=== PATIENT | female | born 1940 | race Caucasian/White ===

== ENCOUNTER 2020-03-19 08:26 | Emergency (ER) | payer MEDICARE, SELFPAY ==
[2020-03-19 08:31] VITALS: BP 127/49; PULSE 62; RESP 22; TEMP 36.6; O2SAT 99
--- NOTE | 2020-03-19 08:59 | ED.GENADULT ---
HPI - General Adult General Chief complaint: Skin/Abscess/Foreign Body Stated complaint: wasp sting on left arm and right hand Time Seen by Provider: 03/19/20 09:00 Source: patient Mode of arrival: ambulatory Limitations: no limitations History of Present Illness HPI narrative: 79-year-old female patient presents to the [facility] with complaints of wound was seen to the left arm as well as the right wrist area. Patient states that she was stung 3 times by a wasp on Saturday this week. Patient states she is tried Tylenol, hydrocortisone cream and washing it states that she noticed that the swelling and redness is getting worse on the left arm. Denies any fevers, body aches or chills. Related Data Home Medications Medication Instructions Recorded Confirmed atorvastatin 10 mg tablet 10 mg PO DAILY 08/26/19 03/19/20 benralizumab 30 mg/mL subcutaneous 30 mg SUB-Q ONCE 08/26/19 03/19/20 syringe calcium carbonate 500 mg calcium 500 mg PO DAILY 08/26/19 03/19/20 (1,250 mg) chewable tablet esomeprazole magnesium 40 mg 40 mg PO DAILY 08/26/19 03/19/20 capsule,delayed release fluticasone furoate 100 1 inhalation INHALATION DAILY 08/26/19 03/19/20 mcg-vilanterol 25 mcg/dose inhalation powder ipratropium bromide 0.03 % nasal 2 spray NASAL BID 08/26/19 03/19/20 spray lactobacillus combination no.4 3 3,000 mmu cells PO DAILY 08/26/19 03/19/20 billion cell capsule loratadine 10 mg tablet 10 mg PO DAILY 08/26/19 03/19/20 mecobalamin (vitamin B12) 5,000 5,000 mcg PO DAILY 08/26/19 03/19/20 mcg disintegrating tablet multivitamin 1 tablet PO DAILY 08/26/19 03/19/20 prednisone 1.5 mg PO DAILY 03/19/20 03/19/20 prednisone 5 mg PO DAILY 03/19/20 03/19/20 Allergies Allergy/AdvReac Type Severity Reaction Status Date / Time No Known Allergies Allergy Verified 08/26/19 09:37 Review of Systems Review of Systems: Narrative: CONSTITUTIONAL: Denies fever, chills, or sweats. EYES: Denies visual changes, redness, or discharge. ENT: Denies rhinorrhea, congestion, sore throat, or otalgia. CARDIOVASCULAR: Denies chest pain, palpitations, or edema. RESPIRATORY: Denies cough or dyspnea. GASTROINTESTINAL: Denies abdominal pain, nausea, vomiting, or diarrhea. GENITOURINARY: Denies dysuria or hematuria. SKIN: Denies rash or itching. Positive redness and swelling to the left arm x3 days MUSCULOSKELETAL: Denies back pain, joint pain, or myalgia. NEUROLOGIC: Denies headache, numbness, or weakness. PSYCHIATRIC: Denies anxiety or depression. [facility] Past Medical History Medical History (Updated 03/19/20 @ 09:12 by CARLOS Cancino) Acid reflux Asthma COPD (chronic obstructive pulmonary disease) Heart attack High cholesterol Surgical History Surgical History (Updated 03/19/20 @ 09:06 by CARLOS Cancino) H/O cardiac catheterization History of tonsillectomy Family History Family History Father Cerebrovascular accident Social History Social History Smoking status: Never smoker Alcohol intake: current Substance use: never Comments At the time of my signature I agree with nursing past medical history, surgical, social, and family history. There is no relevant family history pertinent to the presenting complaint. Exam Narrative: Exam Narrative: GENERAL: Well-appearing, well-nourished, and in no acute distress. HEAD: Normocephalic, atraumatic. EYES: PERRLA and EOMI. ENT: Nares clear, no rhinorrhea or epistaxis. Mucous membranes moist. NECK: Supple. No lymphadenopathy CHEST: Clear to auscultation. No respiratory distress. HEART: Regular rate and rhythm. No murmur heard. Normal peripheral pulses. ABDOMEN: Soft, nontender, nondistended, normal active bowel sounds. EXTREMITIES: Normal range of motion. No edema. SKIN: Warm, dry, no rash. Patient has redness to the left proximal forearm. It is slightly
== END 2020-03-19 09:18 | disposition home or self-care (01) ==
PROVIDERS: Emergency Provider Nurse Practitioner Family; PCP Internal Medicine Geriatric Medicine
DX: L03.114 Cellulitis of left upper limb (principal); K21.9 Gastro-esophageal reflux disease without esophagitis; J44.9 Chronic obstructive pulmonary disease, unspecified; I25.2 Old myocardial infarction; E78.00 Pure hypercholesterolemia, unspecified
CPT/HCPCS: 99213; G0463

== ENCOUNTER 2021-05-04 08:09 | Emergency (ER) | payer MEDICARE, SELFPAY ==
--- NOTE | 2021-05-04 08:12 | ED.UPPEXIN ---
HPI - Extremity Injury (Upper) General Chief Complaint: Skin/Abscess/Foreign Body Stated Complaint: Red and swollen left Hand Time Seen by Provider: 05/04/21 08:13 Source: patient and RN notes reviewed History of Present Illness HPI narrative: Patient is a 80-year-old female who presents the urgent care with complaints of left hand redness and swelling. Patient states that she woke up Saturday morning with increased redness and swelling after attempting to pop a pimple on Saturday evening. Patient denies of any fever, nausea, vomiting. Denies of any use of [id number] medication for her pain or to clean the area. States it is more red and swollen this morning than it was last night. No other acute complaints. No acute distress noted. Patient aware of the plan of care. Some parts of this dictation were generated by voice recognition software and may contain typographical and/or grammatical inaccuracies. Related Data Home Medications Medication Instructions Recorded Confirmed atorvastatin 10 mg tablet 10 mg PO DAILY 08/26/19 03/19/20 benralizumab 30 mg/mL subcutaneous 30 mg SUB-Q ONCE 08/26/19 03/19/20 syringe calcium carbonate 500 mg calcium 500 mg PO DAILY 08/26/19 03/19/20 (1,250 mg) chewable tablet esomeprazole magnesium 40 mg 40 mg PO DAILY 08/26/19 03/19/20 capsule,delayed release fluticasone furoate 100 1 inhalation INHALATION DAILY 08/26/19 03/19/20 mcg-vilanterol 25 mcg/dose inhalation powder ipratropium bromide 21 mcg (0.03 2 spray NASAL BID 08/26/19 03/19/20 %) nasal spray lactobacillus combination no.4 3 3,000 mmu cells PO DAILY 08/26/19 03/19/20 billion cell capsule loratadine 10 mg tablet 10 mg PO DAILY 08/26/19 03/19/20 mecobalamin (vitamin B12) 5,000 5,000 mcg PO DAILY 08/26/19 03/19/20 mcg disintegrating tablet multivitamin 1 tablet PO DAILY 08/26/19 03/19/20 prednisone 1.5 mg PO DAILY 03/19/20 03/19/20 prednisone 5 mg PO DAILY 03/19/20 03/19/20 Allergies Allergy/AdvReac Type Severity Reaction Status Date / Time No Known Allergies Allergy Verified 05/04/21 08:22 Review of Systems Review of Systems: CONSTITUTIONAL: Denies fever, chills, or sweats. EYES: Denies visual changes, redness, or discharge. ENT: Denies rhinorrhea, congestion, sore throat, or otalgia. CARDIOVASCULAR: Denies chest pain, palpitations, or edema. RESPIRATORY: Denies cough or dyspnea. GASTROINTESTINAL: Denies abdominal pain, nausea, vomiting, or diarrhea. GENITOURINARY: Denies dysuria or hematuria. SKIN: Reports of redness and swelling to the wound of the left hand MUSCULOSKELETAL: Denies back pain, joint pain, or myalgia. NEUROLOGIC: Denies headache, numbness, or weakness. All other systems reviewed are negative, except as documented in HPI. [facility] Past Medical History Medical History (Updated 05/04/21 @ 08:25 by CARLOS Ngo) Acid reflux Asthma COPD (chronic obstructive pulmonary disease) Heart attack High cholesterol Surgical History Surgical History (Updated 03/19/20 @ 09:06 by CARLOS Cancino) H/O cardiac catheterization History of tonsillectomy Family History Family History Father Cerebrovascular accident Social History Social History Smoking status: Never smoker Alcohol intake: current Substance use: never Comments At the time of my signature, I reviewed and agree with the nursing past medical, surgical, social, and family history. There is no relevant family history pertinent to the patient complaint. Exam Narrative: GENERAL: This is a well-nourished, well-developed patient, in no apparent distress. HEAD: normocephalic, atraumatic. EYES: PERRL. Sclera clear/white. Vision is grossly intact. EARS: External ears normal NOSE: External nose normal with no obvious nasal discharge, nares without redness, no rhinorrhea. THROAT: Mucous membranes moist
[2021-05-04 08:16] VITALS: BP 122/43; PULSE 60; RESP 20; TEMP 36.4; O2SAT 99
== END 2021-05-04 08:30 | disposition home or self-care (01) ==
PROVIDERS: Emergency Provider Nurse Practitioner Family; PCP Internal Medicine Geriatric Medicine
DX: L03.114 Cellulitis of left upper limb (principal); K21.9 Gastro-esophageal reflux disease without esophagitis; J44.9 Chronic obstructive pulmonary disease, unspecified; E78.00 Pure hypercholesterolemia, unspecified; I25.2 Old myocardial infarction
CPT/HCPCS: 99213; G0463

== ENCOUNTER 2021-06-23 10:38 | Emergency (ER) | payer MEDICARE, SELFPAY ==
[2021-06-23 10:45] VITALS: BP 129/55; PULSE 64; RESP 14; TEMP 36.6; O2SAT 99
--- NOTE | 2021-06-23 11:15 | ED.URI ---
HPI - URI/Sore Throat General Chief Complaint: Upper Respiratory Infection Stated Complaint: Sore Throat/Congestion Time Seen by Provider: 06/23/21 11:02 Source: patient and RN notes reviewed Mode of arrival: ambulatory Limitations: no limitations History of Present Illness HPI Narrative: Patient presents today complaining of a 2-week history of sore throat, postnasal drip, right-sided nasal congestion and pressure, rhinorrhea. She has been taking Tylenol without relief. Denies any additional symptoms. MD elicited complaint: sore throat, rhinorrhea, nasal congestion and sinus pain Related Data Home Medications Medication Instructions Recorded Confirmed atorvastatin 10 mg tablet 10 mg PO DAILY 08/26/19 06/23/21 esomeprazole magnesium 40 mg 40 mg PO DAILY 08/26/19 06/23/21 capsule,delayed release ipratropium bromide 21 mcg (0.03 2 spray NASAL BID 08/26/19 06/23/21 %) nasal spray mecobalamin (vitamin B12) 5,000 5,000 mcg PO DAILY 08/26/19 06/23/21 mcg disintegrating tablet multivitamin 1 tablet PO DAILY 08/26/19 06/23/21 prednisone 6 mg PO DAILY 03/19/20 06/23/21 aspirin [Adult Aspirin EC Low 81 mg PO DAILY 05/04/21 06/23/21 Strength] azelastine 2 spray INTRANASAL Q12H 05/04/21 06/23/21 benralizumab [Fasenra] 30 mg SUBCUT ONCE 05/04/21 06/23/21 budesonide-formoterol 2 puff INHALATION Q12H 05/04/21 06/23/21 calcium citrate-vitamin D3 1 tablet PO DAILY 05/04/21 06/23/21 [Citracal + D Maximum] desloratadine 5 mg PO DAILY 05/04/21 06/23/21 montelukast 10 mg PO DAILY 05/04/21 06/23/21 Allergies Allergy/AdvReac Type Severity Reaction Status Date / Time No Known Allergies Allergy Verified 06/23/21 10:55 Review of Systems Review of Systems: CONSTITUTIONAL: Denies body aches, fever, chills, or sweats. EYES: Denies visual changes, redness, or discharge. ENT: Denies otalgia.+ Sore throat, postnasal drip, congestion, sinus pressure, rhinorrhea CARDIOVASCULAR: Denies chest pain, palpitations, or edema. RESPIRATORY: Denies cough or dyspnea. GASTROINTESTINAL: Denies abdominal pain, nausea, vomiting, or diarrhea. GENITOURINARY: Denies dysuria or hematuria. SKIN: Denies rash, itching, or wounds. MUSCULOSKELETAL: Denies back pain, joint pain, or myalgia. NEUROLOGIC: Denies headache, numbness, tingling, or weakness. PSYCH: Denies depression or anxiety. [facility] Past Medical History Medical History Acid reflux Asthma COPD (chronic obstructive pulmonary disease) Heart attack High cholesterol Surgical History Surgical History H/O cardiac catheterization History of tonsillectomy Family History Family History Father Cerebrovascular accident Social History Social History Smoking status: Never smoker Alcohol intake: current Substance use: never Comments At time of signature, I have reviewed and agree with nursing past medical, surgical, social and family history unless otherwise noted. Please see nursing chart for further information. There is no relevant family history pertinent to the presenting complaint Exam Narrative: GENERAL: Well-appearing, well-nourished, and in no acute distress. HEAD: Normocephalic, atraumatic. EYES: EOMI. No redness or drainage. Conjunctivae normal. ENT: Mucous membranes pink and moist. Nares congested. No rhinorrhea. TMs normal bilaterally. Throat mildly erythematous without edema or exudate. Small amount of postnasal drainage. Uvula midline. NECK: Normal AROM. Supple. No lymphadenopathy. CHEST: No respiratory distress. Clear to auscultation. HEART: Regular rate and rhythm. No murmur appreciated. Normal peripheral pulses. EXTREMITIES: Normal range of motion. No edema. SKIN: Warm, dry, no rash. Capillary refill normal. Normal skin tur
== END 2021-06-23 11:23 | disposition home or self-care (01) ==
PROVIDERS: Emergency Provider Nurse Practitioner; PCP Internal Medicine Geriatric Medicine
DX: J01.90 Acute sinusitis, unspecified (principal); K21.9 Gastro-esophageal reflux disease without esophagitis; J44.9 Chronic obstructive pulmonary disease, unspecified; I25.2 Old myocardial infarction; E78.00 Pure hypercholesterolemia, unspecified
CPT/HCPCS: 87081; 87880; 99213; G0463

== ENCOUNTER 2021-12-15 09:13 | Emergency (ER) | payer MEDICARE, SELFPAY ==
--- NOTE | ~2021-12-15 | XR_ITS ---
EXAMINATION: XR chest 2V DATE: 12/15/2021 09:38 INDICATION: Cough. Crackles at the lung bases. TECHNIQUE: Frontal and lateral views of the chest were obtained. COMPARISON: Chest 2 views 03/11/2014 FINDINGS: The chest demonstrates clear lungs without pneumonia, pleural effusion, or pneumothorax. Th e heart size is normal. There is mild chronic anterior wedging of 2 midthoracic vertebral bodies. IMPRESSION: 1. No acute cardiopulmonary disease. Reviewed, dictated and finalized at location A.
[2021-12-15 09:17] VITALS: BP 142/86; PULSE 75; RESP 16; TEMP 37; O2SAT 99
--- NOTE | 2021-12-15 09:18 | ED.URI ---
HPI - URI/Sore Throat General Chief Complaint: Upper Respiratory Infection Stated Complaint: cough Time Seen by Provider: 12/15/21 09:20 Source: patient Mode of arrival: ambulatory Limitations: no limitations History of Present Illness HPI Narrative: Ms. Day is a 81-year-old female patient presenting to the clinic today with complaints of cough since September. She reports she has been living in [place] and had seen in urgent care provider there who gave her a prescription for a Z-Leonid. She reports that this did not help her symptoms. Cough is nonproductive. She is unsure of what kind of lung disease she has whether it is AFB or asthma. She denies any fever, night sweats, or chills. Reports that she has an nagging cough with some discomfort in the center of her chest due to cough. Also reports mild shortness of breath associated with this. Is currently on a regimen of prednisone daily that her provider has placed her on due to her lung condition. MD elicited complaint: cough Related Data Home Medications Medication Instructions Recorded Confirmed atorvastatin 10 mg tablet 10 mg PO DAILY 08/26/19 12/15/21 esomeprazole magnesium 40 mg 40 mg PO DAILY 08/26/19 12/15/21 capsule,delayed release ipratropium bromide 21 mcg (0.03 2 spray NASAL BID 08/26/19 12/15/21 %) nasal spray mecobalamin (vitamin B12) 5,000 5,000 mcg PO DAILY 08/26/19 12/15/21 mcg disintegrating tablet multivitamin 1 tablet PO DAILY 08/26/19 12/15/21 prednisone 6 mg PO DAILY 03/19/20 12/15/21 aspirin [Adult Aspirin EC Low 81 mg PO DAILY 05/04/21 12/15/21 Strength] azelastine 2 spray INTRANASAL Q12H 05/04/21 12/15/21 benralizumab [Fasenra] 30 mg SUBCUT ONCE 05/04/21 12/15/21 budesonide-formoterol 2 puff INHALATION Q12H 05/04/21 12/15/21 calcium citrate-vitamin D3 1 tablet PO DAILY 05/04/21 12/15/21 [Citracal + D Maximum] desloratadine 5 mg PO DAILY 05/04/21 12/15/21 montelukast 10 mg PO DAILY 05/04/21 12/15/21 Allergies Allergy/AdvReac Type Severity Reaction Status Date / Time No Known Allergies Allergy Verified 12/15/21 09:29 Review of Systems Review of Systems: Pertinent positives per HPI. Patient denies any fever, chills, rash, headache, visual changes, dizziness, cough, shortness of breath, chest pain, palpitations, nausea, vomiting, diarrhea, constipation, abdominal pain, or any urinary issues. PMF Past Medical History Medical History Acid reflux Asthma COPD (chronic obstructive pulmonary disease) Heart attack High cholesterol Surgical History Surgical History H/O cardiac catheterization History of tonsillectomy Family History Family History Father Cerebrovascular accident Social History Social History Smoking status: Never smoker Alcohol intake: current Substance use: never Comments At the time of my signature, I reviewed and agree with the nursing past medical, surgical, social, and family history. There is no relevant family history pertinent to the patient complaint. Exam Narrative: General: Well-developed, well nourished, in no apparent distress Head: Normocephalic, atraumatic Eyes: Pupils equally round and reactive to light bilaterally, EOM intact, sclera and conjunctive clear, no discharge, lids normal Ears: TMs intact and clear, ear canals clear, no drainage, grossly hearing normal. Nose: Nares patent, clear discharge, no inflammation, no sinus tenderness. Mouth: Oral pharynx without lesions or masses, good dentition, MMM. Postnasal drip Neck: Supple, trachea midline, no enlargement of anterior or posterior cervical nodes, no thyroid masses or goiter palpable. Cardio:Regular rate and rhythm, s1 and s2 normal, no murmur appreciated. Resp: Lung sounds d
== END 2021-12-15 09:55 | disposition home or self-care (01) ==
PROVIDERS: Emergency Provider Nurse Practitioner Family; PCP Internal Medicine Geriatric Medicine
DX: R09.82 Postnasal drip (principal); J45.901 Unspecified asthma with (acute) exacerbation; K21.9 Gastro-esophageal reflux disease without esophagitis; J44.9 Chronic obstructive pulmonary disease, unspecified; E78.00 Pure hypercholesterolemia, unspecified; I25.2 Old myocardial infarction
CPT/HCPCS: 71046; 99213; G0463

== ENCOUNTER 2022-05-23 08:16 | Emergency (ER) | payer MEDICARE, SELFPAY ==
--- NOTE | ~2022-05-23 | XR_ITS ---
EXAMINATION: XR hip LT min 2V DATE: 05/23/2022 08:52 INDICATION: Anterior left hip pain TECHNIQUE: Anteroposterior, frog leg and cross-table lateral views of the left hip were obtained. COMPARISON: None. FINDINGS: Alignment is normal. No fracture or suspected avascular necrosis. Left hip and sacroiliac joint space s are normal. Atherosclerotic calcifications along the left femoral artery as well as arteries in the pelvis. IMPRESSION: 1. Normal left hip. No acute osseous abnormality. Reviewed, dictated and finalized at location A.
[2022-05-23 08:26] VITALS: BP 136/52; PULSE 66; RESP 16; TEMP 37; O2SAT 100
--- NOTE | 2022-05-23 08:27 | ED.BACK ---
HPI - Back Pain/Injury General Stated Complaint: Left Hip Pain Source: patient and RN notes reviewed Mode of arrival: ambulatory Limitations: no limitations History of Present Illness MD elicited complaint: back pain Related Data Home Medications Medication Instructions Recorded Confirmed atorvastatin 10 mg tablet 10 mg PO DAILY 08/26/19 12/15/21 esomeprazole magnesium 40 mg 40 mg PO DAILY 08/26/19 12/15/21 capsule,delayed release ipratropium bromide 21 mcg (0.03 2 spray intranasal BID 08/26/19 12/15/21 %) nasal spray mecobalamin (vitamin B12) 5,000 5,000 mcg PO DAILY 08/26/19 12/15/21 mcg disintegrating tablet multivitamin 1 tablet PO DAILY 08/26/19 12/15/21 prednisone 5 mg tablet 6 mg PO DAILY 03/19/20 12/15/21 aspirin 81 mg tablet,delayed 81 mg PO DAILY 05/04/21 12/15/21 release azelastine 137 mcg (0.1 %) nasal 2 spray intranasal Q12H 05/04/21 12/15/21 spray aerosol benralizumab 30 mg/mL subcutaneous 30 mg subcut ONCE 05/04/21 12/15/21 syringe (Fasenra) budesonide-formoterol HFA 160 2 puff inhalation Q12H 05/04/21 12/15/21 mcg-4.5 mcg/actuation aerosol inhaler calcium citrate 315 mg 1 tablet PO DAILY 05/04/21 12/15/21 calcium-vitamin D3 6.25 mcg (250 unit) tablet (Citracal + Vitamin D Maximum) desloratadine 5 mg tablet 5 mg PO DAILY 05/04/21 12/15/21 montelukast 10 mg tablet 10 mg PO DAILY 05/04/21 12/15/21 Allergies Allergy/AdvReac Type Severity Reaction Status Date / Time No Known Allergies Allergy Verified 12/15/21 09:29 Review of Systems Review of Systems: CONSTITUTIONAL: Denies malaise, chills, sweats, or fever. CARDIOVASCULAR: Denies chest pain, palpitations, or edema. RESPIRATORY: Denies cough or dyspnea. GASTROINTESTINAL: Denies abdominal pain, nausea, vomiting, diarrhea, loss of bowel function GENITOURINARY: Denies dysuria, hematuria, frequency, loss of bladder function. SKIN: Denies rash or itching. MUSCULOSKELETAL: Reports low back pain NEUROLOGIC: Denies numbness, weakness, or headache. All systems reviewed & are unremarkable except as noted in HPI and below PMFSH Past Medical History Medical History Acid reflux Asthma COPD (chronic obstructive pulmonary disease) Heart attack High cholesterol Surgical History Surgical History H/O cardiac catheterization History of tonsillectomy Family History Family History Father Cerebrovascular accident Social History Social History Smoking status: Never smoker Alcohol intake: current Substance use: never Comments At time of signature, agree with nursing past medical, surgical, social and family history. There is no relevant family history pertinent to the presenting complaint Exam Narrative: GENERAL: Well-appearing, well-nourished, and in no acute distress. HEAD: Normocephalic, atraumatic. EYES: PERRLA and EOMI. NECK: Supple. No lymphadenopathy. CHEST: Clear to auscultation. No respiratory distress. HEART: Regular rate and rhythm. Distal pulses palpable and equal, cap refill <3 seconds ABDOMEN: Soft, nontender, nondistended, normal active bowel sounds, no palpable or pulsatile masses. No CVA tenderness MUSCULOSKELETAL: Normal range of motion and strength in all extremities; 5/5 strength with hip flexion and extension, dorsiflexion and extension, knee flexion and extension, plantar flexion and extension. Normal sensation in dermatomal distributions with sensitivity to light touch and pain. No midline back tenderness to palpation. No paraspinal tenderness. Transfers from lying to sitting to standing. SKIN: Warm, dry, no rash. No ecchymosis, erythema, open wounds to back. NEURO: No focal deficits. Alert and oriented x3. Reflexes intact. Normal gait. PSYCH: Normal mood a
--- NOTE | 2022-05-23 08:42 | ED.LOWEXIN ---
HPI - Extremity Injury (Lower) General Stated Complaint: Left Hip Pain Time Seen by Provider: 05/23/22 08:30 Source: patient and RN notes reviewed Mode of arrival: ambulatory Limitations: no limitations History of Present Illness HPI Narrative: 82-year-old female presents with concern for left hip pain. She reports on Saturday she was playing golf, when she swung the club she felt a pain in her left hip. She reports since then she has had left hip pain that goes down the front of the leg. Reports the pain is exacerbated when she lifts her left leg, she feels the weakness when she tries to lift her leg at the hip joint. She reports pain is not exacerbated with weightbearing. She reports pain is relieved by resting. She reports she has tried Aleve and a pain patch which helped the pain well enough to let her play golf yesterday again however she has not had complete relief of pain. She denies any open skin, bruising, swelling, redness, rash. She denies back pain. She denies loss of bowel or bladder function. She denies groin pain. She denies any direct trauma to the hip. She denies any fall MD complaint: hip injury Related Data Home Medications Medication Instructions Recorded Confirmed atorvastatin 10 mg tablet 10 mg PO DAILY 08/26/19 12/15/21 esomeprazole magnesium 40 mg 40 mg PO DAILY 08/26/19 12/15/21 capsule,delayed release ipratropium bromide 21 mcg (0.03 2 spray intranasal BID 08/26/19 12/15/21 %) nasal spray mecobalamin (vitamin B12) 5,000 5,000 mcg PO DAILY 08/26/19 12/15/21 mcg disintegrating tablet multivitamin 1 tablet PO DAILY 08/26/19 12/15/21 prednisone 5 mg tablet 7 mg PO DAILY 03/19/20 05/23/22 aspirin 81 mg tablet,delayed 81 mg PO DAILY 05/04/21 12/15/21 release azelastine 137 mcg (0.1 %) nasal 2 spray intranasal Q12H 05/04/21 12/15/21 spray aerosol benralizumab 30 mg/mL subcutaneous 30 mg subcut ONCE 05/04/21 12/15/21 syringe (Fasenra) budesonide-formoterol HFA 160 2 puff inhalation Q12H 05/04/21 12/15/21 mcg-4.5 mcg/actuation aerosol inhaler desloratadine 5 mg tablet 5 mg PO DAILY 05/04/21 12/15/21 montelukast 10 mg tablet 10 mg PO DAILY 05/04/21 12/15/21 Allergies Allergy/AdvReac Type Severity Reaction Status Date / Time No Known Allergies Allergy Verified 12/15/21 09:29 Review of Systems Review of Systems: CONSTITUTIONAL: Denies malaise, chills, sweats, or fever. CARDIOVASCULAR: Denies chest pain, palpitations, or edema. RESPIRATORY: Denies cough or dyspnea. SKIN: Denies rash or itching, bruising, redness, swelling. MUSCULOSKELETAL: Reports left hip pain that radiates down the left leg NEUROLOGIC: Denies numbness, weakness All systems reviewed & are unremarkable except as noted in HPI and below PMFSH Past Medical History Medical History Acid reflux Asthma COPD (chronic obstructive pulmonary disease) Heart attack High cholesterol Surgical History Surgical History H/O cardiac catheterization History of tonsillectomy Family History Family History Father Cerebrovascular accident Social History Social History Smoking status: Never smoker Alcohol intake: current Substance use: never Comments At time of signature, agree with nursing past medical, surgical, social and family history. There is no relevant family history pertinent to the presenting complaint Exam Narrative: GENERAL: Well-appearing, well-nourished, and in no acute distress. HEAD: Normocephalic, atraumatic. EYES: PERRLA and EOMI. NECK: Supple. No lymphadenopathy. CHEST: Speaks in full sentences, no respiratory distress. HEART: Regular rate and rhythm. Distal pulses palpable and equal, cap refill <3 seconds MUSCULOSKELETAL: 2/5 strength with left hip
--- NOTE | 2022-05-23 08:54 | PC.NURSE ---
PT DECLINED ICE FOR COMFORT
== END 2022-05-23 09:14 | disposition home or self-care (01) ==
PROVIDERS: Emergency Provider Nurse Practitioner; PCP Internal Medicine Geriatric Medicine
DX: S76.012A Strain of muscle, fascia and tendon of left hip, initial encounter (principal); X50.9XXA Other and unspecified overexertion or strenuous movements or postures, initial encounter; Y93.53 Activity, golf; K21.9 Gastro-esophageal reflux disease without esophagitis; J44.9 Chronic obstructive pulmonary disease, unspecified; E78.00 Pure hypercholesterolemia, unspecified; I25.2 Old myocardial infarction
CPT/HCPCS: 73502; 99213; G0463

== ENCOUNTER 2022-05-25 14:30 | Emergency (ER) | payer MEDICARE, SELFPAY ==
--- NOTE | 2022-05-25 14:30 | ED.URI ---
HPI - URI/Sore Throat General Chief Complaint: Unspecified Stated Complaint: Exposed to Covid/no symptoms Time Seen by Provider: 05/25/22 14:30 Source: patient Mode of arrival: ambulatory Limitations: no limitations History of Present Illness HPI Narrative: Ms. Day is a an 82-year-old female patient presenting to the clinic today with complaints of exposure to COVID but she denies any symptoms. She reports she is having some fatigue over the last few days but she started a new pain medication. States that she was exposed over the weekend to a lady that tested positive for COVID on Saturday. Related Data Home Medications Medication Instructions Recorded Confirmed atorvastatin 10 mg tablet 10 mg PO DAILY 08/26/19 05/23/22 esomeprazole magnesium 40 mg 40 mg PO DAILY 08/26/19 05/23/22 capsule,delayed release ipratropium bromide 21 mcg (0.03 2 spray intranasal BID 08/26/19 05/23/22 %) nasal spray mecobalamin (vitamin B12) 5,000 5,000 mcg PO DAILY 08/26/19 05/23/22 mcg disintegrating tablet multivitamin 1 tablet PO DAILY 08/26/19 05/23/22 prednisone 5 mg tablet 7 mg PO DAILY 03/19/20 05/23/22 aspirin 81 mg tablet,delayed 81 mg PO DAILY 05/04/21 05/23/22 release azelastine 137 mcg (0.1 %) nasal 2 spray intranasal Q12H 05/04/21 05/23/22 spray aerosol benralizumab 30 mg/mL subcutaneous 30 mg subcut ONCE 05/04/21 05/23/22 syringe (Fasenra) budesonide-formoterol HFA 160 2 puff inhalation Q12H 05/04/21 05/23/22 mcg-4.5 mcg/actuation aerosol inhaler desloratadine 5 mg tablet 5 mg PO DAILY 05/04/21 05/23/22 montelukast 10 mg tablet 10 mg PO DAILY 05/04/21 05/23/22 Allergies Allergy/AdvReac Type Severity Reaction Status Date / Time No Known Allergies Allergy Verified 05/25/22 14:41 Review of Systems Review of Systems: Pertinent positives per HPI. Patient denies any fever, chills, rash, headache, visual changes, dizziness, cough, runny nose, sore throat, shortness of breath, chest pain, palpitations, nausea, vomiting, diarrhea, constipation, abdominal pain, or any urinary issues. [facility] Past Medical History Medical History Acid reflux Asthma COPD (chronic obstructive pulmonary disease) Heart attack High cholesterol Surgical History Surgical History H/O cardiac catheterization History of tonsillectomy Family History Family History Father Cerebrovascular accident Social History Social History Smoking status: Never smoker Alcohol intake: current Substance use: never Comments At the time of my signature, I reviewed and agree with the nursing past medical, surgical, social, and family history. There is no relevant family history pertinent to the patient complaint. Exam Narrative: General: Well-developed, well nourished, in no apparent distress Head: Normocephalic, atraumatic Eyes: Pupils equally round and reactive to light bilaterally, EOM intact, sclera and conjunctive clear, no discharge, lids normal Ears: TMs intact and clear, ear canals clear, no drainage, grossly hearing normal. Nose: Nares patent, no discharge, no inflammation, no sinus tenderness. Mouth: Oropharynx without lesions or masses, good dentition, MMM. Neck: Supple, trachea midline, no enlargement of anterior or posterior cervical nodes, no thyroid masses or goiter palpable. Cardio: Regular rate and rhythm, s1 and s2 normal, no murmur appreciated. Resp: Clear to auscultation bilaterally anteriorly and posteriorly, no rhonchi, rales, wheezing or rubs Course Course Emergency Course: Portions of this record may have been created with voice recognition software. Level of Care: Express Care Visit Vital Signs Vital signs: Vital signs reviewed MDM - URI/Sore Throat
[2022-05-25 14:33] VITALS: BP 144/50; PULSE 65; RESP 16; TEMP 36.6; O2SAT 100
[2022-05-25 14:41] VITALS: BP 144/50; PULSE 65; RESP 16; TEMP 36.6; O2SAT 100
[2022-05-25 19:02] LABS: SARS-CoV-2 RNA PCR Negative
== END 2022-05-25 14:48 | disposition home or self-care (01) ==
PROVIDERS: Emergency Provider Nurse Practitioner Family; PCP Internal Medicine Geriatric Medicine
DX: Z20.822 Contact with and (suspected) exposure to COVID-19 (principal); K21.9 Gastro-esophageal reflux disease without esophagitis; J44.9 Chronic obstructive pulmonary disease, unspecified; E78.00 Pure hypercholesterolemia, unspecified; I25.2 Old myocardial infarction
CPT/HCPCS: 99213; C9803; G0463; U0003; U0005

== ENCOUNTER 2022-08-25 08:01 | Emergency (ER) | payer MEDICARE, SELFPAY ==
[2022-08-25 08:04] VITALS: BP 144/53; PULSE 69; RESP 20; TEMP 36.5; O2SAT 100
--- NOTE | 2022-08-25 08:15 | ED.GENADULT ---
HPI - General Adult General Chief complaint: Upper Respiratory Infection Stated complaint: cold Source: patient Limitations: no limitations History of Present Illness HPI narrative: Patient presents for evaluation of postnasal drainage and nonproductive cough for the last 10 days. No fever, chills, nausea, vomiting, sore throat, or diarrhea. She has some chronic shortness of breath, not worse as of late. She indicates she has underlying asthma. She had similar symptoms last year and had her daily 7 mg dosing of prednisone increased to 20 mg for 5 days. She indicates the medication helped resolve her symptoms pretty quickly. No recent sick contacts. No additional complaints or concerns. Related Data Home Medications Medication Instructions Recorded Confirmed atorvastatin 10 mg tablet 10 mg PO DAILY 08/26/19 05/29/22 esomeprazole magnesium 40 mg 40 mg PO DAILY 08/26/19 05/29/22 capsule,delayed release ipratropium bromide 21 mcg (0.03 2 spray intranasal BID 08/26/19 05/29/22 %) nasal spray mecobalamin (vitamin B12) 5,000 5,000 mcg PO DAILY 08/26/19 05/29/22 mcg disintegrating tablet multivitamin 1 tablet PO DAILY 08/26/19 05/29/22 prednisone 5 mg tablet 7 mg PO DAILY 03/19/20 05/29/22 aspirin 81 mg tablet,delayed 81 mg PO DAILY 05/04/21 05/29/22 release azelastine 137 mcg (0.1 %) nasal 2 spray intranasal Q12H 05/04/21 05/29/22 spray aerosol benralizumab 30 mg/mL subcutaneous 30 mg subcut ONCE 05/04/21 05/29/22 syringe (Fasenra) budesonide-formoterol HFA 160 2 puff inhalation Q12H 05/04/21 05/29/22 mcg-4.5 mcg/actuation aerosol inhaler desloratadine 5 mg tablet 5 mg PO DAILY 05/04/21 05/29/22 montelukast 10 mg tablet 10 mg PO DAILY 05/04/21 05/29/22 Allergies Allergy/AdvReac Type Severity Reaction Status Date / Time No Known Allergies Allergy Verified 08/25/22 08:11 Review of Systems Review of Systems: CONSTITUTIONAL: Denies fever, chills, or sweats. EYES: Denies visual changes, redness, or discharge. ENT: Reports postnasal drainage. Deniescongestion, sore throat, or otalgia. CARDIOVASCULAR: Denies chest pain, palpitations, or edema. RESPIRATORY: Reports nonproductive cough. GASTROINTESTINAL: Denies abdominal pain, nausea, vomiting, or diarrhea. GENITOURINARY: Denies dysuria or hematuria. SKIN: Denies rash or itching. MUSCULOSKELETAL: Denies back pain, joint pain, or myalgia. NEUROLOGIC: Denies headache, numbness, dizziness, or weakness. PSYCHIATRIC: Denies anxiety or depression. [facility] Past Medical History Medical History Acid reflux Asthma COPD (chronic obstructive pulmonary disease) Heart attack High cholesterol Squamous cell carcinoma of left upper extremity Strain of left hip Surgical History Surgical History H/O cardiac catheterization H/O shoulder surgery History of tonsillectomy Family History Family History Father Cerebrovascular accident Other Heart disease Hypertension Pancreatic cancer Social History Social History Smoking status: Never smoker Alcohol intake: current Substance use: never Gender identity (if verbalized by the patient): Female Exam Narrative: GENERAL: Well-appearing, well-nourished, and in no acute distress. HEAD: Normocephalic, atraumatic. EYES: PERRLA and EOMI. ENT: Nares clear, no rhinorrhea or epistaxis. Mucous membranes moist. Oropharynx without tonsillar hypertrophy exudate or other lesions. Bilateral TMs pearly allan nonbulging NECK: Supple. No adenopathy or masses. No carotid bruits or JVD CHEST: Clear to auscultation. No respiratory distress. No wheezes rales or rhonchi HEART: Regular rate and rhythm. No murmur heard. Normal peripheral pulses. ABDOMEN: Soft, nontender, nondisten
== END 2022-08-25 08:20 | disposition home or self-care (01) ==
PROVIDERS: Emergency Provider Nurse Practitioner; PCP Internal Medicine Geriatric Medicine
DX: J06.9 Acute upper respiratory infection, unspecified (principal); K21.9 Gastro-esophageal reflux disease without esophagitis; J44.9 Chronic obstructive pulmonary disease, unspecified; E78.00 Pure hypercholesterolemia, unspecified; I25.2 Old myocardial infarction; Z85.828 Personal history of other malignant neoplasm of skin; Z79.82 Long term (current) use of aspirin
CPT/HCPCS: 99213; G0463

== ENCOUNTER 2023-02-07 08:21 | Emergency (ER) | payer MEDICARE, SELFPAY ==
[2023-02-07 08:30] VITALS: BP 143/56; PULSE 53; RESP 18; TEMP 36.4; O2SAT 100
--- NOTE | 2023-02-07 08:38 | ED.SKABFB ---
HPI - Skin/Abscess/Foreign Bdy General Chief complaint: Skin/Abscess/Foreign Body Stated complaint: Skin Problem Source: patient and RN notes reviewed History of Present Illness HPI narrative: 82 yo F Presents to urgent care with complaints of a bump noted to her right side of neck. Pt states she first noticed this yesterday. Pt denies any neck pain, sore throat, ear pain, congestion, runny nose, fevers, chills, chest pain, SOB, or recent illness. Pt denies any trouble swallowing or breathing. Related Data Home Medications Medication Instructions Recorded Confirmed atorvastatin 10 mg tablet 10 mg PO DAILY 08/26/19 05/29/22 esomeprazole magnesium 40 mg 40 mg PO DAILY 08/26/19 05/29/22 capsule,delayed release ipratropium bromide 21 mcg (0.03 2 spray intranasal BID 08/26/19 05/29/22 %) nasal spray mecobalamin (vitamin B12) 5,000 5,000 mcg PO DAILY 08/26/19 05/29/22 mcg disintegrating tablet multivitamin 1 tablet PO DAILY 08/26/19 05/29/22 prednisone 5 mg tablet 7 mg PO DAILY 03/19/20 05/29/22 aspirin 81 mg tablet,delayed 81 mg PO DAILY 05/04/21 05/29/22 release azelastine 137 mcg (0.1 %) nasal 2 spray intranasal Q12H 05/04/21 05/29/22 spray aerosol benralizumab 30 mg/mL subcutaneous 30 mg subcut ONCE 05/04/21 05/29/22 syringe (Fasenra) budesonide-formoterol HFA 160 2 puff inhalation Q12H 05/04/21 05/29/22 mcg-4.5 mcg/actuation aerosol inhaler desloratadine 5 mg tablet 5 mg PO DAILY 05/04/21 05/29/22 montelukast 10 mg tablet 10 mg PO DAILY 05/04/21 05/29/22 Allergies Allergy/AdvReac Type Severity Reaction Status Date / Time No Known Allergies Allergy Verified 08/25/22 08:11 Review of Systems Review of Systems: CONSTITUTIONAL: Denies fever, chills, or sweats. EYES: Denies visual changes, redness, or discharge. ENT: Denies otalgia and sore throat. Small bump felt on right side of neck. CARDIOVASCULAR: Denies chest pain, palpitations, or edema. RESPIRATORY: Denies cough or dyspnea. GASTROINTESTINAL: Denies abdominal pain, nausea, vomiting, or diarrhea. GENITOURINARY: Denies dysuria or hematuria. SKIN: Denies rash or itching. MUSCULOSKELETAL: Denies back pain, joint pain, or myalgia. NEUROLOGIC: Denies headache, numbness, or weakness. Pertinent positives per HPI. [facility] Past Medical History Medical History Acid reflux Asthma COPD (chronic obstructive pulmonary disease) Heart attack High cholesterol Squamous cell carcinoma of left upper extremity Strain of left hip Surgical History Surgical History H/O cardiac catheterization H/O shoulder surgery History of tonsillectomy Family History Family History Father Cerebrovascular accident Other Heart disease Hypertension Pancreatic cancer Social History Social History Smoking status: Never smoker Alcohol intake: current Substance use: never Gender identity (if verbalized by the patient): Female Comments At the time of my signature, I reviewed and agree with the nursing past medical, surgical, social, and family history. There is no relevant family history pertinent to the patient complaint. Exam Narrative: GENERAL: This is a well-nourished, well-developed patient, in no apparent distress. HEAD: normocephalic, atraumatic. EYES: Sclera clear/white. Vision is grossly intact. EARS: External ears normal, auditory canals clear and without drainage, TMs normal without perforation. Hearing grossly intact. NOSE: External nose normal with no obvious nasal discharge, nares without redness, no rhinorrhea. THROAT: Mucous membranes moist, posterior pharynx clear. NECK: Neck supple, non-tender with right cervical lymphadenopathy. CARDIOVASCULAR: Regular rate and rhythm without murmurs, g
== END 2023-02-07 09:05 | disposition home or self-care (01) ==
PROVIDERS: Emergency Provider Nurse Practitioner Family; PCP Internal Medicine Geriatric Medicine
DX: R59.1 Generalized enlarged lymph nodes (principal); K21.9 Gastro-esophageal reflux disease without esophagitis; J44.9 Chronic obstructive pulmonary disease, unspecified; I25.2 Old myocardial infarction; E78.00 Pure hypercholesterolemia, unspecified; Z85.828 Personal history of other malignant neoplasm of skin; Z79.82 Long term (current) use of aspirin
CPT/HCPCS: 87081; 87880; 99213; G0463

== ENCOUNTER 2023-03-17 17:18 | Emergency (ER) | payer MEDICARE, SELFPAY ==
[2023-03-17 17:24] VITALS: BP 149/56; PULSE 61; RESP 16; TEMP 36.4; O2SAT 100
[2023-03-17 17:25] VITALS: BP 149/56; PULSE 61; RESP 16; TEMP 36.4; O2SAT 100
--- NOTE | 2023-03-17 17:55 | ED.GENADULT ---
HPI - General Adult General Chief complaint: Skin/Abscess/Foreign Body Stated complaint: Skin Problem Source: patient Mode of arrival: ambulatory Limitations: no limitations History of Present Illness HPI narrative: Patient presents for evaluation of pruritic rash to the left forearm. Symptom onset yesterday after mowing the lawn. She does not believe she was exposed to poison [place]/oak/[place]ac. She is prescribed 5mg prednisone daily on an ongoing basis for underlying respiratory symptoms. She denies any difficulty breathing or swallowing. No new lotions, soaps, detergents, or topical products. Related Data Home Medications Medication Instructions Recorded Confirmed ipratropium bromide 21 mcg (0.03 2 spray intranasal BID 08/26/19 03/17/23 %) nasal spray mecobalamin (vitamin B12) 5,000 5,000 mcg PO DAILY 08/26/19 03/17/23 mcg disintegrating tablet multivitamin 1 tablet PO DAILY 08/26/19 03/17/23 prednisone 5 mg tablet 5 mg PO DAILY 03/19/20 03/17/23 aspirin 81 mg tablet,delayed 81 mg PO DAILY 05/04/21 03/17/23 release benralizumab 30 mg/mL subcutaneous 30 mg subcut ONCE 05/04/21 03/17/23 syringe (Fasenra) montelukast 10 mg tablet 10 mg PO DAILY 05/04/21 03/17/23 atorvastatin 80 mg tablet 80 mg PO DAILY 03/17/23 03/17/23 fluticasone propionate 50 2 spray intranasal DAILY 03/17/23 03/17/23 mcg/actuation nasal spray,suspension metoprolol succinate 50 mg 50 mg PO DAILY 03/17/23 03/17/23 tablet,extended release 24 hr Allergies Allergy/AdvReac Type Severity Reaction Status Date / Time No Known Allergies Allergy Verified 03/17/23 17:19 Review of Systems Review of Systems: CONSTITUTIONAL: Denies fever, chills, or sweats. EYES: Denies visual changes, redness, or discharge. ENT: Denies rhinorrhea, congestion, sore throat, or otalgia. CARDIOVASCULAR: Denies chest pain, palpitations, or edema. RESPIRATORY: Denies cough or dyspnea. GASTROINTESTINAL: Denies abdominal pain, nausea, vomiting, or diarrhea. GENITOURINARY: Denies dysuria or hematuria. SKIN: Reports pruritic rash to left forearm MUSCULOSKELETAL: Denies back pain, joint pain, or myalgia. NEUROLOGIC: Denies headache, numbness, dizziness, or weakness. PSYCHIATRIC: Denies anxiety or depression. [facility] Past Medical History Medical History Acid reflux Asthma COPD (chronic obstructive pulmonary disease) Heart attack High cholesterol Squamous cell carcinoma of left upper extremity Strain of left hip Surgical History Surgical History H/O cardiac catheterization H/O shoulder surgery History of tonsillectomy Family History Family History Father Cerebrovascular accident Other Heart disease Hypertension Pancreatic cancer Social History Social History Smoking status: Never smoker Alcohol intake: current Substance use: never Gender identity (if verbalized by the patient): Female Exam Narrative: GENERAL: Well-appearing, well-nourished, and in no acute distress. HEAD: Normocephalic, atraumatic. EYES: PERRLA and EOMI. ENT: Nares clear, no rhinorrhea or epistaxis. Mucous membranes moist. Oropharynx without tonsillar hypertrophy exudate or other lesions. Bilateral TMs pearly allan nonbulging NECK: Supple. No adenopathy or masses. No carotid bruits or JVD CHEST: Clear to auscultation. No respiratory distress. No wheezes rales or rhonchi HEART: Regular rate and rhythm. No murmur heard. Normal peripheral pulses. ABDOMEN: Soft, nontender, nondistended, normal active bowel sounds. EXTREMITIES: Normal range of motion. No edema. SKIN: There are several slightly raised, erythematous macules with a few scattered vesicles to the left forearm NEURO: No focal deficits. Alert and oriented x3. PSYCH
== END 2023-03-17 17:40 | disposition home or self-care (01) ==
PROVIDERS: Emergency Provider Nurse Practitioner; PCP Internal Medicine Geriatric Medicine
DX: L23.9 Allergic contact dermatitis, unspecified cause (principal); K21.9 Gastro-esophageal reflux disease without esophagitis; J44.9 Chronic obstructive pulmonary disease, unspecified; I25.2 Old myocardial infarction; E78.00 Pure hypercholesterolemia, unspecified; Z85.828 Personal history of other malignant neoplasm of skin; Z79.82 Long term (current) use of aspirin
CPT/HCPCS: 99213; G0463

== ENCOUNTER 2023-03-21 18:45 | Emergency (ER) | payer MEDICARE, SELFPAY ==
--- NOTE | 2023-03-21 18:48 | ED.WOUNDLAC ---
HPI - Wound/Laceration General Chief Complaint: Skin/Abscess/Foreign Body Stated Complaint: Laceration to Leg Time Seen by Provider: 03/21/23 18:47 Source: patient Mode of arrival: ambulatory Limitations: no limitations History of Present Illness HPI narrative: Ms. Day is an 82-year-old female patient presenting to the clinic today with complaints of a laceration to her right ankle. She reports that she was moving some paint cans and a piece of glass fell and hit her leg. Has a 1.5 cm laceration to the medial right ankle. Related Data Home Medications Medication Instructions Recorded Confirmed ipratropium bromide 21 mcg (0.03 2 spray intranasal BID 08/26/19 03/21/23 %) nasal spray mecobalamin (vitamin B12) 5,000 5,000 mcg PO DAILY 08/26/19 03/21/23 mcg disintegrating tablet multivitamin 1 tablet PO DAILY 08/26/19 03/21/23 prednisone 5 mg tablet 5 mg PO DAILY 03/19/20 03/21/23 aspirin 81 mg tablet,delayed 81 mg PO DAILY 05/04/21 03/21/23 release benralizumab 30 mg/mL subcutaneous 30 mg subcut ONCE 05/04/21 03/21/23 syringe (Fasenra) montelukast 10 mg tablet 10 mg PO DAILY 05/04/21 03/17/23 atorvastatin 80 mg tablet 80 mg PO DAILY 03/17/23 03/21/23 fluticasone propionate 50 2 spray intranasal DAILY 03/17/23 03/17/23 mcg/actuation nasal spray,suspension metoprolol succinate 50 mg 50 mg PO DAILY 03/17/23 03/21/23 tablet,extended release 24 hr desloratadine 5 mg tablet 5 mg PO DAILY 03/21/23 03/21/23 Allergies Allergy/AdvReac Type Severity Reaction Status Date / Time No Known Allergies Allergy Verified 03/17/23 17:19 Review of Systems Review of Systems: Pertinent positives per HPI. Patient denies any fever, chills, rash, headache, visual changes, dizziness, cough, runny nose, sore throat, shortness of breath, chest pain, palpitations, nausea, vomiting, diarrhea, constipation, abdominal pain, or any urinary issues. PMF Past Medical History Medical History Acid reflux Asthma COPD (chronic obstructive pulmonary disease) Heart attack High cholesterol Squamous cell carcinoma of left upper extremity Strain of left hip Surgical History Surgical History H/O cardiac catheterization H/O shoulder surgery History of tonsillectomy Family History Family History Father Cerebrovascular accident Other Heart disease Hypertension Pancreatic cancer Social History Social History Smoking status: Never smoker Alcohol intake: current Substance use: never Gender identity (if verbalized by the patient): Female Comments At the time of my signature, I reviewed and agree with the nursing past medical, surgical, social, and family history. There is no relevant family history pertinent to the patient complaint. Exam Narrative: General: Well-developed, well nourished, in no apparent distress Head: Normocephalic, atraumatic. Cardio: Regular rate and rhythm, s1 and s2 normal, no murmur appreciated. Resp: Clear to auscultation bilaterally, no rhonchi, rales, wheezing or rubs. Integumentary: [place], warm, and dry, 1.5 cm vertical laceration proximal to the right medial ankle. No obvious FB seen or palpable. Course Course Emergency Course: Portions of this record may have been created with voice recognition software. Level of Care: Express Care Visit Vital Signs Vital signs: Vital signs reviewed Procedures Laceration Laceration 1: Date: 03/21/23 Site: lower extremity Size (cm): 1.5 Description: linear Depth: simple, single layer Local Anesthetic: lidocaine 1% and with epi Amount of anesthesia used (mL): 2 Pre-repair: wound explored, irrigated and irrigated extensively ====
[2023-03-21 18:54] VITALS: BP 136/102; PULSE 65; RESP 16; TEMP 36.3; O2SAT 96
[2023-03-21] MEDS: TETANUS,DIPHTHERIA,AC PERTUSSIS ADULT (0.5 ML) BOOSTRIX IM (18:58)
== END 2023-03-21 19:25 | disposition home or self-care (01) ==
PROVIDERS: Emergency Provider Nurse Practitioner Family
DX: S91.012A Laceration without foreign body, left ankle, initial encounter (principal); W25.XXXA Contact with sharp glass, initial encounter; Z23 Encounter for immunization; K21.9 Gastro-esophageal reflux disease without esophagitis; J44.9 Chronic obstructive pulmonary disease, unspecified; E78.00 Pure hypercholesterolemia, unspecified; I25.2 Old myocardial infarction; Z85.828 Personal history of other malignant neoplasm of skin; Z79.82 Long term (current) use of aspirin
CPT/HCPCS: 12001; 90471; 90715; 99212; G0463

== ENCOUNTER 2023-05-04 08:02 | Emergency (ER) | payer MEDICARE, SELFPAY ==
[2023-05-04 08:10] VITALS: BP 139/54; PULSE 63; RESP 18; TEMP 36.4; O2SAT 98
[2023-05-04 08:20] VITALS: BP 139/54; PULSE 63; RESP 18; TEMP 36.4; O2SAT 98
--- NOTE | 2023-05-04 08:21 | ED.LOWEXIN ---
HPI - Extremity Injury (Lower) General Chief Complaint: Extremity Injury, Lower Stated Complaint: Left Ankle Swelling History of Present Illness HPI Narrative: With left lower leg edema patient denies any injury no pain to calf no pain with movement no pain with ambulation. Patient denies any salt increase states she does elevate extremities at home. Patient had a skin cancer removed 3 weeks ago to upper leg but denies any problems with the incision area no drainage no warmth no signs or symptoms of affection. Related Data Home Medications Medication Instructions Recorded Confirmed Adult One Daily Multivitamin 05/04/23 B Complex-Vitamin B12 05/04/23 Calcium + Vitamin D 05/04/23 Iron (ferrous sulfate) 05/04/23 Sinus Rinse 05/04/23 albuterol 05/04/23 aspirin 81 mg chewable tablet 05/04/23 05/04/23 atorvastatin 10 mg tablet mg 05/04/23 benralizumab 30 mg/mL subcutaneous mg subcut 05/04/23 auto-injector (Fasenra Pen) budesonide-formoterol HFA 160 inhalation 05/04/23 mcg-4.5 mcg/actuation aerosol inhaler esomeprazole magnesium 40 mg mg 05/04/23 capsule,delayed release fluticasone propionate 50 intranasal 05/04/23 mcg/actuation nasal spray,suspension metoprolol succinate 50 mg mg PO 05/04/23 tablet,extended release 24 hr prednisone 1 mg tablet mg 05/04/23 prednisone 5 mg tablet mg 05/04/23 Allergies Allergy/AdvReac Type Severity Reaction Status Date / Time No Known Allergies Allergy Verified 05/04/23 08:14 Review of Systems Review of Systems: CONSTITUTIONAL: Denies fever, chills, or sweats. EYES: Denies visual changes, redness, or discharge. ENT: Denies rhinorrhea, congestion, sore throat, or otalgia. CARDIOVASCULAR: Denies chest pain, palpitations, or edema. RESPIRATORY: Denies cough or dyspnea. GASTROINTESTINAL: Denies abdominal pain, nausea, vomiting, or diarrhea. GENITOURINARY: Denies dysuria or hematuria. SKIN: Denies rash or itching. MUSCULOSKELETAL: Denies back pain, joint pain, or myalgia. NEUROLOGIC: Denies headache, numbness, or weakness. PSYCHIATRIC: Denies anxiety or depression. [facility] Past Medical History Medical History Acid reflux Asthma COPD (chronic obstructive pulmonary disease) Heart attack High cholesterol Squamous cell carcinoma of left upper extremity Strain of left hip Surgical History Surgical History H/O cardiac catheterization H/O shoulder surgery History of tonsillectomy Family History Family History Father Cerebrovascular accident Other Heart disease Hypertension Pancreatic cancer Social History Social History Smoking status: Never smoker Alcohol intake: current Substance use: never Gender identity (if verbalized by the patient): Female Comments At time of signature, agree with nursing past medical, surgical, social and family history. There is no relevant family history pertinent to the presenting complaint Exam Narrative: GENERAL: Well-appearing, well-nourished, and in no acute distress. HEAD: Normocephalic, atraumatic. EYES: PERRLA and EOMI. ENT: Nares clear, no rhinorrhea or epistaxis. Mucous membranes moist. NECK: Supple. CHEST: Clear to auscultation. No respiratory distress. HEART: Regular rate and rhythm. No murmur heard. Normal peripheral pulses. ABDOMEN: Soft, nontender, nondistended, normal active bowel sounds. EXTREMITIES: Normal range of motion. Trace edema to left lower extremity no bruising no open areas noted no calf pain normal pedal pulse. SKIN: Warm, dry, no rash. NEURO: No focal deficits. Alert and oriented x3. [place] Coma Scale Eye Opening: Spontaneous 4 [place] Coma Scale Motor: Obeys Commands 6 [place] Coma Scale Verbal: Oriented 5 [place]
== END 2023-05-04 08:38 | disposition home or self-care (01) ==
PROVIDERS: Emergency Provider Nurse Practitioner Family; PCP Internal Medicine Geriatric Medicine
DX: R60.0 Localized edema (principal); K21.9 Gastro-esophageal reflux disease without esophagitis; J44.9 Chronic obstructive pulmonary disease, unspecified; E78.00 Pure hypercholesterolemia, unspecified; I25.2 Old myocardial infarction; Z85.828 Personal history of other malignant neoplasm of skin; Z79.82 Long term (current) use of aspirin
CPT/HCPCS: 99212; G0463

== ENCOUNTER 2023-05-25 08:10 | Emergency (ER) | payer MEDICARE, SELFPAY ==
[2023-05-25 08:20] VITALS: BP 140/68; PULSE 60; RESP 20; TEMP 36.3
--- NOTE | 2023-05-25 08:44 | ED.GENADULT ---
HPI - General Adult General Chief complaint: Nausea/Vomiting/Diarrhea Stated complaint: Nausea/Diarrhea/Cough Source: patient Mode of arrival: ambulatory Limitations: no limitations History of Present Illness HPI narrative: Patient presents for evaluation of nausea for the last week. No new medications. No sick contacts to her knowledge. No new foods. She consumes one ETOH containing beverage about three times per week. She reports a soreness in epigastric region but denies abdominal pain per se. Denies fever, chills, blood/mucous in the stool, urinary symptoms. Normal bowel pattern is once daily. She has had three bowel movements today, all of which were diarrhea. She reports a cough for same duration of time that she has experienced her GI symptoms. Related Data Home Medications Medication Instructions Recorded Confirmed Adult One Daily Multivitamin 05/04/23 B Complex-Vitamin B12 05/04/23 Calcium + Vitamin D 05/04/23 Iron (ferrous sulfate) 05/04/23 Sinus Rinse 05/04/23 albuterol 05/04/23 aspirin 81 mg chewable tablet 05/04/23 05/04/23 atorvastatin 10 mg tablet mg 05/04/23 benralizumab 30 mg/mL subcutaneous mg subcut 05/04/23 auto-injector (Fasenra Pen) budesonide-formoterol HFA 160 inhalation 05/04/23 mcg-4.5 mcg/actuation aerosol inhaler esomeprazole magnesium 40 mg mg 05/04/23 capsule,delayed release fluticasone propionate 50 intranasal 05/04/23 mcg/actuation nasal spray,suspension metoprolol succinate 50 mg mg PO 05/04/23 tablet,extended release 24 hr prednisone 1 mg tablet mg 05/04/23 prednisone 5 mg tablet mg 05/04/23 Allergies Allergy/AdvReac Type Severity Reaction Status Date / Time No Known Allergies Allergy Verified 05/04/23 08:14 Review of Systems Review of Systems: CONSTITUTIONAL: Denies fever, chills, or sweats. EYES: Denies visual changes, redness, or discharge. ENT: Denies rhinorrhea, congestion, sore throat, or otalgia. CARDIOVASCULAR: Denies chest pain, palpitations, or edema. RESPIRATORY: Reports cough. Denies SOB GASTROINTESTINAL:Reports nausea for the past week. Reports three episodes of diarrhea today. Denies abdominal pain, blood or mucus in the stool. GENITOURINARY: Denies dysuria or hematuria. SKIN: Denies rash or itching. MUSCULOSKELETAL: Denies back pain, joint pain, or myalgia. NEUROLOGIC: Denies headache, numbness, dizziness, or weakness. PSYCHIATRIC: Denies anxiety or depression. [facility] Past Medical History Medical History Acid reflux Asthma COPD (chronic obstructive pulmonary disease) Heart attack High cholesterol Squamous cell carcinoma of left upper extremity Strain of left hip Surgical History Surgical History H/O cardiac catheterization H/O shoulder surgery History of tonsillectomy Family History Family History Father Cerebrovascular accident Other Heart disease Hypertension Pancreatic cancer Social History Social History Smoking status: Never smoker Alcohol intake: current Alcohol use details: 3 drinks per week Substance use: never Living arrangements: with family Gender identity (if verbalized by the patient): Female Sexual Orientation (if Verbalized by the Patient): Straight or Heterosexual Spiritual care concerns: No Exam Narrative: GENERAL: Well-appearing, well-nourished, and in no acute distress. HEAD: Normocephalic, atraumatic. EYES: PERRLA and EOMI. ENT: Nares clear, no rhinorrhea or epistaxis. Mucous membranes moist. Oropharynx without tonsillar hypertrophy exudate or other lesions. Bilateral TMs pearly allan nonbulging NECK: Supple. No adenopathy or masses. No carotid bruits or JVD CHEST: Clear to auscultation. No respiratory d
[2023-05-25] MEDS: FAMOTIDINE 20 MG TABLET PO (08:50)
[2023-05-25] MEDS: ONDANSETRON HCL ODT 4 MG TABLET PO (08:50)
== END 2023-05-25 09:30 | disposition home or self-care (01) ==
PROVIDERS: Emergency Provider Nurse Practitioner; PCP Internal Medicine Geriatric Medicine
DX: K29.70 Gastritis, unspecified, without bleeding (principal); R19.7 Diarrhea, unspecified; Z20.822 Contact with and (suspected) exposure to COVID-19; K21.9 Gastro-esophageal reflux disease without esophagitis; J44.9 Chronic obstructive pulmonary disease, unspecified; E78.00 Pure hypercholesterolemia, unspecified; I25.2 Old myocardial infarction; Z85.828 Personal history of other malignant neoplasm of skin
CPT/HCPCS: 87426; 87804; 99213; A9270; C9803; G0463

== ENCOUNTER 2023-11-15 08:08 | Emergency (ER) | payer MEDICARE, SELFPAY ==
[2023-11-15 08:16] VITALS: BP 131/60; PULSE 77; RESP 16; TEMP 36.6; O2SAT 99
[2023-11-15 08:17] VITALS: BP 131/60; PULSE 77; RESP 16; TEMP 36.6; O2SAT 99
--- NOTE | 2023-11-15 08:25 | ED.SKABFB ---
HPI - Skin/Abscess/Foreign Bdy General Chief complaint: Skin/Abscess/Foreign Body Stated complaint: Left Leg Pain Time Seen by Provider: 11/15/23 08:26 Source: patient Mode of arrival: ambulatory Limitations: no limitations History of Present Illness HPI narrative: 83 yo F presents with c/o warm and burning pain to L thigh. Pt had skin graft to left thigh over a month ago after an injury. States she called [facility] at wound clinic twice regarding her symptoms and never called her back. Pt denies color change to skin graft. Concerned for infection. Denies fever chills. All systems reviewed and negative except as noted above. Related Data Home Medications Medication Instructions Recorded Confirmed albuterol sulfate 90 mcg/actuation 2 puff inhalation QID PRN 09/06/23 09/06/23 aerosol inhaler Shortness Of Breath Or Wheezing ascorbic acid (vitamin C) 500 mg 1,000 mg PO BID 09/06/23 09/06/23 tablet atorvastatin 80 mg tablet 80 mg PO DAILY 09/06/23 09/06/23 calcium carbonate 1,000 mg-vitamin 1 tablet PO DAILY 09/06/23 09/06/23 D3 20 mcg (800 unit) tablet cyanocobalamin (vitamin B-12) 1 tablet PO DAILY 09/06/23 09/06/23 esomeprazole magnesium 40 mg 40 mg PO BIDWM 09/06/23 09/06/23 capsule,delayed release fluticasone fur. 200 mcg-umeclid 1 inh inhalation DAILY 09/06/23 09/06/23 62.5 mcg-vilant 25 mcg inhalat.powder (Trelegy Ellipta) fluticasone propionate 50 2 spray intranasal DAILY 09/06/23 09/06/23 mcg/actuation nasal spray,suspension multivitamin,tx-minerals 1 tablet PO DAILY 09/06/23 09/06/23 nitroglycerin 0.4 mg sublingual 0.4 mg sublingual Q5M PRN Chest 09/06/23 09/06/23 tablet Pain polyethylene glycol 3350 17 gram 17 g PO DAILY 09/06/23 09/06/23 oral powder packet prednisone 1 mg tablet 7 mg PO DAILY 09/06/23 09/06/23 ramelteon 8 mg tablet 8 mg PO HS 09/06/23 09/06/23 sennosides 8.6 mg-docusate sodium 2 tab-cap PO BID 09/06/23 09/06/23 50 mg tablet (Senna with Docusate Sodium) thiamine HCl (vitamin B1) 100 mg 100 mg PO DAILY 09/06/23 09/06/23 tablet tiotropium bromide 1.25 2 puff inhalation DAILY 09/06/23 09/06/23 mcg/actuation mist for inhalation (Spiriva Respimat) zinc sulfate 50 mg zinc (220 mg) 220 mg PO DAILY 09/06/23 09/06/23 capsule Allergies Allergy/AdvReac Type Severity Reaction Status Date / Time No Known Allergies Allergy Verified 09/06/23 17:07 Review of Systems Review of Systems: CONSTITUTIONAL: Denies fever, chills, or sweats. EYES: Denies visual changes, redness, or discharge. ENT: Denies rhinorrhea, congestion, sore throat, or otalgia. CARDIOVASCULAR: Denies chest pain, palpitations, or edema. RESPIRATORY: Denies cough or dyspnea. GASTROINTESTINAL: Denies abdominal pain, nausea, vomiting, or diarrhea. GENITOURINARY: Denies dysuria or hematuria. SKIN: Denies rash or itching. Reports warmth and burning pain to skin graft area left thigh. MUSCULOSKELETAL: Denies back pain, joint pain, or myalgia. NEUROLOGIC: Denies headache, numbness, or weakness. PSYCHIATRIC: Denies anxiety or depression. All other systems reviewed are negative, except as documented in HPI. [facility] Past Medical History Medical History (Updated 11/16/23 @ 00:01 by Roberto Carlos Elise) Acid reflux Asthma COPD (chronic obstructive pulmonary disease) Heart attack High cholesterol Squamous cell carcinoma of left upper extremity Strain of left hip Surgical History Surgical History H/O cardiac catheterization H/O shoulder surgery History of tonsillectomy Family History Family History Father Cerebrovascular accident Other Heart disease Hypertension Pancreatic cancer Social History Social History Smoking status: Never smoker Alcohol intake: current Drinks per week: 2 Alcohol use details: 3 drinks per week
== END 2023-11-15 08:41 | disposition home or self-care (01) ==
PROVIDERS: Emergency Provider Nurse Practitioner Family; PCP Internal Medicine Geriatric Medicine
DX: G89.18 Other acute postprocedural pain (principal); K21.9 Gastro-esophageal reflux disease without esophagitis; J44.9 Chronic obstructive pulmonary disease, unspecified; E78.00 Pure hypercholesterolemia, unspecified; I25.2 Old myocardial infarction; Z85.828 Personal history of other malignant neoplasm of skin
CPT/HCPCS: 99213; G0463

== ENCOUNTER 2023-12-27 13:51 | Emergency (ER) | payer MEDICARE, SELFPAY ==
[2023-12-27 13:56] VITALS: BP 153/63; PULSE 63; RESP 20; TEMP 36.5; O2SAT 100
--- NOTE | 2023-12-27 14:02 | ED.SKABFB ---
HPI - Skin/Abscess/Foreign Bdy General Chief complaint: Skin/Abscess/Foreign Body Stated complaint: Skin Problem Time Seen by Provider: 12/27/23 14:00 Source: patient, RN notes reviewed and old records reviewed Mode of arrival: ambulatory Limitations: no limitations History of Present Illness HPI narrative: 83-year-old female to [facility] for complaint recent easy bruising to bilateral dorsal forearms. Patient denies injury. Patient denies use blood thinners. Patient states that she has not called her primary care provider. patient denies numbness, tingling to upper extremities , recent illness, weakness. No acute distress. Related Data Home Medications Medication Instructions Recorded Confirmed atorvastatin 80 mg tablet 80 mg PO DAILY 09/06/23 12/27/23 esomeprazole magnesium 40 mg 40 mg PO BIDWM 09/06/23 12/27/23 capsule,delayed release fluticasone fur. 200 mcg-umeclid 1 inh inhalation DAILY 09/06/23 12/27/23 62.5 mcg-vilant 25 mcg inhalat.powder (Trelegy Ellipta) fluticasone propionate 50 2 spray intranasal DAILY 09/06/23 12/27/23 mcg/actuation nasal spray,suspension nitroglycerin 0.4 mg sublingual 0.4 mg sublingual Q5M PRN Chest 09/06/23 12/27/23 tablet Pain benralizumab 30 mg/mL subcutaneous 30 mg subcut [id number] 12/27/23 12/27/23 auto-injector (Fasenra Pen) prednisone 1 mg tablet 2 mg PO DAILY 12/27/23 12/27/23 prednisone 5 mg tablet 5 mg PO DAILY 12/27/23 12/27/23 sennosides 8.6 mg-docusate sodium 50 tab-cap PO DAILY 12/27/23 12/27/23 50 mg tablet (Stimulant Laxative Plus) Allergies Allergy/AdvReac Type Severity Reaction Status Date / Time No Known Allergies Allergy Verified 09/06/23 17:07 Review of Systems Review of Systems: All systems reviewed & are unremarkable except as noted in HPI and below Constitutional: Constitutional: Reports no additional constitutional complaints Eyes: Eyes: Reports no additional eye complaints ENT: Reports system reviewed and no additional complaints, except as documented Cardiovascular: Cardiovascular: Reports no additional cardiovascular complaints, Denies chest pain and Denies dyspnea Respiratory: Respiratory: Reports no additional respiratory complaints, Denies cough and Denies dyspnea Musculoskeletal: Musculoskeletal: Reports no additional musculoskeletal complaints Integumentary/Breasts: Skin/Breast: Reports unusual bruising ( bilateral dorsal forearms) Neurologic: Reports system reviewed and no additional complaints, except as documented Psychiatric: Psychiatric: Reports no additional psychiatric complaints [facility] Past Medical History Medical History Acid reflux Asthma COPD (chronic obstructive pulmonary disease) Heart attack High cholesterol Squamous cell carcinoma of left upper extremity Strain of left hip Surgical History Surgical History H/O cardiac catheterization H/O shoulder surgery History of tonsillectomy Family History Family History Father Cerebrovascular accident Other Heart disease Hypertension Pancreatic cancer Social History Social History Smoking status: Never smoker Alcohol intake: current Drinks per week: 2 Alcohol use details: 3 drinks per week Substance use: never Substance use type: does not use Living arrangements: with family Gender identity (if verbalized by the patient): Female Sexual Orientation (if Verbalized by the Patient): Straight or Heterosexual Spiritual care concerns: No Comments At the time of my signature, I reviewed and agree with the nursing past medical, surgical, social, and family history. There is no relevant family history pertinent to the patient complaint. Exam Const: General: cooperative, healthy a
== END 2023-12-27 14:09 | disposition home or self-care (01) ==
PROVIDERS: Emergency Provider Nurse Practitioner Family; PCP Internal Medicine Geriatric Medicine
DX: R23.3 Spontaneous ecchymoses (principal); K21.9 Gastro-esophageal reflux disease without esophagitis; J44.9 Chronic obstructive pulmonary disease, unspecified; E78.00 Pure hypercholesterolemia, unspecified; I25.2 Old myocardial infarction; Z85.828 Personal history of other malignant neoplasm of skin
CPT/HCPCS: 99212; G0463

== ENCOUNTER 2024-06-22 09:09 | Emergency (ER) | payer MEDICARE, SELFPAY ==
[2024-06-22 09:14] VITALS: BP 139/54; PULSE 73; RESP 20; TEMP 36.2; O2SAT 100
[2024-06-22 09:39] VITALS: BP 139/54; PULSE 73; RESP 20; TEMP 36.2; O2SAT 100
--- NOTE | 2024-06-22 09:51 | ED.GENADULT ---
HPI - General Adult General Chief complaint: Extremity Injury, Lower Stated complaint: right thigh pain Time Seen by Provider: 06/22/24 09:40 Source: patient, RN notes reviewed and old records reviewed Mode of arrival: ambulatory (using cane ) Limitations: no limitations History of Present Illness HPI narrative: 84 year old female who presents to [facility] care with complaints of pain to right lateral hip down right thigh since Saturday last week after riding her recumbent bike for longer interval than usual.Patient denies increased pain at hip area with no radiation of pain to groin area. She states pain mainly in thigh area and increased with ambulation. Patient denies any tingling or numbness to right leg no visible bruising or swelling. Patient has been taking Ibuprofen for her discomfort. MD complaint: pain down right lateral hip down into right thigh Onset (ago): day(s) (6) Location: right and lower extremity Severity scale (1-10): 3 Exacerbating factors: other (ambulation) Treatments prior to arrival: NSAID Related Data Home Medications Medication Instructions Recorded Confirmed atorvastatin 80 mg tablet 80 mg PO DAILY 09/06/23 06/22/24 esomeprazole magnesium 40 mg 40 mg PO BIDWM 09/06/23 06/22/24 capsule,delayed release fluticasone fur. 200 mcg-umeclid 1 inh inhalation DAILY 09/06/23 06/22/24 62.5 mcg-vilant 25 mcg inhalat.powder (Trelegy Ellipta) fluticasone propionate 50 2 spray intranasal DAILY 09/06/23 06/22/24 mcg/actuation nasal spray,suspension nitroglycerin 0.4 mg sublingual 0.4 mg sublingual Q5M PRN Chest 09/06/23 06/22/24 tablet Pain benralizumab 30 mg/mL subcutaneous 30 mg subcut [id number] 12/27/23 06/22/24 auto-injector (Fasenra Pen) prednisone 1 mg tablet 2 mg PO DAILY 12/27/23 06/22/24 sennosides 8.6 mg-docusate sodium 50 tab-cap PO DAILY 12/27/23 06/22/24 50 mg tablet (Stimulant Laxative Plus) cetirizine 10 mg tablet 10 mg PO DAILY 06/22/24 06/22/24 Allergies Allergy/AdvReac Type Severity Reaction Status Date / Time No Known Allergies Allergy Verified 06/22/24 09:34 Review of Systems Review of Systems: CONSTITUTIONAL: Denies fever, chills, or sweats. EYES: Denies visual changes, redness, or discharge. ENT: Denies rhinorrhea, congestion, sore throat, or otalgia. CARDIOVASCULAR: Denies chest pain, palpitations, or edema. RESPIRATORY: Denies cough or dyspnea. GASTROINTESTINAL: Denies abdominal pain, nausea, vomiting, or diarrhea. GENITOURINARY: Denies dysuria or hematuria. SKIN: Denies rash or itching. MUSCULOSKELETAL: Denies back pain, Positive for pain to right lateral hip down into right thigh, or myalgia. NEUROLOGIC: Denies headache, numbness, or weakness. PSYCHIATRIC: Denies anxiety or depression. All systems reviewed & are unremarkable except as noted in HPI and below PMFSH Past Medical History Medical History Acid reflux Asthma COPD (chronic obstructive pulmonary disease) Heart attack High cholesterol Squamous cell carcinoma of left upper extremity Strain of left hip Surgical History Surgical History H/O cardiac catheterization H/O heart artery stent x1 H/O shoulder surgery History of left hip replacement History of tonsillectomy Family History Family History Father Cerebrovascular accident Other Heart disease Hypertension Pancreatic cancer Social History Social History Smoking status: Never smoker Alcohol intake: current Drinks per week: 2 Alcohol use details: 3 drinks per week Substance use: never Substance use type: does not use Living arrangements: with family Gender identity (if verbalized by the patient): Female Sexual Orientation (if Verbalized by the Patient): Straight or Heterosexual Spiritual car
== END 2024-06-22 10:05 | disposition home or self-care (01) ==
PROVIDERS: Emergency Provider Registered Nurse; PCP Internal Medicine Geriatric Medicine
DX: M79.651 Pain in right thigh (principal); K21.9 Gastro-esophageal reflux disease without esophagitis; J44.9 Chronic obstructive pulmonary disease, unspecified; E78.00 Pure hypercholesterolemia, unspecified; I25.2 Old myocardial infarction; Z95.5 Presence of coronary angioplasty implant and graft; Z96.642 Presence of left artificial hip joint
CPT/HCPCS: 99213; G0463

== ENCOUNTER 2025-03-25 08:08 | Emergency (ER) | payer MEDICARE, SELFPAY ==
--- OUTSIDE RECORDS SUMMARY | 2025-03-25 08:11 | XMS_ITS | Encounter Summary ---
Author Organization [facility] Address [address] [place] [address] Phone Care Team Providers Care Health And Nutrition Specialist Name Role Phone Tiarra Martinez MD Primary Care Provider Preston Hidalgo MD Unavailable [phone] Hank Beth MD Unavailable [phone] MD Unavailable Colt Brink MD Unavailable [phone] Eladio Antoine MD Unavailable Joaquin Ramirez MD Unavailable [phone] Adam Zambrano MD Unavailable + Winsome Ruiz MD Unavailable [phone] Ba Amato Unavailable Unavail able Pineda Dukes MD Unavailable [phone] Kristofer Carmona OD Unavailable [phone] Kristofer Martinez DO Unavailable [phone] Tosin Ramos MD Unavailable [phone] Allan Allen MD Unavailable Unavailable Morteza Suarez MD Unavailable [phone] Primitivo Hull MD Unavailable Tosin Singh MD Unavailable [phone] Encounter Details Date Type Department Care Team (Late st Contact Info) Description 08/26/2020 Orders Only [facility] [address] [place] [id number] Scanning, Provider Social History Tobacco Use Types Packs/Day Years Used Date Smoking Tobacco: Former Cigarettes Q uit: 09/09/1969 Smokeless Tobacco: Never Alcohol Use Standard Drinks/Week Comments Yes 0 (1 standard drink = 0.6 oz pur e alcohol) ocaasionally PHQ-2 Answer Date Recorded PHQ-2 Total Score (If total score is 3 or more points, staff should administer the PHQ-9) 0 08/22/2020 Comments No Sex and Gender Information Value Date Recorded Sex Assigned at Not on file Legal 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 Gender Identity Not on file Sexual Orientation Not on file Occupation Industry Job Start Date Job End Date retired Not on file Not on file Not on file documented as of this encounter Plan of Treatment Not on file documented as of this encounter Procedures Procedure Name Priority Date/Time Associated Diagnosis Comments SCAN - LABS 08/26/2020 documented in this encounter Results * SCAN - LABS (08/26/2020) us Provider Scanning Final Result documented in this encounter Visit Diagnoses Not on filedocumented in this encounter Additional Health Concerns Infection Onset Date Last Indicated Resolved Time COVID: Suspected 12/26/2022 12/26/2022 12/26/2022 8:34 AM CDT COVID: Suspected 09/24/2023 09/24/2023 09/24/2023 8:32 AM CONTROL ELECTRICIAN documented as of this encounter Care Teams Health And Nutrition Specialist Relationship Specialty Start Date End Date Tiarra Martinez MD PCP - General 12/07/16 [place] [id number] [address] Pulmonary Disease 02/24/17 Hank Beth MD [address] [facility] [address] [address] Dermatology 02/24/17 03/16/24 Ray Esposito MD [address] [facility] [address] [address] 02/24/17 03/16/24 Colt Brink MD [address] [place] [address] [address] [place] [address] Anesthesiology 02/24/17 01/25/22 Eladio Antoine MD [address] [place] [address] [address] [place] [address] Otolaryngology 02/24/17 01/25/22 Joaquin Ramirez MD [address] [facility] [address] [place] [address] Pulmonary Disease 03/15/17 03/16/24 Adam Zambrano MD [address] [facility] [address] [place] [address] Internal Medicine 03/15/17 01/25/22 Winsome Ruiz MD [address] [place] [address] [address] [place] [address] Internal Medicine 03/15/17 Ba Amato [address] [place] [address] [address] [place] [address] Gastroenterology 08/11/17 01/25/22 Pineda Dukes MD [address] [place] [address] Consulting Physician Gastroenterology 08/16/17 03/16/24 Kristofer Carmona OD [address] [place] [address] Optometry 08/16/17 Kristofer Martinez DO [address] [place] [address] Cardiovascular Disease 08/18/18 2 Tosin Ramos MD [address] [place] [address] Referring Physician Dermatology 08/18/18 03/16/24 Allan Allen MD [address] [place] [address] Consulting Physician Otolaryngology 01/26/22 03/16/24 Morteza Suarez MD [address] [place] [address] Consulting Physician Cardiology 12/12/22 Primitivo Hull MD [phone] [place] [address] Consulting Physician General Surgery 09/17/23 03/16/24 Tosin Singh MD [address] [place] [address] Referring Physician Dermatology 03/17/24 documented as of this encounter
--- OUTSIDE RECORDS SUMMARY | 2025-03-25 08:11 | XMS_ITS | Referral Summary ---
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 spine, 0.020 g/cm2 at the total proximal femur, and 0.014g/cm2 at the forearm. HISTORY: This is a 83 y.o. postmenopausal female with a history of asthma and osteoporosis. She reports that she has quit smoking. Her smoking use included cigarettes. She has never used smokeless tobacco. Currently on treatment with calcium, vitamin D, and glucocorticoids and previously treated with zoledronic acid (Reclast). INDICATIONS: Menopause status, treatment monitoring, currently on 6 mg of glucocorticoids for the past 19 years, and history of osteoporosis. FINDINGS: BONE MINERAL DENSITY OF THE LUMBAR SPINE Bone Mineral Density (BMD) of the lumbar spine was measured from L1-L4 and the average density was calculated to be 0.939 gm/cm2. This corresponds to a T-score (standard deviations from the mean of young adults) of -1.0. When compared to the previous study of 02/22/2023 there has been a -0.053 gm/cm (-5.3%) decrease in bone density that is considered significant. BONE MINERAL DENSITY OF THE PROXIMAL FEMUR Bone Mineral Density (BMD) of the left hip total was found to be 0.882 gm/cm2. This corresponds to a T-score standard deviations from the mean of young adults of -0.5. Femoral neck is 0.784 gm/cm2 with a T-score (standard deviations from the mean of young adults) of -0.6. When compared to the previous study of 02/22/2023 there has been no significant changes in bone density. SUMMARY: Bone mineral density is near the young adult normal mean with no increased risk for fracture. There has been a significant decrease in bone density since previous measurement. ADDITIONAL COMMENTS: Postmenopausal Women and Men Over 50: Diagnostic criteria: Osteoporosis: BMD at or below -2.5 T-score; Osteopenia (low bone mass): BMD between -1.0 and -2.5 T-score. If the patient has a history of a fragility fracture, a fracture that occurred with trauma equivalent to a fall from a standing position or less, then the diagnosis is osteoporosis regardless of bone density. The history and data sections of the bone mineral density scan were prepared by Manju Garcia) KIKO who is accredited by the International Society of Clinical Densitometry. The overall patient assessment and scan interpretation were performed by Winsome Ruiz MD who is certified by the International Society of Clinical Densitometry. [id number] Winsome Ruiz MD IMG DXA PROCEDURES Final Re sult from Last 3 Months or Most Recently Relevant to Health Maintenance Insurance UHC MEDICARE ADVANTAGE [facility] MEDICARE T MEDICARE [facility] MEDICARE Advance Directives For more information, please contact: [phone] Documents on File Type Date Recorded Patient Field Appraiser Expl anation ADVANCE DIRECTIVE 08/21/2019 DNR ADVANCE DIRECTIVE 08/13/2011 POWER OF A [employer] * Full Code (Latest Code Status on File) Date Activated Date Inactivated Comments 08/27/2024 12:12 AM 08/28/2024 2:21 PM * Full Code Date Activated Date Inactivated Comments 09/24/2023 3:39 PM 09/26/2023 5:40 PM * Full Code Date Activated Date Inactivated Comments 08/16/2023 11:48 PM 09/06/2023 8:45 PM * Full Code Date Activated Date Inactivated Comments 01/17/2023 1:32 PM 01/17/2023 9:33 PM * Full Code Date Activated Date Inactivated Comments 01/18/2022 7:35 AM 01/18/2022 12:43 PM Care Teams Manager Investment Banking Relationship Specialty Start Date End Date Tiarra Mensah MD PCP - General 12/07/16 [place] [address] [facility] [address] [place] [address] Pulmonary Disease 02/24/17 Winsome Ruiz MD [address] [facility] [address] [place] [address] Internal Medicine 03/15/17 Kristofer Carmona OD [address] [place] [address] Optometry 08/16/17 Morteza Suarez MD [address] [place] [address] Consulting Physician Cardiology 12/12/22 Tosin Singh MD [address] [place] [address] Referring Physician Dermatology 03/17/24
--- OUTSIDE RECORDS SUMMARY | 2025-03-25 08:11 | XMS_ITS | Encounter Summary ---
Author Organization [facility] Address [address] [place] [address] Phone Care Team Providers Care Bottle Line Worker Name Role Phone Tiarra Martinez MD Primary Care Provider + [phone] Preston Hidalgo MD Unavailable [phone] Hank Beth MD Unavailable [phone] [facility] Unavailable [phone] Joaquin Ramirez MD Unavailable [phone] Winsome Ruiz MD Unavailable [phone] Pineda Dukes MD Unavailable [phone] Kristofer Carmona OD Unavailable [phone] Tosin Ramos MD Unavailable [phone] Allan Allen MD Unavailable Unavailable Morteza Suarez MD Unavailable [phone] Primitivo Hull MD Unavailable Tosin Singh MD Unavailable [phone] Encounter Details Date Type Department Care Team (Late st Contact Info) Description 05/23/2022 Orders Only [facility] [address] [place] [address] Tiarra Martinez MD [address] [place] [address] Social History Tobacco Use Types Packs/Day Years Used Date Smoking Tobacco: Former Cigarettes Q uit: 09/09/1969 Smokeless Tobacco: Never Alcohol Use Standard Drinks/Week Comments Yes 0 (1 standard drink = 0.6 oz pur e alcohol) ocaasionally PHQ-2 Answer Date Recorded PHQ-2 Total Score (If total score is 3 or more points, staff should administer the PHQ-9) 0 08/30/2021 Comments No Sex and Gender Information Value Date Recorded Sex Assigned at Not on file Legal Sex Female 1:20 AM DIRECTOR PAID MEDIA Gender Identity Not on file Sexual Orientation Not on file Occupation Industry Job Start Date Job End Date retired Not on file Not on file Not on file documented as of this encounter Plan of Treatment Not on file documented as of this encounter Procedures Procedure Name Priority Date/Time Associated Diagnosis Comments SCAN - RADIOLOGY/IMAGING 05/23/2022 documented in this encounter Results * SCAN - RADIOLOGY/IMAGING (05/23/2022) Anatomical Region Laterality Modality Other Tiarra Martinez MD Final Resu lt documented in this encounter Visit Diagnoses Not on filedocumented in this encounter Additional Health Concerns Infection Onset Date Last Indicated Resolved Time COVID: Suspected 12/26/2022 12/26/2022 12/26/2022 8:34 AM CDT COVID: Suspected 09/24/2023 09/24/2023 09/24/2023 8:32 AM DIRECTOR PAID MEDIA documented as of this encounter Care Teams Bottle Line Worker Relationship Specialty Start Date End Date Tiarra Martinez MD PCP - General 12/07/16 [place] [address] [address] Pulmonary Disease 02/24/17 Hank Beth MD [address] [place] [address] Dermatology 02/24/17 03/16/24 Ray Esposito MD [address] [place] [address] 02/24/17 03/16/24 Joaquin Ramirez MD [address] [place] [address] Pulmonary Disease 03/15/17 03/16/24 Winsome Ruiz MD [address] [place] [address] [address] [place] [address] Internal Medicine 03/15/17 Pineda Dukes MD [address] [facility] [address] [place] [address] Consulting Physician Gastroenterology 08/16/17 03/16/24 Kristofer Carmona OD [address] [place] [address] Optometry 08/16/17 Tosin Ramos MD [address] [place] [address] Referring Physician Dermatology 08/18/18 03/16/24 Allan Allen MD [address] [place] [address] Consulting Physician Otolaryngology 01/26/22 Morteza Suarez MD [address] [place] [address] Consulting Physician Cardiology 12/12/22 Primitivo Hull MD [address] [facility] [phone] [place] [address] Consulting Physician General Surgery 09/17/23 03/16/24 Tosin Singh MD [address] [place] [address] Referring Physician Dermatology 03/17/24 documented as of this encounter
--- OUTSIDE RECORDS SUMMARY | 2025-03-25 08:11 | XMS_ITS | Encounter Summary ---
Author Organization [facility] Address [address] [place] [address] Phone Care Team Providers Care Institutional Asset Manager Name Role Phone Tiarra Martinez MD Primary Care Provider + [phone] Preston Hidalgo MD Unavailable [phone] Hank Beth MD Unavailable [phone] [facility] Center[facility] banks MD Unavailable [phone] Colt Brink MD Unavailable [phone] Eladio Antoine MD Unavailable [phone] Morteza Suarez MD Unavailable [phone] Joaquin Ramirez MD Unavailable [phone] Adam Zambrano MD Unavailable + Mike Crabtree Unavailable Unavailable Winsome Ruiz MD Unavailable Ba Amato Unavailable Unavail able Pineda Dukes MD Unavailable [phone] Vincenzo Sim MD Unavailable [phone] Kristofer Carmona OD Unavailable [phone] Kristofer Martinez DO Unavailable Tosin Ramos MD Unavailable [phone] Allan Allen MD Unavailable Unavailable Morteza Suarez MD Unavailable [phone] Primitivo Hull MD Unavailable Tosin Singh MD Unavailable Encounter Details Date Type Department Care Team (Latest Contact Info) Description 03/07/2017 Orders Only [facility] CONVERSION Scanning, Provider Social History Tobacco Use Types Packs/Day Years Used Date Smoking Tobacco: Never Alcohol Use Standard Drinks/Week Comments Yes 0 (1 standard drink = 0.6 oz pur e alcohol) Comments Unknown Sex and Gender Information Value Date Recorded Sex Assigned at Not on file Legal Sex Female 1:20 AM RESEARCH AND DEVELOPMENT SCIENTIST Gender Identity Not on file Sexual Orientation Not on file documented as of this encounter Plan of Treatment Not on file documented as of this encounter Procedures Procedure Name Priority Date/Time Associated Diagnosis Comments PULMONARY FUNCTION TEST (PFT) 03/07/2017 7:47 AM CDT documented in this encounter Results * PULMONARY FUNCTION TEST (PFT) (03/07/2017 7:47 AM CDT) Anatomical Region Laterality Modality PFT Provider Scanning PFT ORDERABLES Final Result documented in this encounter Visit Diagnoses Not on filedocumented in this encounter Additional Health Concerns Infection Onset Date Last Indicated Resolved Time COVID: Suspected 12/26/2022 12/26/2022 12/26/2022 8:34 AM CDT COVID: Suspected 09/24/2023 09/24/2023 09/24/2023 8:32 AM RESEARCH AND DEVELOPMENT SCIENTIST documented as of this encounter Care Teams Institutional Asset Manager Relationship Specialty Start Date End Date Tiarra Martinez MD PCP - General 12/07/16 [place] [address] [address] Pulmonary Disease 02/24/17 Hank Beth MD [address] [address] Dermatology 02/24/17 03/16/24 Ray Esposito MD [address] [facility] [address] [address] 02/24/17 03/16/24 Colt Brink MD [address] [place] [address] [address] [place] [address] Anesthesiology 02/24/17 01/25/22 Eladio Antoine MD [address] [place] [address] [address] [place] [address] Otolaryngology 02/24/17 01/25/22 Morteza Suarez MD [address] [place] [address] [address] [place] [address] Cardiovascular Disease 02/24/17 8 Joaquin Ramirez MD 4523 [facility] [address] [place] [address] Pulmonary Disease 03/15/17 03/16/24 Adam Zambrano MD [address] [place] [address] Internal Medicine 03/15/17 01/25/22 Mike Crabtree [address] [place] [address] Gastroenterology 03/15/17 08/17/18 Winsome Ruiz MD [address] [facility] [address] [place] [address] Internal Medicine 03/15/17 Ba Amato [address] [facility] [address] [place] [address] Gastroenterology 08/11/17 01/25/22 Pineda Dukes MD [address] [facility] [address] [place] [address] Consulting Physician Gastroenterology 08/16/17 03/16/24 Vincenzo Sim MD [address] [place] [address] [address] [place] [address] Dermatology 08/16/17 08/17/18 Kristofer Carmona OD [address] [place] [address] Optometry 08/16/17 Kristofer Martinez DO [address] [place] [address] Cardiovascular Disease 08/18/18 2 Tosin Ramos MD [address] [place] [address] Referring Physician Dermatology 08/18/18 03/16/24 Allan Allen MD [address] [place] [address] Consulting Physician Otolaryngology 01/26/22 03/16/24 Morteza Suarez MD [address] [place] [address] Consulting Physician Cardiology 12/12/22 Primitivo Hull MD [address] [facility] [phone] [place] [address] Consulting Physician General Surgery 09/17/23 03/16/24 Tosin Singh MD [address] [place] [address] Referring Physician Dermatology 03/17/24 documented as of this encounter
--- OUTSIDE RECORDS SUMMARY | 2025-03-25 08:12 | XMS_ITS | Encounter Summary ---
Author Organization [facility] Address [address] [place] [address] Care Team Providers Care Curer Foam Rubber Name Role Phone Tiarra Martinez MD Primary Care Provider [phone] Encounter Details Date Type Department Care Team (Latest Contact Info) Description 08/29/2007 Outpatient Historical [facility] Endy Temple, [address] [facility] [address] [place] [address] Unspecified Sinusitis (Chronic) Social History Tobacco Use Types Packs/Day Years Used Date Smoking Tobacco: Never Assessed Comments Unknown Sex and Gender Information Value Date Recorded Sex Assigned at Not on file Legal Sex Female 4:11 AM COREMAKING MACHINE SETTER Gender Identity Not on file Sexual Orientation Not on file documented as of this encounter Plan of Treatment Not on file documented as of this encounter Procedures Procedure Name Priority Date/Time Associated Diagnosis Comments CBC WITH DIFFERENTIAL Routine 08/29/2007 10:30 AM COREMAKING MACHINE SETTER CBC WITH DIFFERENTIAL Routine 08/29/2007 10:30 AM COREMAKING MACHINE SETTER C-REACTIVE PROTEIN Routine 08/29/2007 10 :30 AM COREMAKING MACHINE SETTER COMPREHENSIVE METABOLIC PANEL Routine 08/29/2007 10:30 AM COREMAKING MACHINE SETTER documented in this encounter Results * (ABNORMAL) CBC WITH DIFFERENTIAL (08/29/2007 10:30 AM COREMAKING MACHINE SETTER) NEUTROPHILS 87(H) 45 - 70 % INTERFAC E SYSTEM LYMPHOCYTES 8(L) 16 - 45 % INTERFAC E SYSTEM MONOCYTES 4 3 - 13 % INTERFACE SYSTEM EOSINOPHILS 0 0 - 7 % INTERFAC E SYSTEM BASOPHILS 0 0 - 2 % INTERFACE SYSTEM NEUTROPHIL ABSOLUTE 8.18(H) 1.90 - 7.00 K/uL INTERFACE SYSTEM LYMPHOCYTE ABSOLUTE 0.78 0.70 - 4.50 K/uL INTERFACE SYSTEM MONOCYTE ABSOLUTE 0.40 0.10 - 1.30 K/uL INTERFACE SYSTEM EOSINOPHIL ABSOLUTE 0.02 0.00 - 0.70 K/uL INTERFACE SYSTEM BASOPHILS ABSOLUTE 0.01 0.00 - 0.20 K/uL INTERFACE SYSTEM 08/29/2007 10:3 0 AM COREMAKING MACHINE SETTER Endy Brothers MD HEMATOLOGY ORDERABLES Edited Performing Organization Address City/[facility] de Phone Number INTERFACE SYSTEM Refer to clinic/hospital department * CBC WITH DIFFERENTIAL (08/29/2007 10:30 AM COREMAKING MACHINE SETTER) WBC 9.4 4.0 - 9.8 K/uL INTERFACE SYSTEM RBC 3.98 3.90 - 4.90 M/uL INTERFACE SYSTEM HEMOGLOBIN 12.6 11.8 - 14.8 g/dL INTERFACE SYSTEM HEMATOCRIT 38.5 35.5 - 44.0 % INTERFACE SYSTEM MCV 96.7 82.0 - 99.0 fL INTERFACE SYSTEM MCH 31.7 27.2 - 32.6 pg INTERFACE SYSTEM MCHC 32.7 31.5 - 35.5 % INTERFACE SYSTEM RDW 13.2 11.5 - 14.5 % INTERFACE SYSTEM RDW-STDEV 45.9 37.1 - 48.7 fL INTERFACE SYSTEM PLATELETS 300 140 - 350 K/uL INTERFACE SYSTEM MPV 11.3 9.3 - 12.4 fL INTERFACE SYSTEM 08/29/2007 10:3 0 AM COREMAKING MACHINE SETTER Endy Brothers MD HEMATOLOGY ORDERABLES Edited Performing Organization Address City/[facility] Co de Phone Number INTERFACE SYSTEM Refer to clinic/hospital department * C-REACTIVE PROTEIN (08/29/2007 10:30 AM COREMAKING MACHINE SETTER) CRP 0.6 0.0 - 0.8 mg/dL INTERFACE SYSTEM 08/29/2007 10:3 0 AM COREMAKING MACHINE SETTER Endy Brothers MD CHEMISTRY ORDERABLES Edited INTERFACE SYSTEM Refer to clinic/hospital department * COMPREHENSIVE METABOLIC PANEL (08/29/2007 10:30 AM COREMAKING MACHINE SETTER) GLUCOSE 99 65 - 99 mg/dL INTERFACE SYSTEM CREATININE 0.59 0.51 - 0.95 mg/dL INTERFACE SYSTEM CALCIUM 9.0 8.4 - 10.2 mg/dL INTERFACE SYSTEM ALKALINE PHOSPHATASE 64 35 - 104 U/L INTERFACE SYSTEM AST 32 12 - 32 U/L INTERFACE SYSTEM ALT 31 0 - 31 U/L INTERFACE SYSTEM TOTAL PROTEIN 7.2 6.3 - 8.6 g/dL INTERFACE SYSTEM ALBUMIN 4.1 3.4 - 4.8 g/dL INTERFACE SYSTEM BILIRUBIN TOTAL 0.3 0.2 - 1.0 mg/dL INTERFACE SYSTEM BUN 12 6 - 20 mg/dL INTERFACE SYSTEM SODIUM 140 135 - 145 mmol/L INTERFACE SYSTEM POTASSIUM 4.2 3.5 - 4.9 mmol/L INTERFACE SYSTEM CHLORIDE 105 96 - 108 mmol/L INTERFACE SYSTEM CO2 27 22 - 30 mmol/L INTERFACE SYSTEM GFR, >60 >=60 mL/min/1.7 sq meter INTERFACE SYSTEM GFR >60 >=60 mL/min/1.7 sq meter INTERFACE SYSTEM Comment: Estimated GFR rate interpretative information for both Americans and non- Americans is available on the [facility] Intranet at: [email or web address] Select: Lab Policies and Procedures Select: Reference Ranges - GFR 08/29/2007 10:3 0 AM COREMAKING MACHINE SETTER Endy Brothers MD CHEMISTRY ORDERABLES Edited INTERFACE SYSTEM Refer to clinic/hospital department documented in this encounter Visit Diagnoses Diagnosis Unspecified sinusitis (chronic) documented in this encounter Care Teams Curer Foam Rubber Relationship Specialty Start Date End Date Tiarra Martinez MD [address] [place] [phone] PCP - General 06/11/07 documented as of this encounter
--- OUTSIDE RECORDS SUMMARY | 2025-03-25 08:12 | XMS_ITS | Encounter Summary ---
Author Organization [facility] Address [address] [place] [address] Care Team Providers Care Hat And Cap Opener Name Role Phone Kassidy Martinez MD Primary Care Provider [phone] Encounter Details Date Type Department Care Team (Late st Contact Info) Description 01/09/2023 Lab Requisition [facility] Care DermPath Lab [address] [place] [address] Alex Mckeon MD [address] [place] [address] Social History Tobacco Use Types Packs/Day Years Used Date Smoking Tobacco: Former Cigarettes Q uit: 09/09/1971 Alcohol Use Standard Drinks/Week Comments Yes 0 (1 standard drink = 0.6 oz pur e alcohol) Comments Unknown Sex and Gender Information Value Date Recorded Sex Assigned at Not on file Legal Sex Female 6:57 PM BOTTLE AND GLASS INSPECTOR Gender Identity Not on file Sexual Orientation Not on file documented as of this encounter Plan of Treatment Not on file documented as of this encounter Procedures Procedure Name Priority Date/Time Associated Diagnosis Comments DERMATOPATHOLOGY Routine 01/08/2023 12:0 0 AM CDT documented in this encounter Results * DERMATOPATHOLOGY (01/08/2023 12:00 AM CDT) Case Report Dermatopathology Report Case: [id number] Authorizing Provider: Alex Mckeon MD Collected: 01/08/2023 12:00 AM Ordering Location: [facility] DermPath Lab Received: 01/09/2023 04:04 PM Pathologist: Kassidy Mark MD Specimen: Skin, left ala groove 12:49 PM CDT DERMATOPATHOLOGY LABORATORY Final Diagnosis Specimen A. SKIN, left ala groove: BASAL CELL CARCINOMA, NODULAR TYPE (C44.311) 12:49 PM CDT DERMATOPATHOLOGY LABORATORY at 1249 CDT Clinical History R/O BCC 12:49 PM CDT DERMATOPATHOLOGY LABORATORY Gross Description Specimen A: Received is one formalin filled container labeled with the patient's name and designated left ala groove. The specimen consists of a shave biopsy measuring 5x5x1 mm. Jar 0. 12:49 PM CDT DERMATOPATHOLOGY LABORATORY Microscopic Description Specimen A. SKIN, left ala groove: Within the dermis there are aggregates of basaloid cells with a high nuclear to cytoplasmic ratio and peripheral palisading. 12:49 PM CDT DERMATOPATHOLOGY LABORATORY Disclaimer An external and internal positive and negative controls are appropriate for the histochemical, immunohistochemical and immunofluorescence stain(s) in this case (if any), except where stated explicitly. The performance characteristics of the stain(s) cited in this report were developed and its performance characteristic determined by the Dermatopathology Laboratory at [facility], directed by Dr. Aisha Can. These tests need not be, and therefore are not, approved by the [place] Food and Drug Administration. The tests are used for clinical purposes. Billing Codes Specimen Charges Stain Charges 08059 1 12:49 PM CDT DERMATOPATHOLOGY LABORATORY Embedded Images 12:49 PM CDT DERMATOPATHOLOGY LABORATORY Pathology/Cytolog y TISSUE SPECIMEN FROM SKIN / Unknown 01/08/2023 01/09/2023 4:04 PM CDT Alex Mckeon MD LAB - PATHOLOGY/CYTOLOGY ORD ERABLES Final Result DERMATOPATHOLOGY LABORATORY [facility] - Department of Dermatology [address], [address] [phone] documented in this encounter Visit Diagnoses Not on filedocumented in this encounter Care Teams Hat And Cap Opener Relationship Specialty Start Date End Date Kassidy Martinez MD [address] [place] [address] PCP - General 07/13/08 documented as of this encounter
--- OUTSIDE RECORDS SUMMARY | 2025-03-25 08:12 | XMS_ITS | Patient Health Record ---
Author Organization [facility] Billing Info Address [address] [place], [place] [id number] Care Team Providers Care Melt House Supervisor Name Role Phone RYANNE EMORY Primary Care Provider THOM Silverman Unavailable [phone] Reason For Referral No Information Medications Medication SIG (Take, Route, Frequency, Duration) Notes Start Date End Date Status Loratadine 10 MG 1 tablet Orally Once a day for 30 day(s) Active Probiotic - as directed Orally Active Vitamin D Active Vitamin B 12 Active Atorvastatin Calcium 10 MG 1 tablet Oral ly Once a day Active PredniSONE (Leonid) 10 MG 1 tablet Orally daily Active Ipratropium [place] 0.03 % 2 sprays in e ach nostril Nasally Twice a day for 30 day(s) Active Fasenra 30 MG/ML 1 null Subcutaneous for 30 day(s) Active Multivitamins Orally Active Aspirin 81 MG 1 tablet Orally Once a day Active Fluticasone Propionate 50 MCG/ACT 1 spray in each nostril Nasally Once a day Active Nexium 40 MG 1 capsule Orally Onc e a day Active Aspir-Low 81 MG 1 tablet Orally Once a day for 30 day(s) Active Social History Tobacco Use: Social History Observation Description Date Details (start date - stop date) Former Smoker NA - NA Tobacco Status: Question Answer Notes Patient is a former smoker Problems Problem Type SNOMED Code ICD Code Onset Dates Problem Status W/U Status Risk Notes Problem Contusion of lower leg (924.10) Active confirmed left hip hematoma, s/p evacuation. wound healing well. some irregularities of the contour. Follow up as needed. Problem [id number] Hematoma of left thigh, subsequent encounter (S70.12XD) Active confirmed left hip hematoma, s/p evacuation. wound healing well. some irregularities of the contour. Follow up as needed. Plan Of Treatment No Information Insurance Providers Payer Name Payer Address Payer Phone Subscriber Number Group Number Insured Name Patient Relationship to Insured Coverage Start Date Coverage End Date [facility] AD[employer] [address] [address] [place], [place] [id number] Ariana Day Self - patient is the insured 5 6 Medical (General) History Medical History History ICD Code Esophageal reflux COPD MA SOB Skin cancers Measles Mumps Surgical History Surgery Date(Month/Year) BILATERAL shoulder surgery 1989, 1994 sinus surgery 2005 skin cancer excision 2010 colonoscopy 2013 cardiac stent 2013 Evacuation of left hip hematoma 10/09/19 20 Hospitalization History Reason Date(Month/Year) See Surgical Hx
--- OUTSIDE RECORDS SUMMARY | 2025-03-25 08:12 | XMS_ITS | Encounter Summary ---
Author Organization [facility] Address [address] [place] [address] Care Team Providers Care Planning And Analysis Manager Name Role Phone Tiarra Martinez MD Primary Care Provider [phone] Encounter Details Date Type Department Care Team (Late st Contact Info) Description 10/14/2007 Outpatient Historical [facility] Mike Crabtree MD [address] [facility] [address] [place] [id number] Dysphagia, Unspecified Social History Tobacco Use Types Packs/Day Years Used Date Smoking Tobacco: Never Assessed Comments Unknown Sex and Gender Information Value Date Recorded Sex Assigned at Not on file Legal Sex Female 4:11 AM STUDENT RECORDS SPECIALIST Gender Identity Not on file Sexual Orientation Not on file documented as of this encounter Plan of Treatment Not on file documented as of this encounter Visit Diagnoses Diagnosis Dysphagia, unspecified(787.20) Dysphagia, unspecified documented in this encounter Care Teams Planning And Analysis Manager Relationship Specialty Start Date End Date Tiarra Martinez MD [address] [place] [address] [place] [phone] PCP - General 06/11/07 documented as of this encounter
--- OUTSIDE RECORDS SUMMARY | 2025-03-25 08:12 | XMS_ITS | Encounter Summary ---
Author Organization [employer] [facility] Address [address] [place] [address] Care Team Providers Care Poultry Service Technician Name Role Phone Tiarra Martinez MD Primary Care Provider [phone] Encounter Details Date Type Department Care Team (Latest Contact Info) Description 05/10/2006 Inpatient Historical [facility] PATIENT IN A BED Patricia Perrin Bronchiectasis with Acute Exacerbation ([facility]) (Primary Dx) Social History Tobacco Use Types Packs/Day Years Used Date Smoking Tobacco: Never Assessed Comments Unknown Sex and Gender Information Value Date Recorded Sex Assigned at Not on file 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 Gender Identity Not on file Sexual Orientation Not on file documented as of this encounter Plan of Treatment Not on file documented as of this encounter Procedures Procedure Name Priority Date/Time Associated Diagnosis Comments SOURCE, FLUID Routine 05/14/2006 9:55 AM CDT CELL COUNT WITH DIFFERENTIAL, BODY FLUID Routine 05/14/2006 9:55 AM CDT IMMUNOGLOBULINS IGG IGA IGM Routine 05/11/2006 6:30 AM CDT IGE Routine 05/11/2006 6:30 AM CDT PT AND APTT Routine 05/11/2006 6:00 AM CDT TROPONIN (W/REFLEX CKMB/CK) Routine 05/10/2006 10:40 AM CDT CBC WITH DIFFERENTIAL Routine 05/10/2006 10:40 AM CDT CBC WITH DIFFERENTIAL Routine 05/10/2006 10:40 AM CDT C-REACTIVE PROTEIN Routine 05/10/2006 10 :40 AM CDT documented in this encounter Results * SOURCE, FLUID (05/14/2006 9:55 AM CDT) SOURCE FLUID Bronch Lavage fluid INTERFACE SYSTEM 05/14/2006 9:55 AM CDT us Vijayalakesha Perrin HEMATOLOGY ORDERABLES Final R esult Performing Organization Address [facility] Phone Number INTERFACE SYSTEM Refer to clinic/hospital department * CELL COUNT WITH DIFFERENTIAL, BODY FLUID (05/14/2006 9:55 AM CDT) WBC, FLD 238 /uL INTERFACE SYSTEM RBC, FLD 373 /uL INTERFACE SYSTEM LYMPHOCYTE, FLD 1 % INTE RFACE SYSTEM MACROPHAGE, FLD 96 % INTE RFACE SYSTEM Comment:includes hemosiderin -laden macrophages EOSINOPHIL, FLD 3 % INTE RFACE SYSTEM CELLS COUNTED, FLD 100 WBC Counted INTERFACE SYSTEM COMMENT, FLD Ciliated epi's noted INTERFACE SYSTEM 05/14/2006 9:55 AM CDT us Patricia Perrin BODY FLUIDS AND STOOLS Final Result Performing Organization Address [facility] Phone Number INTERFACE SYSTEM Refer to clinic/hospital department * IMMUNOGLOBULINS IGG IGA IGM (05/11/2006 6:30 AM CDT) IGA 124.2 86.0 - 517.0 mg/dL INTERFACE SYSTEM IGG 969 621 - 1631 mg/dL INTERFACE SYSTEM IGM 91.0 37.0 - 286.0 mg/dL INTERFACE SYSTEM 05/11/2006 6:30 AM CDT us Vijayalakesha Perrin CHEMISTRY ORDERABLES Final Re sult Performing Organization Address [facility]/ZIP Co de Phone Number INTERFACE SYSTEM Refer to clinic/hospital department * (ABNORMAL) IGE (05/11/2006 6:30 AM CDT) IGE 130(H) <MK=814 kU/L INTERFACE SYSTEM Comment: [facility]: [facility] [id number] [place] [address] JOSE R DAVIDSON MD 05/11/2006 6:30 AM CDT SpaceFacelakesha Perrin CHEMISTRY ORDERABLES Final Re sult Performing Organization Address [facility] Phone Number INTERFACE SYSTEM Refer to clinic/hospital department * (ABNORMAL) PT AND APTT (05/11/2006 6:00 AM CDT) PROTIME 14.7 12.7 - 15.1 Seconds INTERFACE SYSTEM INR 1.1 0.9 - 1.1 INTERFACE SYSTEM Comment: INR Therapeutic Range: Adult: 2.0 - 3.0 for pulmonary embolism or prophylaxis against venous thrombosis or systemic embolization. 2.0 - 3.0 for patients with tissue heart valves. 2.5 - 3.5 for patients with mechanical heart valves or post HI. Pediatric (12 years and under): 1.5 - 3.0 Although the target range in children is not well established , INR values of 1.5 - 3.0 are recommended for most patients. Higher values have been used in children with prosthetic cardiac valves and hereditary clotting disorders. (<3 days) therapeutic ranges have not been established. PTT 23.5(L) 24.4 - 36.4 Seconds INTERFACE SYSTEM Comment: PTT Therapeutic Range: Heparin Level PTT (seconds) <0.10 units/mL <53 0.10 - 0.30 units/mL 53 - 67 0.30 - 0.70 units/mL* 67 - 95* 0.70 - 1.00 units/mL 95 - 116 *corresponds to therapeutic range for unfractionated heparin 05/11/2006 6:00 AM CDT Supersonicdaniel Perrin HEMATOLOGY ORDERABLES Final R esult Performing Organization Address [facility] de Phone Number INTERFACE SYSTEM Refer to clinic/hospital department * TROPONIN (W/REFLEX CKMB/CK) (05/10/2006 10:40 AM CDT) TROPONIN T <0.01 <=0.03 ng/mL INTERFACE SYSTEM TROPONIN T INTERP Negative INTERFACE SYSTEM 05/10/2006 10:4 0 AM CDT Kristofer Johnson MD CHEMISTRY ORDERABLES Final Res ult Performing Organization Address [facility] de Phone Number INTERFACE SYSTEM Refer to clinic/hospital department * (ABNORMAL) CBC WITH DIFFERENTIAL (05/10/2006 10:40 AM CDT) NEUTROPHILS 48 45 - 70 % INTERFAC E SYSTEM LYMPHOCYTES 30 16 - 45 % INTERFAC E SYSTEM MONOCYTES 15(H) 3 - 13 % INTERFACE SYSTEM EOSINOPHILS 6 0 - 7 % INTERFAC E SYSTEM BASOPHILS 1 0 - 2 % INTERFACE SYSTEM NEUTROPHIL ABSOLUTE 2.22 1.90 - 7.00 K/uL INTERFACE SYSTEM LYMPHOCYTE ABSOLUTE 1.40 0.70 - 4.50 K/uL INTERFACE SYSTEM MONOCYTE ABSOLUTE 0.67 0.10 - 1.30 K/uL INTERFACE SYSTEM EOSINOPHIL ABSOLUTE 0.28 0.00 - 0.70 K/uL INTERFACE SYSTEM BASOPHILS ABSOLUTE 0.03 0.00 - 0.20 K/uL INTERFACE SYSTEM 05/10/2006 10:4 0 AM CDT Kristofer Johnson MD HEMATOLOGY ORDERABLES Final Re sult Performing Organization Address [facility] de Phone Number INTERFACE SYSTEM Refer to clinic/hospital department * CBC WITH DIFFERENTIAL (05/10/2006 10:40 AM CDT) WBC 4.6 4.0 - 9.8 K/uL INTERFACE SYSTEM RBC 4.26 3.90 - 4.90 M/uL INTERFACE SYSTEM HEMOGLOBIN 13.7 11.8 - 14.8 g/dL INTERFACE SYSTEM HEMATOCRIT 40.5 35.5 - 44.0 % INTERFACE SYSTEM MCV 95.1 82.0 - 99.0 fL INTERFACE SYSTEM MCH 32.2 27.2 - 32.6 pg INTERFACE SYSTEM MCHC 33.8 31.5 - 35.5 % INTERFACE SYSTEM RDW 13.2 11.5 - 14.5 % INTERFACE SYSTEM RDW-STDEV 45.8 37.1 - 48.7 fL INTERFACE SYSTEM PLATELETS 236 140 - 350 K/uL INTERFACE SYSTEM MPV 11.1 9.3 - 12.4 fL INTERFACE SYSTEM 05/10/2006 10:4 0 AM CDT us Kristofer Johnson MD HEMATOLOGY ORDERABLES Final Re sult Performing Organization Address [facility] Co de Phone Number INTERFACE SYSTEM Refer to clinic/hospital department * C-REACTIVE PROTEIN (05/10/2006 10:40 AM CDT) CRP 0.3 0.0 - 0.8 mg/dL INTERFACE SYSTEM 05/10/2006 10:4 0 AM CDT Kristofer Johnson MD CHEMISTRY ORDERABLES Final Res ult Performing Organization Address [facility] Co de Phone Number INTERFACE SYSTEM Refer to clinic/hospital department documented in this encounter Visit Diagnoses Diagnosis Bronchiectasis with acute exacerbation (CMS/HCC)- Primary Bronchiectasis with acute exacerbation documented in this encounter Care Teams Poultry Service Technician Relationship Specialty Start Date End Date Tiarra Martinez MD [address] [place] [address] PCP - General 06/11/07 documented as of this encounter
--- OUTSIDE RECORDS SUMMARY | 2025-03-25 08:12 | XMS_ITS | Encounter Summary ---
Author Organization [facility] Address 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
--- OUTSIDE RECORDS SUMMARY | 2025-03-25 08:12 | XMS_ITS | Encounter Summary ---
Author Organization [facility] Address [address] [facility] [place] [address] Care Team Providers Care Side Sawyer Name Role Phone Kassidy Martinez MD Primary Care Provider [phone] Encounter Details Date Type Department Care Team (Late st Contact Info) Description 02/07/2024 Lab Requisition [facility] [address] [facility] [facility] [place] [phone] Tosin Singh MD [address] [facility] [address] [place] [address] Social History Tobacco Use Types Packs/Day Years Used Date Smoking Tobacco: Former Cigarettes Q uit: 09/09/1971 Alcohol Use Standard Drinks/Week Comments Yes 0 (1 standard drink = 0.6 oz pur e alcohol) Comments Unknown Sex and Gender Information Value Date Recorded Sex Assigned at Not on file 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
--- OUTSIDE RECORDS SUMMARY | 2025-03-25 08:12 | XMS_ITS ---
Author Organization [facility] [place] ([address]) Address [address] [place] [address] Care Team Providers Care Dobie Man Name Role Phone Marco Martinez Primary Care Provider Arabella Sandoval Unavailable [phone] [facility], Provider Unavailable Unavailab le REAS[facility] FOR [facility]ISIT [facility] Encounter Medications Medication SIG (Take, Route, [...] review and pick correct strength-formulati on from [facility] options. If intended option is not shown, [...] Encounters Encounter Location Date Provider Diagnosis [facility] [address] [place] [address] 02/22/2024 Provider [facility] Plan Of Treatment No Information Progress Notes * Ariana DAY LDOB:1939 (84 yo F)Acc No.[id number]:02/22/2024 Patient: Ariana MIJARES Provider: Zulma Arizmendi :1940 A ge:83 Y S ex:Female Date:02/22/2024 Address:[address] [place], [place] [id number] Pcp:Marco Martinez Subjective: * Chief Complaints: * 1 . [facility] Encounter. * Medical History: * Medications: [...] Electronic signature of Prov ider [facility] on 03/25/2025 at 08:11 AM CDT Sign off status: Pending * Provider: Zulma Arizmendi Date: 02/22/2024 Generated for Ernie espinoza/Lissa/Marojrieitting on: 03/25/2025 08:11 AM CDT
--- OUTSIDE RECORDS SUMMARY | 2025-03-25 08:12 | XMS_ITS | Encounter Summary ---
Author Organization [facility] Address [address] [place] [address] Care Team Providers Care Treatment Supervisor Name Role Phone Tiarra Martinez MD Primary Care Provider [phone] Encounter Details Date Type Department Care Team (Late st Contact Info) Description 02/24/2008 Outpatient Historical [facility], [address] Ba Nolan MD NO ADDRESS ON FILE Social History Tobacco Use Types Packs/Day Years Used Date Smoking Tobacco: Never Assessed Comments Unknown Sex and Gender Information Value Date Recorded Sex Assigned at Not on file Legal Sex Female 4:11 AM VP PATIENT Gender Identity Not on file Sexual Orientation Not on file documented as of this encounter Plan of Treatment Not on file documented as of this encounter Visit Diagnoses Not on filedocumented in this encounter Care Teams Treatment Supervisor Relationship Specialty Start Date End Date Tiarra Martinez MD [address] [place] [address] PCP - General 06/11/07 documented as of this encounter
--- OUTSIDE RECORDS SUMMARY | 2025-03-25 08:12 | XMS_ITS | Clinical Summary ---
Author Organization [facility] Address [address], [facility] [address] [place] [address] Phone Care Team Providers Care Wood Machine Carver Name Role Phone Tiarra Martinez MD Primary Care Provider Allergies Active Allergy Reactions Criticality Noted Date Comments Amitriptyline Unknown Low Ketorolac Unknown Low Nsaids Nausea Low History of gi bleed Medications predniSONE (DELTASONE) 10 MG Tablet Take by mouth. Presently taking 20 but t go back to 10 daily Active montelukast (SINGULAIR) 10 MG Tablet Take 10 mg by mouth daily. Active atorvastatin (LIPITOR) 10 MG Tablet Take by mouth. Activ e Calcium-Vitami n D 500-125 MG-UNIT Tablet Take by mouth. Active esomeprazole (NEXIUM) 40 MG CAPSULE DELAYED RELEASEIndicat ions:Laryngoph aryngeal reflux,Pachyde rma of larynx,PNAR (perennial non-allergic rhinitis) 1 cap PO BID (30-60' AC breakfast & dinner) 180 Cap 3 08/29/20 17 Active albuterol (PROVENTIL HFA, VENTOLIN HFA) 108 (90 Base) MCG/ACT Aerosol Solution take by inhalation. 08/16/20 17 Active fluticasone-vi lanterol (BREO ELLIPTA) 200-25 MCG/INH AEROSOL POWDER, BREATH ACTIVATED 08/22/20 17 Active EPINEPHrine (EPIPEN) 0.3 MG/0.3ML Solution Auto-injector INJECT INTRAMUSCULARLY DIRECTED 3 05/02/20 17 Active ipratropium-al buterol (DUO-NEB) 0.5-2.5 (3) MG/3ML Solution Inhale 3 millimeter by nebulizer route qid 08/16/20 17 Active NUCALA 100 MG Recon Soln 08/26/20 17 Active fluticasone-vi lanterol (BREO ELLIPTA) 100-25 MCG/INH AEROSOL POWDER, BREATH ACTIVATED take by inhalation. Active aspirin EC (ECOTRIN LOW STRENGTH) 81 MG Tablet Delayed Response Take 81 mg by mouth daily. Active Active Problems Problem Noted Date Diagnosed Date Dysfunction of eustachian tube Overview (06/01/2015): Which is well controlled Chronic airway obstruction Hyperlipidemia COPD (chronic obstructive pulmonary disease) Hyperlipidemia Chronic sphenoidal sinusitis Chronic rhinitis Overview (06/01/2015): PNAR Chronic laryngitis Overview (06/01/2015): Which is improving Laryngopharyngeal reflux Overview (06/01/2015): Which is improving still somewhat symptomatic Social History Tobacco Use Types Packs/Day Years Used Date Smoking Tobacco: Former Cigarettes 1 10 Smokeless Tobacco: Never Comments No Sex and Gender Information Value Date Recorded Sex Assigned at Not on file Legal Sex Female 10:33 PM CDT Gender Identity Not on file Sexual Orientation Not on file Last Filed Vital Signs Vital Sign Reading Time Taken Comments Blood Pressure 124/70 08/29/2017 1:21 PM HAND LENS 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 Pulse 66 08/29/2017 1:21 PM HAND LENS POLISHER Temperature - - Respiratory Rate - - Oxygen Saturation 97% 08/29/2017 1:21 PM HAND LENS POLISHER Inhaled Oxygen Concentration - - Weight 62.1 kg (137 lb) 08/29/2017 1:21 PM HAND LENS POLISHER Height 160 cm (5' 3) 08/29/2017 1:21 PM HAND LENS POLISHER Body Mass Index 24.27 08/29/2017 1:21 PM HAND LENS POLISHER Plan of Treatment Health Maintenance Due Date Last Done Comments Hepatitis C Virus (HCV) Screening 1940 TdaP Immunization 1940 Pneumococcal Immunization (5 0+ years) (1 of 2 - PCV) 1961 Zoster Immunization (1 of 2) 1992 Respiratory Syncytial Virus (RSV) Immunization (Adult) (1 - 1-dose 75+ series) 2017 SARS-COV-2 Immunization (1 - season) 2024 Influenza Immunization (#1) 2025 Hepatitis B Immunization Aged Out No longer eligible based on patient's age to complete this topic Human Papillomavirus (HPV) Immunization Aged Out No longer eligible b ased on patient's age to complete this topic Meningococcal Immunization (ACWY) Aged Out No longer eligible based on patient's age to complete this topic Rotavirus Immunization Aged Out No lo nger eligible based on patient's age to complete this topic Care Teams Wood Machine Carver Relationship Specialty Start Date End Date Tiarra Martinez MD [address] [place] [address] PCP - General Internal Medicine 08/29/17
--- OUTSIDE RECORDS SUMMARY | 2025-03-25 08:12 | XMS_ITS | Encounter Summary ---
Author Organization [facility] Address [address] [place] [address] Care Team Providers Care Manager Local Name Role Phone Kassidy Martinez MD Primary Care Provider [phone] Encounter Details Date Type Department Care Team (Late st Contact Info) Description 10/10/2023 Lab Requisition [facility] - DermPath Lab [address] [place] [id number] Alex Mckeon MD [address] [place] [address] Social History Tobacco Use Types Packs/Day Years Used Date Smoking Tobacco: Former Cigarettes Q uit: 09/09/1971 Alcohol Use Standard Drinks/Week Comments Yes 0 (1 standard drink = 0.6 oz pur e alcohol) Comments Unknown Sex and Gender Information Value Date Recorded Sex Assigned at Not on file 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 Gender Identity Not on file Sexual Orientation Not on file documented as of this encounter Plan of Treatment Not on file documented as of this encounter Procedures Procedure Name Priority Date/Time Associated Diagnosis Comments DERMATOPATHOLOGY Routine 10/08/2023 3:33 AM GUITAR INSTRUCTOR documented in this encounter Results * DERMATOPATHOLOGY (10/08/2023 3:33 AM GUITAR INSTRUCTOR) Case Report Dermatopathology Report Case: [id number] Authorizing Provider: Alex Mckeon MD Collected: 10/08/2023 03:33 AM Ordering Location: [facility] DermPath Lab Received: 10/10/2023 09:10 AM Pathologist: Skylar Mark MD Specimens: A) - Skin, left anterior frontal scalp medially B) - Skin, Left anterior frontal scalp laterally C) - Skin, left cheek anterior to ear D) - Skin, right lateral forehead hairline 6:03 PM [facility] Final Diagnosis Specimen A. SKIN, left anterior frontal scalp medially: BASAL CELL CARCINOMA, NODULAR TYPE (C44.41) Specimen B. SKIN, Left anterior frontal scalp laterally: BASAL CELL CARCINOMA, SUPERFICIAL MULTIFOCAL (C44.41) Specimen C. SKIN, left cheek anterior to ear: BASAL CELL CARCINOMA, NODULAR TYPE (C44.319) Specimen D. SKIN, right lateral forehead hairline: BASAL CELL CARCINOMA, INFILTRATIVE PATTERN (C44.319) 6:03 PM [facility] at [address] [facility] Clinical History A-D: r/o SCC 6:03 PM [facility] Gross Description Specimen A: Received is one formalin filled container labeled with the patient's name and designated left anterior frontal scalp medially. The specimen consists of 2 (two) pieces of a shave biopsy measuring 7x3x2, 7x6x1 mm. Jar 0. Specimen B: Received is one formalin filled container labeled with the patient's name and designated Left anterior frontal scalp laterally. The specimen consists of a shave biopsy measuring 8x7x2 mm. Jar 0. Specimen C: Received is one formalin filled container labeled with the patient's name and designated left cheek anterior to ear. The specimen consists of a shave biopsy measuring 5x5x1 mm. Jar 0. Specimen D: Received is one formalin filled container labeled with the patient's name and designated right lateral forehead hairline. The specimen consists of a shave biopsy measuring 8x6x1 mm. Jar 0. 6:03 PM [facility] Microscopic Description Specimen A. SKIN, left anterior frontal scalp medially: Within the dermis there are aggregates of basaloid cells with a high nuclear to cytoplasmic ratio and peripheral palisading. Specimen B. SKIN, Left anterior frontal scalp laterally: Attached to the undersurface of the epidermis, there are small aggregates of basaloid cells with a high nuclear to cytoplasmic ratio and peripheral palisading. Specimen C. SKIN, left cheek anterior to ear: Within the dermis there are aggregates of basaloid cells with a high nuclear to cytoplasmic ratio and peripheral palisading. Specimen D. SKIN, right lateral forehead hairline: Within the dermis there are nodular aggregates of basaloid cells associated with fibromyxoid stroma and epithelial-stromal clefts. At the advancing margin of the neoplasm, there are smaller angulated nests that infiltrate the dermis. 4 6:03 PM [facility] Disclaimer An external and internal positive and negative controls are appropriate for the histochemical, immunohistochemical and immunofluorescence stain(s) in this case (if any), except where stated explicitly. The performance characteristics of the stain(s) cited in this report were developed and its performance characteristic determined by the Dermatopathology Laboratory at [facility], directed by Dr. Aisha Can. These tests need not be, and therefore are not, approved by the [place] Food and Drug Administration. The tests are used for clinical purposes. Billing Codes Specimen Charges Stain Charges 34973 [id number] 1 1 1 1 4 6:03 PM GUITAR INSTRUCTOR DERMATOPATHOLOGY LABORATORY Embedded Images 4 6:03 PM GUITAR INSTRUCTOR DERMATOPATHOLOGY LABORATORY Pathology/Cytology TISSUE SPECIMEN FROM SKIN / Unknown 10/08/2023 3:33 AM GUITAR INSTRUCTOR 10/10/2023 9:10 AM GUITAR INSTRUCTOR Miscellaneous samples (specimen) TISSUE SPECIMEN FROM SKIN / Unknown 10/08/2023 3:33 AM GUITAR INSTRUCTOR 10/10/2023 9:10 AM GUITAR INSTRUCTOR Miscellaneous samples (specimen) TISSUE SPECIMEN FROM SKIN / Unknown 10/08/2023 3:33 AM GUITAR INSTRUCTOR 10/10/2023 9:10 AM GUITAR INSTRUCTOR Miscellaneous samples (specimen) TISSUE SPECIMEN FROM SKIN / Unknown 10/08/2023 3:33 AM GUITAR INSTRUCTOR 10/10/2023 9:10 AM GUITAR INSTRUCTOR Alex Mckeon MD LAB - PATHOLOGY/CYTOLOGY ORD ERABLES Final Result DERMATOPATHOLOGY LABORATORY [facility] - Department of Dermatology [address], [address] [phone] documented in this encounter Visit Diagnoses Not on filedocumented in this encounter Care Teams Manager Local Relationship Specialty Start Date End Date Kassidy Martinez MD [address] [place] [phone] PCP - General 07/13/08 documented as of this encounter
--- OUTSIDE RECORDS SUMMARY | 2025-03-25 08:12 | XMS_ITS | Encounter Summary ---
Author Organization [facility] Address [address] [place] [address] Care Team Providers Care Credit Card Analyst Name Role Phone Tiarra Martinez MD Primary Care Provider [phone] Encounter Details Date Type Department Care Team (Latest Contact Info) Description 11/05/2007 Outpatient Historical [facility] Endy Temple, [address] [place] [address] Unspecified Sinusitis (Chronic) Social History Tobacco Use Types Packs/Day Years Used Date Smoking Tobacco: Never Assessed Comments Unknown Sex and Gender Information Value Date Recorded Sex Assigned at Not on file Legal Sex Female 4:11 AM DERRICK HELPER Gender Identity Not on file Sexual Orientation Not on file documented as of this encounter Plan of Treatment Not on file documented as of this encounter Procedures Procedure Name Priority Date/Time Associated Diagnosis Comments CBC WITH DIFFERENTIAL Routine 11/05/2007 10:05 AM DERRICK HELPER C-REACTIVE PROTEIN Routine 11/05/2007 10 :05 AM DERRICK HELPER COMPREHENSIVE METABOLIC PANEL Routine 11/05/2007 10:05 AM DERRICK HELPER documented in this encounter Results * COMPREHENSIVE METABOLIC PANEL (11/05/2007 10:05 AM DERRICK HELPER) CO2 26 22 - 30 mmol/L [facility] TOTAL PROTEIN 7.0 6.3 - 8.6 g/dL [facility] POTASSIUM 3.7 3.5 - 4.9 mmol/L [facility] GLUCOSE 88 65 - 99 mg/dL [facility] AST 21 12 - 32 U/L [facility] BUN 9 6 - 20 mg/dL [facility] CALCIUM 8.9 8.4 - 10.2 mg/dL [facility] CHLORIDE 101 96 - 108 mmol/L [facility] ALBUMIN 4.4 3.4 - 4.8 g/dL [facility] CREATININE 0.65 0.51 - 0.95 mg/dL [facility] SODIUM 139 135 - 145 mmol/L [facility] ALT 14 0 - 31 U/L [facility] ALKALINE PHOSPHATASE 38 35 - 104 U/L [facility] BILIRUBIN TOTAL 0.4 0.2 - 1.0 mg/dL [facility] GFR, >60 >=60 mL/min/1.7 sq meter [facility] GFR >60 >=60 mL/min/1.7 sq meter [facility] Comment: Estimated GFR rate interpretative information for both Americans and non- Americans is available on the [facility] Intranet at: [email or web address] Select: Lab Policies and Procedures Select: Reference Ranges - GFR Blood specimen (specimen) 11/05/2007 10:05 AM DERRICK HELPER 11/05/2007 10:19 AM DERRICK HELPER us Endy Brothers MD CHEMISTRY ORDERABLES Edited [facility] [address] [place] [address] * C-REACTIVE PROTEIN (11/05/2007 10:05 AM DERRICK HELPER) CRP 0.3 0.0 - 0.8 mg/dL [facility] Blood specimen (specimen) 11/05/2007 10:05 AM DERRICK HELPER 11/05/2007 10:19 AM DERRICK HELPER us Endy Brothers MD CHEMISTRY ORDERABLES Final Resul t [facility] [address] [place] [address] * (ABNORMAL) CBC WITH DIFFERENTIAL (11/05/2007 10:05 AM DERRICK HELPER) MPV 10.9 9.3 - 12.4 fL [facility] MCV 96.9 82.0 - 99.0 fL [facility] PLATELETS 261 140 - 350 K/uL [facility] HEMOGLOBIN 13.5 11.8 - 14.8 g/dL [facility] RDW 13.2 11.5 - 14.5 % [facility] WBC 10.8(H) 4.0 - 9.8 K/uL [facility] MCH 31.7 27.2 - 32.6 pg [facility] HEMATOCRIT 41.3 35.5 - 44.0 % [facility] RDW-STDEV 46.6 37.1 - 48.7 fL [facility] RBC 4.26 3.90 - 4.90 M/uL [facility] MCHC 32.7 31.5 - 35.5 % [facility] BASOPHILS 0 0 - 2 % [facility] BASOPHILS ABSOLUTE 0.02 0.00 - 0.20 K/uL [facility] MONOCYTES 7 3 - 13 % [facility] MONOCYTE ABSOLUTE 0.78 0.10 - 1.30 K/uL [facility] NEUTROPHILS 83(H) 45 - 70 % [facility] NEUTROPHIL ABSOLUTE 8.92(H) 1.90 - 7.00 K/uL [facility] EOSINOPHILS 1 0 - 7 % [facility] EOSINOPHIL ABSOLUTE 0.07 0.00 - 0.70 K/uL [facility] LYMPHOCYTES 9(L) 16 - 45 % [facility] LYMPHOCYTE ABSOLUTE 1.02 0.70 - 4.50 K/uL [facility] Blood specimen (specimen) 11/05/2007 10:05 AM DERRICK HELPER 11/05/2007 10:23 AM DERRICK HELPER us Endy Brothers MD HEMATOLOGY ORDERABLES Edited INTERFACE SYSTEM Refer to clinic/hospital department [facility] [address] [facility] [place] [address] documented in this encounter Visit Diagnoses Diagnosis Unspecified sinusitis (chronic) documented in this encounter Care Teams Credit Card Analyst Relationship Specialty Start Date End Date Tiarra Martinez MD [address] [place] [address] PCP - General 06/11/07 documented as of this encounter
--- OUTSIDE RECORDS SUMMARY | 2025-03-25 08:12 | XMS_ITS | Encounter Summary ---
Author Organization [facility] Address [address] [place] [address] Care Team Providers Care Diagnostic Assistant Name Role Phone Kassidy Martinez MD Primary Care Provider [phone] Encounter Details Date Type Department Care Team (Late st Contact Info) Description 03/23/2025 Lab Requisition [facility] - DermPath Lab [address] [place] [phone] Tosin Singh MD [address] [facility] [place] [address] Social History Tobacco Use Types Packs/Day Years Used Date Smoking Tobacco: Former Cigarettes Q uit: 09/09/1971 Alcohol Use Standard Drinks/Week Comments Yes 0 (1 standard drink = 0.6 oz pur e alcohol) Comments Unknown Sex and Gender Information Value Date Recorded Sex Assigned at Not on file Legal Sex Female 6:57 PM PORTFOLIO SPECIALIST Gender Identity Not on file Sexual Orientation Not on file documented as of this encounter Plan of Treatment Scheduled Orders Name Type Priority Associated Diagnoses Orde r Schedule DERMATOPATHOLOGY Pathology Cytology Routine Ordered: 03/23/2025 documented as of this encounter Visit Diagnoses Not on filedocumented in this encounter Care Teams Diagnostic Assistant Relationship Specialty Start Date End Date Kassidy Martinez MD [address] [place] [address] PCP - General 07/13/08 documented as of this encounter
--- OUTSIDE RECORDS SUMMARY | 2025-03-25 08:12 | XMS_ITS | Encounter Summary ---
Author Organization [facility] Address 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
--- OUTSIDE RECORDS SUMMARY | 2025-03-25 08:12 | XMS_ITS | Encounter Summary ---
Author Organization [facility] Address [address] [place] [address] Care Team Providers Care Epic Radiant Analyst Name Role Phone Tiarra Martinez MD Primary Care Provider [phone] Encounter Details Date Type Department Care Team (Latest Contact Info) Description 04/08/2008 Outpatient Historical [facility] Quinton Barrera MD [address] [facility] [address] [place] [address] Shortness of Breath Social History Tobacco Use Types Packs/Day Years Used Date Smoking Tobacco: Never Assessed Comments Unknown Sex and Gender Information Value Date Recorded Sex Assigned at Not on file Legal Sex Female 4:11 AM BUNCH BREAKER Gender Identity Not on file Sexual Orientation Not on file documented as of this encounter Plan of Treatment Not on file documented as of this encounter Procedures Procedure Name Priority Date/Time Associated Diagnosis Comments PATHOLOGY Routine 04/09/2008 1:49 PM CDT PATHOLOGY Routine 04/09/2008 1:43 PM CDT VIRUS DETECTION, NON-RESPIRATORY Routine 04/09/2008 10:00 AM CDT SOURCE, FLUID Routine 04/09/2008 9:45 AM CDT BRONCHIAL BRUSH CULTURE Routine 04/09/2008 9:45 AM CDT CELL COUNT WITH DIFFERENTIAL, BODY FLUID Routine 04/09/2008 9:45 AM CDT AFB CULTURE WITH STAIN Routine 04/09/2008 9:40 AM CDT RESPIRATORY CULTURE WITH GRAM STAIN Routine 04/09/2008 9:40 AM CDT FUNGUS CULTURE, OTHER Routine 04/09/2008 9:40 AM CDT RESPIRATORY CULTURE WITH GRAM STAIN Routine 04/09/2008 9:37 AM CDT AFB CULTURE WITH STAIN Routine 04/09/2008 9:35 AM CDT FUNGUS CULTURE, OTHER Routine 04/09/2008 9:35 AM CDT VIRUS DETECTION, NON-RESPIRATORY Routine 04/09/2008 9:35 AM CDT documented in this encounter Results * PATHOLOGY (04/09/2008 1:49 PM CDT) FINAL REPORT [id number] [place], [place] [address] Patient: RADHA DAY : 1940 Procedure Date: 04/09/2008 Accession Date: 04/09/2008 Case No: [id number] Ordering Dr: QUINTON BARRERA Case types AW, BW, FW, NW and SH are performed by [facility] [place], [place], [place] SURGICAL PATHOLOGY & NON-GYNECOLOGIC CYTOPATHOLOGY REPORT DIAGNOSIS RIGHT MIDDLE LOBE, BRONCHOALVEOLAR LAVAGE, THINPREP CYTOLOGY AND CELL BLOCK EXAMINATION: - REACTIVE CHANGES (SEE DESCRIPTION). Specimen Description: Bronchoalveolar lavage right middle lobe. Operative Procedure: Bronchoalveolar lavage. Patient Information/History/Di agnosis: Rule out malignancy, rule out PCP. The patient has history of bronchiectasis and multiple small nodules, rule out infection. Gross: 18 cc slight blood-tinged fluid, slightly cloudy fluid. BBK/PHC 04.12.2008 11:10 am Microscopic: The ThinPrep cytology preparation and cell block both display reactive changes. Numerous macrophages are seen. A GMS stain is performed on the cell block and appears negative. A Pneumocystis immunostain is also performed and appears negative. Note on use of immunocytochemistry reagents: This test was developed and its performance characteristic determined by [facility], Department of Laboratory Medicine. It has not been cleared or approved by the U.S. Food and Drug Administration. The FDA has determined that such clearance or approval is not necessary. The test is used for clinical purpose. It should not be regarded as investigational or for research. This laboratory is certified to perform high complexity clinical testing. [facility] 04.12.2008 11:10 am Staging Form: No. ELECTRONIC SIGNATURE FOR ALIS CLAYTON M.D.- 04/13/08 12:27 pm INTERFACE SYSTEM 04/09/2008 1:49 PM CDT Quinton Barrera MD PATHOLOGY/CYTOLOGY ORD ERABLES Final Result INTERFACE SYSTEM Refer to clinic/hospital department * PATHOLOGY (04/09/2008 1:43 PM CDT) FINAL REPORT [address] [address] Patient: RADHA DAY : 1940 Procedure Date: 04/09/2008 Accession Date: 04/09/2008 Case No: [id number] Ordering Dr: QUINTON BARRERA Case types AW, BW, FW, NW and SH are performed by [facility] [place], [place], [place] SURGICAL PATHOLOGY & NON-GYNECOLOGIC CYTOPATHOLOGY REPORT DIAGNOSIS LUNG, BRONCHIAL BRUSHING, THINPREP CYTOLOGY EXAMINATION: - REACTIVE CHANGES. Specimen Description: Bronchial brushing, right middle lobe. Operative Procedure: Bronchial brushing, no endobronchial lesion seen. Patient Information/Histor y/Diagnosis: Rule out malignancy. Chest CT shows bronchiectasis and small lung nodules, rule out MANGO, rule out fungus. Gross: Received is a brush in 30 cc of CytoLyt. NEGAR/[facility] 04.12.2008 11:12 am Microscopic: The ThinPrep cytology preparation displays a cellular sample, consisting of numerous reactive bronchial epithelial cells. No atypical cells are seen. No infectious agents are identified. No cell block is available. Further evaluation as clinically indicated is recommended. BBK/GDH 04.12.2008 11:12 am Staging Form: No. ELECTRONIC SIGNATURE FOR ALIS CLAYTON M.D.- 04/12/08 02:37 pm INTERFACE SYSTEM 04/09/2008 1:43 PM CDT Quinton Barrera MD PATHOLOGY/CYTOLOGY ORD ERABLES Final Result Performing Organization Address City/[facility] de Phone Number INTERFACE SYSTEM Refer to clinic/hospital department * VIRUS CULTURE (04/09/2008 10:00 AM CDT) Pathologist [facility] PRELIMINARY REPORT No CMV detected on shell vial immunofluorescent assay. No virus detected in 48 hours [facility] FINAL REPORT No CMV detected on shell vial immunofluorescent assay. No virus isolated. [facility] Bronchoalveolar lavage fluid specimen (specimen) 04/09/2008 10:00 AM CDT 04/09/2008 10:14 AM CDT Quinton Barrera MD MICRO - GEN ORDERABLES COM Final Result Performing Organization Address [facility] Phone Number INTERFACE SYSTEM Refer to clinic/hospital department [facility] CLIA# [id number] [address] [place] [address] * SOURCE, FLUID (04/09/2008 9:45 AM CDT) SOURCE FLUID Bronch Lavage fluid [facility] Bronchoalveolar lavage fluid specimen (specimen) 04/09/2008 9:45 AM CDT 04/09/2008 10:13 AM CDT Quinton Barrera MD HEMATOLOGY ORDERABLES Final Result Performing Organization Address City/[facility] de Phone Number [facility] CLIA# [id number] [address] [place] [address] * CELL COUNT WITH DIFFERENTIAL, BODY FLUID (04/09/2008 9:45 AM CDT) COMMENT, FLD Ciliated epi's noted [facility] WBC, FLD 255 /uL [facility] RBC, FLD 995 /uL [facility] MACROPHAGE, FLD 60 % [facility] Comment: Hemosiderin macrophagys present. NEUTROPHILS, FLD 18 % [facility] EOSINOPHIL, FLD 18 % [facility] LYMPHOCYTE, FLD 4 % [facility] CELLS COUNTED, FLD 100 WBC Counted [facility] Bronchoalveolar lavage fluid specimen (specimen) 04/09/2008 9:45 AM CDT 04/09/2008 10:13 AM CDT Quinton Barrera MD BODY FLUIDS AND STOOLS Edited Performing Organization Address City/[facility]/ZIP Co de Phone Number [facility] CLIA# [id number] [address] [place] [address] * BRONCHIAL BRUSH CULTURE (04/09/2008 9:45 AM CDT) [facility] PRELIMINARY REPORT No growth 48 hours [facility] FINAL REPORT No growth 5 days [facility] Bronchial brushings specimen (specimen) 04/09/2008 9:45 AM CDT 04/09/2008 10:11 AM CDT Quinton Barrera MD MICROBIOLOGY - GENERAL ORDERABLES Final Result [facility] CLIA# [id number] [address] [address] * FUNGUS CULTURE, OTHER (04/09/2008 9:40 AM CDT) PRELIMINARY REPORT No fungus isolated after 3 days. Culture will be held for 4 weeks. [facility] FINAL REPORT No fungus isolated after 4 weeks. [facility] Bronchoalveolar lavage fluid specimen (specimen) 04/09/2008 9:40 AM CDT 04/09/2008 10:13 AM CDT Quinton Barrera MD MICROBIOLOGY - GENERAL ORDERABLES Final Result Performing Organization Address [facility] de Phone Number INTERFACE SYSTEM Refer to clinic/hospital department [facility] CLIA# [id number] [address] [place] [address] * AFB CULTURE WITH STAIN (04/09/2008 9:40 AM CDT) AFB STAIN No acid fast bacilli seen [facility] FINAL REPORT No acid fast bacilli isolated after 6 weeks. [facility] Bronchoalveolar lavage fluid specimen (specimen) 04/09/2008 9:40 AM CDT 04/09/2008 10:13 AM CDT Narrative INTERFACE SYSTEM - 05/24/2008 7:15 AM CDT none none Quinton Barrera MD MICROBIOLOGY - GENERAL ORDERABLES Final Result Performing Organization Address [facility] de Phone Number INTERFACE SYSTEM Refer to clinic/hospital department [facility] CLIA# [id number] [address] [place] [address] * RESPIRATORY CULTURE WITH GRAM STAIN (04/09/2008 9:40 AM CDT) GRAM STAIN No organisms seen Many WBC's seen Intracellular organisms absent (< 2%) [facility] FINAL REPORT No growth 48 hours [facility] Bronchoalveolar lavage fluid specimen (specimen) 04/09/2008 9:40 AM CDT 04/09/2008 10:13 AM CDT Quinton Barrera MD MICROBIOLOGY - GENERAL ORDERABLES Final Result Performing Organization Address City/[facility] Co de Phone Number [facility] CLIA# [id number] [address] [place] [address] * RESPIRATORY CULTURE WITH GRAM STAIN (04/09/2008 9:37 AM CDT) GRAM STAIN Non diagnostic pattern Few WBC's seen [facility] PRELIMINARY REPORT Light growth Gram Negative Rods [facility] SUSCEPTIBILITY PERFORMED ON ESCHERICHIA COLI [facility] FINAL REPORT Light growth Escherichia coli Light growth normal upper respiratory benny [facility] SPECIMEN FROM LUNG / Unknown 04/09/2008 9:37 AM CDT 04/09/2008 9:57 AM CDT Narrative Organism Antibiotic Method Susceptibility Escherichia coli AMPICILLIN FRANSISCO MCG/ML >=32: Resistant Escherichia coli AMPICILLIN/ SULBACTAM FRANSISCO MCG/ML 16: Intermediate Escherichia coli PIPERACILLIN/ TAZOBACTAM FRANSISCO MCG/ML <=8: Susceptible Escherichia coli CEFAZOLIN FRANSISCO MCG/ML <=8: Susceptible Escherichia coli AZTREONAM FRANSISCO MCG/ML <=8: Susceptible Escherichia coli LEVOFLOXACIN FRANSISCO MCG/ML >=8: Resistant Escherichia coli GENTAMICIN FRANSISCO MCG/ML >=16: Resistant Escherichia coli TOBRAMYCIN FRANSISCO MCG/ML 8: Intermediate Escherichia coli TRIMETHOPRIM/ SULFAMETHOXAZOLE FRANSISCO MC G/ML 160: Resistant Quinton Barrera MD MICROBIOLOGY - GENERAL ORDERABLES Final Result Performing Organization Address City/[facility]/ZIP Co de Phone Number [facility] CLIA# [id number] [address] [place] [address] * VIRUS CULTURE (04/09/2008 9:35 AM CDT) PRELIMINARY REPORT No CMV detected on shell vial immunofluorescent assay. No virus detected in 48 hours [facility] FINAL REPORT No CMV detected on shell vial immunofluorescent assay. No virus isolated. [facility] SPECIMEN FROM LUNG / Unknown 04/09/2008 9:35 AM CDT 04/09/2008 9:59 AM CDT Quinton Barrera MD MICRO - GEN ORDERABLES COM Final Result Performing Organization Address [facility] Co de Phone Number INTERFACE SYSTEM Refer to clinic/hospital department [facility] CLIA# [id number] [address] [place] [address] * FUNGUS CULTURE, OTHER (04/09/2008 9:35 AM CDT) PRELIMINARY REPORT Peggy albicans isolated [facility] FINAL REPORT Peggy albicans isolated [facility] SPECIMEN FROM LUNG / Unknown 04/09/2008 9:35 AM CDT 04/09/2008 9:58 AM CDT Quinton Barrera MD MICROBIOLOGY - GENERAL ORDERABLES Final Result Performing Organization Address [facility] de Phone Number INTERFACE SYSTEM Refer to clinic/hospital department [facility] CLIA# [id number] [address] [place] [address] * AFB CULTURE WITH STAIN (04/09/2008 9:35 AM CDT) AFB STAIN No acid fast bacilli seen [facility] FINAL REPORT No acid fast bacilli isolated after 6 weeks. [facility] SPECIMEN FROM LUNG / Unknown 04/09/2008 9:35 AM CDT 04/09/2008 9:58 AM CDT Narrative INTERFACE SYSTEM - 05/24/2008 7:15 AM CDT none none Quinton Barrera MD MICROBIOLOGY - GENERAL ORDERABLES Final Result Performing Organization Address City/[facility] de Phone Number INTERFACE SYSTEM Refer to clinic/hospital department [facility] CLIA# [id number] [address] [place] [address] documented in this encounter Visit Diagnoses Diagnosis Shortness of breath documented in this encounter Care Teams Epic Radiant Analyst Relationship Specialty Start Date End Date Tiarra Martinez MD [address] [address] PCP - General 06/11/07 documented as of this encounter
--- OUTSIDE RECORDS SUMMARY | 2025-03-25 08:12 | XMS_ITS | Clinical Summary ---
Author Organization [facility] Address [address] [facility] [place] [address] Phone Care Team Providers Care Junior Systems Analyst Name Role Phone Tiarra Mratinez MD Primary Care Provider [phone] Allergies No known active allergies Medications predniSONE (DELTASONE) 10 mg Oral tablet Take 11 mg by mouth daily with breakfast. Active fluticasone-sonia meterol (ADVAIR DISKUS) 500-50 mcg/dose Inhalation DsDv Take 1 Puff by inhalation 2 times daily. Active mometasone (NASONEX) 50 mcg/actuation Both Nostril Crawford Administer 2 Sprays in each nostril daily. Active dexlansoprazole delayed release (DEXILANT) 60 mg Oral capsule Take 1 Cap by mouth daily. 30 Cap 6 2 Active esomeprazole (NEXIUM) 40 mg Oral CpDR Take 1 Cap by mouth daily before breakfast. 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 Gender Identity Not on file Sexual Orientation Not on file Occupation Industry Job Start Date Job End Date Not on file Not on file Not on file Not on file Last Filed Vital Signs Vital Sign Reading Time Taken Comments Blood Pressure 107/55 05/16/2012 9:22 AM CDT Pulse 75 05/16/2012 9:22 AM CDT Temperature 36.8 C (98.2 F) 05/16/2012 9:07 AM CDT Respiratory Rate 20 05/16/2012 9:22 AM CDT Oxygen Saturation 99% 05/16/2012 9:22 AM CDT Inhaled Oxygen Concentration - - Weight 61.9 kg (136 lb 6.4 oz) 05/16/2012 7:48 A M CDT Height 161.3 cm (5' 3.5) 05/16/2012 7:48 AM CDT Body Mass Index 23.78 05/16/2012 7:48 AM CDT Plan of Treatment Health Maintenance Due Date Last Done Comments ZOSTER VACCINE (1 of 2) 1992 OSTEOPOROSIS SCREENING 2007 RSV VACCINE (60+ or ) (1 - 1-dose 75+ series) 2017 DTAP/TDAP/TD VACCINES (3 - T d or Tdap) 08/05/2023 08/05/2013, 12/31/2006 INFLUENZA VACCINE (#1) 2025 9, 06/08/2018, 06/08/2016, Additional history exists PNEUMOCOCCAL VACCINE 50+ YEARS Completed 1 10/25/2014, 08/26/2014, 07/03/2006 Insurance MEDICARE PART A AND B [employer] OPEN ACCESS Advance Directives For more information, please contact: [phone] * Full Code (Latest Code Status on File) Date Activated Date Inactivated Comments 05/16/2012 7:59 AM 05/16/2012 11:36 AM * Full Code Date Activated Date Inactivated Comments 03/04/2012 10:02 AM 03/04/2012 1:30 PM Care Teams Junior Systems Analyst Relationship Specialty Start Date End Date Tiarra Martinez MD [address] [place] [address] [place] [id number] PCP - General 06/11/07
--- OUTSIDE RECORDS SUMMARY | 2025-03-25 08:12 | XMS_ITS | Encounter Summary ---
Author Organization [facility] Address [address] [place] [address] Care Team Providers Care Soda Fountain Manager Name Role Phone Tiarra Martinez MD Primary Care Provider [phone] Encounter Details Date Type Department Care Team (Late st Contact Info) Description 05/10/2006 Outpatient Historical [facility] Support Serv. ([facility] Card[facility]) [address] [place] [address] Hank Tejeda MD NO ADDRESS ON FILE Social History Tobacco Use Types Packs/Day Years Used Date Smoking Tobacco: Never Assessed Comments Unknown Sex and Gender Information Value Date Recorded Sex Assigned at Not on file Legal Sex Female 4:11 AM CONSOLE ATTENDANT Gender Identity Not on file Sexual Orientation Not on file documented as of this encounter Plan of Treatment Not on file documented as of this encounter Visit Diagnoses Not on filedocumented in this encounter Care Teams Soda Fountain Manager Relationship Specialty Start Date End Date Tiarra Martinez MD [address] [place] [phone] PCP - General 06/11/07 documented as of this encounter
--- OUTSIDE RECORDS SUMMARY | 2025-03-25 08:12 | XMS_ITS | Encounter Summary ---
Author Organization [facility] Address 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
--- OUTSIDE RECORDS SUMMARY | 2025-03-25 08:12 | XMS_ITS | Clinical Summary ---
Author Organization [facility] Address [address] [place] [address] Care Team Providers Care Parakeet Raiser Name Role Phone Kassidy Martinez MD Primary Care Provider [phone] Source Comments [facility],non-owned Affiliates and Associated Physician Practices is amultiple site organization consisting of ambulatory clinics and hospital [place]in [place] and [place]. This disclosure is being madepursuant to the Care Everywhere program and may not contain all information available regarding this patient. Last updated 18.[facility] Active Problems Problem Noted Date Diagnosed Date Allergic rhinitis 06/23/2015 Gastro-esophageal reflux disease without esophag itis 06/06/2011 Postnasal drip 06/06/2011 Encounters Date Type Department Care Team Description 03/23/2025 Lab Requisition [facility] [address] [place] [address] Tosin Singh MD 02/10/2025 Lab Requisition [facility] [address] [place] [address] Tosin Singh MD from Last 3 Months Family History Medical History Relation Name Comments CVA Father Heart Disease Father Eye Problems Mother Hypertension Mother Relation Name Status Comments Father Mother Social History Tobacco Use Types Packs/Day Years Used Date Smoking Tobacco: Former Cigarettes Q uit: 09/09/1971 Alcohol Use Standard Drinks/Week Comments Yes 0 (1 standard drink = 0.6 oz pur e alcohol) Comments Unknown Sex and Gender Information Value Date Recorded Sex Assigned at Not on file 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 Gender Identity Not on file Sexual Orientation Not on file Plan of Treatment Health Maintenance Due Date Last Done Comments BONE DENSITY TESTING 1942 DTAP/TDAP/TD VACCINES (1 - Tdap) 1961 PNEUMOCOCCAL VACCINE 50+ (1 of 1 - PCV) 1992 ZOSTER VACCINE (1 of 2) 1992 Respiratory Syncytial Virus (RSV) Vaccine Pt: or over 60 yrs (1 - 1-dose 75+ series) 2017 COVID-19 VACCINE ( - 2023-2 5 season) 2024 DEPRESSION SCREENING 09/09/2024 MEDICARE AWV CALENDAR YEAR 2024 INFLUENZA VACCINE (#1) 2025 HEPATITIS B VACCINE Aged Out No longe r eligible based on patient's age to complete this topic HIB VACCINE Aged Out No longer eligi ble based on patient's age to complete this topic HPV VACCINE Aged Out No longer eligi ble based on patient's age to complete this topic MENINGOCOCCAL (Group B) VACC INE SHARED DECISION-MAKING Aged Out No longer eligibl e based on patient's age to complete this topic MENINGOCOCCAL GROUPS A/C/Y/W VACCINE Aged Out No longer eligible b ased on patient's age to complete this topic Procedures Procedure Name Priority Date/Time Associated Diagnosis Comments DERMATOPATHOLOGY Routine 02/10/2025 1:05 PM CDT from Last 3 Months Results * DERMATOPATHOLOGY (02/10/2025 1:05 PM CDT) Case Report Dermatopathology Report Case: [id number] Authorizing Provider: Tosin Singh MD Collected: 02/10/2025 01:05 PM Ordering Location: [facility] - Received: 02/11/2025 07:41 AM DermPath Lab Pathologist: Kassidy Mark MD Specimens: A) - Skin, right forearm B) - Skin, right 2nd digit MCP C) - Skin, left hand 2:59 PM CDT DERMATOPATHOLOGY LABORATORY Final Diagnosis Specimen A. 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 SKIN, left hand: SQUAMOUS CELL CARCINOMA, WELL DIFFERENTIATED (C44.629) 2:59 PM CDT DERMATOPATHOLOGY LABORATORY at 1459 CDT Clinical History A. R/O BCC, Growing, Non-Healing B-C. R/O SCC, Growing, Non-Healing 2:59 PM CDT DERMATOPATHOLOGY LABORATORY Gross Description Specimen A: Received is one formalin filled container labeled with the patient's name and designated right forearm. The specimen consists of a shave biopsy measuring 9x8x3 mm. Jar 0. Specimen B: Received is one formalin filled container labeled with the patient's name and designated right 2nd digit MCP. The specimen consists of a shave biopsy measuring 8x7x2 mm. Jar 0. Specimen C: Received is one formalin filled container labeled with the patient's name and designated left hand. The specimen consists of a shave biopsy measuring 7x5x3 mm. Jar 0. 2:59 PM CDT DERMATOPATHOLOGY LABORATORY Microscopic Description Specimen A. SKIN, right forearm: Sections show an endo exophytic crateriform lesion with a keratotic plug, formed by confluent follicle-like structures with relatively large keratinocytes. Specimen B. SKIN, right 2nd digit MCP: The epidermis shows parakeratosis, full thickness disorderly maturation of keratinocytes, mitoses at different levels, and dyskeratotic cells. Specimen C. SKIN, left hand: Arising in the epidermis and extending into the dermis there are irregularly shaped aggregates of keratinocytes showing evidence of premature cornification. 2:59 PM CDT DERMATOPATHOLOGY LABORATORY Disclaimer An external and internal positive and negative controls are appropriate for the histochemical, immunohistochemical and immunofluorescence stain(s) in this case (if any), except where stated explicitly. The performance characteristics of the stain(s) cited in this report were developed and its performance characteristic determined by the Dermatopathology Laboratory at [facility], directed by Dr. Aisha Can. These tests need not be, and therefore are not, approved by the [place] Food and Drug Administration. The tests are used for clinical purposes. Billing Codes Specimen Charges Stain Charges 11625 26377 21162 1 1 1 5 2:59 PM CDT DERMATOPATHOLOGY LABORATORY Embedded Images 5 2:59 PM CDT DERMATOPATHOLOGY LABORATORY Pathology/Cytology TISSUE SPECIMEN FROM SKIN / Unknown 02/10/2025 1:05 PM CDT 02/11/2025 7:41 AM CDT Miscellaneous samples (specimen) TISSUE SPECIMEN FROM SKIN / Unknown 02/10/2025 1:05 PM CDT 02/11/2025 7:41 AM CDT Miscellaneous samples (specimen) TISSUE SPECIMEN FROM SKIN / Unknown 02/10/2025 1:05 PM CDT 02/11/2025 7:41 AM CDT Tosin Singh MD LAB - PATHOLOGY/CYTOLOGY OR DERABLES Final Result DERMATOPATHOLOGY LABORATORY [facility] - Department of Dermatology [facility] Medicine [address] [place] [address], [address] [phone] from Last 3 Months Insurance [facility] [employer] MEDICARE ADV Care Teams Parakeet Raiser Relationship Specialty Start Date End Date Kassidy Martinez MD [address] [place] [address] PCP - General 07/13/08
--- OUTSIDE RECORDS SUMMARY | 2025-03-25 08:12 | XMS_ITS | Encounter Summary ---
Author Organization [facility] Address [address] [place] [address] Care Team Providers Care Senior Java Architect Name Role Phone Tiarra Martinez MD Primary Care Provider [phone] Encounter Details Date Type Department Care Team (Latest Contact Info) Description 04/15/2008 Outpatient Historical [facility] Dflt Department Elia Barrera MD 

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
--- OUTSIDE RECORDS SUMMARY | 2025-03-25 08:12 | XMS_ITS | Encounter Summary ---
Author Organization [facility] Address 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
--- OUTSIDE RECORDS SUMMARY | 2025-03-25 08:12 | XMS_ITS | Encounter Summary ---
Author Organization [facility] Address [address] [place] [address] Care Team Providers Care Regional Account Manager Name Role Phone Kassidy Martinez MD Primary Care Provider [phone] Encounter Details Date Type Department Care Team (Late st Contact Info) Description 02/10/2025 Lab Requisition [facility] - DermPath Lab [address] [facility], [place] [address] Tosin Singh MD [address] [facility] 3 [place] [address] Social History Tobacco Use Types Packs/Day Years Used Date Smoking Tobacco: Former Cigarettes Q uit: 09/09/1971 Alcohol Use Standard Drinks/Week Comments Yes 0 (1 standard drink = 0.6 oz pur e alcohol) Comments Unknown Sex and Gender Information Value Date Recorded Sex Assigned at Not on file 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 Gender Identity Not on file Sexual Orientation Not on file documented as of this encounter Plan of Treatment Not on file documented as of this encounter Procedures Procedure Name Priority Date/Time Associated Diagnosis Comments DERMATOPATHOLOGY Routine 02/10/2025 1:05 PM CDT documented in this encounter Results * DERMATOPATHOLOGY (02/10/2025 1:05 PM CDT) Case Report Dermatopathology Report Case: [id number] Authorizing Provider: Tosin Singh MD Collected: 02/10/2025 01:05 PM Ordering Location: [facility] - Received: 02/11/2025 07:41 AM DermPath Lab Pathologist: Kassidy Mark MD Specimens: A) - Skin, right forearm B) - Skin, right 2nd digit MCP C) - Skin, left hand 2:59 PM T DERMATOPATHOLOGY LABORATORY Final Diagnosis Specimen A. SKIN, [...] characteristic determined by the Dermatopathology Laboratory at [facility], directed by Dr. Aisha Can. These tests need not be, and therefore are not, approved by the [place] Food and Drug Administration. The tests are used for clinical purposes. Billing Codes Specimen Charges Stain Charges 65766 58474 50421 1 1 1 5 2:59 PM CDT DERMATOPATHOLOGY LABORATORY Embedded Images 2:59 PM CDT DERMATOPATHOLOGY LABORATORY Pathology/Cytology TISSUE [...] PATHOLOGY/CYTOLOGY OR DERABLES Final Result DERMATOPATHOLOGY LABORATORY [facility] Department of Dermatology [facility] Medicine [address] [place] [address], [address]rd Floor [address] [phone] documented in this encounter Visit Diagnoses Not on filedocumented in this encounter Care Teams Regional Account Manager Relationship Specialty Start Date End Date Kassidy Martinez MD [address] [place] [address] PCP - General 07/13/08 documented as of this encounter
--- OUTSIDE RECORDS SUMMARY | 2025-03-25 08:12 | XMS_ITS | Encounter Summary ---
Author Organization [facility] Address 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 [place], [place] [address] Admit Date: 01/16/2008 RADHA DAY Sex: F Admit Prov: JOANN BROTHERS Date: 1940 Primary Care Prov: CHARLEE MARTINEZ CMRN: [id number] [id number] IM[facility]ING [facility] Ordering Prov: N/A Accession Number: [id number] Interpretation Examination: CT of the paranasal sinuses. 01/16/2008 Clinical History: Possible inflammation. Procedure: Coronal 2.5 mm images of the paranasal sinuses were obtained without IV contrast. 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 There is approximately 50% opacification of the remaining right maxillary sinus. The enlarged maxillary sinus ostia are widely patent bilaterally. Ethmoid air cells, and frontal sinuses are normally developed and well-aerated. There is minimal mucosal thickening within the posterior right ethmoid air cells. Nasal passages are patent and the turbinates are unremarkable. Impression: Mucosal thickening within the right maxillary sinus. Postsurgical changes. . Dictated by: Ko HADLEY 01/16/2008 09:56 Electronically signed by: Ko HADLEY 01/16/2008 10:14 Transcribed: 01/16/2008 10:02 AMK Procedure Note Provider, Historical - 01/16/2008 [facility] [address] [place], [place] [address] Admit Date: 01/16/2008 KEMARRADHA Sex: F Admit Prov: JOANN BROTHERS Date: 1940 Primary Care Prov: CHARLEE MARTINEZ CMRN: [id number] [id number] [facility] Ordering Prov: N/A Interpretation Examination: CT of the paranasal sinuses. 01/16/2008 Clinical History: Possible inflammation. Procedure: Coronal 2.5 mm images of the paranasal sinuses wereobtained without IV contrast. Findings: Previous medial antrectomies have been performed, withabsence of the medial madden of the maxillary sinuses. There is osxjyaqfzkoyg86% opacification of the remaining right maxillary sinus. The enlarged maxillary sinus ostia are widely patent bilaterally. Ethmoid aircells, and frontal sinuses are normally developed and well-aerated. There isminimal mucosal thickening within the posterior right ethmoid air cells. Nasal passages are patent and the turbinates are unremarkable. Impression: Mucosal thickening within the right maxillary sinus. Postsurgical changes. . Dictated by: Ko HADLEY 01/16/2008 09:56 Electronically signed by: Ko HADLEY 01/16/2008 10:14 Transcribed: 01/16/2008 10:02 AMK Joann Brothers MD CT ORDERABLES Final Result documented in this encounter Visit Diagnoses Diagnosis Unspecified sinusitis (chronic) documented in this encounter Care Teams Parimutuel Ticket Checker Relationship Specialty Start Date End Date Charlee Martinez MD [address] [place] [address] PCP - General 06/11/07 documented as of this encounter
--- OUTSIDE RECORDS SUMMARY | 2025-03-25 08:12 | XMS_ITS | Encounter Summary ---
Author Organization [facility] Address 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 Gender Identity Not on file Sexual Orientation Not on file documented as of this encounter Plan of Treatment Not on file documented as of this encounter Procedures Procedure Name Priority Date/Time Associated Diagnosis Comments WOUND CULTURE WITH GRAM STAIN Routine 02/24/2008 10:10 AM CDT WOUND CULTURE WITH GRAM STAIN Routine 02/24/2008 10:05 AM CDT WOUND CULTURE WITH GRAM STAIN Routine 02/24/2008 10:00 AM CDT documented in this encounter Results * WOUND CULTURE WITH GRAM STAIN (02/24/2008 10:10 AM CDT) GRAM STAIN No organisms seen Rare WBC's seen [facility] PRELIMINARY REPORT Heavy growth Staphylococcus aureus Moderate growth oxidase positive Gram negative rods [facility] FINAL REPORT Heavy growth Staphylococcus aureus Susceptibility on previous culture. Moderate growth Pseudomonas aeruginosa Susceptibility on previous culture. Heavy growth Diphtheroids [facility] Specimen from nasal sinus (specimen) (Maxillary) 02/24/2008 10:10 AM CDT 02/25/2008 10:50 AM CDT us Ba Nolan MD MICROBIOLOGY - GENERAL ORDERAB LES Final Result Performing Organization Address [facility] Co de Phone Number [facility] CLIA# [id number] [address] [place] [address] * WOUND CULTURE WITH GRAM STAIN (02/24/2008 10:05 AM CDT) GRAM STAIN No organisms seen Rare WBC's seen [facility] PRELIMINARY REPORT Heavy growth Staphylococcus aureus Moderate growth oxidase positive Gram negative rods [facility] FINAL REPORT Heavy growth Staphylococcus aureus Susceptibility on previous culture. Moderate growth Pseudomonas aeruginosa Susceptibility on previous culture. Heavy growth Diphtheroids [facility] Specimen from nasal sinus (specimen) (Maxillary) 02/24/2008 10:05 AM CDT 02/25/2008 10:45 AM CDT Ba Nolan MD MICROBIOLOGY - GENERAL ORDERAB LES Final Result Performing Organization Address City/[facility] Co de Phone Number [facility] CLIA# [id number] [address] [place] [address] * WOUND CULTURE WITH GRAM STAIN (02/24/2008 10:00 AM CDT) GRAM STAIN No organisms seen No WBC's seen. [facility] PRELIMINARY REPORT Heavy growth Staphylococcus aureus Moderate growth oxidase positive Gram negative rods [facility] SUSCEPTIBILITY PERFORMED ON STAPHYLOCOCCUS AUREUS [facility] SUSCEPTIBILITY PERFORMED ON PSEUDOMONAS AERUGINOSA [facility] FINAL REPORT Heavy growth Staphylococcus aureus Moderate growth Pseudomonas aeruginosa Heavy growth Diphtheroids [facility] Specimen from nasal sinus (specimen) (Maxillary) 02/24/2008 10:00 AM CDT 02/25/2008 10:45 AM CDT Narrative Organism Antibiotic Method Susceptibility Staphylococcus aureus BETA LACTAMASE FRANSISCO MCG/ML POSITIVE Staphylococcus aureus OXACILLIN (Nafcillin) FRANSISCO MCG/ML 0.5: Susceptible Staphylococcus aureus ERYTHROMYCIN FRANSISCO MCG/ML <=0.5: Susceptible Staphylococcus aureus CLINDAMYCIN FRANSISCO MCG/ML <=0.5: Susceptible Staphylococcus aureus VANCOMYCIN FRANSISCO MCG/ML <=0.5: Susceptible Staphylococcus aureus GENTAMICIN FRANSISCO MCG/ML <=2: Susceptible Staphylococcus aureus TRIMETHOPRIM/ SULFAMETHOXAZOLE M IC MCG/ML <=10: Susceptible Pseudomonas aeruginosa PIPERACILLIN/ TAZOBACTAM FRANSISCO MC G/ML 16: Susceptible Pseudomonas aeruginosa CEFTAZIDIME FRANSISCO MCG/ML <=8: Susceptible Pseudomonas aeruginosa AZTREONAM FRANSISCO MCG/ML 16: Intermediate Pseudomonas aeruginosa LEVOFLOXACIN FRANSISCO MCG/ML <=1: Susceptible Pseudomonas aeruginosa GENTAMICIN FRANSISCO MCG/ML <=0.5: Susceptible us Ba Nolan MD MICROBIOLOGY - GENERAL ORDERAB LES Final Result [facility] CLIA# [id number] [address] [place] [address] documented in this encounter Visit Diagnoses Not on filedocumented in this encounter Care Teams Casting House Worker Relationship Specialty Start Date End Date Tiarra Martinez MD [address] [place] [address] PCP - General 06/11/07 documented as of this encounter
--- OUTSIDE RECORDS SUMMARY | 2025-03-25 08:12 | XMS_ITS | Encounter Summary ---
Author Organization [facility] Address [address] [place] [address] Care Team Providers Care Insulation Mechanic Name Role Phone Kassidy Martinez MD Primary Care Provider [phone] Encounter Details Date Type Department Care Team (Late st Contact Info) Description 01/31/2023 Lab Requisition 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 DermPath Lab Received: 01/31/2023 10:49 AM Pathologist: Kassidy Mark MD Specimens: A) - Skin, left ext prox forearm B) - Skin, left ext mid forearm C) - Skin, left sup med calf D) - Skin, left mid med calf E) - Skin, below right nostril on lip 3 12:36 PM CDT DERMATOPATHOLOGY LABORATORY Final Diagnosis Specimen A. 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 SKIN, left ext mid forearm: EPIDERMOID CYST WITH SCAR (L72.0) (see microscopic description) Specimen C. 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 SKIN, below right nostril on lip: ACTINIC KERATOSIS (L57.0) 3 12:36 PM CDT DERMATOPATHOLOGY LABORATORY at 1236 CDT Clinical History A-D: R/O SCC E: R/O BCC 3 12:36 PM CDT DERMATOPATHOLOGY LABORATORY Gross Description Specimen A: Received is one formalin filled container labeled with the patient's name and designated left ext prox forearm. The specimen consists of a shave biopsy measuring 12x9x1 mm. Jar 0. Specimen B: Received is one formalin filled container labeled with the patient's name and designated left ext mid forearm. The specimen consists of a shave biopsy measuring 13x8x3 mm. Jar 0. Specimen C: Received is one formalin filled container labeled with the patient's name and designated left sup med calf. The specimen consists of a shave biopsy measuring 66u20y9 mm. Jar 0. Specimen D: Received is one formalin filled container labeled with the patient's name and designated left mid med calf. The specimen consists of a shave biopsy measuring 53n11i8 mm. Jar 0. Specimen E: Received is one formalin filled container labeled with the patient's name and designated below right nostril on lip. The specimen consists of a shave biopsy measuring 5x5x1 mm. Jar 0. 3 12:36 PM [facility] DERMATOPATHOLOGY LABORATORY Microscopic Description Specimen A. SKIN, left ext prox forearm: The epidermis shows parakeratosis, full thickness disorderly maturation of keratinocytes, mitoses at different levels, and dyskeratotic cells. Specimen B. SKIN, left ext mid forearm: Within the dermis, there is a space lined by epithelium that resembles normal epidermis and the infundibular portion of the hair follicle. There are fibroblasts and collagen bundles oriented parallel to one another. Additional deeper sections were obtained and reviewed. Specimen C. SKIN, left sup med calf: The epidermis shows parakeratosis, full thickness disorderly maturation of keratinocytes, mitoses at different levels, and dyskeratotic cells. The epidermis is focally necrotic and covered with a scale-crust. There is fibrin at the base. Specimen D. SKIN, left mid med calf: The epidermis shows parakeratosis, full thickness disorderly maturation of keratinocytes, mitoses at different levels, and dyskeratotic cells. Specimen E. SKIN, below right nostril on lip: There is focal parakeratosis. The lower half of the epidermis shows disorderly maturation of keratinocytes with nuclear pleomorphism. 3 12:36 PM [facility] DERMATOPATHOLOGY LABORATORY Disclaimer An external and internal positive and negative controls are appropriate for the histochemical, immunohistochemical and immunofluorescence stain(s) in this case (if any), except where stated explicitly. The performance characteristics of the stain(s) cited in this report were developed and its performance characteristic determined by the Dermatopathology Laboratory at [facility], directed by Dr. Aisha Can. These tests need not be, and therefore are not, approved by the [place] Food and Drug Administration. The tests are used for clinical purposes. Billing Codes Specimen Charges Stain Charges 71396 51372 74583 63342 62062 1 1 1 1 1 3 12:36 PM CDT DERMATOPATHOLOGY LABORATORY Embedded Images 3 12:36 PM [facility] DERMATOPATHOLOGY LABORATORY Pathology/Cytology TISSUE SPECIMEN FROM SKIN / Unknown 01/29/2023 01/31/2023 10:49 AM CDT Miscellaneous samples (specimen) TISSUE SPECIMEN FROM SKIN / Unknown 01/29/2023 01/31/2023 10:49 AM CDT Miscellaneous samples (specimen) TISSUE SPECIMEN FROM SKIN / Unknown 01/29/2023 01/31/2023 10:49 AM CDT Miscellaneous samples (specimen) TISSUE SPECIMEN FROM SKIN / Unknown 01/29/2023 01/31/2023 10:49 AM CDT Miscellaneous samples (specimen) TISSUE SPECIMEN FROM SKIN / Unknown 01/29/2023 01/31/2023 10:49 AM CDT Alex Mckeon MD LAB - PATHOLOGY/CYTOLOGY ORD ERABLES Final Result DERMATOPATHOLOGY LABORATORY [facility] - Department of Dermatology [facility] Medicine [address] [place] [address] [phone] documented in this encounter Visit Diagnoses Not on filedocumented in this encounter Care Teams Insulation Mechanic Relationship Specialty Start Date End Date Kassidy Martinez MD [address] [place] [address] PCP - General 07/13/08 documented as of this encounter
--- OUTSIDE RECORDS SUMMARY | 2025-03-25 08:12 | XMS_ITS | Encounter Summary ---
Author Organization [facility] Address 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 Gender Identity Not on file Sexual Orientation Not on file documented as of this encounter Plan of Treatment Not on file documented as of this encounter Procedures Procedure Name Priority Date/Time Associated Diagnosis Comments CBC WITH DIFFERENTIAL Routine 07/04/2007 10:02 AM CDT CBC WITH DIFFERENTIAL Routine 07/04/2007 10:02 AM CDT C-REACTIVE PROTEIN Routine 07/04/2007 10 :02 AM CDT COMPREHENSIVE METABOLIC PANEL Routine 07/04/2007 10:02 AM CDT documented in this encounter Results * (ABNORMAL) CBC WITH DIFFERENTIAL (07/04/2007 10:02 AM CDT) NEUTROPHILS 55 45 - 70 % INTERFAC E SYSTEM LYMPHOCYTES 23 16 - 45 % INTERFAC E SYSTEM MONOCYTES 12 3 - 13 % INTERFACE SYSTEM EOSINOPHILS 10(H) 0 - 7 % INTERFAC E SYSTEM BASOPHILS 1 0 - 2 % INTERFACE SYSTEM NEUTROPHIL ABSOLUTE 4.27 1.90 - 7.00 K/uL INTERFACE SYSTEM LYMPHOCYTE ABSOLUTE 1.83 0.70 - 4.50 K/uL INTERFACE SYSTEM MONOCYTE ABSOLUTE 0.94 0.10 - 1.30 K/uL INTERFACE SYSTEM EOSINOPHIL ABSOLUTE 0.75(H) 0.00 - 0.70 K/uL INTERFACE SYSTEM BASOPHILS ABSOLUTE 0.05 0.00 - 0.20 K/uL INTERFACE SYSTEM 07/04/2007 10:0 2 AM CDT Endy Brothers MD HEMATOLOGY ORDERABLES Edited Performing Organization Address City/[facility] Co de Phone Number INTERFACE SYSTEM Refer to clinic/hospital department * CBC WITH DIFFERENTIAL (07/04/2007 10:02 AM CDT) WBC 7.8 4.0 - 9.8 K/uL INTERFACE SYSTEM RBC 4.31 3.90 - 4.90 M/uL INTERFACE SYSTEM HEMOGLOBIN 13.6 11.8 - 14.8 g/dL INTERFACE SYSTEM HEMATOCRIT 41.1 35.5 - 44.0 % INTERFACE SYSTEM MCV 95.4 82.0 - 99.0 fL INTERFACE SYSTEM MCH 31.6 27.2 - 32.6 pg INTERFACE SYSTEM MCHC 33.1 31.5 - 35.5 % INTERFACE SYSTEM RDW 13.3 11.5 - 14.5 % INTERFACE SYSTEM RDW-STDEV 46.1 37.1 - 48.7 fL INTERFACE SYSTEM PLATELETS 242 140 - 350 K/uL INTERFACE SYSTEM MPV 11.6 9.3 - 12.4 fL INTERFACE SYSTEM 07/04/2007 10:0 2 AM CDT Endy Brothers MD HEMATOLOGY ORDERABLES Edited Performing Organization Address City/[facility] Co de Phone Number INTERFACE SYSTEM Refer to clinic/hospital department * (ABNORMAL) C-REACTIVE PROTEIN (07/04/2007 10:02 AM CDT) CRP 1.2(H) 0.0 - 0.8 mg/dL INTERFACE SYSTEM 07/04/2007 10:0 2 AM CDT Endy Brothers MD CHEMISTRY ORDERABLES Edited INTERFACE SYSTEM Refer to clinic/hospital department * COMPREHENSIVE METABOLIC PANEL (07/04/2007 10:02 AM CDT) GLUCOSE 80 65 - 99 mg/dL INTERFACE SYSTEM CREATININE 0.83 0.51 - 0.95 mg/dL INTERFACE SYSTEM CALCIUM 8.7 8.4 - 10.2 mg/dL INTERFACE SYSTEM ALKALINE PHOSPHATASE 50 35 - 104 U/L INTERFACE SYSTEM AST 24 12 - 32 U/L INTERFACE SYSTEM ALT 15 0 - 31 U/L INTERFACE SYSTEM TOTAL PROTEIN 7.2 6.3 - 8.6 g/dL INTERFACE SYSTEM ALBUMIN 4.2 3.4 - 4.8 g/dL INTERFACE SYSTEM BILIRUBIN TOTAL 0.4 0.2 - 1.0 mg/dL INTERFACE SYSTEM BUN 10 6 - 20 mg/dL INTERFACE SYSTEM SODIUM 138 135 - 145 mmol/L INTERFACE SYSTEM POTASSIUM 3.9 3.5 - 4.9 mmol/L INTERFACE SYSTEM CHLORIDE 101 96 - 108 mmol/L INTERFACE SYSTEM CO2 27 22 - 30 mmol/L INTERFACE SYSTEM GFR, >60 >=60 mL/min/1.7 sq meter INTERFACE SYSTEM GFR >60 >=60 mL/min/1.7 sq meter INTERFACE SYSTEM Comment: Estimated GFR rate interpretative information for both Americans and non- Americans is available on the [facility] [place] [place] Intranet at: [email or web address] Select: Lab Policies and Procedures Select: Reference Ranges - GFR 07/04/2007 10:0 2 AM CDT Endy Brothers MD CHEMISTRY ORDERABLES Edited INTERFACE SYSTEM Refer to clinic/hospital department documented in this encounter Visit Diagnoses Diagnosis Unspecified sinusitis (chronic)- Primary documented in this encounter Care Teams Shape Hand Relationship Specialty Start Date End Date Tiarra Martinez MD [address] [place] [address] PCP - General 06/11/07 documented as of this encounter
--- OUTSIDE RECORDS SUMMARY | 2025-03-25 08:12 | XMS_ITS | Encounter Summary ---
Author Organization [facility] Address [address] [place] [address] Care Team Providers Care Knuckle Bender Name Role Phone Kassidy Martinez MD Primary Care Provider [phone]- [phone] Encounter Details Date Type Department Care Team (Late st Contact Info) Description 10/07/2023 Lab Requisition [facility] - DermPath Lab [address] [facility] [place] [id number] Alex Mckeon MD [address] [place] [address] Social History Tobacco Use Types Packs/Day Years Used Date Smoking Tobacco: Former Cigarettes Q uit: 09/09/1971 Alcohol Use Standard Drinks/Week Comments Yes 0 (1 standard drink = 0.6 oz pur e alcohol) Comments Unknown Sex and Gender Information Value Date Recorded Sex Assigned at Not on file Legal Sex Female 6:57 PM REMOTE RECRUITER Gender Identity Not on file Sexual Orientation Not on file documented as of this encounter Plan of Treatment Not on file documented as of this encounter Procedures Procedure Name Priority Date/Time Associated Diagnosis Comments DERMATOPATHOLOGY Routine 10/02/2023 3:33 AM REMOTE RECRUITER documented in this encounter Results * DERMATOPATHOLOGY (10/02/2023 3:33 AM REMOTE RECRUITER) Case Report Dermatopathology Report Case: [id number] Authorizing Provider: Alex Mckeon MD Collected: 10/02/2023 03:33 AM Ordering Location: [facility] DermPath Lab Received: 10/07/2023 07:45 AM Pathologist: Kassidy Mark MD Specimens: A) - Skin, right lateral base of neck B) - Skin, right mid extensor forearm C) - Skin, right mid cheek 2:10 PM [facility] DERMATOPATHOLOGY LABORATORY Final Diagnosis Specimen A. 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 SKIN, right mid cheek: ACTINIC KERATOSIS (L57.0) (see microscopic description) 2:10 PM [facility] DERMATOPATHOLOGY LABORATORY at 1410 REMOTE RECRUITER Clinical History A: R/O BCC vs SCC B: R/O BCC vs SCC C: R/O ISK vs AK 2:10 PM [facility] DERMATOPATHOLOGY LABORATORY Gross Description Specimen A: Received is one formalin filled container labeled with the patient's name and designated right lateral base of neck. The specimen consists of a shave biopsy measuring 13x9x2 mm. Jar 0. Specimen B: Received is one formalin filled container labeled with the patient's name and designated right mid extensor forearm. The specimen consists of a shave biopsy measuring 7x7x2 mm. Jar 0. Specimen C: Received is one formalin filled container labeled with the patient's name and designated right mid cheek. The specimen consists of a shave biopsy measuring 5x5x1 mm. Jar 0. 2:10 PM [facility] DERMATOPATHOLOGY LABORATORY Microscopic Description Specimen A. SKIN, right lateral base of neck: The epidermis shows parakeratosis, full thickness disorderly maturation of keratinocytes, mitoses at different levels, and dyskeratotic cells. Specimen B. SKIN, right mid extensor forearm: The epidermis shows parakeratosis, full thickness disorderly maturation of keratinocytes, mitoses at different levels, and dyskeratotic cells. Specimen C. SKIN, right mid cheek: There is focal parakeratosis. The lower half of the epidermis shows disorderly maturation of keratinocytes with nuclear pleomorphism. Adnexal extension of the lesion is seen. 2:10 PM [facility] DERMATOPATHOLOGY LABORATORY Disclaimer An external and internal positive and negative controls are appropriate for the histochemical, immunohistochemical and immunofluorescence stain(s) in this case (if any), except where stated explicitly. The performance characteristics of the stain(s) cited in this report were developed and its performance characteristic determined by the Dermatopathology Laboratory at [facility], directed by Dr. Aisha Can. These tests need not be, and therefore are not, approved by the [place] Food and Drug Administration. The tests are used for clinical purposes. Billing Codes Specimen Charges Stain Charges 74157 52179 75613 1 1 1 4 2:10 PM REMOTE RECRUITER DERMATOPATHOLOGY LABORATORY Embedded Images 2:10 PM REMOTE RECRUITER DERMATOPATHOLOGY LABORATORY Pathology/Cytology TISSUE SPECIMEN FROM SKIN / Unknown 10/02/2023 3:33 AM REMOTE RECRUITER 10/07/2023 7:45 AM REMOTE RECRUITER Miscellaneous samples (specimen) TISSUE SPECIMEN FROM SKIN / Unknown 10/02/2023 3:33 AM REMOTE RECRUITER 10/07/2023 7:45 AM REMOTE RECRUITER Miscellaneous samples (specimen) TISSUE SPECIMEN FROM SKIN / Unknown 10/02/2023 3:33 AM REMOTE RECRUITER 10/07/2023 7:45 AM REMOTE RECRUITER Alex Mckeon MD LAB - PATHOLOGY/CYTOLOGY ORD ERABLES Final Result DERMATOPATHOLOGY LABORATORY [facility] Department of Dermatology [facility] [address] [place] [address], [address] [phone] documented in this encounter Visit Diagnoses Not on filedocumented in this encounter Care Teams Knuckle Bender Relationship Specialty Start Date End Date Kassidy Martinez MD [address] [place] [address] PCP - General 07/13/08 documented as of this encounter
--- OUTSIDE RECORDS SUMMARY | 2025-03-25 08:12 | XMS_ITS | Patient Health Record ---
Author Organization [facility] ([address]) Address [address] [place] [address] Care Team Providers Care Franchise Manager Name Role Phone Marco Martinez Primary Care Provider Arabella Sandoval Unavailable [phone] Reason For Referral No Information Medications Medication SIG (Take, Route, Frequency, Duration) Notes Start Date End Date Status predniSONE 1 MG 8 tabs orally once a day; Duration: 30 day(s) Active FASENRA 30 mg/mL as directed subcutaneously every 8 weeks Active PREDNISONE 1 mg 8 tabs orally once a day; Duration: 30 day(s) Active Breo Ellipta 100 MCG-25 MCG/INH 1 PUFF(S) INHALED ONCE A DAY *Please review and pick correct strength-formulati on from Medispan options. If intended option is not shown, discontinue and re-order from Quick Search* Active PROAIR HFA 90 MCG/INH 2 PUFF(S) [...] 1 tab(s) orally once a day Active Gloria Allergy 180 MG 1 tab(s) orally once a day Active ESOMEPRAZOLE 40 mg 1 cap(s) orally once a day Active GLORIA 24 HOUR ALLERGY 180 mg 1 tab(s) orally once a day Active LIPITOR 10 mg 1 tab(s) orally once a day Active BREO ELLIPTA 100 mcg-25 mcg/inh 1 puff(s) inhaled once a day Active Problems Problem Type SNOMED Code ICD Code Onset Dates Problem Status W/U Status Risk Notes Problem Chronic rhinitis (27734182) Chronic rhinitis (J31.0) Active confirmed Problem Chronic sinusitis (81689797) Chronic sinusitis, unspecified (J32.9) Active confirmed Problem Uncomplicated severe persistent asthma (481522599) Severe persistent asthma, uncomplicated (J45.50) Active confirmed Problem Cough (71489353) Cough (R05) Active confirmed Problem Gastro-esophageal reflux disease without esophagitis (450934838) Gastro-esophageal reflux disease without esophagitis (K21.9) Active confirmed Problem Long-term current use of systemic steroid (390013300279195) retirement (current) use of systemic steroids (Z79.52) Active confirmed Problem History of pneumonia (254477034) Personal history of pneumonia (recurrent) (Z87.01) Active confirmed Plan Of Treatment No Information Insurance Providers Payer Name Payer Address Payer Phone Subscriber Number Group Number Insured Name Patient Relationship to Insured Coverage Start Date Coverage End Date [employer] Medicare [address] [address] [place] [address] [phone] [id number] Ariana Day Self - patient is the insured Medical (General) History Medical History History ICD Code Acid Reflux Hyperlipidemia, unspecified E78.5
[2025-03-25 08:13] VITALS: BP 142/71; PULSE 63; RESP 20; TEMP 36.6; O2SAT 99
--- OUTSIDE RECORDS SUMMARY | 2025-03-25 08:13 | XMS_ITS | Encounter Summary ---
Author Organization [facility] Address [address] [place] [address] Care Team Providers Care First Aid Director Name Role Phone Kassidy Martinez MD Primary Care Provider [phone]- [phone] Encounter Details Date Type Department Care Team (Late st Contact Info) Description 02/04/2024 Lab Requisition [facility] - DermPath Lab [address] [facility] [place] [address] Chantale Murillo DO [address] [facility] [address] [place] [address] Social History Tobacco Use Types Packs/Day Years Used Date Smoking Tobacco: Former Cigarettes Q uit: 09/09/1971 Alcohol Use Standard Drinks/Week Comments Yes 0 (1 standard drink = 0.6 oz pur e alcohol) Comments Unknown Sex and Gender Information Value Date Recorded Sex Assigned at Not on file Legal Sex Female 6:57 PM CORRECTIONS CORPORAL Gender Identity Not on file Sexual Orientation Not on file documented as of this encounter Plan of Treatment Not on file documented as of this encounter Procedures Procedure Name Priority Date/Time Associated Diagnosis Comments DERMATOPATHOLOGY Routine 02/04/2024 12:0 0 AM CDT documented in this encounter Results * DERMATOPATHOLOGY (02/04/2024 12:00 AM CDT) Case Report Dermatopathology Report Case: [id number] Authorizing Provider: Chantale Murillo DO Collected: 02/04/2024 12:00 AM Ordering Location: [facility] - Received: 02/04/2024 02:59 PM DermPath Lab Pathologist: Skylar Mark MD Specimen: Skin, right upper arm 10:41 AM [facility] DERMATOPATHOLOGY LABORATORY Final Diagnosis Specimen A. SKIN, right upper arm: BASAL CELL CARCINOMA (C44.612) NOT PRESENT AT MARGIN DERMAL SCAR (L90.5) 10:41 AM T DERMATOPATHOLOGY LABORATORY at 1040 CDT Clinical History Bx proven BCC Check margins 10:41 AM T DERMATOPATHOLOGY LABORATORY Gross Description Specimen A: Received is one formalin filled container labeled with the patient's name and designated right upper arm. The specimen consists of a non-oriented ellipse of skin measuring 16u44a3 mm. The epidermal surface is unremarkable. The margin is inked green. The 12 o'clock and 6 o'clock tips are submitted in cassette 1. The remainder of the ellipse is serially sectioned and submitted in cassette 2-3. Jar 0. 10:41 AM [facility] DERMATOPATHOLOGY LABORATORY Microscopic Description Specimen A. SKIN, right upper arm: Within the dermis there are aggregates of basaloid cells with a high nuclear to cytoplasmic ratio and peripheral palisading. This lesion is not present at the margin of the specimen. There are fibroblasts and collagen bundles oriented parallel to the skin surface with elongated blood vessels, some of which are oriented perpendicular to the skin surface. 10:41 AM [facility] DERMATOPATHOLOGY LABORATORY Disclaimer An external and internal positive and negative controls are appropriate for the histochemical, immunohistochemical and immunofluorescence stain(s) in this case (if any), except where stated explicitly. The performance characteristics of the stain(s) cited in this report were developed and its performance characteristic determined by the Dermatopathology Laboratory at [facility], directed by Dr. Aisha Can. These tests need not be, and therefore are not, approved by the [place] Food and Drug Administration. The tests are used for clinical purposes. Billing Codes Specimen Charges Stain Charges 64571 1 10:41 AM CDT DERMATOPATHOLOGY LABORATORY Embedded Images 10:41 AM [facility] DERMATOPATHOLOGY LABORATORY Pathology/Cytolog y TISSUE SPECIMEN FROM SKIN / Unknown 02/04/2024 02/04/2024 2:59 PM CDT us Chantale Murillo DO LAB - PATHOLOGY/CYTOLOGY ORDERABLES Final Result DERMATOPATHOLOGY LABORATORY [facility] - Department of Dermatology [facility] [address] [place] [address], [address] [phone] documented in this encounter Visit Diagnoses Not on filedocumented in this encounter Care Teams First Aid Director Relationship Specialty Start Date End Date Kassidy Martinez MD [address] [place] [address] PCP - General 07/13/08 documented as of this encounter
--- OUTSIDE RECORDS SUMMARY | 2025-03-25 08:13 | XMS_ITS | Encounter Summary ---
Author Organization [facility] Address [address] [place] [address] Care Team Providers Care Tie Buyer Name Role Phone Kassidy Martinez MD Primary Care Provider [phone]- [phone] Encounter Details Date Type Department Care Team (Late st Contact Info) Description 01/17/2022 Lab Requisition [facility] Care DermPath Lab [address] [place] [address] Alex Mckeon MD [address] [place] [address] Social History Tobacco Use Types Packs/Day Years Used Date Smoking Tobacco: Former Cigarettes Q uit: 09/09/1971 Alcohol Use Standard Drinks/Week Comments Yes 0 (1 standard drink = 0.6 oz pur e alcohol) Comments Unknown Sex and Gender Information Value Date Recorded Sex Assigned at Not on file Legal Sex Female 6:57 PM GEAR 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 Gender Identity Not on file Sexual Orientation Not on file documented as of this encounter Plan of Treatment Not on file documented as of this encounter Procedures Procedure Name Priority Date/Time Associated Diagnosis Comments DERMATOPATHOLOGY Routine 01/16/2022 12:0 0 AM CDT documented in this encounter Results * DERMATOPATHOLOGY (01/16/2022 12:00 AM CDT) Case Report Dermatopathology Report Case: [id number] Authorizing Provider: Alex Mckeon MD Collected: 01/16/2022 12:00 AM Ordering Location: [facility] DermPath Lab Received: 01/17/2022 12:09 PM Pathologist: Stacey Gomes MD Specimens: A) - Skin, med right knee B) - Skin, med lower right leg above malleolus 2 2:24 PM CDT DERMATOPATHOLOGY LABORATORY Final Diagnosis Specimen A. SKIN, med right knee: HYPERPLASTIC (HYPERTROPHIC) ACTINIC KERATOSIS (L57.0) Specimen B. SKIN, med lower right leg above malleolus: HYPERPLASTIC (HYPERTROPHIC) ACTINIC KERATOSIS (L57.0) 2:24 PM CDT DERMATOPATHOLOGY LABORATORY at 1424 CDT Clinical History A-B: R/O Regalado's, SCCA. 2:24 PM CDT DERMATOPATHOLOGY LABORATORY Gross Description Specimen A: Received is one formalin filled container labeled with the patient's name and designated med right knee. The specimen consists of a shave biopsy measuring 60m2o5ls. Jar 0. Specimen B: Received is one formalin filled container labeled with the patient's name and designated med lower right leg above malleolus. The specimen consists of a shave biopsy measuring 26m51m2cs. Jar 0. 2 2:24 PM CDT DERMATOPATHOLOGY LABORATORY Microscopic Description Specimen A. SKIN, med right knee: There is hyperkeratosis alternating with parakeratosis. There is epidermal hyperplasia with disorderly maturation of keratinocytes with nuclear pleomorphism confined to the lower half of the epidermis. Specimen B. SKIN, med lower right leg above malleolus: There is hyperkeratosis alternating with parakeratosis. There is epidermal hyperplasia with disorderly maturation of keratinocytes with nuclear pleomorphism confined to the lower half of the epidermis. 2 2:24 PM CDT DERMATOPATHOLOGY LABORATORY Disclaimer An external and internal positive and negative controls are appropriate for the histochemical, immunohistochemical and immunofluorescence stain(s) in this case (if any), except where stated explicitly. The performance characteristics of the stain(s) cited in this report were developed and its performance characteristic determined by the Dermatopathology Laboratory at [facility], directed by Dr. Aisha Can. These tests need not be, and therefore are not, approved by the [place] Food and Drug Administration. The tests are used for clinical purposes. Billing Codes Specimen Charges Stain Charges 57426 04042 1 1 2 2:24 PM CDT DERMATOPATHOLOGY LABORATORY Embedded Images 2 2:24 PM CDT DERMATOPATHOLOGY LABORATORY Pathology/Cytology TISSUE SPECIMEN FROM SKIN / Unknown 01/16/2022 01/17/2022 12:09 PM CDT Miscellaneous samples (specimen) TISSUE SPECIMEN FROM SKIN / Unknown 01/16/2022 01/17/2022 12:09 PM CDT Alex Mckeon MD LAB - PATHOLOGY/CYTOLOGY ORD ERABLES Final Result DERMATOPATHOLOGY LABORATORY [facility] - Department of Dermatology [facility] Medicine [address] [place] [address], [address] [phone] documented in this encounter Visit Diagnoses Not on filedocumented in this encounter Care Teams Tie Buyer Relationship Specialty Start Date End Date Kassidy Martinez MD [address] [place] [address] PCP - General 07/13/08 documented as of this encounter
--- OUTSIDE RECORDS SUMMARY | 2025-03-25 08:13 | XMS_ITS | Encounter Summary ---
Author Organization [facility] Address [address] [place] [address] Care Team Providers Care Methods Study Analyst Name Role Phone Kassidy Martinez MD Primary Care Provider [phone]- [phone] Encounter Details Date Type Department Care Team (Late st Contact Info) Description 01/10/2022 Lab Requisition [facility] Care DermPath Lab [address] [place] [address] Alex Mckeon MD [address] [place] [address] Social History Tobacco Use Types Packs/Day Years Used Date Smoking Tobacco: Former Cigarettes Q uit: 09/09/1971 Alcohol Use Standard Drinks/Week Comments Yes 0 (1 standard drink = 0.6 oz pur e alcohol) Comments Unknown Sex and Gender Information Value Date Recorded Sex Assigned at Not on file Legal Sex Female 6:57 PM CALL SPECIALIST Gender Identity Not on file Sexual Orientation Not on file documented as of this encounter Plan of Treatment Not on file documented as of this encounter Procedures Procedure Name Priority Date/Time Associated Diagnosis Comments DERMATOPATHOLOGY Routine 01/09/2022 12:0 0 AM CDT documented in this encounter Results * DERMATOPATHOLOGY (01/09/2022 12:00 AM CDT) Case Report Dermatopathology Report Case: [id number] Authorizing Provider: Alex Mckeon MD Collected: 01/09/2022 12:00 AM Ordering Location: [facility] DermPath Lab Received: 01/10/2022 01:35 PM Pathologist: Kim Can MD Specimens: A) - Skin, left mid radial flexor FA B) - Skin, left med knee sup C) - Skin, left med knee inf 5:14 PM [facility] DERMATOPATHOLOGY LABORATORY Final Diagnosis Specimen A. 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 SKIN, left med knee inf: HYPERPLASTIC (HYPERTROPHIC) ACTINIC KERATOSIS WITH OVERLYING CHANGES OF PRURIGO NODULARIS (L57.0) 5:14 PM [facility] DERMATOPATHOLOGY LABORATORY at 1714 CDT Clinical History A-C: R/O SCC. 5:14 PM T DERMATOPATHOLOGY LABORATORY Gross Description Specimen A: Received is one formalin filled container labeled with the patient's name and designated left mid radial flexor FA. The specimen consists of a shave biopsy measuring 2u8x9ql. Jar 0. Specimen B: Received is one formalin filled container labeled with the patient's name and designated left med knee sup. The specimen consists of a shave biopsy measuring 14z0o3np. Jar 0. Specimen C: Received is one formalin filled container labeled with the patient's name and designated left med knee inf. The specimen consists of a shave biopsy measuring 35x84l5fo. Jar 0+. 5:14 PM CDT DERMATOPATHOLOGY LABORATORY Microscopic Description Specimen A. SKIN, left mid radial flexor FA: The epidermis is acanthotic and shows full thickness disorderly maturation of keratinocytes, mitoses at different levels, and dyskeratotic cells. There is overlying parakeratosis and hyperkeratosis. Specimen B. SKIN, left med knee sup: The epidermis shows parakeratosis, full thickness disorderly maturation of keratinocytes, mitoses at different levels, and dyskeratotic cells. Specimen C. SKIN, left med knee inf: There is hyperkeratosis alternating with parakeratosis. There is epidermal hyperplasia with disorderly maturation of keratinocytes with nuclear pleomorphism confined to the lower half of the epidermis. There is a dome-shaped portion of skin with psoriasiform epidermal hyperplasia, compact hyperkeratosis, and fibrosis of the papillary dermis associated with a superficial perivascular lymphohistiocytic infiltrate. 2 5:14 PM CDT DERMATOPATHOLOGY LABORATORY Disclaimer An external and internal positive and negative controls are appropriate for the histochemical, immunohistochemical and immunofluorescence stain(s) in this case (if any), except where stated explicitly. The performance characteristics of the stain(s) cited in this report were developed and its performance characteristic determined by the Dermatopathology Laboratory at [facility], directed by Dr. Aisha Can. These tests need not be, and therefore are not, approved by the [place] Food and Drug Administration. The tests are used for clinical purposes. Billing Codes Specimen Charges Stain Charges 69151 24517 78416 1 1 1 2 5:14 PM CDT DERMATOPATHOLOGY LABORATORY Embedded Images 2 5:14 PM CDT DERMATOPATHOLOGY LABORATORY Pathology/Cytology TISSUE SPECIMEN FROM SKIN / Unknown 01/09/2022 01/10/2022 1:35 PM CDT Miscellaneous samples (specimen) TISSUE SPECIMEN FROM SKIN / Unknown 01/09/2022 01/10/2022 1:35 PM CDT Miscellaneous samples (specimen) TISSUE SPECIMEN FROM SKIN / Unknown 01/09/2022 01/10/2022 1:35 PM CDT Alex Mckeon MD LAB - PATHOLOGY/CYTOLOGY ORD ERABLES Final Result DERMATOPATHOLOGY LABORATORY [facility] - Department of Dermatology [facility] Medicine [address] [place] [address], [address] [phone] documented in this encounter Visit Diagnoses Not on filedocumented in this encounter Care Teams Methods Study Analyst Relationship Specialty Start Date End Date Kassidy Martinez MD [address] [place] [address] PCP - General 07/13/08 documented as of this encounter
--- OUTSIDE RECORDS SUMMARY | 2025-03-25 08:13 | XMS_ITS | Encounter Summary ---
Author Organization [facility] Address [address] [place] [address] Care Team Providers Care Plastic Card Grader Cardroom Name Role Phone Kassidy Martinez MD Primary Care Provider [phone]- [phone] Encounter Details Date Type Department Care Team (Late st Contact Info) Description 06/20/2022 Lab Requisition [facility] Care DermPath Lab [address] [place] [address] [place] Mckeon MD [address] [place] [address] Social History Tobacco Use Types Packs/Day Years Used Date Smoking Tobacco: Former Cigarettes Q uit: 09/09/1971 Alcohol Use Standard Drinks/Week Comments Yes 0 (1 standard drink = 0.6 oz pur e alcohol) Comments Unknown Sex and Gender Information Value Date Recorded Sex Assigned at Not on file Legal Sex Female 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 Gender Identity Not on file Sexual Orientation Not on file documented as of this encounter Plan of Treatment Not on file documented as of this encounter Procedures Procedure Name Priority Date/Time Associated Diagnosis Comments DERMATOPATHOLOGY Routine 06/19/2022 12:0 0 AM CDT documented in this encounter Results * DERMATOPATHOLOGY (06/19/2022 12:00 AM CDT) Case Report Dermatopathology Report Case: [id number] Authorizing Provider: [place] Mckeon MD Collected: 06/19/2022 12:00 AM Ordering Location: [facility] DermPath Lab Received: 06/20/2022 11:34 AM Pathologist: Kim Can MD Specimen: Skin, left elbow 2:15 PM CDT DERMATOPATHOLOGY LABORATORY Final Diagnosis Specimen A. SKIN, left elbow: VERRUCA VULGARIS (B07.8) OVERLYING CUTANEOUS HORN (L85.8) 2:15 PM CDT DERMATOPATHOLOGY LABORATORY at 1415 CDT Clinical History R/O SCC 2:15 PM CDT DERMATOPATHOLOGY LABORATORY Gross Description Specimen A: Received is one formalin filled container labeled with the patient's name and designated left elbow. The specimen consists of a shave biopsy measuring [id number] mm. Jar 0. 2:15 PM CDT DERMATOPATHOLOGY LABORATORY Microscopic Description Specimen A. SKIN, left elbow: There is digitated epidermal hyperplasia, hypergranulosis, vacuolated granular layer cells, and compact hyperorthokeratosis . There is a column of marked compact hyperkeratosis. 2:15 PM CDT DERMATOPATHOLOGY LABORATORY Disclaimer An external and internal positive and negative controls are appropriate for the histochemical, immunohistochemical and immunofluorescence stain(s) in this case (if any), except where stated explicitly. The performance characteristics of the stain(s) cited in this report were developed and its performance characteristic determined by the Dermatopathology Laboratory at [facility], directed by Dr. Aisha Can. These tests need not be, and therefore are not, approved by the [place] Food and Drug Administration. The tests are used for clinical purposes. Billing Codes Specimen Charges Stain Charges 71256 1 2:15 PM CDT DERMATOPATHOLOGY LABORATORY Embedded Images 2:15 PM CDT DERMATOPATHOLOGY LABORATORY Pathology/Cytolog y TISSUE SPECIMEN FROM SKIN / Unknown 06/19/2022 06/20/2022 11:34 AM CDT [place] Mckoen MD LAB - PATHOLOGY/CYTOLOGY ORD ERABLES Final Result DERMATOPATHOLOGY LABORATORY [facility] - Department of Dermatology [facility] [address] [facility], [address]rd Floor [address] [phone] documented in this encounter Visit Diagnoses Not on filedocumented in this encounter Care Teams Plastic Card Grader Cardroom Relationship Specialty Start Date End Date Kassidy Martinez MD [address] [place] [address] PCP - General 07/13/08 documented as of this encounter
--- OUTSIDE RECORDS SUMMARY | 2025-03-25 08:13 | XMS_ITS | Encounter Summary ---
Author Organization [facility] Address [address] [facility] [place] [address] Care Team Providers Care Outside Installation Machinist Name Role Phone Kassidy Martinez MD Primary Care Provider [phone]- [phone] Encounter Details Date Type Department Care Team (Late st Contact Info) Description 10/25/2023 Lab Requisition [facility] - DermPath Lab [address] [facility] [place] [address] [place] Mckeon MD [address] [place] [address] Social History Tobacco Use Types Packs/Day Years Used Date Smoking Tobacco: Former Cigarettes Q uit: 09/09/1971 Alcohol Use Standard Drinks/Week Comments Yes 0 (1 standard drink = 0.6 oz pur e alcohol) Comments Unknown Sex and Gender Information Value Date Recorded Sex Assigned at Not on file Legal Sex Female 6:57 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 Gender Identity Not on file Sexual Orientation Not on file documented as of this encounter Plan of Treatment Not on file documented as of this encounter Procedures Procedure Name Priority Date/Time Associated Diagnosis Comments DERMATOPATHOLOGY Routine 10/23/2023 12:0 0 AM SHADING PAINTER documented in this encounter Results * DERMATOPATHOLOGY (10/23/2023 12:00 AM SHADING PAINTER) Case Report Dermatopathology Report Case: [id number] Authorizing Provider: [place] Mckeon MD Collected: 10/23/2023 12:00 AM Ordering Location: [facility] DermPath Lab Received: 10/25/2023 04:50 PM Pathologist: Kim Can MD Specimen: Skin, right upper pretibial in a skin graft 3:20 PM [facility] DERMATOPATHOLOGY LABORATORY Final Diagnosis Specimen A. SKIN, right upper pretibial in a skin graft: KERATOACANTHOMA (L85.8) 4 3:20 PM [facility] DERMATOPATHOLOGY LABORATORY at 1520 SHADING PAINTER Clinical History R/o BCC, SCC 4 3:20 PM [facility] DERMATOPATHOLOGY LABORATORY Gross Description Specimen A: Received is one formalin filled container labeled with the patient's name and designated right upper pretibial in a skin graft. The specimen consists of a shave biopsy measuring [id number] mm. Jar 0. 3:20 PM [facility] DERMATOPATHOLOGY LABORATORY Microscopic Description Specimen A. SKIN, right upper pretibial in a skin graft: This exoendophytic lesion shows a central keratotic plug surrounded by a symmetrical proliferation of keratinocytes with abundant eosinophilic cytoplasm. At the sides, there is epithelial lipping. There is a suggestion that the central crater consists of plugged follicular infundibula. 3:20 PM [facility] DERMATOPATHOLOGY LABORATORY Disclaimer An external and internal positive and negative controls are appropriate for the histochemical, immunohistochemical and immunofluorescence stain(s) in this case (if any), except where stated explicitly. The performance characteristics of the stain(s) cited in this report were developed and its performance characteristic determined by the Dermatopathology Laboratory at [facility], directed by Dr. Aisha Can. These tests need not be, and therefore are not, approved by the [place] Food and Drug Administration. The tests are used for clinical purposes. Billing Codes Specimen Charges Stain Charges 19962 1 4 3:20 PM [facility] DERMATOPATHOLOGY LABORATORY Embedded Images 3:20 PM [facility] DERMATOPATHOLOGY LABORATORY Pathology/Cytolog y TISSUE SPECIMEN FROM SKIN / Unknown 10/23/2023 10/25/2023 4:50 PM [facility] [place] Mckeon MD LAB - PATHOLOGY/CYTOLOGY ORD ERABLES Final Result DERMATOPATHOLOGY LABORATORY [facility] - Department of Dermatology [facility] [address] [place] [address], [address] [phone] documented in this encounter Visit Diagnoses Not on filedocumented in this encounter Care Teams Outside Installation Machinist Relationship Specialty Start Date End Date Kassidy Martinez MD [address] [place] [address] PCP - General 07/13/08 documented as of this encounter
--- NOTE | 2025-03-25 08:29 | ED.URI ---
HPI - URI/Sore Throat General Chief Complaint: Upper Respiratory Infection Stated Complaint: throat/sinus infection Time Seen by Provider: 03/25/25 08:20 Source: patient and RN notes reviewed Mode of arrival: ambulatory Limitations: no limitations History of Present Illness HPI Narrative: Patient presents today complaining of an approximately 1 week history of sore throat, rhinorrhea, cough, congestion, sneezing. Denies that her shortness of breath is no worse than baseline. Patient has history of eosinophilic asthma that is treated with 4 mg of prednisone daily and Fasenra. She has also tried [id number] sinus medication without improvement. She also has history of environmental allergies for which she uses Zyrtec and Flonase. Related Data Home Medications ?Medication ?Instructions ?Recorded ?Confirmed ?Last Taken ?Type atorvastatin 80 mg tablet 80 mg PO DAILY 09/06/23 06/22/24 Unknown History esomeprazole magnesium 40 mg 40 mg PO BIDWM 09/06/23 06/22/24 Unknown History capsule,delayed release fluticasone fur. 200 mcg-umeclid 1 inh inhalation DAILY 09/06/23 06/22/24 Unknown History 62.5 mcg-vilant 25 mcg inhalat.powder (Trelegy Ellipta) fluticasone propionate 50 2 spray intranasal DAILY 09/06/23 06/22/24 Unknown History mcg/actuation nasal spray,suspension nitroglycerin 0.4 mg sublingual 0.4 mg sublingual Q5M PRN Chest 09/06/23 06/22/24 Unknown History tablet Pain benralizumab 30 mg/mL subcutaneous 30 mg subcut [id number] 12/27/23 06/22/24 Unknown History auto-injector (Fasenra Pen) prednisone 1 mg tablet 2 mg PO DAILY 12/27/23 06/22/24 Unknown History sennosides 8.6 mg-docusate sodium 50 tab-cap PO DAILY 12/27/23 06/22/24 Unknown History 50 mg tablet (Stimulant Laxative Plus) cetirizine 10 mg tablet 10 mg PO DAILY 06/22/24 06/22/24 Unknown History fluorouracil 5 % topical cream applic topical 03/25/25 Unknown History (Efudex) metoprolol succinate 50 mg mg PO 03/25/25 Unknown History tablet,extended release 24 hr Allergies Allergy/AdvReac Type Severity Reaction Status Date / Time No Known Allergies Allergy Verified 06/22/24 09:34 [facility] Past Medical History Medical History Strain of left hip Squamous cell carcinoma of left upper extremity Asthma Heart attack COPD (chronic obstructive pulmonary disease) High cholesterol Acid reflux Surgical History Surgical History H/O heart artery stent x1 History of left hip replacement H/O shoulder surgery H/O cardiac catheterization History of tonsillectomy Family History Family History Father Cerebrovascular accident Other Heart disease Hypertension Pancreatic cancer Social History Social History Smoking status: Never smoker Alcohol intake: current Drinks per week: 2 Alcohol use details: 3 drinks per week Substance use: never Substance use type: does not use Living arrangements: with family Gender identity (if verbalized by the patient): Female Sexual Orientation (if Verbalized by the Patient): Straight or Heterosexual Spiritual care concerns: No Comments At time of signature, I have reviewed and agree with nursing past medical, surgical, social and family history unless otherwise noted. Please see nursing chart for further information. There is no relevant family history pertinent to the presenting complaint Exam Narrative: GENERAL: Well-appearing, well-nourished, and in no acute distress. HEAD: Normocephalic, atraumatic. EYES: EOMI. No redness or drainage. Conjunctivae normal. ENT: Mucous membranes pink and moist. Nares mildly congested. No rhinorrhea. TMs normal bilaterally. Throat normal. Uvula midline. NECK: Normal AROM. Supple. No lymphadenopathy. CHEST: No respiratory distress. Clear to auscultation. HEART: Regular rate and rhythm. No murmur appreciated. EXTREMITIES: Normal range of motion. No edema. SKIN: Warm, dry, no rash. Capillary refill normal. Normal skin turgor. NEURO: No focal deficits. Alert and oriented x3. Gait steady. PSYCH: Normal affect. No signs of depression or anxiety. Course Course Level of Care: Express Care Visit Vital Signs Vital signs: Vital Signs Temperature 97.9 F 03/25/25 08:13 Pulse Rate 63 03/25/25 08:13 Respiratory Rate 20 03/25/25 08:13 Blood Pressure 142/71 H 03/25/25 08:13 Pulse Oximetry 99 03/25/25 08:13 Oxygen Delivery Room Air 03/25/25 08:13 Temperature 97.9 F 03/25/25 08:13 Pulse Rate 63 03/25/25 08:13 Respiratory Rate 20 03/25/25 08:13 Blood Pressure 142/71 H 03/25/25 08:13 Pulse Oximetry 99 03/25/25 08:13 Oxygen Delivery Room Air 03/25/25 08:13 Reviewed MDM - URI/Sore Throat MDM Narrative Medical decision making narrative: 84-year-old female patient with history of eosinophilic asthma and seasonal allergies presents one-week history of upper respiratory symptoms and cough. She is treated with 4 mg of prednisone and fasenra daily for her asthma as well as Zyrtec and Flonase for her seasonal allergies. Symptoms have stayed constant without improvement. As patient is immunosuppressed with the prednisone and is fairly brittle with her asthma, patient will be treated with the course of Augmentin for possible bacterial development in the sinuses. Recommend continuing all of her home meds and rqpu-xxr-kkwixrv sinus medication as well. Also recommend starting her rescue albuterol inhaler due to the harshness of her cough and the frequency. Vital signs stable. At this time, patient does not warrant transfer for higher level care in the emergency department. Patient agrees with plan. Anticipatory guidance given. Differential Diagnosis Differential diagnosis: Likely upper respiratory infection, otitis media, sinusitis, viral infection, pharyngitis and other (Seasonal allergies, asthma exacerbation) Critical Care Time Critical Care Time Critical Care Time: No Discharge Plan Discharge Clinical Impression: Sinusitis Qualifiers: Sinusitis location: unspecified location Chronicity: acute Recurrence: non-recurrent Qualified Code(s): J01.90 - Acute sinusitis, unspecified Patient Disposition: Home Condition: Stable Instructions: Antibiotic Form, Sinusitis (ED) Additional Instructions: Please take the Augmentin as prescribed until gone. Continue your cetirizine and Flonase for your seasonal allergies. Follow-up with your PCP in 3 days if symptoms are not improving. Go to the ER immediately if symptoms worsen, especially if your shortness of breath worsens or you develop a fever greater than 100.3. Your blood pressure was elevated above 120/80 today at Urgent Care. This puts you above the threshold for follow up. Please schedule a followup visit with your personal physician as soon as possible, for further evaluation and treatment. Even blood pressure exceeding 120/80 may indicate pre-hypertension. Patient Language: Guyanese Prescriptions: New amoxicillin-pot clavulanate 875-125 mg tablet 1 tablet PO Q12H 7 Days Qty: 14 0RF No Action cetirizine 10 mg tablet 10 mg PO DAILY prednisone 10 mg tablet 10 mg PO DIRECTED Qty: 21 0RF Rx Instructions: see taper instructions 6 tabs day 1, 5 tabs day 2, 4 tabs day 3, 3 tabs day 4, 2 tabs day 5, 1 tab day 6 take with food prednisone 1 mg tablet 2 mg PO DAILY Fasenra Pen 30 mg/mL auto-injector 30 mg SUBCUT [id number] sennosides-docusate sodium [Stimulant Laxative Plus] 8.6-50 mg tablet 50 tab-cap PO DAILY metoprolol succinate 50 mg tablet extended release 24 hr PO fluorouracil [Efudex] 5 % cream TOPICAL atorvastatin 80 mg Tablet 80 mg PO DAILY esomeprazole magnesium 40 mg Capsule,Delayed Release(Dr/Ec) 40 mg PO BIDWM nitroglycerin 0.4 mg Tablet, Sublingual 0.4 mg SUBLINGUAL Q5M PRN (Reason: Chest Pain) Rx Instructions: do not exceed 3 doses per episode fluticasone propionate 50 mcg/actuation [place],Suspension 2 spray INTRANASAL DAILY Rx Instructions: administer into each nostril Trelegy Ellipta 200-62.5-25 mcg Blister With Device 1 inh INHALATION DAILY trazodone 50 mg Tablet 50 mg PO HS Qty: 30 0RF aspirin [Aspirin Childrens] 81 mg Tablet,Chewable 81 mg PO DAILY Qty: 30 0RF oxycodone 5 mg Tablet 5 mg PO Q4-5H PRN (Reason: Pain rated 6 or greater) Qty: 12 0RF Follow-up/Referrals: Juan,MD Tiarra [Primary Care Provider] - Time of Disposition: 08:41
== END 2025-03-25 08:48 | disposition home or self-care (01) ==
PROVIDERS: Emergency Provider Nurse Practitioner; PCP Internal Medicine Geriatric Medicine
DX: J32.9 Chronic sinusitis, unspecified (principal); J44.9 Chronic obstructive pulmonary disease, unspecified; J82.83 Eosinophilic asthma; E78.00 Pure hypercholesterolemia, unspecified; K21.9 Gastro-esophageal reflux disease without esophagitis; I25.2 Old myocardial infarction; Z85.828 Personal history of other malignant neoplasm of skin; Z95.5 Presence of coronary angioplasty implant and graft; Z96.641 Presence of right artificial hip joint
CPT/HCPCS: 99213; G0463

== ENCOUNTER 2025-08-01 09:42 | Emergency (ER) | payer MEDICARE, SELFPAY ==
--- OUTSIDE RECORDS SUMMARY | 2024-02-22 15:30 | XMS_ITS ---
Author Organization [facility] [facility] [employer] ([address]) Address [address] [place] [address] Care Team Providers Care Tenter Name Role Phone Marco Martinez Primary Care Provider Arabella Sandoval Unavailable [phone] ZZ-Migration, Provider Unavailable Unavailab le REASON FOR VISIT [facility] Encounter Medications Medication SIG (Take, Route, Frequency, Duration) Notes Start Date End Date Status predniSONE 1 MG 8 tabs orally once a day; Duration: 30 day(s) Active PROAIR HFA 90 MCG/INH 2 PUFF(S) INHALED 4 TIMES A DAY *Please review for potential replacement for e-prescription and drug interaction check* Active Fasenra 30 MG/ML DIRECTED SUBCUTANEOUSLY EVERY 8 WEEKS *Please review and pick correct strength-[facility]ulati on [facility]. If intended option is not shown, discontinue and re-order from Quick Search* Active Esomeprazole Magnesium 40 MG 1 cap(s) orally once a day Active Lipitor 10 MG 1 tab(s) orally once a day Active Breo Ellipta 100 MCG-25 MCG/INH 1 PUFF(S) INHALED ONCE A DAY *Please review and pick correct strength-formulati on from [employer] options. If intended option is not shown, discontinue and re-order from Quick Search* Active Shefali Allergy 180 MG 1 tab(s) orally once a day Active Encounters Encounter [facility] Date [facility] [address] [place] [address] [facility] Provider ZZ-Migration Plan Of Treatment No Information Progress Notes * Ariana DAY LDOB:1939 (85 yo F)Acc No.[id number]:02/22/2024 Patient: Ariana MIJARES Provider: Zulma Arimzendi :1940 A ge:83 Y S ex:Female Date:02/22/2024 Address:[address] [place], [place] [id number] Pcp:Marco Martinez Subjective: * Chief Complaints: * 1 . [facility]. * Medical History: * Medications: T aking Esomeprazole Magnesium 40 MG Capsule Delayed Release 1 cap(s) orally once a day , Taking Lipitor 10 MG Tablet 1 tab(s) orally once a day , Taking Shefali Allergy 180 MG Tablet 1 tab(s) orally once a day , Taking Breo Ellipta 100 MCG-25 MCG/INH POWDER 1 PUFF(S) INHALED ONCE A DAY , Notes to Pharmacist: *Please review and pick correct strength-formulation from Med[employer]pan options. If intended option is not shown, discontinue and re-order from Quick Search*, Taking PROAIR HFA 90 MCG/INH AEROSOL 2 PUFF(S) INHALED 4 TIMES A DAY , Notes to Pharmacist: *Please review for potential replacement for e-prescription and drug interaction check*, Taking Fasenra 30 MG/ML SOLUTION DIRECTED SUBCUTANEOUSLY EVERY 8 WEEKS , Notes to Pharmacist: *Please review and pick correct strength-formulation from [employer] options. 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
--- NOTE | ~2025-08-01 | XR_ITS ---
Examination: XR foot RT min 3V Clinical History: dropped shampoo bottle on foot, METATARSAL PAIN Comparison: None Technique: 4 views right foot Findings/impression: 1. No fracture or dislocation right foot. 2. Diabetic arteriopathy. Reviewed, dictated and finalized at location R. ING AND SHIPPING CLERK
[2025-08-01 09:43] VITALS: BP 135/59; PULSE 66; RESP 16; TEMP 36.1; O2SAT 100
--- OUTSIDE RECORDS SUMMARY | 2025-08-01 09:46 | XMS_ITS | Encounter Summary ---
Author Organization [facility] Address [address] [place] [address] Care Team Providers Care Nailing Machine Operator Automatic Name Role Phone Kassidy Martinez MD Primary Care Provider [phone]- [phone] Encounter Details Date Type Department Care Team (Late st Contact Info) Description 06/20/2022 Lab Requisition [facility] DermPath Lab [address] [place] [address] [place] Mckeon MD [address] [place] [address] Social History Tobacco Use Types Packs/Day Years Used Date Smoking Tobacco: Former Cigarettes 0 Q uit: 09/09/1971 Alcohol Use Standard Drinks/Week Comments Yes 0 (1 standard drink = 0.6 oz pur e alcohol) Comments Unknown Sex and Gender Information Value Date Recorded Sex Assigned at Not on file 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 Gender Identity Not on file Sexual Orientation Not on file documented as of this encounter Plan of Treatment Not on file documented as of this encounter Procedures Procedure Name Priority Date/Time Associated Diagnosis Comments DERMATOPATHOLOGY Routine 06/19/2022 12:0 0 AM CDT documented in this encounter Results * DERMATOPATHOLOGY (06/19/2022 12:00 AM CDT) Case Report Dermatopathology Report Case: [id number] Authorizing Provider: [place] Mckeon MD Collected: 06/19/2022 12:00 AM Ordering Location: [facility] DermPath Lab Received: 06/20/2022 11:34 AM [...] specimen consists of a shave biopsy measuring 60h64i2 mm. Jar 0. 2:15 PM CDT DERMATOPATHOLOGY [...] by the Dermatopathology Laboratory at [facility], directed by Dr. Aisha Can. These tests need not be, and therefore are not, approved by the [place] Food and Drug Administration. The tests are used for clinical purposes. Billing Codes Specimen Charges Stain Charges 43572 1 2:15 PM CDT DERMATOPATHOLOGY LABORATORY Embedded Images 2:15 PM CDT DERMATOPATHOLOGY LABORATORY Pathology/Cytolog y TISSUE SPECIMEN FROM SKIN / Unknown 06/19/2022 06/20/2022 11:34 AM CDT [place] Mckeon MD LAB - PATHOLOGY/CYTOLOGY ORD ERABLES Final Result DERMATOPATHOLOGY LABORATORY [facility] - Department of Dermatology [facility] [address] [facility], [address]rd Floor [address] [phone] documented in this encounter Visit Diagnoses Not on filedocumented in this encounter Care Teams Nailing Machine Operator Automatic Relationship Specialty Start Date End Date Kassidy Martinez MD [address] [place] [address] PCP - General 07/13/08 documented as of this encounter
--- OUTSIDE RECORDS SUMMARY | 2025-08-01 09:46 | XMS_ITS | Encounter Summary ---
Author Organization [facility] Address [address] [place] [address] Care Team Providers Care Respiratory Physician Name Role Phone Kassidy Martinez MD Primary Care Provider [phone]- [phone] Encounter Details Date Type Department Care Team (Late st Contact Info) Description 01/10/[address] 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 DermPath Lab Received: 01/10/2022 01:35 PM Pathologist: Kim Can MD Specimens: A) - Skin, left mid radial flexor FA B) - Skin, left med knee sup C) - Skin, left med knee inf 5:14 PM [facility] DERMATOPATHOLOGY LABORATORY Final Diagnosis Specimen A. 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 5:14 PM T DERMATOPATHOLOGY LABORATORY Gross Description Specimen A: Received is one formalin filled container labeled with the patient's name and designated left mid radial flexor FA. The specimen consists of a shave biopsy measuring 1l4x7ck. Jar 0. Specimen B: Received is one formalin filled container labeled with the patient's name and designated left med knee sup. The specimen consists of a shave biopsy measuring 02o8k0vk. Jar 0. Specimen C: Received is one formalin filled container labeled with the patient's name and designated left med knee inf. The specimen consists of a shave biopsy measuring 05u46e0wm. Jar 0+. 5:14 PM CDT DERMATOPATHOLOGY LABORATORY [...] characteristic determined by the Dermatopathology Laboratory at [facility], directed by Dr. Aisha Can. These tests need not be, and therefore are not, approved by the [place] Food and Drug Administration. The tests are used for clinical purposes. Billing Codes Specimen Charges Stain Charges 94521 67761 14450 1 1 1 2 5:14 PM CDT [...] PATHOLOGY/CYTOLOGY ORD ERABLES Final Result DERMATOPATHOLOGY LABORATORY [facility] - Department of Dermatology [address], [address] [phone] documented in this encounter Visit Diagnoses Not on filedocumented in this encounter Care Teams Respiratory Physician Relationship Specialty Start Date End Date Kassidy Martinez MD [address] [place] [address] PCP - General 07/13/08 documented as of this encounter
--- OUTSIDE RECORDS SUMMARY | 2025-08-01 09:46 | XMS_ITS | Encounter Summary ---
Author Organization [facility] Address [address] [place] [address] Phone Care Team Providers Care Radiation Monitor Name Role Phone Tiarra Martinez MD Primary Care Provider + [phone] Preston Hidalgo MD Unavailable [phone] Hank Beth MD Unavailable [phone] Ray Esposito MD Unavailable [phone] Joaquin Ramirez MD Unavailable [phone] Winsome Ruiz MD Unavailable [phone] Pineda Dukes MD Unavailable [phone] Krisotfer Carmona OD Unavailable [phone] Tosin Ramos MD Unavailable [phone] Allan Allen MD Unavailable Unavailable Morteza Suarez MD Unavailable [phone] Primitivo Hull MD Unavailable Tosin Singh MD Unavailable [phone] Johana Loza DO Unavailable [phone] Roe Hung MD Unavailable [phone] Encounter Details Date Type Department Care Team (Late st Contact Info) Description 05/23/2022 Orders Only [facility] [address] [place] [address] Tiarra Martinez MD [address] [place] [address] Social History Tobacco Use Types Packs/Day Years [...] on file Legal Sex Female 1:20 AM 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 auris Comment:This flag is used to identify patients who are in house being monitored by Infection Prevention. If a patient discharges before a swab is collected and returns to hospital within 7 days, please reach out to IP to order a surveillance swab. Patient does NOT need isolation, patient can travel off the floor. 04/12/2025 04/12/20252024 7:26 PM CDT documented as of this encounter Care Teams Radiation Monitor Relationship Specialty Start Date End Date Tiarra Martinez MD PCP - General 12/07/16 [place] [address] [address] [facility] [address] [place] [address] Pulmonary Disease 02/24/17 Hank Beth MD [address] [place] [address] Dermatology 02/24/17 03/16/24 Ray Esposito MD [address] [place] [address] 02/24/17 03/16/24 Joaquin Ramirez MD [address] [facility] [address] [place] [address] Pulmonary Disease 03/15/17 03/16/24 Winsome Ruiz MD [address] [facility] [address] [place] [address] Internal Medicine 03/15/17 Pineda Dukes MD [address] [facility] [address] [place] [address] Consulting Physician Gastroenterology 08/16/17 03/16/24 Kristofer Carmona OD [address] [place] [address] Optometry 08/16/17 Tosin Ramos MD [address] [place] [address] Referring Physician Dermatology 08/18/18 03/16/24 Allan Allen MD [address] [place] [address] Consulting Physician Otolaryngology 01/26/22 Morteza Suarez MD [address] [place] [address] Consulting Physician Cardiology 12/12/22 Primitivo Hull MD [address] [phone] [place] [address] Consulting Physician General Surgery 09/17/23 03/16/24 Tosin Singh MD [address] [place] [address] Referring Physician Dermatology 03/17/24 Johana Loza DO [address] [place] [address] [address] [address] Consulting Physician Otolaryngology 04/01/25 Roe Hung MD [address] [phone] [place] [address] Consulting Physician Orthopedic Surgery 05/25/25 documented as of this encounter
--- OUTSIDE RECORDS SUMMARY | 2025-08-01 09:46 | XMS_ITS | Encounter Summary ---
Author Organization [facility] Address [address] [facility] [place] [address] Care Team Providers Care Content Assistant Name Role Phone Kassidy Martinez MD Primary Care Provider [phone] Encounter Details Date Type Department Care Team (Late st Contact Info) Description 10/10/2023 Lab Requisition [facility] - DermPath Lab [address] [facility] [place] [address] Alex Mckeon MD [address] [place] [address] Social History Tobacco Use Types Packs/Day Years Used Date Smoking Tobacco: Former Cigarettes 0 Q uit: 09/09/1971 Alcohol Use Standard Drinks/Week Comments Yes 0 (1 standard drink = 0.6 oz pur e alcohol) Comments Unknown Sex and Gender Information Value Date Recorded Sex Assigned at Not on file Legal Sex Female 6:57 PM [facility] Gender Identity Not on file Sexual Orientation Not on file documented as of this encounter Plan of Treatment Not on file documented as of this encounter Procedures Procedure Name Priority Date/Time Associated Diagnosis Comments DERMATOPATHOLOGY Routine 10/08/2023 3:33 AM [facility] documented in this encounter Results * DERMATOPATHOLOGY (10/08/2023 3:33 AM [facility]) Case Report Dermatopathology Report Case: [id number] Authorizing Provider: Alex Mckeon MD Collected: 10/08/2023 03:33 AM Ordering Location: [facility] DermPath Lab Received: 10/10/2023 09:10 AM Pathologist: Skylar Mark MD Specimens: A) - Skin, left anterior frontal scalp medially B) - Skin, Left anterior frontal scalp laterally C) - Skin, left cheek anterior to ear D) - Skin, right lateral forehead hairline 6:03 PM [facility] DERMATOPATHOLOGY [facility]ORAT[facility] Final Diagnosis Specimen A. SKIN, left anterior frontal scalp medially: BASAL CELL CARCINOMA, NODULAR TYPE (C44.41) Specimen B. SKIN, Left anterior frontal scalp laterally: BASAL CELL CARCINOMA, SUPERFICIAL MULTIFOCAL (C44.41) Specimen C. SKIN, left cheek anterior to ear: BASAL CELL CARCINOMA, NODULAR TYPE (C44.319) Specimen D. SKIN, right lateral forehead hairline: BASAL CELL CARCINOMA, INFILTRATIVE PATTERN (C44.319) 6:03 PM [facility] DERMATOPATHOLOGY [facility]ORATORY at [address] [facility] Clinical History A-D: r/o SCC 6:03 PM [facility] DERMATOPATHOLOGY [facility] Gross Description Specimen A: [...] measuring 8x6x1 mm. Jar 0. 6:03 PM [facility] DERMATOPATHOLOGY [facility] Microscopic Description Specimen A. [...] that infiltrate the dermis. 4 6:03 PM [facility] DERMATOPATHOLOGY [facility]ORATORY Disclaimer An external and internal positive and negative controls are appropriate for the histochemical, immunohistochemical and immunofluorescence stain(s) in this case (if any), except where stated explicitly. The performance characteristics of the stain(s) cited in this report were developed and its performance characteristic determined by the Dermatopathology Laboratory at [facility], directed by Dr. Aisha Can. These tests need not be, and therefore are not, approved by the [place] Food and Drug Administration. The tests are used for clinical purposes. Billing Codes Specimen Charges Stain Charges 14289 87784 [id number] 23688 1 1 1 1 4 6:03 PM [facility] DERMATOPATH[facility]Y LABORATORY Embedded Images 4 6:03 PM [facility]ERMAT[facility] Pathology/Cytology TISSUE SPECIMEN FROM SKIN / Unknown 10/08/2023 3:33 AM [facility] 10/10/2023 9:10 AM [facility] Miscellaneous samples (specimen) TISSUE SPECIMEN FROM SKIN / Unknown 10/08/2023 3:33 AM [facility] 10/10/2023 9:10 AM [facility] Miscellaneous samples (specimen) TISSUE SPECIMEN FROM SKIN / Unknown 10/08/2023 3:33 AM [facility] 10/10/2023 9:10 AM [facility] Miscellaneous samples (specimen) TISSUE SPECIMEN FROM SKIN / Unknown 10/08/2023 3:33 AM [facility] 10/10/2023 9:10 AM [facility] Alex Mckeon MD LAB - PATHOLOGY/CYTOLOGY ORD ERABLES Final Result DERMATOPATHOLOGY LABORATORY [facility] - Department of Dermatology [address], [address] [phone] documented in this encounter Visit Diagnoses Not on filedocumented in this encounter Care Teams Content Assistant Relationship Specialty Start Date End Date Kassidy Martinez MD [address] [place] [phone] PCP - General 07/13/08 documented as of this encounter
--- OUTSIDE RECORDS SUMMARY | 2025-08-01 09:46 | XMS_ITS | Patient Health Record ---
Author Organization [facility] [employer] [facility] Address [address] [place] [address] Care Team Providers Care Director Payment Name Role Phone Gray Perez Primary Care Provider [phone] Reason For Referral No Information Problems Problem Type SNOMED Code ICD Code Onset Dates Problem Status W/U Status Risk Notes Problem Gastro-esophageal reflux disease without esophagitis (303709105) Gastro-esophage al reflux disease without esophagitis (K21.9) 09/21/19 15 Active confirmed --CMD Migrated Problem Primary generalised osteoarthritis (878183290) Primary generalized (osteo)arthriti s (M15.0) 10/26/19 12 Active confirmed --CMD Migrated Problem Pulmonary Embolism (57367030) Other pulmonary embolism without acute cor pulmonale (I26.99) 09/11/19 17 Active confirmed --CMD Migrated Problem Allergic rhinitis (07706337) Other allergic rhinitis (J30.89) 07/09/20 11 Active confirmed --CMD Migrated Problem Chronic obstructive pulmonary disease (32768646) Chronic obstructive pulmonary disease, unspecified (J44.9) 09/21/19 15 Active confirmed --CMD Migrated Problem Sciatica (56039529) Sciatica, unspecified side (M54.30) 09/24/19 16 Active confirmed --CMD Migrated Problem Normal body mass index (97576915) Body mass index (BMI) 24.0-24.9, adult (Z68.24) 09/21/19 15 Active confirmed --CMD Migrated Problem Acute respiratory failure (disorder) (68537046) Acute respiratory failure, unsp w hypoxia or hypercapnia (J96.00) 09/11/19 17 Active confirmed --CMD Migrated Problem Essential hypertension (52635557) Essential (primary) hypertension (I10) 10/10/19 12 Active confirmed --CMD Migrated Problem Solitary sacroiliitis (923680220) Sacroiliitis, not elsewhere classified (M46.1) 09/21/19 15 Active confirmed --CMD Migrated Problem Acute exacerbation of chronic obstructive airways disease (658288632) Chronic obstructive pulmonary disease w (acute) exacerbation (J44.1) 09/23/19 16 Active confirmed 09/23/2015 --CMD Migrated Plan Of Treatment No Information Insurance Providers Payer Name Payer Address Payer Phone Subscriber Number Group Number Insured Name Patient Relationship to Insured Coverage Start Date Coverage End Date SELF PAY [id number] RADHA REINOSO Other 2
--- OUTSIDE RECORDS SUMMARY | 2025-08-01 09:46 | XMS_ITS | Encounter Summary ---
Author Organization [facility] Address [address] [facility] [place] [address] Care Team Providers Care Lecturer Of Portuguese Name Role Phone Kassidy Martinez MD Primary Care Provider [phone] Encounter Details Date Type Department Care Team (Late st Contact Info) Description 01/31/2023 Lab Requisition [facility] - DermPath Lab [address] [facility] [place] [address] lAex Mckeon MD [address] [place] [address] Social History Tobacco Use Types Packs/Day Years Used Date Smoking Tobacco: Former Cigarettes 0 Q uit: 09/09/1971 Alcohol Use Standard Drinks/Week Comments Yes 0 (1 standard drink = 0.6 oz pur e alcohol) Comments Unknown Sex and Gender Information Value Date Recorded Sex Assigned at Not on file 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 Gender Identity Not on file Sexual Orientation Not on file documented as of this encounter Plan of Treatment Not on file documented as of this encounter Procedures Procedure Name Priority Date/Time Associated Diagnosis Comments DERMATOPATHOLOGY Routine 01/29/2023 12:0 0 AM CDT documented in this encounter Results * DERMATOPATHOLOGY (01/29/2023 12:00 AM CDT) Case Report Dermatopathology Report Case: [id number] Authorizing Provider: Alex Mckeon MD Collected: 01/29/2023 12:00 AM Ordering Location: [facility] DermPath Lab Received: 01/31/2023 10:49 AM Pathologist: [...] specimen consists of a shave biopsy measuring 54w37b8 mm. Jar 0. Specimen D: Received is one formalin filled container labeled with the patient's name and designated left mid med calf. The specimen consists of a shave biopsy measuring 08i80v7 mm. Jar 0. Specimen E: Received is one formalin filled container labeled with the patient's name and designated below right nostril on lip. The specimen consists of a shave biopsy measuring 5x5x1 mm. Jar 0. 3 12:36 PM [facility] DERMATOPATH[facility]Y [facility]ORATORY Microscopic Description Specimen [...] keratinocytes with nuclear pleomorphism. 3 12:36 PM [facility] DERMATOPATH[facility]Y [facility]ORATORY Disclaimer An external and internal positive and negative controls are appropriate for the histochemical, immunohistochemical and immunofluorescence stain(s) in this case (if any), except where stated explicitly. The performance characteristics of the stain(s) cited in this report were developed and its performance characteristic determined by the Dermatopathology Laboratory at [facility], directed by Dr. Aisha Can. These tests need not be, and therefore are not, approved by the [place] Food and Drug Administration. The tests are used for clinical purposes. Billing Codes Specimen Charges Stain Charges 17610 08141 41947 25256 63600 1 1 1 1 1 3 12:36 PM CDT DERMATOPATHOLOGY LABORATORY Embedded Images 12:36 PM [facility] DERMATOP[facility]Y [facility]ORATORY Pathology/Cytology TISSUE SPECIMEN FROM SKIN [...] PATHOLOGY/CYTOLOGY ORD ERABLES Final Result DERMATOPATHOLOGY LABORATORY [facility] - Department of Dermatology [facility] [address] [place] [address] [phone] documented in this encounter Visit Diagnoses Not on filedocumented in this encounter Care Teams Lecturer Of Portuguese Relationship Specialty Start Date End Date Kassidy Martinez MD [address] [place] [address] PCP - General 07/13/08 documented as of this encounter
--- OUTSIDE RECORDS SUMMARY | 2025-08-01 09:46 | XMS_ITS | Encounter Summary ---
Author Organization [facility] Address [address] [place] [address] Care Team Providers Care Automatic Pilot Mechanic Name Role Phone Kassidy Martinez MD Primary Care Provider [phone] Encounter Details Date Type Department Care Team (Late st Contact Info) Description 02/04/2024 Lab Requisition [facility] - DermPath Lab [address] [facility] [place] [address] Chantale Murillo DO [address] [facility] [address] [place] [address] Social History Tobacco Use Types Packs/Day Years Used Date Smoking Tobacco: Former Cigarettes 0 Q uit: 09/09/1971 Alcohol Use Standard Drinks/Week Comments Yes 0 (1 standard drink = 0.6 oz pur e alcohol) Comments Unknown Sex and Gender Information Value Date Recorded Sex Assigned at Not on file 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 Gender Identity Not on file Sexual Orientation Not on file documented as of this encounter Plan of Treatment Not on file documented as of this encounter Procedures Procedure Name Priority Date/Time Associated Diagnosis Comments DERMATOPATHOLOGY Routine 02/04/2024 12:0 0 AM CDT documented in this encounter Results * DERMATOPATHOLOGY (02/04/2024 12:00 AM CDT) Case Report Dermatopathology Report Case: [id number] Authorizing Provider: Chantale Murillo DO Collected: 02/04/2024 12:00 AM Ordering Location: [facility] - Received: 02/04/2024 02:59 PM DermPath Lab Pathologist: Skylar Mark MD Specimen: Skin, right upper arm 10:41 AM T DERMATOPATHOLOGY LABORATORY Final Diagnosis Specimen A. [...] of a non-oriented ellipse of skin measuring 70o02v5 mm. The epidermal surface is unremarkable. The margin is inked green. The 12 o'clock and 6 o'clock tips are submitted in cassette 1. The remainder of the ellipse is serially sectioned and submitted in cassette 2-3. Jar 0. 10:41 AM [facility] DERMATOPATHOLOGY LABORATORY Microscopic Description Specimen A. SKIN, [...] perpendicular to the skin surface. 10:41 AM T DERMATOPATHOLOGY LABORATORY Disclaimer An external and internal positive and negative controls are appropriate for the histochemical, immunohistochemical and immunofluorescence stain(s) in this case (if any), except where stated explicitly. The performance characteristics of the stain(s) cited in this report were developed and its performance characteristic determined by the Dermatopathology Laboratory at [facility], directed by Dr. Aisha Can. These tests need not be, and therefore are not, approved by the [place] Food and Drug Administration. The tests are used for clinical purposes. Billing Codes Specimen Charges Stain Charges 56269 1 10:41 AM CDT DERMATOPATHOLOGY LABORATORY Embedded Images 10:41 AM [facility] DERMATOPATHOLOGY LABORATORY Pathology/Cytolog y TISSUE SPECIMEN FROM SKIN / Unknown 02/04/2024 02/04/2024 2:59 PM CDT us Chantale Murillo DO LAB - PATHOLOGY/CYTOLOGY ORDERABLES Final Result DERMATOPATHOLOGY LABORATORY [facility] - Department of Dermatology [facility] Medicine [address] [place] [address], [address] [phone] documented in this encounter Visit Diagnoses Not on filedocumented in this encounter Care Teams Automatic Pilot Mechanic Relationship Specialty Start Date End Date Kassidy Martinez MD [address] [place] [phone] PCP - General 07/13/08 documented as of this encounter
--- OUTSIDE RECORDS SUMMARY | 2025-08-01 09:46 | XMS_ITS | Encounter Summary ---
Author Organization [facility] Healthcare Address [address] [place] [address] Care Team Providers Care Banquet Attendant Name Role Phone Tiarra Martinez MD Primary Care Provider [phone] Preston Hidalgo MD Unavailable [phone] Winsome Ruiz MD Unavailable Kristofer Carmona OD Unavailable [phone] Morteza Suarez MD Unavailable [phone] Tosin Singh MD Unavailable [phone] Johana Loza DO Unavailable [phone] Roe Hung MD Unavailable [phone] Encounter Details Date Type Department Care Team (Late st Contact Info) Description 05/11/2025 Telephone [facility] [address] [place] [id number] Ashely Juarez RN Social History Tobacco Use Types Packs/Day Years Used Date Smoking Tobacco: Never Smokeless Tobacco: Never Comments:1 pack year per his tory at age 21 and then she quit Alcohol Use Standard Drinks/Week Comments Yes 0 (1 standard drink = 0.6 oz pur e alcohol) [facility] Utilities Answer Date Recorded In the past 12 months has [employer], gas, oil, or water [employer] threatened to shut off services in your home? No 08/27/2024 Social Connection and Isolation Panel Answer Date Recorded In a typical week, how many times do you talk on the phone with family, friends, or neighbors? More than three times a week 08/27/2024 How often do you get togethe r with friends or relatives? More than three times a week 08/27/2024 How often do you attend chur ch or bahai services? Never 08/27/2024 Do you belong to any clubs o r organizations such as cheondoism groups, unions, fraternal or athletic groups, or school groups? No 08/27/2024 How often do you attend meet ings of the clubs or organizations you belong to? Never 08/27/2024 Are you , , di vorced, , never , or living with a partner? 08/27/2024 AUDIT-C Answer Date Recorded Q1: How often do you have a drink containing alc ohol? 2-3 times a week 04/01/2025 Q2: How many drinks containi ng alcohol do you have on a typical day when you are drinking? 1 or 2 04/01/2025 Q3: How often do you have si x or more drinks on one occasion? Never 04/01/2025 Overall Financial Resource Strain (CARDIA) Answe r Date Recorded How hard is it for you to pa y for the very basics like food, housing, medical care, and heating? Not very hard 08/27/2024 PHQ-2 Answer Date Recorded PHQ-2 Total Score (If total score is 3 or more points, staff should administer the PHQ-9) 0 05/06/2025 Exercise Vital Sign Answer Date Recorde d On average, how many days pe r week do you engage in moderate to strenuous exercise (like a brisk walk)? 4 days 04/01/2025 On average, how many minutes do you engage in exercise at this level? 70 min 04/01/2025 Hunger Vital Sign Answer Date Recorded Within [...] place to sleep or slept in a senior care (including now)? No 09/25/2023 Housing Stability Vital Sign Answer Jonathan e Recorded In the last 12 months, was t here a time when you were not able to pay the mortgage or rent on time? No 08/27/2024 In the past 12 months, how m any times have you moved where you were living? 0 08/27/2024 At any time in the past 12 [facility], were you homeless or living in a senior care (including now)? No 08/27/2024 Personal Safety Answer Date Recorded Have you ever been in or are you currently in a harmful physical or emotional relationship or is someone making you feel afraid or unsafe? Denies 04/10/2025 Education Answer Date Recorded What is the highest level of school you have completed or the highest degree you have received? 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 [address] [place] [address] Internal Medicine 03/15/17 Kristofer Carmona, OD [address] [place] [address] Optometry 08/16/17 Morteza Suarez MD [address] [place] [address] Consulting Physician Cardiology 12/12/22 Tosin Singh MD [address] [place] [address] Referring Physician Dermatology 03/17/24 Johana Loza DO [address] [place] [address] [address] [facility] [address] [place] [address] Consulting Physician Otolaryngology 04/01/25 Roe Hung MD [address] [phone] [place] [address] Consulting Physician Orthopedic Surgery 05/25/25 documented as of this encounter
--- OUTSIDE RECORDS SUMMARY | 2025-08-01 09:46 | XMS_ITS | Encounter Summary ---
[facility] Organization [facility] Address [address] [place] [address] Phone Care Team Providers Care Bistro Server Name Role Phone Tiarra Martinez MD Primary Care Provider Preston Hidalgo MD Unavailable [phone] Hank Beth MD [facility]available [facility] Unavailable Colt Brink MD Unavailable [phone] Eladio Antoine MD Unavailable Joaquin Ramirez MD Unavailable [phone] Adam Zambrano MD Unavailable + Winsome Ruiz MD Unavailable Ba Amato Unavailable Unavail able Pineda Dukes MD Unavailable [phone] Kristofer Carmona OD Unavailable [phone] Kristofer Martinez DO Unavailable [phone] Tosin Ramos MD Unavailable [phone] Allan Allen MD Unavailable Unavailable Morteza Suarez MD Unavailable [phone] Primitivo Hull MD Unavailable [phone] Tosin Singh MD Unavailable [phone] Denia Johana Reinoso Unavailable [phone] Roe Hung MD Unavailable [phone] Encounter Details Date Type Department Care Team (Late st Contact Info) Description 08/26/2020 Orders Only [facility] [address] [place] [address] Scanning, Provider Social History Tobacco Use Types [...] on file 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 auris Comment:This flag is [...] documented as of this encounter Care Teams Bistro Server Relationship Specialty Start Date End Date Tiarra Martinez MD PCP - General 12/07/16 [place] [address] [facility] [address] [place] [address] Pulmonary Disease 02/24/17 Hank Beth MD [facility] [address] Dermatology 02/24/17 03/16/24 [facility] MD [address] [address] 02/24/17 03/16/24 Colt Brink MD [address] [place] [address] [address] Anesthesiology 02/24/17 01/25/22 Eladio Antoine MD [address] [place] [address] [address] Otolaryngology 02/24/17 01/25/22 Joaquin Ramirez MD [address] [place] [address] Pulmonary Disease 03/15/17 03/16/24 Adam Zambrano MD [address] [place] [address] Internal Medicine 03/15/17 01/25/22 Winsome Ruiz MD [address] [facility] [address] [place] [address] Internal Medicine 03/15/17 Ba Amato [address] [facility] [address] [place] [address] Gastroenterology 08/11/17 01/25/22 Pineda Dukes MD [address] [place] [address] [address] [place] [address] Consulting Physician Gastroenterology 08/16/17 03/16/24 Kristofer Carmona OD [address] [place] [address] Optometry 08/16/17 Kristofer Martinez, DO [address] [place] [address] Cardiovascular Disease 08/18/18 2 Tosin Ramos MD [address] [place] [address] Referring Physician Dermatology 08/18/18 03/16/24 Allan Allen MD [address] [place] [address] Consulting Physician Otolaryngology 01/26/22 03/16/24 Morteza Suarez MD [address] [place] [address] Consulting Physician Cardiology 12/12/22 Primitivo Hull MD [address] [phone] [place] [address] Consulting Physician General Surgery 09/17/23 03/16/24 Tosin Singh MD [place] [address] Referring Physician Dermatology 03/17/24 Johana Loza DO [address] [facility] [address] [address] Consulting Physician Otolaryngology 04/01/25 Roe Hung MD [address] [facility] [place] [phone] [place] [address] Consulting Physician Orthopedic Surgery 05/25/25 documented as of this encounter
--- OUTSIDE RECORDS SUMMARY | 2025-08-01 09:46 | XMS_ITS | Encounter Summary ---
Author Organization [facility] Address [address] [place] [address] Care Team Providers Care School Speech Therapist Name Role Phone Kassidy Martinez MD Primary Care Provider [phone] Encounter Details Date Type Department Care Team (Late st Contact Info) Description 05/26/2025 Lab Requisition [facility] - DermPath Lab [address] 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 Gender Identity Not on file Sexual Orientation Not on file documented as of this encounter Plan of Treatment Not on file documented as of this encounter Procedures Procedure Name Priority Date/Time Associated Diagnosis Comments DERMATOPATHOLOGY Routine 05/26/2025 7:30 AM CDT Neoplasm of uncertain behavior of skin documented in this encounter Results * DERMATOPATHOLOGY (05/26/2025 7:30 AM CDT) Case Report Dermatopathology Report Case: [id number] Authorizing Provider: Ute Levy MD Collected: 05/26/2025 07:30 AM Ordering Location: [facility] - Received: 05/27/2025 06:52 AM DermPath Lab Pathologist: Skylar Mark MD Specimen: Skin, right medial canthus 4:59 PM CDT DERMATOPATHOLOGY LABORATORY Final Diagnosis Specimen A. SKIN, right medial canthus: BASAL CELL CARCINOMA, NODULAR TYPE (C44.1121) 4:59 PM CDT DERMATOPATHOLOGY LABORATORY at 1659 CDT Clinical History Neoplasm of Uncertain Behavior vs BCC 4:59 PM CDT DERMATOPATHOLOGY LABORATORY Gross Description Specimen A: Received is one formalin filled container labeled with the patient's name and designated right medial canthus. The specimen consists of a shave biopsy measuring 5x4x1 mm. Jar 0. 4:59 PM CDT DERMATOPATHOLOGY LABORATORY Microscopic Description Specimen A. SKIN, right medial canthus: Within the dermis there are aggregates of basaloid cells with a high nuclear to cytoplasmic ratio and peripheral palisading. 4:59 PM CDT DERMATOPATHOLOGY LABORATORY Disclaimer An external and internal positive and negative controls are appropriate for the histochemical, immunohistochemical and immunofluorescence stain(s) in this case (if any), except where stated explicitly. The performance characteristics of the stain(s) cited in this report were developed and its performance characteristic determined by the Dermatopathology Laboratory at [facility], directed by Dr. Aisha Can. These tests need not be, and therefore are not, approved by the [place] Food and Drug Administration. The tests are used for clinical purposes. Billing Codes Specimen Charges Stain Charges 53818 1 4:59 PM CDT DERMATOPATHOLOGY LABORATORY Embedded Images 4:59 PM CDT DERMATOPATHOLOGY LABORATORY Pathology/Cytolo gy TISSUE SPECIMEN FROM SKIN / Unknown 05/26/2025 7:30 AM CDT 05/27/2025 6:52 AM CDT us Ute Levy MD LAB - PATHOLOGY/CYTOLOGY ORDERA BLES Final Result DERMATOPATHOLOGY LABORATORY [facility] - Department of Dermatology [facility] [address] [place] [address], [address] [phone] documented in this encounter Visit Diagnoses Diagnosis Neoplasm of uncertain behavior of skin documented in this encounter Care Teams School Speech Therapist Relationship Specialty Start Date End Date Kassidy Martinez MD [address] [place] [address] PCP - General 07/13/08 documented as of this encounter
--- OUTSIDE RECORDS SUMMARY | 2025-08-01 09:46 | XMS_ITS | Encounter Summary ---
Author Organization [facility] Address [address] [place] [address] Care Team Providers Care Test Administrator Name Role Phone Tiarra Martinez MD Primary Care Provider [phone] Preston Hidalgo MD Unavailable [phone] Winsome Ruiz MD Unavailable Kristofer Carmona OD Unavailable [phone] Morteza Suarez MD Unavailable [phone] Tosin Singh MD Unavailable [phone] Johana Loza DO Unavailable [phone] Roe Hung MD Unavailable [phone] Encounter Details Date Type Department Care Team (Late st Contact Info) Description 05/11/2025 Telephone [facility] 1 [place] [id number] Ashely Juarez RN Social History Tobacco Use Types Packs/Day Years Used Date Smoking Tobacco: Never Smokeless Tobacco: Never Comments:1 pack year per his tory at age 21 and then she quit Alcohol Use Standard Drinks/Week Comments Yes 0 (1 standard drink = 0.6 oz pur e alcohol) ocaasionally [facility] Utilities Answer Date Recorded In the past 12 months has [employer], gas, oil, or [employer] threatened to shut off services in your [...] often do you attend chur ch or worship services? Never 08/27/2024 Do you belong to any clubs o r organizations such as buddhism groups, unions, fraternal or athletic groups, or [...] place to sleep or slept in a snf (including now)? No 09/25/2023 Housing Stability Vital Sign Answer Jonathan e Recorded In the last 12 months, was t here a time when you were not able to pay the mortgage or rent on time? No 08/27/2024 In the past 12 months, how m any times have you moved where you were living? 0 08/27/2024 At any time in the past 12 m [facility], were you homeless or living in a snf (including now)? 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 Gender Identity Not on file Sexual Orientation Not on file Occupation Industry Job Start Date Job End Date retired Not on file Not on file Not on file documented as of this encounter Plan of Treatment Not on file documented as of this encounter Visit Diagnoses Not on filedocumented in this encounter Care Teams Test Administrator Relationship Specialty Start Date End Date Tiarra Martinez MD PCP - General 12/07/16 [place] [address] [facility] [address] [place] [address] Pulmonary Disease 02/24/17 Winsome Ruiz MD [address] [facility] [address] [place] [address] Internal Medicine 03/15/17 Kristofer Carmona, OD [address] [place] [address] Optometry 08/16/17 Morteza Suarez MD [address] [place] [address] Consulting Physician Cardiology 12/12/22 Tosin Singh MD [address] [place] [address] Referring Physician Dermatology 03/17/24 Johana Loza DO [address] [place] [address] [address] [facility] [address] [place] [address] Consulting Physician Otolaryngology 04/01/25 Roe Hung MD [address] [phone] [place] [address] Consulting Physician Orthopedic Surgery 05/25/25 documented as of this encounter
--- OUTSIDE RECORDS SUMMARY | 2025-08-01 09:46 | XMS_ITS | Encounter Summary ---
Author Organization [facility] Address [address] [facility] [place] [address] Care Team Providers Care Mold Builder Name Role Phone Kassidy Martinez MD Primary Care Provider [phone] Encounter Details Date Type Department Care Team (Late st Contact Info) Description 01/17/2022 Lab Requisition [facility] DermPath Lab [address] [place] [id number] Alex Mckeon MD [address] [place] [address] Social History Tobacco Use Types Packs/Day Years Used Date Smoking Tobacco: Former Cigarettes 0 Q uit: 09/09/1971 Alcohol Use Standard Drinks/Week Comments Yes 0 (1 standard drink = 0.6 oz pur e alcohol) Comments Unknown Sex and Gender Information Value Date Recorded Sex Assigned at Not on file 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 Gender Identity Not on file Sexual Orientation Not on file documented as of this encounter Plan of Treatment Not on file documented as of this encounter Procedures Procedure Name Priority Date/Time Associated Diagnosis Comments DERMATOPATHOLOGY Routine 01/16/2022 12:0 0 AM CDT documented in this encounter Results * DERMATOPATHOLOGY (01/16/2022 12:00 AM CDT) Case Report Dermatopathology Report Case: [id number] Authorizing Provider: Alex Mckeon MD Collected: 01/16/2022 12:00 AM Ordering Location: [facility] DermPath Lab Received: 01/17/2022 12:09 PM Pathologist: Stacey Gomes MD Specimens: A) - Skin, med right knee B) - Skin, med lower right leg above malleolus 2 2:24 PM CDT DERMATOPATHOLOGY LABORATORY Final Diagnosis Specimen A. SKIN, med right knee: HYPERPLASTIC (HYPERTROPHIC) ACTINIC KERATOSIS (L57.0) Specimen B. SKIN, med lower right leg above malleolus: HYPERPLASTIC (HYPERTROPHIC) ACTINIC KERATOSIS (L57.0) 2 2:24 PM CDT DERMATOPATHOLOGY LABORATORY at 1424 CDT Clinical History A-B: R/O Regalado's, SCCA. 2:24 PM CDT DERMATOPATHOLOGY LABORATORY Gross Description Specimen A: Received is one formalin filled container labeled with the patient's name and designated med right knee. The specimen consists of a shave biopsy measuring 17e7x1nf. Jar 0. Specimen B: Received is one formalin filled container labeled with the patient's name and designated med lower right leg above malleolus. The specimen consists of a shave biopsy measuring 40c20j4qd. Jar 0. 2 2:24 PM CDT DERMATOPATHOLOGY [...] characteristic determined by the Dermatopathology Laboratory at [facility], directed by Dr. Aisha Can. These tests need not be, and therefore are not, approved by the [place] Food and Drug Administration. The tests are used for clinical purposes. Billing Codes Specimen Charges Stain Charges 89343 83326 1 1 2 2:24 PM CDT DERMATOPATHOLOGY LABORATORY Embedded Images 2 2:24 PM CDT DERMATOPATHOLOGY LABORATORY Pathology/Cytology TISSUE SPECIMEN FROM SKIN / Unknown 01/16/2022 01/17/2022 12:09 PM CDT Miscellaneous samples (specimen) TISSUE SPECIMEN FROM SKIN / Unknown 01/16/2022 01/17/2022 12:09 PM CDT Alex Mckeon MD LAB - PATHOLOGY/CYTOLOGY ORD ERABLES Final Result DERMATOPATHOLOGY LABORATORY [facility] - Department of Dermatology [facility] [address] [place] [address], [address] [phone] documented in this encounter Visit Diagnoses Not on filedocumented in this encounter Care Teams Mold Builder Relationship Specialty Start Date End Date Kassidy Martinez MD [address] [place] [address] PCP - General 07/13/08 documented as of this encounter
--- OUTSIDE RECORDS SUMMARY | 2025-08-01 09:46 | XMS_ITS | Encounter Summary ---
Author Organization [facility] Address [address] [place] [address] Phone Care Team Providers Care Sales Merchandising Specialist Name Role Phone Tiarra Martinez MD Primary Care Provider + [phone] Preston Hidalgo MD Unavailable [phone] Hank Beth MD Unavailable [phone] [facility] MD Unavailable [phone] Colt Brink MD Unavailable [phone] Eladio Antoine MD Unavailable [phone] Morteza Suarez MD Unavailable [phone] Joaquin Ramirez MD Unavailable Adam Zambrano MD Unavailable + Mike Crabtree Unavailable Unavailable Winsome Ruiz MD Unavailable Ba Amato Unavailable Unavail able Pineda Dukes MD Unavailable [phone] Vincenzo Sim MD Unavailable [phone] Kristofer Carmona OD Unavailable [phone] Kristofer Martinez DO Unavailable [phone] Tosin Ramos MD Unavailable [phone] Allan Allen MD Unavailable Unavailable Morteza Suarez MD Unavailable [phone] Primitivo Hull MD Unavailable Tosin Singh MD Unavailable [phone] NateJohana savage DO Unavailable [phone] Roe Hung MD Unavailable [phone] Encounter Details Date Type Department Care Team [...] on file Legal Sex Female 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 Gender Identity Not on file Sexual Orientation Not on file documented as of this encounter Plan of Treatment Not on file documented as of this encounter Procedures Procedure Name Priority Date/Time Associated Diagnosis Comments PULMONARY FUNCTION TEST (PFT) 03/07/2017 7:47 AM CDT documented in this encounter Results * PULMONARY FUNCTION TEST (PFT) (03/07/2017 7:47 AM CDT) Anatomical Region Laterality Modality PFT us Provider Scanning PFT ORDERABLES Final Result documented in this encounter Visit Diagnoses Not on filedocumented in this encounter Additional Health Concerns Infection Onset Date Last Indicated Resolved Time COVID: Suspected 12/26/2022 12/26/2022 12/26/2022 8:34 AM CDT COVID: Suspected 09/24/2023 09/24/2023 09/24/2023 8:32 AM WICKER 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 Ring Surveillance: C. auris Comment:This flag is [...] documented as of this encounter Care Teams Sales Merchandising Specialist Relationship Specialty Start Date End Date Tiarra Martinez MD PCP - General 12/07/16 [place] [address] [address] Pulmonary Disease 02/24/17 Hank Beth MD [address] [address] Dermatology 02/24/17 03/16/24 [facility] [address] [address] 02/24/17 03/16/24 Colt Brink MD [address] [place] [address] [address] [place] [address] Anesthesiology 02/24/17 01/25/22 Eladio Antoine MD [address] [place] [address] [address] [place] [address] Otolaryngology 02/24/17 01/25/22 Morteza Suarez MD [address] [place] [address] [address] [place] [address] Cardiovascular Disease 02/24/17 8 Joaquin Ramirez MD [address] [facility] 8[address] [place] [address] Pulmonary Disease 03/15/17 03/16/24 Adam Zambrano MD [address] [place] [address] Internal Medicine 03/15/17 01/25/22 Mike Crabtree [address] [place] [address] Gastroenterology 03/15/17 08/17/18 Winsome Ruiz MD [address] [facility] [address] [place] [address] Internal Medicine 03/15/[address] [facility] 200 [place] [address] Gastroenterology 08/11/17 01/25/22 Pineda Dukes MD [address] [facility] [address] [place] [address] Consulting Physician Gastroenterology 08/16/17 03/16/24 Vincenzo Sim MD [address] [facility] [address] [place] [address] Dermatology 08/16/17 08/17/18 Kristofer Carmona OD [address] [place] [address] Optometry 08/16/17 Kristofer Martinez DO [address] [place] [address] Cardiovascular Disease 08/18/18 2 Tosin Ramos MD [address] [place] [address] Referring Physician Dermatology 08/18/18 03/16/24 Allan Allen MD [address] [place] [address] Consulting Physician Otolaryngology 01/26/22 03/16/24 Morteza Suarez MD [address] [place] [address] Consulting Physician Cardiology 12/12/22 Primitivo Hull MD [address] [phone] [place] [address] Consulting Physician General Surgery 09/17/23 03/16/24 Tosin Singh MD [address] [place] [address] Referring Physician Dermatology 03/17/24 Johana Lzoa DO [address] [place] [address] [address] [address] Consulting Physician Otolaryngology 04/01/25 Roe Hung MD [address] [phone] [place] [address] Consulting Physician Orthopedic Surgery 05/25/25 documented as of this encounter
--- OUTSIDE RECORDS SUMMARY | 2025-08-01 09:46 | XMS_ITS | Encounter Summary ---
Author Organization [facility] Address [address] [facility] [place] [address] Care Team Providers Care Broiler Supervisor Name Role Phone Kassidy Martinez MD Primary Care Provider [phone] Encounter Details Date Type Department Care Team (Late st Contact Info) Description 03/23/2025 Lab Requisition [facility] - DermPath Lab [address] [facility], [place] [address] Tosin Singh MD [address] [facility] 3 [place] [address] Social History Tobacco Use Types Packs/Day Years Used Date Smoking Tobacco: Former Cigarettes 0 Q uit: 09/09/1971 Alcohol Use Standard Drinks/Week Comments Yes 0 (1 standard drink = 0.6 oz pur e alcohol) Comments Unknown Sex and Gender Information Value Date Recorded Sex Assigned at Not on file 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 Gender Identity Not on file Sexual Orientation Not on file documented as of this encounter Plan of Treatment Not on file documented as of this encounter Procedures Procedure Name Priority Date/Time Associated Diagnosis Comments DERMATOPATHOLOGY Routine 03/23/2025 2:32 PM CDT documented in this encounter Results * DERMATOPATHOLOGY (03/23/2025 2:32 PM CDT) Case Report Dermatopathology Report Case: [id number] Authorizing Provider: Tosin Singh MD Collected: 03/23/2025 02:32 PM Ordering Location: [facility] - Received: 03/25/2025 08:53 AM DermPath Lab Pathologist: Skylar Mark MD Specimen: Skin, right forearm 2:27 PM CDT DERMATOPATHOLOGY LABORATORY Final Diagnosis Specimen A. 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 The specimen consists of a non-oriented ellipse of skin measuring 42z34d9 mm. The epidermal surface is unremarkable. The margin is inked green. The 12 o'clock and 6 o'clock tips are submitted in cassette 1. The remainder of the ellipse is serially sectioned and submitted in cassette 2-3. Jar 0. 2:27 PM CDT DERMATOPATHOLOGY LABORATORY Microscopic Description Specimen A. SKIN, right forearm: Sections show an area of inflamed fibrosing granulation tissue induced by a recent biopsy, with no evidence of residual invasive carcinoma. 2:27 PM CDT DERMATOPATHOLOGY LABORATORY Disclaimer An external and internal positive and negative controls are appropriate for the histochemical, immunohistochemical and immunofluorescence stain(s) in this case (if any), except where stated explicitly. The performance characteristics of the stain(s) cited in this report were developed and its performance characteristic determined by the Dermatopathology Laboratory at [facility], directed by Dr. Aisha Can. These tests need not be, and therefore are not, approved by the [place] Food and Drug Administration. The tests are used for clinical purposes. Billing Codes Specimen Charges Stain Charges 72007 1 2:27 PM CDT DERMATOPATHOLOGY LABORATORY Embedded Images 2:27 PM CDT DERMATOPATHOLOGY LABORATORY Pathology/Cytolo gy TISSUE SPECIMEN FROM SKIN / Unknown 03/23/2025 2:32 PM CDT 03/25/2025 8:53 AM CDT Tosin Singh MD LAB - PATHOLOGY/CYTOLOGY OR DERABLES Final Result DERMATOPATHOLOGY LABORATORY [facility] - Department of Dermatology [facility] Medicine [address] [place] [address], [address] [phone] documented in this encounter Visit Diagnoses Not on filedocumented in this encounter Care Teams Broiler Supervisor Relationship Specialty Start Date End Date Kassidy [place] MD [address] [place] [place] [phone] PCP - General 07/13/08 documented as of this encounter
--- OUTSIDE RECORDS SUMMARY | 2025-08-01 09:46 | XMS_ITS | Encounter Summary ---
Author Organization [facility] Address [address] [place] [address] Care Team Providers Care Mail Examiner Name Role Phone Kassidy Martinez MD Primary Care Provider [phone] Encounter Details Date Type Department Care Team (Late st Contact Info) Description 01/09/2023 Lab Requisition [facility] [address] [place] [address] Alex Mckeon MD [address] [place] [address] Social History Tobacco Use Types Packs/Day Years Used Date Smoking Tobacco: Former Cigarettes 0 Q uit: 09/09/1971 Alcohol Use Standard Drinks/Week Comments Yes 0 (1 standard drink = 0.6 oz pur e alcohol) Comments Unknown Sex and Gender Information Value Date Recorded Sex Assigned at Not on file Legal Sex Female 6:57 PM [employer] Gender Identity Not on file Sexual Orientation Not on file documented as of this encounter Plan of Treatment Not on file documented as of this encounter Procedures Procedure Name Priority Date/Time Associated Diagnosis Comments DERMATOPATHOLOGY Routine 01/08/2023 12:0 0 AM CDT documented in this encounter Results * DERMATOPATHOLOGY (01/08/2023 12:00 AM CDT) Case Report Dermatopathology Report Case: [id number] Authorizing Provider: Alex Mckeon MD Collected: 01/08/2023 12:00 AM Ordering Location: [facility] Received: 01/09/2023 04:04 PM [...] characteristic determined by the Dermatopathology Laboratory at [facility], directed by Dr. Aisha Can. These tests need not be, and therefore are not, approved by the [place] Food and Drug Administration. The tests are used for clinical purposes. Billing Codes Specimen Charges Stain Charges 55910 1 12:49 PM CDT DERMATOPATHOLOGY LABORATORY Embedded Images 12:49 PM CDT DERMATOPATHOLOGY LABORATORY Pathology/Cytolog y TISSUE SPECIMEN FROM SKIN / Unknown 01/08/2023 01/09/2023 4:04 PM CDT Alex Mckeon MD LAB - PATHOLOGY/CYTOLOGY ORD ERABLES Final Result DERMATOPATHOLOGY LABORATORY [facility] - Department of Dermatology [address], [address] [phone] documented in this encounter Visit Diagnoses Not on filedocumented in this encounter Care Teams Mail Examiner Relationship Specialty Start Date End Date Kassidy Martinez MD [address] [place] [address] PCP - General 07/13/08 documented as of this encounter
--- OUTSIDE RECORDS SUMMARY | 2025-08-01 09:46 | XMS_ITS | Data Portability ---
Author Organization [facility], Main Office Address [address] [place] [address] Care Team Providers Care Wireless Watcher Name Role Phone P [facility] FAX OTHER TIARRA MENSAH Primary Care Provider [phone] Assessment Encounter Date Assessment Date Assessment LastModified by Organization Details LastModified Time 04/22/2025 04/22/2025 Nystatin cream TID. Schedule Ramelteon qhs. Continue PRN Trazodone, as well. Repeat CMP was ordered for this AM but lab unable to obtain, so will be drawn 04/23. CBC & CMP on 04/26. Monitor Na & LFTs closely. Statin has been stopped. Continue orthostatic BPs daily x 5 days. Not available 04/22/2025 17:08:19 04/25/2025 04/25/2025 d/c budesonide, check UA C&S if indicated, labs as scheduled in am [email or web address] Not available 04/27/2025 06:22:51 04/27/2025 04/27/2025 D/C Myrbetriq. Start Oxybutynin IR 5 mg PO qhs. Diflucan 150 mg PO x 1 dose. Change Tylenol to 1,000 mg PO TID. Schedule Trazodone 100 mg at bedtime. D/C PRN dosing. Lidocaine Viscous 2% mucosal solution 15 ml orally swish and swallow QID PRN. Need to clarify suture removal date for left hand. Not available 04/27/2025 19:27:49 05/03/2025 05/03/2025 Pt will d/c home today with [facility]. Not available 05/03/2025 15:19:53 Plan of Treatment Reminders Order Date Submit Date Provider Last Modified By Organization Details Last Modified Time Details Appointments None recorded. Lab None recorded. Referral None recorded. Procedures None recorded. Surgeries None recorded. Imaging None recorded. Medication Orders Trelegy Ellipta 200 mcg-62.5 mcg-25 mcg powder for inhalation 2024 [facility] #[id number], [address], [place], [place], [phone], 15:20:20 Eliquis 2.5 mg tablet 2024 [id number] [place] [address] [facility] #[id number], [address], [place], [place], [id number], 16:18:09 oxybutynin chloride 5 mg tablet 2024 [facility] #[id number], [address], [place], [place], [id number], 15:20:08 trazodone 100 mg tablet 2024 [facility] #[id number], [address], [place], [place], [id number], 15:20:09 ramelteon 8 mg tablet 2024 [facility] #[id number], [address], [place], [place], [id number], 15:20:20 Patient TargetsNo targets recorded. Patient Instructions Encounter Date Encounter Id Patient Instructions Last Modified By Organization Details Last Modified Time 04/22/2025 [id number] I spent 36 minutes providing care to the patient today. More than 50% of that time was spent in discussing the expected course of the disease, discussing prognosis, coordinating care and counseling of the patient/family. Not available 04/22/2025 17:09:35 04/25/2025 [id number] I spent >50 minutes providing care to the patient today. More than 50% of that time was spent in discussing the expected course of the disease, discussing prognosis, coordinating care and counseling of the patient/family. I spent 16 minutes counseling and discussing advance directives and/or end of life care planning and decisions with the patient today. I reviewed the current relevant diagnoses, treatment options, natural history, and prognosis and clarified the patient's goals of care. code status is DNR [email or web address] Not available 04/27/2025 06:41:55 04/27/2025 [id number] I spent 37 minutes providing care to the patient today. More than 50% of that time was spent in discussing the expected course of the disease, discussing prognosis, coordinating care and counseling of the patient/family. [email or web address] Not available 04/27/2025 19:29:28 04/29/2025 [id number] I spent 37 minutes providing care to the patient today. More than 50% of that time was spent in discussing the expected course of the disease, discussing prognosis, coordinating care and counseling of the patient/family. Not available 04/29/2025 14:32:42 05/03/2025 [id number] I spent 37 minutes providing care to the patient today. More than 50% of that time was spent in discussing the expected course of the disease, discussing prognosis, coordinating care and counseling of the patient/family. Not available 05/03/2025 15:19:45 Reason for Referral None Reported. Results Created Date Observation Date Name Description Value Unit Range Abnormal Flag Note LastModifiedBy Organization Detail LastModifiedTime Result Notes None recorded. Procedures Surgical History Date Name Laterality Status Provider Name and Address Organization Details Recorded Time 016 repair of musculotendinous [place] [address] [address], [place], [address], [facility] 04/20/2025 14:56:54 014 placement of stent in coronary artery completed Myriam Mess[place] [address], [place], [address], [facility] 04/20/2025 14:54:46 012 bursectomy [place] [address], [place], [address], [facility] 04/20/2025 14:57:44 952 tonsillectomy [place] [address] [address] [facility], [place], [address], [facility] 04/20/2025 14:57:09 extraction of cataract completed Myriam [place], [address], [facility] 04/20/2025 14:54:24 repair with closure of non-surgical wound completed Myriam [place], [address], [facility] 04/20/2025 14:55:39 ligation of bilateral fallopian tubes completed Myriam [place], [address], [facility] 04/20/2025 14:57:56 Imaging Results None recorded. Procedure Notes None recorded. Medical Equipment None Reported. Allergies No known drug allergies Medications Name Sig Start Date Stop Date Status Note LastModified by Organization Details LastModified Time methocarbam ol 500 mg tablet Take 1 tablet 3 times a day by oral route. 04/20 completed Not Available Not Available Not Available atorvastati n 80 mg tablet Take 1 tablet every day by oral route. 04/20 completed Not Available Not Available Not Available tizanidine 2 mg tablet Take 1 tablet every day by oral route as needed. active Not Available Not Available No t Available trazodone 50 mg tablet Take 1 tablet every day by oral route as needed. 04/27 completed Not Available Not Available Not Available cetirizine 10 mg tablet Take 1 tablet every day by oral route as needed. active Not Available Not Available No t Available Lidocaine Viscous 2 % mucosal solution Take 10 mL 4 times a day by oral route as needed. active Not Available Not Available No t Available metoprolol succinate ER 50 mg tablet,exte nded release 24 hr Take 1 tablet every day by oral route. active Not Available Not Available No t Available fluorouraci l 5 % topical cream Apply 1 applicati on twice a day by topical route. active Not Available Not Available No t Available acetaminoph en 500 mg tablet Take 2 tablets 3 times a day by oral route. active Not Available Not Available No t Available trazodone 100 mg tablet Take 1 tablet every day by oral route at bedtime. 2024 active Not Available Not Available Not Avai lable prednisone 1 mg tablet Take 4 tablets every day by oral route. active Not Available Not Available No t Available esomeprazol e magnesium 40 mg capsule,del ayed release Take 1 capsule every day by oral route. active Not Available Not Available No t Available nystatin 100,000 unit/gram topical cream Apply 1 applicati on 3 times a day by topical route. active Not Available Not Available No t Available nitroglycer in 0.[address] 1 tablet by sublingua l route as needed. active Not Available Not Available No t Available aspirin 81 mg chewable tablet Chew 1 tablet every day by oral route. 2024 active Not Available Not Available Not Avai lable mupirocin 2 % topical ointment Apply 1 applicati on twice a day by topical route. 04/20 completed Not Available Not Available Not Available azelastine 137 mcg (0.1 %) nasal spray Putnam 2 sprays twice a day by intranasa l route. active Not Available Not Available No t Available polyethylen e glycol 3350 17 gram/dose oral powder Take 17 g every day by oral route. active Not Available Not Available No t Available albuterol sulfate HFA 90 mcg/actuati on aerosol inhaler Inhale 1 puff every 6 hours by inhalatio n route as needed. active Not Available Not Available No t Available SSD 1 % topical cream Apply 1 applicati on every day by topical route. 04/20 completed Not Available Not Available Not Available oxybutynin chloride 5 mg tablet TAKE 1 TABLET BY MOUTH EVERY DAY AT BEDTIME active Not Available Not Available No t Available fluticasone propionate 50 mcg/actuati on nasal spray,suspe nsion Putnam 2 sprays every day by intranasa l route. 04/20 completed Not Available Not Available Not Available ipratropium bromide 21 mcg (0.03 %) nasal spray Putnam 2 sprays 3 times a day by intranasa l route. active Not Available Not Available No t Available oxycodone 5 mg tablet Take 0.5 tablets every 4 hours by oral route as needed. 2024 active Not Available Not Available Not Avai lable ramelteon 8 mg tablet Take 1 tablet every day by oral route at bedtime. 2024 active Not Available Not Available Not Avai lable cholecalcif rex (vitamin D3) 25 mcg (1,000 unit) tablet Take 1 tablet every day by oral route. 04/20 completed Not Available Not Available Not Available budesonide- formoterol HFA 160 mcg-4.5 mcg/actuati on aerosol inhaler Inhale 2 puffs twice a day by inhalatio n route. 04/20 completed Not Available Not Available Not Available mirabegron ER 50 mg tablet,exte nded release 24 hr Take 1 tablet every day by oral route. 04/27 completed Not Available Not Available Not Available Eliquis 2.5 mg tablet Take 1 tablet twice a day by oral route. 2024 active Stop Date: Not Available Not Available Not Available Stimulant Laxative Plus 8.6 mg-50 mg tablet Take 1 tablet every day by oral route. active Not Available Not Available No t Available Fasenra 30 mg/mL subcutaneou s syringe Inject 1 mL every 2 months by subcutane ous route. active Not Available Not Available No t Available Trelegy Ellipta 200 mcg-62.5 mcg-25 mcg powder for inhalation Inhale 1 puff every day by inhalatio n route. 2024 active Not Available Not Available Not Avai lable Vitals Date Recorded Body height Heart rate Body temperature Respiratory rate Oxygen saturation Body mass index (BMI) Body weight Systolic And Diastolic Provider Name and Address Organization Details Last Updated DateTime 157.48 cm 68 /min 98.2 [degF] 16 /min 91 % 24.6 kg/m2 24799.8 1 g 127/52 mm[Hg] [place] [address] [facility], [place], [address], [place] [facility] 16:25:23 Date Recorded Heart rate Body temperature Respiratory rate Oxygen saturation Body weight Body mass index (BMI) Body height Systolic And Diastolic Provider Name and Address Organization Details Last Updated DateTime 08/17/202 5 69 /min 98 [degF] 16 /min 97 % 71679.5 g 24.4 kg/m2 157.48 cm 147/60 mm[Hg] [place] [address] [place], [address], [place] - [facility] 06:15:51 Date Recorded Body height Heart rate Body temperature Respiratory rate Oxygen saturation Body mass index (BMI) Body weight Systolic And Diastolic Provider Name and Address Organization Details Last Updated DateTime 157.48 cm 68 /min 98.2 [degF] 18 /min 94 % 25.1 kg/m2 72904.1 5 g 140/62 mm[Hg] [place] [address] [place], [address], [place] - [facility] 14:15:05 Date Recorded Body height Heart rate Body temperature Respiratory rate Oxygen saturation Body mass index (BMI) Body weight Systolic And Diastolic Provider Name and Address Organization Details Last Updated DateTime 157.48 cm 63 /min 98.2 [degF] 18 /min 97 % 24.7 kg/m2 11619.9 7 g 122/49 mm[Hg] [place] [address] [place], [address], [place] - [facility] 10:17:01 Date Recorded Body height Heart rate Body temperature Respiratory rate Oxygen saturation Body mass index (BMI) Body weight Systolic And Diastolic Provider Name and Address Organization Details Last Updated DateTime 5 157.48 cm 63 /min 97.3 [degF] 18 /min 95 % 24.5 kg/m2 03288.1 g 149/66 mm[Hg] [place] [address] [place], [address] , [facility] 09:34:20 Social History Question Answer Notes LastModified by Organizat ion Details LastModified Time Tobacco Smoking Status Former Smoker Manjinder murguia, [facility] 04/20/2025 09:48:27 What Is Your Code Status? DNR Information not available 04/20/2025 When Did You Quit Smoking? 18+yearssin ta hobson Quit In 1971 Information not available 04/20/2025 What Was The Date Of Your Most Recent Tobacco Screening? 04/20/2025 Information not available 04/20/2025 What Is Your Relationship Status? Information not available 04/20/2025 Sex: Unknown Functional Status Question Answer Note LastModified by Organizat ion Details LastModified Time How many times per week do you consume alcohol? 1-2 times per week Information not available 04/20/2025 Do you use any illicit or recreational drugs? No Information not available 04/20/2025 What is your level of alcohol consumption? Occasional Information not available 04/20/2025 Mental Status None recorded. Family History Relationship Description Onset Age of this Age Resolved Age Notes LastModified by Organization Details LastModified Time Father Heart disease Not available 2024 09:54:35 Father Cerebrovascu lar accident Not available 08/2025 09:54:43 Unspecified Relation Hypertensive disorder Not available 2024 09:54:57 Brother Malignant neoplasm of esophagus Not available 2024 09:55:22 Brother Malignant neoplasm of pancreas Not available 2024 09:55:29 Medical History Condition Response Osteoarthritis / DJD Y Cancer -- Skin Y Dysphagia Y Vitamin D Deficiency Y Arrhythmia Y Spinal Stenosis Y Coronary Artery Disease (CAD) Y Transient ischemic attack (TIA) Y Osteoporosis / Osteopenia Y Allergic Rhinitis Y Insomnia Y Asthma Y GERD / Reflux Y Pulmonary Embolism Y Gynecological HistoryNo gynecological history recorded. 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 Described as deep throat pain deep down stabbing in throat. Pt is noted to have hx of candidal esophagiti s.She was last seen by ENT Dr. Johana Loza on 04/08 with orders to move forward with MBS and CT of her neck. At that appt, given orders to stop Flonase and start Atrovent. Also continues on Astelin.Wi ll need to continue further f/u once discharged from this facility.C ontinue Esomeprazo le. Squamous c ell carcinoma of skin 233527277 C44.92 485151 Multiple recent resections of SCC, right forearm about 4 weeks ago with dissolvabl e sutures still in place. As incision is healed, gave okay for nursing to remove sutures. Left hand 2 weeks ago, appears that the wound was damaged and is now healing by secondary intention, along with some dissolvabl e sutures still in place. Leaving sutures for now, cover with dry dressing, change daily & PRN. Lesion is scabbed without concerns for infection. F/U with Dr. Tosin Singh (derm) at [facility] as [facility]. Need to clarify use of FU cream. Chronic is chemic heart disease 640521749 I25.9 587627 s/p stent in 2015.Follo wed for a time by Dr. Suarez, most recently seen by [facility] G[facility]PERATOR Bridget Corea on 03/05/25.Co ntinue Metoprolol & PRN NTG.Holdin g Atorvastat in & ASA as above. Tachyarrhythmia 9876202 R00.0 489134 No recent concerns. Continue Metoprolol .Pt reports possible orthostasi s. Check orthostati c vitals x 5 days.F/U with GOLDY Corea (cards) as directed. Last seen on 03/05/25. Severe per sistent asthma 276139870 J45.50 [id number] SEE ABOVE... Candidiasi s of esophagus 31567496 B37.81 565490 SEE ABOVE... History of cerebrovascular disease 396310648 Z86.73 7394666 Details unclear. ASA and Atorvastat in on hold as above.Cont inue good BP control. Gastro-eso phageal reflux disease with esophagitis 927514930 K21.00 4833664475 Vague mention of possible history of peptic ulcer?SEE ABOVE... Hyponatremia 96672721 E8 7.1 78360 Cause unclear. Improved while inpatient, worse once again here.Consi anibal fluid restrictio n.No obvious medicinal offenders. Continue to trend and can consider NaCl supplement ation if appropriat e. Spinal stenosis 66606502 M48.00 48237534 Stable. Continue routine APAP and PRN Oxycodone & Tizanidine . Generalize d osteoarthritis 945391133 M15.9 1453 Stable. Continue routine APAP and PRN Oxycodone & Tizanidine . Osteoporotic fracture 44 4696229 M80.00XD 45372078 Stopping Vit D as last level was 147 in December 2024.Hao nue supportive measures.H as DEXA scan and appt with [facility] Dr. Winsome Ruiz on 04/29. This will need to be reschedule d. Allergic rhinitis 924107 04 J30.9 7937672 SEE ABOVE...Co ntinue Azelastine spray, Atrovent spray, and PRN Cetirizine . Chronic insomnia 1117333 04 F51.04 256595 Stable. Continue newly-adde d PRN Ramelteon & Trazodone. Overactive urinary bladder 256514254 N32.81 5882238 Myrbetriq is reportedly ineffectiv e. Would consider discontinu ation if pt is amenable. Per PCP note, Oxybutynin was more helpful in the past, unclear why it was stopped.Do es not appear that a UA was done while inpatient. Not for resuscitation 30 1710594 Z66 775830 Pt is a DNR with selective measures, confirmed today. Physical deconditioning 0152219205 9102 R53.81 596800 Related to age, recent inpatient stay, and multiple comorbidit ies. Continue PT/OT and monitor progress. Goal is for pt to return home with . Accidental fall 10571957 2 W19.XXXD 7866142 SEE ABOVE... Closed fra cture of pubic ramus 2733714286 S32.591D 84701418 Evaluated by orthopedic s, treating supportive ly.WBAT. Continue therapies. Continue routine APAP for pain -- may need to reduce/sto p given elevated LFTs. Holding statin first to see if they improve.Co ntinue PRN oxycodone for pain. D/C Methocarba mol, can use PRN Tizanidine for muscle spasms (OP med).Haocarissa Milesquis through 05/17. Will hold ASA while on this course.F/U CT scan on 05/[address] Roe Hung on 05/25. Liver func tion test above reference range 603197250 R79.89 042810 Present on ER arrival, not improved since.Hold high-dose Atorvastat in for now.Contin ue routine APAP for pain -- may need to reduce/sto p.Repeat CMP on . Interstiti al lung disease 150525454 J84.9 915[address] Followed by pulmonolog y Dr. 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 No recent concerns per pt. Respirator y status is stable on RA.F/U with Dr. Hidalgo as directed. History of pulmonary embolus 912963790 Z86.713 8755577 Per pulmonolog y's note, provoked in Sep 2016. Takes daily baby ASA as OP. Chronic constipation 236 566804 K59.09 302619 Stable. Continue Miralax & Senna Plus routinely. Additional cathartics available per standing orders. [id number] Shilpa Florian, [address] [address] 04/22/2025 09:59:18 04/28/2025 08:30:38 Closed fracture of pubic ramus 3483848166 S32.591D 93343731 Evaluated by orthopedic s, treating supportive ly.WBAT. Continue therapies. Continue routine APAP for pain -- may need to reduce/sto p given elevated LFTs. Holding statin first to see if they improve.Co ntinue PRN oxycodone for pain.D/Royer Methocarba mol. Can use PRN Tizanidine for muscle spasms (OP med).Haocarissa Milesquis through 05/17. Will hold ASA while on this course.F/U CT scan on 05/[address] Roe Hung on 05/25. Osteoporotic fracture 44 4886598 M80.00XD 70484787 Stopping Vit D as last level was 147 in December 2024.Hao nue supportive measures.H as DEXA scan and appt with [facility] Dr. Winsome Ruiz on 04/29. This will need to be reschedule d. Accidental fall 89658202 2 W19.XXXD 5812191 SEE ABOVE... Hyponatremia 58094105 E8 7.1 93530 Cause unclear. Improved while inpatient, worse once again here.Hao nue 1.5 L fluid restrictio n.No obvious medicinal offenders. Continue to trend and can consider NaCl supplement ation if appropriat e. Liver func tion test above reference range 653038598 R79.89 533903 Present on ER arrival, not improved since.Hold ing high-dose Atorvastat in for now.Contin ue routine APAP for pain -- may need to reduce/sto p.Repeat CMP was ordered for this AM but lab unable to obtain, so will be drawn 04/23. Tachyarrhythmia 9491552 R00.0 597604 No recent concerns. Continue Metoprolol .Pt reports possible orthostasi s. Checking orthostati c vitals x 5 days.F/U with GOLDY Corea (cards) as directed. Last seen on 03/05/25. Chronic is chemic heart disease 615088993 I25.9 267225 s/p stent in 2014.Follo wed for a time by Dr. Suarez, most recently seen by GOLDY Corea on 03/05/25.Co ntinue Metoprolol & PRN NTG.Holdin g Atorvastat in & ASA as above. Interstiti al lung disease 773377556 J84.9 80967 Followed by pulmonolog y Dr. 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 No recent concerns per pt. Respirator y status is stable on RA.F/U with Dr. Hidalgo as directed. Severe per sistent asthma 728924434 J45.50 2608312417 SEE ABOVE... 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 Described as deep throat pain deep down stabbing in throat. Pt is noted to have hx of candidal esophagiti s.She was last seen by ENT Dr. Johana Loza on 04/08 with orders to move forward with MBS and CT of her neck. At that appt, given orders to stop Flonase and start Atrovent. Also continues on Astelin.Wi ll need to continue further f/u once discharged from this facility.C ontinue Esomeprazo le. Candidiasi s of esophagus 64966853 B37.81 124698 SEE ABOVE... Gastro-eso phageal reflux disease with esophagitis 603939962 K21.00 5427226897 Vague mention of possible history of peptic ulcer?SEE ABOVE... Spinal stenosis 62032609 M48.00 87184098 Stable. Continue routine APAP and PRN Oxycodone & Tizanidine . Generalize d osteoarthritis 765651266 M15.9 1453 Stable. Continue routine APAP and PRN Oxycodone & Tizanidine . History of cerebrovascular disease 957755725 Z86.73 4655189 Details unclear. ASA and Atorvastat in on hold as above.Cont inue good BP control. Squamous c ell carcinoma of skin 899734583 C44.92 416996 Multiple recent resections of SCC, right forearm about 4 weeks ago with dissolvabl e sutures still in place. As incision is healed, gave okay for nursing to remove sutures. Left hand 2 weeks ago, appears that the wound was damaged and is now healing by secondary intention, along with some dissolvabl e sutures still in place. Leaving sutures for now, cover with dry dressing, change daily & PRN. Lesion is scabbed without concerns for infection. F/U with Dr. Tosin Singh (derm) at [facility] as directed. Need to clarify use of FU cream. Chronic insomnia 7596208 04 F51.04 754558 Stable. Continue newly-adde d PRN Ramelteon & Trazodone. Overactive urinary bladder 817641326 N32.81 3164014 Myrbetriq is reportedly ineffectiv e. Would consider discontinu ation if pt is amenable. Per PCP note, Oxybutynin was more helpful in the past, unclear why it was stopped.Do es not appear that a UA was done while inpatient. Allergic rhinitis 101811 04 J30.9 5025729 SEE ABOVE...Co ntinue Azelastine spray, Atrovent spray, and PRN Cetirizine . Chronic constipation 236 216816 K59.09 379691 Stable. Continue Miralax & Senna Plus routinely. Additional cathartics available per standing orders. History of pulmonary embolus 675521883 Z86.191 0897258 Per pulmonolog y's note, provoked in Sep 2016. Takes daily baby ASA as OP. Not for resuscitation 30 4867780 Z66 723276 Pt is a DNR with selective measures, confirmed today. Physical deconditioning 4817969905 9102 R53.81 994483 Related to age, recent inpatient stay, and multiple comorbidit ies. Continue PT/OT and monitor progress. Goal is for pt to return home with . Candidiasis of vagina 72 901739 B37.31 189046 Nystatin cream TID. Monitor for improvemen t. If none, may require oral Diflucan. [id number] Shilpa Florian, DO [address] [address] 04/25/2025 09:39:30 04/28/2025 08:32:04 Closed fracture of pubic ramus 1377802425 S32.591D 15683340 Evaluated by orthopedic s, treating supportive ly.WBAT. Continue therapies. Continue routine APAP for pain -- may need to reduce/sto p given elevated LFTs. Holding statin with downtrend notedConti nue PRN oxycodoneD /Royer Methocarba mol. Can use PRN Tizanidine for muscle spasms (OP med).Hao nue Eliquis through 05/17. Will hold ASA while on this course.F/U CT scan on 05/[address] Roe Hung on 05/25. Osteoporotic fracture 44 7717742 M80.00XD 49290170 Stopped Vit D as last level was 147 in December 2024.Hao nue supportive measures.H as DEXA scan and appt [facility] Dr. Winsome Ruiz on 04/29. This will need to be reschedule d. Accidental fall 40764493 2 W19.XXXD 3803927 SEE ABOVE... Candidiasis of vagina 72 750144 B37.31 654040 Nystatin cream TID. Monitor for improvemen t. If none, may require oral Diflucan. Hyponatremia 38279526 E8 7.1 44127 Cause unclear. Improved with Na noted to be 138 per labs 04/23Contin ue 1.5 L fluid restrictio n.No obvious medicinal offenders. Continue to trend and can consider NaCl supplement ation if needed Liver func tion test above reference range 525491559 R79.89 823006 Present on ER arrival, now downtrendi ngHolding high-dose Atorvastat in for now.Contin ue routine APAP for pain -- may need to reduce/sto p.f/u labs 04/26 Tachyarrhythmia 5401995 R00.0 585200 No recent concerns. Continue Metoprolol .Pt reports possible orthostasi s - these have been negative hereF/U with LUNG GUN OPERATOR Bridget Corea (cards) as directed. Last seen on 03/05/25. 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 Suarez, most recently seen by LUNG GUN OPERATOR Bridget Corea on 03/05/25.Co ntinue Metoprolol & PRN NTG.Holdin g Atorvastat in & ASA as above. Interstiti al lung disease 576766512 J84.9 49917 Followed by pulmonolog y Dr. 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 No recent concerns per pt. Respirator y status is stable on RA.F/U with Dr. Hidalgo as directed. Severe per sistent asthma 997971873 J45.50 7163909416 SEE ABOVE... 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 Described as deep throat pain deep down stabbing in throat. Pt is noted to have hx of candidal esophagiti s.She was last seen by ENT Dr. Johana Loza on 04/08 with orders to move forward with MBS and CT of her neck. At that appt, given orders to stop Flonase and start Atrovent. Also continues on Astelin.Wi ll need to continue further f/u once discharged from this facility.C ontinue Esomeprazo le. Candidiasi s of esophagus 16338759 B37.81 671101 SEE ABOVE... Gastro-eso phageal reflux disease with esophagitis 495829982 K21.00 3652550037 Vague mention of possible history of peptic ulcer?SEE ABOVE... Spinal stenosis 17169458 M48.00 59887022 Stable. Continue routine APAP and PRN Oxycodone & Tizanidine . Generalize d osteoarthritis 323353947 M15.9 1453 Stable. Continue routine APAP and PRN Oxycodone & Tizanidine . History of cerebrovascular disease 232417109 Z86.73 5789222 Details unclear. ASA and Atorvastat in on hold as above.Cont inue good BP control. Squamous c ell carcinoma of skin 959006083 C44.92 328626 Multiple recent resections of SCC, right forearm about 4 weeks ago with dissolvabl e sutures still in place. As incision is healed, gave okay for nursing to remove sutures. Left hand 2 weeks ago, appears that the wound was damaged and is now healing by secondary intention, along with some dissolvabl e sutures still in place. Leaving sutures for now, cover with dry dressing, change daily & PRN. Lesion is scabbed without concerns for infection. F/U with Dr[facility] Tosin [facility] (derm) [facility]. Need to clarify use of FU cream. Chronic insomnia 1711111 04 F51.04 012708 Stable. Continue newly-adde d PRN Ramelteon & Trazodone. Overactive urinary bladder 738490491 N32.81 1148195 Myrbetriq is reportedly ineffectiv e although patient does not want to d/c - d/w her that this is currently at maximum recommende d dose as she is requesting it be increased. Will check UA due to increased frequency / dysuria. Continue discussion s about transition back to oxybutynin or d/c of these meds altogether if she has a UTI Allergic rhinitis 261670 04 J30.9 3836434 SEE ABOVE...Co ntinue Azelastine spray, Atrovent spray, and PRN Cetirizine . Chronic constipation 236 158374 K59.09 440198 Stable. Continue Miralax & Senna Plus routinely. Additional cathartics available per standing orders. History of pulmonary embolus 786491685 Z86.259 6795747 Per pulmonolog y's note, provoked in Sep 2016. Takes daily baby ASA as OP. Physical deconditioning 7682308388 9102 R53.81 870353 Related to age, recent inpatient stay, and multiple comorbidit ies. Continue PT/OT and monitor progress. Goal is for pt to return home with . [id number] Shilpa Florian, DO [address] [address] 04/27/2025 09:20:44 04/28/2025 08:31:28 Closed fracture of pubic ramus 5318075310 S32.591D 15643324 Evaluated by orthopedic s, treating supportive ly.WBAT. Continue therapies. Continue routine APAP for pain -- may need to reduce/sto p given elevated LFTs. Holding statin with downtrend noted.Cont inue PRN Oxycodone and PRN Tizanidine for muscle spasms (OP med).Hao nue Eliquis through 05/17. Will hold ASA while on this course.F/U CT scan on 05/[address] Roe Hung on 05/25. Osteoporotic fracture 44 6676609 M80.00XD 04451452 Stopped Vit D as last level was 147 in December 2024.Hao nue supportive measures.H as DEXA scan and appt with [facility] Dr. Winsome Ruiz on 04/29. This will need to be reschedule d. Accidental fall 16768957 2 W19.XXXD 8299061 SEE ABOVE... Candidiasis of vagina 72 572233 B37.31 111867 Continue Nystatin cream TID.Treat with 1 dose of Diflucan. Will not repeat dose a 2nd time given concern for LFTs.Monit or for improvemen t. Hyponatremia 69544101 E8 7.1 88824 Cause unclear. Improved with Na noted to be 138 per labs on 04/23. Continue 1.5 L fluid restrictio n.No obvious medicinal offenders. Continue to trend and can consider NaCl supplement ation if needed Liver func tion test above reference range 032103293 R79.89 028616 Present on ER arrival, now downtrendi ng.Holding high-dose Atorvastat in for now.Contin ue routine APAP for pain -- may need to reduce/sto p.Continue to trend levels closely. Tachyarrhythmia 0257586 R00.0 634287 No recent concerns. Continue Metoprolol .Pt reports possible orthostasi s - orthostati cs have been negative here.F/U with GOLDY Corea (cards) as directed. Last seen on 03/05/25. 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 Suarez, most recently seen by GOLDY Corea on 03/05/25.Co ntinue Metoprolol & PRN NTG.Holdin g Atorvastat in & ASA as above. Interstiti al lung disease 269360991 J84.9 05744 Followed by pulmonolog y Dr. 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 No recent concerns per pt. Respirator y status is stable on RA.F/U with Dr. Hidalgo as directed. Severe per sistent asthma 132349736 J45.50 7340623517 SEE ABOVE... 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 Described as deep throat pain deep down stabbing in throat. Pt is noted to have hx of candidal esophagiti s.She was last seen by ENT Dr. Johana Loza on 04/08 with orders to move forward with MBS and CT of her neck. At that appt, given orders to stop Flonase and start Atrovent. Also continues on Astelin.Wi ll need to continue further f/u once discharged from this facility.C ontinue Esomeprazo le.Adding PRN Lidocaine swish and swallow for pain relief. Candidiasi s of esophagus 54732546 B37.81 821478 SEE ABOVE... Gastro-eso phageal reflux disease with esophagitis 087653312 K21.00 0726997033 Vague mention of possible history of peptic ulcer?SEE ABOVE... Spinal stenosis 03504199 M48.00 57949821 Stable. Continue routine APAP and PRN Oxycodone & Tizanidine . Generalize d osteoarthritis 083743094 M15.9 1453 Stable. Continue routine APAP and PRN Oxycodone & Tizanidine . History of cerebrovascular disease 318183275 Z86.73 5004853 Details unclear. ASA and Atorvastat in on hold as above.Cont inue good BP control. Squamous c ell carcinoma of skin 337521815 C44.92 414676 Multiple recent resections of SCC, right forearm about 4 weeks ago with dissolvabl e sutures still in place. As incision is healed, gave okay for nursing to remove sutures. Left hand 2 weeks ago, appears that the wound was damaged and is now healing by secondary intention, along with some dissolvabl e sutures still in place. Leaving sutures for now, cover with dry dressing, change daily & PRN. Lesion is scabbed without concerns for infection. F/U with Dr. Tosin Singh (derm) at [facility] as directed. Need to clarify use of FU cream. Chronic insomnia 2187191 04 F51.04 952759 Stable. Continue newly-adde d PRN Ramelteon & Trazodone. Overactive urinary bladder 578603158 N32.81 8013921 Myrbetriq has been ineffectiv e.UA is negative.R estart Oxybutynin IR 5 mg PO qhs as she found this was helpful in the past. Of note, she was on 5 mg XL prior to d/c a few months back. She reports it was stopped due to concern was causing fatigue. PCP documents it was stopped as she was complainin g of bloating. Allergic rhinitis 922326 04 J30.9 0072491 SEE ABOVE...Co ntinue Azelastine spray, Atrovent spray, and PRN Cetirizine . Chronic constipation 236 925330 K59.09 498079 Stable. Continue Miralax & Senna Plus routinely. Additional cathartics available per standing orders. History of pulmonary embolus 129680122 Z86.714 3160199 Per pulmonolog y's note, provoked in Sep 2016. Takes daily baby ASA as OP. Physical deconditioning 5050077844 9102 R53.81 741637 Related to age, recent inpatient stay, and multiple comorbidit ies. Continue PT/OT and monitor progress. Goal is for pt to return home with . [id number] Shilpa Florian, DO [address] [address] 04/29/2025 09:37:23 05/10/2025 08:45:27 Closed fracture of pubic ramus 3230379366 S32.591D 77839095 Evaluated by orthopedic s, treating supportive ly.WBAT. Continue therapies. Continue routine APAP for pain -- may need to reduce/sto p given elevated LFTs. Holding statin with downtrend noted.Cont inue PRN Oxycodone and PRN Tizanidine for muscle spasms (OP med).Hao nue Eliquis through 05/17. Will hold ASA while on this course.F/U CT scan on 05/[address] Roe Hung on 05/25. Osteoporotic fracture 44 7202030 M80.00XD 31653841 Stopped Vit D as last level was 147 in December 2024.Hao nue supportive measures.H as DEXA scan and appt with [facility] Dr. Winsome Ruiz on 04/29. This will need to be reschedule d. Accidental fall 17287991 2 W19.XXXD 1242827 SEE ABOVE... Candidiasis of vagina 72 893177 B37.31 431659 Continue Nystatin cream TID.Treati ng with 1 dose of Diflucan. Will not repeat dose a 2nd time given concern for LFTs.Monit or for improvemen t. Hyponatremia 31232589 E8 7.1 81010 Cause unclear. Improved with Na noted to be 138 per labs on 04/23. Continue 1.5 L fluid restrictio n.No obvious medicinal offenders. Continue to trend and can consider NaCl supplement ation if needed Liver func tion test above reference range 440533162 R79.89 943003 Present on ER arrival, now downtrendi ng.Holding high-dose Atorvastat in for now.Contin ue routine APAP for pain -- may need to reduce/sto p.Continue to trend levels closely. Tachyarrhythmia 4861012 R00.0 147894 No recent concerns. Continue Metoprolol .Pt reports possible orthostasi s - orthostati cs have been negative here.F/U with LUNG GUN OPERATOR Bridget Corea (cards) as directed. Last seen on 03/05/25. Chronic is chemic heart disease 784353502 I25.9 165200 s/p stent in 2014.Follo wed for a time by Dr. Suarez, most recently seen by LUNG GUN OPERATOR Bridget Corea on 03/05/25.Co ntinue Metoprolol & PRN NTG.Holdin g Atorvastat in & ASA as above. Interstiti al lung disease 941991750 J84.9 87204 Followed by pulmonolog y Dr. 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 No recent concerns per pt. Respirator y status is stable on RA.F/U with Dr. Hidalgo as directed. Severe per sistent asthma 499285993 J45.50 2164883125 SEE ABOVE... 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 Described as deep throat pain deep down stabbing in throat. Pt is noted to have hx of candidal esophagiti s.She was last seen by ENT Dr. Johana Loza on 04/08 with orders to move forward with MBS and CT of her neck. At that appt, given orders to stop Flonase and start Atrovent. Also continues on Astelin.Wi ll need to continue further f/u once discharged from this facility.C ontinue Esomeprazo le.Adding PRN Lidocaine swish and swallow for pain relief. Candidiasi s of esophagus 82014590 B37.81 787313 SEE ABOVE... Gastro-eso phageal reflux disease with esophagitis 639646351 K21.00 1548945313 Vague mention of possible history of peptic ulcer?SEE ABOVE... Spinal stenosis 22073503 M48.00 79898105 Stable. Continue routine APAP and PRN Oxycodone & Tizanidine . Generalize d osteoarthritis 277231980 M15.9 1453 Stable. Continue routine APAP and PRN Oxycodone & Tizanidine . History of cerebrovascular disease 884945904 Z86.73 6342932 Details unclear. ASA and Atorvastat in on hold as above.Cont inue good BP control. Squamous c ell carcinoma of skin 568340660 C44.92 933656 Multiple recent resections of SCC, right forearm about 4 weeks ago with dissolvabl e sutures still in place. As incision is healed, gave okay for nursing to remove sutures. Left hand 2 weeks ago, appears that the wound was damaged and is now healing by secondary intention, along with some dissolvabl e sutures still in place. Leaving sutures for now, cover with dry dressing, change daily & PRN. Lesion is scabbed without concerns for infection. F/U with Dr. Tosin Singh (derm) at [facility] as directed. Need to clarify use of FU cream. Chronic insomnia 8518085 04 F51.04 130807 Stable. Continue newly-adde d PRN Ramelteon & Trazodone. Overactive urinary bladder 769774004 N32.81 2999796 Myrbetriq has been ineffectiv e.UA is negative.R estart Oxybutynin IR 5 mg PO qhs as she found this was helpful in the past. Of note, she was on 5 mg XL prior to d/c a few months back. She reports it was stopped due to concern was causing fatigue. PCP documents it was stopped as she was complainin g of bloating. Allergic rhinitis 111840 04 J30.9 6555095 SEE ABOVE...Co ntinue Azelastine spray, Atrovent spray, and PRN Cetirizine . Chronic constipation 236 065339 K59.09 222622 Stable. Continue Miralax & Senna Plus routinely. Additional cathartics available per standing orders. History of pulmonary embolus 745278536 Z86.435 1398109 Per pulmonolog y's note, provoked in Sep 2016. Takes daily baby ASA as OP. Physical deconditioning 4501880964 9102 R53.81 011943 Related to age, recent inpatient stay, and multiple comorbidit ies. Continue PT/OT and monitor progress. Goal is for pt to return home with . [id number] Shilpa Florian, DO [address] [address] 05/03/2025 09:15:44 05/10/2025 08:45:55 Closed fracture of pubic ramus 5590807433 S32.591D 83463391 Evaluated by orthopedic s, treating supportive ly.WBAT. Continue therapies. Continue routine APAP for pain -- may need to reduce/sto p given elevated LFTs. Holding statin with downtrend noted.Cont inue PRN Oxycodone and PRN Tizanidine for muscle spasms (OP med).Hao nue Eliquis through 05/17. Will hold ASA while on this course.F/U CT scan on 05/[address] Roe Hung on 05/25. Osteoporotic fracture 44 4354377 M80.00XD 44121738 Stopped Vit D as last level was 147 in December 2024.Hao nue supportive measures.H as DEXA scan and appt with [facility] Dr. Winsome Ruiz on 04/29. This will need to be reschedule d. Accidental fall 37226093 2 W19.XXXD 7997841 SEE ABOVE... Candidiasis of vagina 72 710773 B37.31 689488 Continue Nystatin cream TID.Treati ng with 1 dose of Diflucan. Will not repeat dose a 2nd time given concern for LFTs.Monit or for improvemen t. Hyponatremia 17056156 E8 7.1 26910 Cause unclear. Improved with Na noted to be 138 per labs on 04/23. Continue 1.5 L fluid restrictio n.No obvious medicinal offenders. Continue to trend and can consider NaCl supplement ation if needed. Liver func tion test above reference range 814559356 R79.89 833862 Present on ER arrival, now downtrendi ng.Holding high-dose Atorvastat in for now.Contin ue routine APAP for pain -- may need to reduce/sto p.Continue to trend levels closely. Tachyarrhythmia 4443213 R00.0 310911 No recent concerns. Continue Metoprolol .Pt reports possible orthostasi s - orthostati cs have been negative here.F/U with LUNG GUN OPERATOR Bridget Corea (cards) as directed. Last seen on 03/05/25. Chronic is chemic heart disease 709569381 I25.9 681498 s/p stent in 2014.Follo wed for a time by Dr. Suarez, most recently seen by LUNG GUN OPERATOR Bridget Corea on 03/05/25.Co ntinue Metoprolol & PRN NTG.Holdin g Atorvastat in & ASA as above. Interstiti al lung disease 863156717 J84.9 04756 Followed by pulmonolog y Dr. 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 No recent concerns per pt. Respirator y status is stable on RA.F/U with Dr. Hidalgo as directed. Severe per sistent asthma 948206666 J45.50 2832729421 SEE ABOVE... 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 Described as deep throat pain deep down stabbing in throat. Pt is noted to have hx of candidal esophagiti s.She was last seen by ENT Dr. Johana Loza on 04/08 with orders to move forward with MBS and CT of her neck. At that appt, given orders to stop Flonase and start Atrovent. Also continues on Astelin.Wi ll need to continue further f/u once discharged from this facility.C ontinue Esomeprazo le and PRN Lidocaine swish and swallow for pain relief. Candidiasi s of esophagus 97973398 B37.81 076423 SEE ABOVE... Gastro-eso phageal reflux disease with esophagitis 243712018 K21.00 9521016904 Vague mention of possible history of peptic ulcer?SEE ABOVE... Spinal stenosis 06410643 M48.00 43242261 Stable. Continue routine APAP and PRN Oxycodone & Tizanidine . Generalize d osteoarthritis 556653282 M15.9 1453 Stable. Continue routine APAP and PRN Oxycodone & Tizanidine . History of cerebrovascular disease 197463249 Z86.73 7131201 Details unclear. ASA and Atorvastat in on hold as above.Cont inue good BP control. Squamous c ell carcinoma of skin 736131432 C44.92 980153 Multiple recent resections of SCC, right forearm about 4 weeks ago with dissolvabl e sutures still in place. As incision is healed, gave okay for nursing to remove sutures. Left hand 2 weeks ago, appears that the wound was damaged and is now healing by secondary intention, along with some dissolvabl e sutures still in place. Leaving sutures for now, cover with dry dressing, change daily & PRN. Lesion is scabbed without concerns for infection. F/U with Dr. Tosin Singh (derm) at [facility] as directed. Need to clarify use of FU cream. Chronic insomnia 2009333 04 F51.04 192425 Stable. Continue newly-adde d PRN Ramelteon & Trazodone. Overactive urinary bladder 537898499 N32.81 4414500 Myrbetriq has been ineffectiv e.UA is negative.R estart Oxybutynin IR 5 mg PO qhs as she found this was helpful in the past. Of note, she was on 5 mg XL prior to d/c a few months back. She reports it was stopped due to concern was causing fatigue. PCP documents it was stopped as she was complainin g of bloating. Allergic rhinitis 201345 04 J30.9 9727546 SEE ABOVE...Co ntinue Azelastine spray, Atrovent spray, and PRN Cetirizine . Chronic constipation 236 036208 K59.09 656421 Stable. Continue Miralax & Senna Plus routinely. Additional cathartics available per standing orders. History of pulmonary embolus 274683226 Z86.602 1334664 Per pulmonolog y's note, provoked in Sep 2016. Takes daily baby ASA as OP. Health Concerns Section Related Observation LastModified by Organization Detai ls LastModified Time None Recorded Concern Status LastModified by Organization Details LastModified Time None Recorded Advance Directives Directive None Recorded Payers Insurance Date Sequence Insurance Name Policy Number Policy Montano Covered Member ID Montano Member ID Guarantor Name 04/20/2025 1 [employer] (MEDICARE REPLACEMENT/ ADVANTAGE - HMO) [id number] Ariana Day [id number] Ariana Day 05/10/2025 1 [employer] (MEDICARE REPLACEMENT/ ADVANTAGE - PPO) [id number] Ariana Day [id number] Ariana Day Notes Date Note Type Note Provider Name and Address Organization Details Recorded Time 5 text/html ROS as noted in the HPI F/U fall with pelvic fracture, scalp contusion, hyponatremia, elevated LFTs, insomnia, recent skin cancer resections, and chronic medical conditions.---04/20/25Gay is resting in her recliner in her room, kimo, a fair historian, without concerns beyond desire to rehabilitation and continue to control the pain of her pelvic fracture. She tells me that she is independent at baseline, still drives, lives with her , who is also independent in his care. She reports she stepped on an uneven portion of her driveway and rolled her ankle laterally, landing onto her right hip on the cement. She has a large hematoma on her right hip, fading hematoma to her right scalp, and skin tear to her right lateral knee region (which is healing and steri-stripped). She also has a healing blood blister to her [R] GT. She recently had 2 separate skin cancer excisions, both positive for SCC, one to her left hand about 2 weeks ago and one to her right forearm about 4 weeks ago. They both have dissolvable sutures in place. Right is healed but sutures remain in place. Left hand has unfortunately began to heal by secondary intention, as Jojo reports some of the sutures were pulled loose. Some sutures remain in place. 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 She tells me she did have some dizziness today when moving from lying to seated and that this is not a new symptom, but she attributes it to deconditioning from her hospitalization. She does have a positive cardiac history, is followed OP most recently by [facility]. She has seen Dr. Suarez in the past for CAD with a stent (2014) and tachyarrhythmia. No recent concerns in this regard. She denies any prodromal symptoms prior to her fall, simply notes she mistepped. VSS. Staff is without concerns at this time.---04/23/25Gay is resting in her bed in her room, reports she is doing fair but that she slept very poorly last night. She requested her PRN Trazodone the last 2 nights but reports it hasn't been working. She notes she asked for Ramelteon last night and this actually worked better for her. She plans to ask for this again tonight. I let her know I can schedule it and then she can request her PRN Trazodone if it isn't enough. She expresses understanding. She also reports vaginal itching/burning that is not related to urination. Nursing staff have evaluated and note she has vaginal candidiasis. Pt declines examination today. She denies dysuria or other S&S of UTI. She otherwise is without concerns and reports her pain is well-controlled today. VSS. Staff is without concerns today. Per therapy notes = sit/stand to FWW CGA Standing at FWW ~30 seconds x 3 pt instructed on BLE exercises no added wt to RLE, 2#cw LLE 20 reps all planes of motion for strengthening and stability. Myriam Messer, [facility] [id number] [facility], [place], [address], [place] - [facility] 04/29/2025 10:23:00 5 text/html ROS as noted in the HPI 84-year-old female with PMH of Ischemic heart disease sec to CAD s/p stent, Tachyarrhythmia, Asthma with Bronchiectasis, Interstitial Lung Disease, Hx of PE, Hx of TIA, Oropharyngeal Dysphagia, GERD with Hx of Peggy Esophagitis, Hyponatremia, Spinal Stenosis, OA, Osteoporosis, Allergic Rhinitis, Skin Cancer (SCC), Insomnia, Vit D Deficiency, and OAB presenting for rehabilitation following hospitalization at [facility] from 04/10 to 04/19/25 for fall with pelvic fracture, scalp contusion, hyponatremia, elevated LFTs, and chronic medical conditions. Per hospital discharge summary:Hospital Course:Closed, comminuted fracture of pubic rami, right, initial encounter([facility])#Right sided comminuted pubic rami fracture- Orthopedic consult- Non operative management- WBAT RLE- DVT ppx on discharge: Eliquis 2.5 mg BID x 4 weeks- Pain control, PT/OT- Follow up scheduled 05/25/2025 12:[address] Mckeon, initial encounterMechanical fall, does not require syncopal work up.Blood blister- R great toe blood blister- Dressing to protect blister appliedR scalp contusionHCT negative for intercranial injuryHyponatremia- Na 127 ->131->134- Free water restriction- labs as neededIschemic heart disease due to coronary artery obstruction (HCC)- Home metoprolol ER 50 mg---> ordered metoprolol IR 25 mg BID while inpatient- Continue ASA- Continue atorvastatinStress incontinence in female- Continue MyrbetriqAcute pain due to trauma- Tylenol 1000 mg q6h- Gabapentin 300 mg TID- Robaxin 500 mg TID- Oxycodone 2.5 mg q4h PRNDischarge planning issues- 04/12: Adjusting pain regimen, pending PT/OT evaluations- 04/13: Na 127, free water restriction. Trend labs- 04/14 Na 131. Patient is medically stable for discharge, SW/CM updated. Discharge pending insurance authorization- 04/15: Na 134. Insurance did not approved IPR. Pending SNF.- 04/17: accepted to [facility], pending insurance auth- 04/18: check in with the case manage regarding insurance authorization, (No updates on authorization)- 04/19 Auth obtained, discharged to SNF New meds: Routine APAP. Eliquis. Vit D. Routine Methocarbamol. PRN Oxycodone. Miralax. PRN Ramelteon. Senna Plus.Adjusted meds: NoneStopped meds: None 04/20/25Gay is resting in her recliner in her room, frail, a fair historian, without concerns beyond desire to rehabilitation and continue to control the pain of her pelvic fracture. She tells me that she is independent at baseline, still drives, lives with her , who is also independent in his care. She reports she stepped on an uneven portion of her driveway and rolled her ankle laterally, landing onto her right hip on the cement. She has a large hematoma on her right hip, fading hematoma to her right scalp, and skin tear to her right lateral knee region (which is healing and steri-stripped). She also has a healing blood blister to her [R] GT. She recently had 2 separate skin cancer excisions, both positive for SCC, one to her left hand about 2 weeks ago and one to her right forearm about 4 weeks ago. They both have dissolvable sutures in place. Right is healed but sutures remain in place. Left hand has unfortunately began to heal by secondary intention, as Uribe reports some of the sutures were pulled loose. Some sutures remain in place. Lesion is scabbed, MANOLO today, without concerns for infection. She tells me she did have some dizziness today when moving from lying to seated and that this is not a new symptom, but she attributes it to deconditioning from her hospitalization. She does have a positive cardiac history, is followed OP most recently by [facility]. She has seen Dr. Suarez in the past for CAD with a stent (2014) and tachyarrhythmia. No recent concerns in this regard. She denies any prodromal symptoms prior to her fall, simply notes she mistepped. VSS. Staff is without concerns at this time.---04/22/25Jojo is resting in her bed in her room, reports she is doing fair but that she slept very poorly last night. She requested her PRN Trazodone the last 2 nights but reports it hasn't been working. She notes she asked for Ramelteon last night and this actually worked better for her. She plans to ask for this again tonight. I let her know I can schedule it and then she can request her PRN Trazodone if it isn't enough. She expresses understanding. She also reports vaginal itching/burning that is not related to urination. Nursing staff have evaluated and note she has vaginal candidiasis. Pt declines examination today. She denies dysuria or other S&S of UTI. She otherwise is without concerns and reports her pain is well-controlled today. VSS. Staff is without concerns today. Per therapy notes = sit/stand to FWW CGA Standing at FWW ~30 seconds x 3 pt instructed on BLE exercises no added wt to RLE, 2#cw LLE 20 reps all planes of motion for strengthening and stability.---04/25/25Garena is lying in bed today. She continues to have significant pain when sitting up or standing related to her pelvic fracture. She also reports LE swelling which is not typical for her. Weight is usual around 130 pounds. She refuses any type of compression to the LE - she cannot tolerate due to her history of LE skin grafts. She is requesting that her budesonide inhaler be stopped as she does not use this as an outpatient - nursing reports she has been refusing since admission to the facility. She also wants her myrbetriq increased as she thinks something is going on with her bladder. She has had frequency and urgency the last few days - had to get up 4 times overnight to urinate. She has some burning with urination as well and is worried that she might have an infection. PCP Dr. Tiarra AdenUriah [place] [address] [place], [address], [place] - [facility] 04/27/2025 06:42:56 5 text/html ROS as noted in the HPI F/U fall with pelvic fracture, scalp contusion, hyponatremia, elevated LFTs, insomnia, recent skin cancer resections, vaginal candidiasis, OAB, chronic throat discomfort, and chronic medical conditions.---04/20/25Garena is resting in her recliner in her room, frail, a fair historian, without concerns beyond desire to rehabilitation and continue to control the pain of her pelvic fracture. She tells me that she is independent at baseline, still drives, lives with her , who is also independent in his care. She reports she stepped on an uneven portion of her driveway and rolled her ankle laterally, landing onto her right hip on the cement. She has a large hematoma on her right hip, fading hematoma to her right scalp, and skin tear to her right lateral knee region (which is healing and steri-stripped). She also has a healing blood blister to her [R] GT. She recently had 2 separate skin cancer excisions, both positive for SCC, one to her left hand about 2 weeks ago and one to her right forearm about 4 weeks ago. They both have dissolvable sutures in place. Right is healed but sutures remain in place. Left hand has unfortunately began to heal by secondary intention, as Uribe reports some of the sutures were pulled loose. Some sutures remain in place. 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 She tells me she did have some dizziness today when moving from lying to seated and that this is not a new symptom, but she attributes it to deconditioning from her hospitalization. She does have a positive cardiac history, is followed OP most recently by [facility]. She has seen Dr. Suarez in the past for CAD with a stent (2014) and tachyarrhythmia. No recent concerns in this regard. She denies any prodromal symptoms prior to her fall, simply notes she mistepped. VSS. Staff is without concerns at this time.---04/22/25Gay is resting in her bed in her room, reports she is doing fair but that she slept very poorly last night. She requested her PRN Trazodone the last 2 nights but reports it hasn't been working. She notes she asked for Ramelteon last night and this actually worked better for her. She plans to ask for this again tonight. I let her know I can schedule it and then she can request her PRN Trazodone if it isn't enough. She expresses understanding. She also reports vaginal itching/burning that is not related to urination. Nursing staff have evaluated and note she has vaginal candidiasis. Pt declines examination today. She denies dysuria or other S&S of UTI. She otherwise is without concerns and reports her pain is well-controlled today. VSS. Staff is without concerns today. Per therapy notes = sit/stand to FWW CGA Standing at FWW ~30 seconds x 3 pt instructed on BLE exercises no added wt to RLE, 2#cw LLE 20 reps all planes of motion for strengthening and stability.---04/25/25Gay is lying in bed today. She continues to have significant pain when sitting up or standing related to her pelvic fracture. She also reports LE swelling which is not typical for her. Weight is usual around 130 pounds. She refuses any type of compression to the LE - she cannot tolerate due to her history of LE skin grafts. She is requesting that her budesonide inhaler be stopped as she does not use this as an outpatient - nursing reports she has been refusing since admission to the facility. She also wants her myrbetriq increased as she thinks something is going on with her bladder. She has had frequency and urgency the last few days - had to get up 4 times overnight to urinate. She has some burning with urination as well and is worried that she might have an infection.---04/27/25Jojo has a few concerns today. She continues to report OAB symptoms with nocturia keeping her up at night. While she does also complain of vaginal burning, she continues to report this does not correspond to urinating in particular and attributes to candidiasis, which she does report is improving with cream. She would like to switch from Myrbetriq to Oxybutynin as she reports better treatment of her OAB symptoms while on this medication. This is also documented in PCP's last visit notes, that Mybetriq was ineffective and Oxybutynin was more effective, but she was kept on Mybetriq. PCP's note stated the Oxybutynin was stopped due to complaints of bloating, along with some other medications she was on at that time. Pt tells me it was stopped for concern it was causing morning fatigue. Note she was on the XL formulary. Despite this, she wants to be replaced on it. She also continues with her chronic throat discomfort and is wondering if there is something that will help more than the lozenges she is using. She notes her workup of this has been deferred until after her rehab stay is completed, so is only looking for relief of symptoms. She also reports her Trazodone is ineffective and would like her dose increased. Other than these concerns, she is doing well and thinks her therapy progress has been good. VSS. Staff is without concerns today. Per thearpy notes = Conducted gait training with FWW Min to CGA ~24' cues for floor clearance. sit/stand CGA Myriam Messer, [facility] [id number], [place], [address], [place] - [facility] 04/27/2025 19:29:41 5 text/html ROS as noted in the HPI F/U fall with pelvic fracture, scalp contusion, hyponatremia, elevated LFTs, insomnia, recent skin cancer resections, vaginal candidiasis, OAB, chronic throat discomfort, and chronic medical conditions.---04/20/25Gay is resting in her recliner in her room, frail, a fair historian, without concerns beyond desire to rehabilitation and continue to control the pain of her pelvic fracture. She tells me that she is independent at baseline, still drives, lives with her , who is also independent in his care. She reports she stepped on an uneven portion of her driveway and rolled her ankle laterally, landing onto her right hip on the cement. She has a large hematoma on her right hip, fading hematoma to her right scalp, and skin tear to her right lateral knee region (which is healing and steri-stripped). She also has a healing blood blister to her [R] GT. She recently had 2 separate skin cancer excisions, both positive for SCC, one to her left hand about 2 weeks ago and one to her right forearm about 4 weeks ago. They both have dissolvable sutures in place. Right is healed but sutures remain in place. Left hand has unfortunately began to heal by secondary intention, as Uribe reports some of the sutures were pulled loose. Some sutures remain in place. 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 She tells me she did have some dizziness today when moving from lying to seated and that this is not a new symptom, but she attributes it to deconditioning from her hospitalization. She does have a positive cardiac history, is followed OP most recently by [facility]. She has seen Dr. Suarez in the past for CAD with a stent (2014) and tachyarrhythmia. No recent concerns in this regard. She denies any prodromal symptoms prior to her fall, simply notes she mistepped. VSS. Staff is without concerns at this time.---04/22/25Gay is resting in her bed in her room, reports she is doing fair but that she slept very poorly last night. She requested her PRN Trazodone the last 2 nights but reports it hasn't been working. She notes she asked for Ramelteon last night and this actually worked better for her. She plans to ask for this again tonight. I let her know I can schedule it and then she can request her PRN Trazodone if it isn't enough. She expresses understanding. She also reports vaginal itching/burning that is not related to urination. Nursing staff have evaluated and note she has vaginal candidiasis. Pt declines examination today. She denies dysuria or other S&S of UTI. She otherwise is without concerns and reports her pain is well-controlled today. VSS. Staff is without concerns today. Per therapy notes = sit/stand to FWW CGA Standing at FWW ~30 seconds x 3 pt instructed on BLE exercises no added wt to RLE, 2#cw LLE 20 reps all planes of motion for strengthening and stability.---04/25/25Gay is lying in bed today. She continues to have significant pain when sitting up or standing related to her pelvic fracture. She also reports LE swelling which is not typical for her. Weight is usual around 130 pounds. She refuses any type of compression to the LE - she cannot tolerate due to her history of LE skin grafts. She is requesting that her budesonide inhaler be stopped as she does not use this as an outpatient - nursing reports she has been refusing since admission to the facility. She also wants her myrbetriq increased as she thinks something is going on with her bladder. She has had frequency and urgency the last few days - had to get up 4 times overnight to urinate. She has some burning with urination as well and is worried that she might have an infection.---04/27/25Gay has a few concerns today. She continues to report OAB symptoms with nocturia keeping her up at night. While she does also complain of vaginal burning, she continues to report this does not correspond to urinating in particular and attributes to candidiasis, which she does report is improving with cream. She would like to switch from Myrbetriq to Oxybutynin as she reports better treatment of her OAB symptoms while on this medication. This is also documented in PCP's last visit notes, that Mybetriq was ineffective and Oxybutynin was more effective, but she was kept on Mybetriq. PCP's note stated the Oxybutynin was stopped due to complaints of bloating, along with some other medications she was on at that time. Pt tells me it was stopped for concern it was causing morning fatigue. Note she was on the [employer] formulary. Despite this, she wants to be replaced on it. She also continues with her chronic throat discomfort and is wondering if there is something that will help more than the lozenges she is using. She notes her workup of this has been deferred until after her rehab stay is completed, so is only looking for relief of symptoms. She also reports her Trazodone is ineffective and would like her dose increased. Other than these concerns, she is doing well and thinks her therapy progress has been good. VSS. Staff is without concerns today. Per thearpy notes = Conducted gait training with FWW Min to CGA ~24' cues for floor clearance. sit/stand CGA---04/29/25Gay is resting in bed, tells me she is doing better today and that she has slept better the last 2 evenings. She still awakens about twice a night, typically due to pain, and then goes to the bathroom while she is awake. All sutures have been removed at this point. Incision of left hand does not appear to have sutures remaining, were dissolvable per patient. VSS. Staff is without concerns at this point. Per therapy notes = Conducted gait training with FWW ~40' CGA cues for floor clearance and cues for turns. sit/[place] [address] [place], [address], [facility] [place] - [facility] 04/29/2025 14:32:53 5 text/html ROS as noted in the HPI 84-year-old female with PMH of Ischemic heart disease sec to CAD s/p stent, Tachyarrhythmia, Asthma with Bronchiectasis, Interstitial Lung Disease, Hx of PE, Hx of TIA, Oropharyngeal Dysphagia, GERD with Hx of Peggy Esophagitis, Hyponatremia, Spinal Stenosis, OA, Osteoporosis, Allergic Rhinitis, Skin Cancer (SCC), Insomnia, Vit D Deficiency, and OAB presenting for rehabilitation following hospitalization at [facility] from 04/10 to 04/19/25 for fall with pelvic fracture, scalp contusion, hyponatremia, elevated LFTs, and chronic medical conditions. Per hospital discharge summary:Hospital Course:Closed, comminuted fracture of pubic rami, right, initial encounter([facility])#Right sided comminuted pubic rami fracture- Orthopedic consult- Non operative management- WBAT RLE- DVT ppx on discharge: Eliquis 2.5 mg BID x 4 weeks- Pain control, PT/OT- Follow up scheduled 05/25/2025 12:[address] Mckeon, initial encounterMechanical fall, does not require syncopal work up.Blood blister- R great toe blood blister- Dressing to protect blister appliedR scalp contusionHCT negative for intercranial injuryHyponatremia- Na 127 ->131->134- Free water restriction- labs as neededIschemic heart disease due to coronary artery obstruction ([facility])- Home metoprolol ER 50 mg---> ordered metoprolol IR 25 mg BID while inpatient- Continue ASA- Continue atorvastatinStress incontinence in female- Continue MyrbetriqAcute pain due to trauma- Tylenol 1000 mg q6h- Gabapentin 300 mg TID- Robaxin 500 mg TID- Oxycodone 2.5 mg q4h PRNDischarge planning issues- 04/12: Adjusting pain regimen, pending PT/OT evaluations- 04/13: Na 127, free water restriction. Trend labs- 04/14 Na 131. Patient is medically stable for discharge, SW/CM updated. Discharge pending insurance authorization- 04/15: Na 134. Insurance did not approved IPR. Pending SNF.- 04/17: accepted [facility], pending insurance auth- 04/18: check in with the case manage regarding insurance authorization, (No updates on authorization)- 04/19 Auth obtained, discharged to SNF New meds: Routine APAP. Eliquis. Vit D. Routine Methocarbamol. PRN Oxycodone. Miralax. PRN Ramelteon. Senna Plus.Adjusted meds: NoneStopped meds: None PCP Dr. Tiarra Barker [facility] is [facility] Day.---04/20/25Gay is resting in her recliner in her room, frail, a fair historian, without concerns beyond desire to rehabilitation and continue to control the pain of her pelvic fracture. She tells me that she is independent at baseline, still drives, lives with her , who is also independent in his care. She reports she stepped on an uneven portion of her driveway and rolled her ankle laterally, landing onto her right hip on the cement. She has a large hematoma on her right hip, fading hematoma to her right scalp, and skin tear to her right lateral knee region (which is healing and steri-stripped). She also has a healing blood blister to her [R] GT. She recently had 2 separate skin cancer excisions, both positive for SCC, one to her left hand about 2 weeks ago and one to her right forearm about 4 weeks ago. They both have dissolvable sutures in place. Right is healed but sutures remain in place. Left hand has unfortunately began to heal by secondary intention, as Uribe reports some of the sutures were pulled loose. Some sutures remain in place. 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 She tells me she did have some dizziness today when moving from lying to seated and that this is not a new symptom, but she attributes it to deconditioning from her hospitalization. She does have a positive cardiac history, is followed OP most recently by [facility]. She has seen Dr. Suarez in the past for CAD with a stent (2014) and tachyarrhythmia. No recent concerns in this regard. She denies any prodromal symptoms prior to her fall, simply notes she mistepped. VSS. Staff is without concerns at this time.---04/22/25Garena is resting in her bed in her room, reports she is doing fair but that she slept very poorly last night. She requested her PRN Trazodone the last 2 nights but reports it hasn't been working. She notes she asked for Ramelteon last night and this actually worked better for her. She plans to ask for this again tonight. I let her know I can schedule it and then she can request her PRN Trazodone if it isn't enough. She expresses understanding. She also reports vaginal itching/burning that is not related to urination. Nursing staff have evaluated and note she has vaginal candidiasis. Pt declines examination today. She denies dysuria or other S&S of UTI. She otherwise is without concerns and reports her pain is well-controlled today. VSS. Staff is without concerns today. Per therapy notes = sit/stand to FWW CGA Standing at FWW ~30 seconds x 3 pt instructed on BLE exercises no added wt to RLE, 2#cw LLE 20 reps all planes of motion for strengthening and stability.---04/25/25Jojo is lying in bed today. She continues to have significant pain when sitting up or standing related to her pelvic fracture. She also reports LE swelling which is not typical for her. Weight is usual around 130 pounds. She refuses any type of compression to the LE - she cannot tolerate due to her history of LE skin grafts. She is requesting that her budesonide inhaler be stopped as she does not use this as an outpatient - nursing reports she has been refusing since admission to the facility. She also wants her myrbetriq increased as she thinks something is going on with her bladder. She has had frequency and urgency the last few days - had to get up 4 times overnight to urinate. She has some burning with urination as well and is worried that she might have an infection.---04/27/25Garena has a few concerns today. She continues to report OAB symptoms with nocturia keeping her up at night. While she does also complain of vaginal burning, she continues to report this does not correspond to urinating in particular and attributes to candidiasis, which she does report is improving with cream. She would like to switch from Myrbetriq to Oxybutynin as she reports better treatment of her OAB symptoms while on this medication. This is also documented in PCP's last visit notes, that Mybetriq was ineffective and Oxybutynin was more effective, but she was kept on Mybetriq. PCP's note stated the Oxybutynin was stopped due to complaints of bloating, along with some other medications she was on at that time. Pt tells me it was stopped for concern it was causing morning fatigue. Note she was on the [employer] formulary. Despite this, she wants to be replaced on it. She also continues with her chronic throat discomfort and is wondering if there is something that will help more than the lozenges she is using. She notes her workup of this has been deferred until after her rehab stay is completed, so is only looking for relief of symptoms. She also reports her Trazodone is ineffective and would like her dose increased. Other than these concerns, she is doing well and thinks her therapy progress has been good. VSS. Staff is without concerns today. Per thearpy notes = Conducted gait training with FWW Min to CGA ~24' cues for floor clearance. sit/stand CGA---04/29/25Gay is resting in bed, tells me she is doing better today and that she has slept better the last 2 evenings. She still awakens about twice a night, typically due to pain, and then goes to the bathroom while she is awake. All sutures have been removed at this point. Incision of left hand does not appear to have sutures remaining, were dissolvable per patient. VSS. Staff is without concerns at this point. Per therapy notes = Conducted gait training with FWW ~40' CGA cues for floor clearance and cues for turns. sit/stand CGA ---05/03/25Gay is resting in bed, reports she is doing well and is without concerns regarding her upcoming discharge home today. We discuss her medications. VSS. Staff is without concerns today. Per therapy notes = Conducted gait training with FWW 80' x 2 CGA cues for turns and standing rest break. sit/stand SBA Myriam Messer, GOLDY [address] [address] [facility], [place], [address], [facility] [place] - [facility] 05/03/2025 15:20:55 OBGyn Episode No OBEpisode recorded.
--- OUTSIDE RECORDS SUMMARY | 2025-08-01 09:46 | XMS_ITS | Encounter Summary ---
Author Organization [facility] Address [address] [place] [address] Care Team Providers Care Elevator Serviceman Name Role Phone Kassidy Martinez MD Primary Care Provider [phone] Encounter Details Date Type Department Care Team (Late st Contact Info) Description 02/07/2024 Lab Requisition 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
--- OUTSIDE RECORDS SUMMARY | 2025-08-01 09:46 | XMS_ITS | Encounter Summary ---
Author Organization [facility] Address [address] [facility] [place] [address] Care Team Providers Care Retail Account Executive Name Role Phone Kassidy Martinez MD Primary Care Provider [phone]- [phone] Encounter Details Date Type Department Care Team (Late st Contact Info) Description 10/25/2023 Lab Requisition [facility] - DermPath Lab [address] [facility] [place] [address] Alex Mckeon MD [address] [place] [address] Social History Tobacco Use Types Packs/Day Years Used Date Smoking Tobacco: Former Cigarettes 0 Q uit: 09/09/1971 Alcohol Use Standard Drinks/Week Comments Yes 0 (1 standard drink = 0.6 oz pur e alcohol) Comments Unknown Sex and Gender Information Value Date Recorded Sex Assigned at Not on file Legal Sex Female 6:57 PM 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 Gender Identity Not on file Sexual Orientation Not on file documented as of this encounter Plan of Treatment Not on file documented as of this encounter Procedures Procedure Name Priority Date/Time Associated Diagnosis Comments DERMATOPATHOLOGY Routine 10/23/2023 12:0 0 AM 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 documented in this encounter Results * DERMATOPATHOLOGY (10/23/2023 12:00 AM 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) Case Report Dermatopathology Report Case: [id number] Authorizing Provider: Alex Mckeon MD Collected: 10/23/2023 12:00 AM Ordering Location: [facility] DermPath Lab Received: 10/25/2023 04:50 PM Pathologist: Kim Can MD Specimen: Skin, right upper pretibial in a skin graft 3:20 PM [facility] DERMATOPATHOLOGY LABORATORY Final Diagnosis Specimen A. 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 The specimen consists of a shave biopsy measuring 62k28a5 mm. Jar 0. 3:20 PM [facility] DERMATOPATHOLOGY LABORATORY Microscopic Description Specimen A. SKIN, right upper pretibial in a skin graft: This exoendophytic lesion shows a central keratotic plug surrounded by a symmetrical proliferation of keratinocytes with abundant eosinophilic cytoplasm. At the sides, there is epithelial lipping. There is a suggestion that the central crater consists of plugged follicular infundibula. 3:20 PM [facility] DERMATOPATHOLOGY LABORATORY Disclaimer An external and internal positive and negative controls are appropriate for the histochemical, immunohistochemical and immunofluorescence stain(s) in this case (if any), except where stated explicitly. The performance characteristics of the stain(s) cited in this report were developed and its performance characteristic determined by the Dermatopathology Laboratory at [facility], directed by Dr. Aisha Can. These tests need not be, and therefore are not, approved by the [place] Food and Drug Administration. The tests are used for clinical purposes. Billing Codes Specimen Charges Stain Charges 43524 1 3:20 PM [facility] DERMATOPATHOLOGY LABORATORY Embedded Images 3:20 PM [facility] DERMATOPATHOLOGY LABORATORY Pathology/Cytolog y TISSUE SPECIMEN FROM SKIN / Unknown 10/23/2023 10/25/2023 4:50 PM [facility] Alex Mckeon MD LAB - PATHOLOGY/CYTOLOGY ORD ERABLES Final Result DERMATOPATHOLOGY LABORATORY [facility] - Department of Dermatology [facility] Medicine [address] [place] [address], [address] [phone] documented in this encounter Visit Diagnoses Not on filedocumented in this encounter Care Teams Retail Account Executive Relationship Specialty Start Date End Date Kassidy Martinez MD [address] [place] [address] PCP - General 07/13/08 documented as of this encounter
--- OUTSIDE RECORDS SUMMARY | 2025-08-01 09:46 | XMS_ITS | Encounter Summary ---
Author Organization [facility] Address [address] [place] [address] Care Team Providers Care Order Booker Name Role Phone Tiarra Martinez MD Primary Care Provider [phone]- [phone] Preston Hidalgo MD Unavailable [phone] Winsome Ruiz MD Unavailable Kristofer Carmona OD Unavailable [phone] Morteza Suarez MD Unavailable [phone] Tosin Singh MD Unavailable [phone] Johana Loza DO Unavailable [phone] Roe Hung MD Unavailable [phone] Encounter Details Date Type Department Care Team (Late st Contact Info) Description 03/01/2025 Orders Only [facility] [address] [place] [address] Scanning, Provider Social History Tobacco Use Types Packs/Day Years Used Date Smoking Tobacco: Never Smokeless Tobacco: Never Comments:15 pack year per hi story Alcohol Use Standard Drinks/Week Comments Yes 0 (1 standard drink = 0.6 oz pur e alcohol) ocaasionally [facility] Utilities Answer Date Recorded In the past 12 months has [employer], gas, oil, or water company threatened [...] often do you attend chur ch or congregation services? Never 08/27/2024 Do you belong to any clubs o r organizations such as jew groups, unions, fraternal or athletic groups, or [...] place to sleep or slept in a custodial (including now)? No 09/25/2023 Housing Stability Vital Sign Answer Jonathan e Recorded In the last 12 months, was t here a time when you were not able to pay the mortgage or rent on time? No 08/27/2024 In the past 12 months, how m any times have you moved where you were living? 0 08/27/2024 At any time in the past 12 m [facility], were you homeless or living in a custodial (including now)? 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 Gender Identity Not on file Sexual Orientation Not on file Occupation Industry Job Start Date Job End Date retired Not on file Not on file Not on file documented as of this encounter Plan of Treatment Not on file documented as of this encounter Procedures Procedure Name Priority Date/Time Associated Diagnosis Comments SCAN - RADIOLOGY/IMAGING 03/01/2025 documented in this encounter Results * SCAN - RADIOLOGY/IMAGING (03/01/2025) Anatomical Region Laterality Modality Other us Provider Scanning Final Result documented in this encounter Visit Diagnoses Not on filedocumented in this encounter Additional Health Concerns Infection Onset Date Last Indicated Resolved Time Ring Surveillance: Brenda bahena Comment:This flag is used to identify patients [...] documented as of this encounter Care Teams Order Booker Relationship Specialty Start Date End Date Tiarra Martinez MD PCP - General 12/07/16 [place] [address] [facility] [address] [place] [address] Pulmonary Disease 02/24/17 Winsome Ruiz MD [address] [facility] [address] [place] [address] Internal Medicine 03/15/17 Kristofer Carmona OD [address] [place] [address] Optometry 08/16/17 Morteza Suarez MD [address] [place] [address] Consulting Physician Cardiology 12/12/22 Tosin Singh MD [address] [place] [address] Referring Physician Dermatology 03/17/24 Johana Loza DO [address] [facility] [address] [facility] [address] [place] [address] Consulting Physician Otolaryngology 04/01/25 Roe Hung MD [address] [facility] [phone] [place] [address] Consulting Physician Orthopedic Surgery 05/25/25 documented as of this encounter
--- OUTSIDE RECORDS SUMMARY | 2025-08-01 09:46 | XMS_ITS | Encounter Summary ---
Author Organization [facility] Address [address] [facility] [place] [address] Care Team Providers Care Supervisor Offset Plate Preparation Name Role Phone Kassidy Martinez MD Primary Care Provider [phone] Encounter Details Date Type Department Care Team (Late st Contact Info) Description 04/07/2025 Lab Requisition [facility] - DermPath Lab [address] [facility] [place] [address] Tosin Singh MD [address] [facility] 3 [place] [address] Social History Tobacco Use Types Packs/Day Years Used Date Smoking Tobacco: Former Cigarettes 0 Q uit: 09/09/1971 Alcohol Use Standard Drinks/Week Comments Yes 0 (1 standard drink = 0.6 oz pur e alcohol) Comments Unknown Sex and Gender Information Value Date Recorded Sex Assigned at Not on file 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 Gender Identity Not on file Sexual Orientation Not on file documented as of this encounter Plan of Treatment Not on file documented as of this encounter Procedures Procedure Name Priority Date/Time Associated Diagnosis Comments DERMATOPATHOLOGY Routine 04/07/2025 2:37 PM CDT documented in this encounter Results * DERMATOPATHOLOGY (04/07/2025 2:37 PM CDT) Case Report Dermatopathology Report Case: [id number] Authorizing Provider: Tosin Singh MD Collected: 04/07/2025 02:37 PM Ordering Location: [facility] - Received: 04/09/2025 07:31 AM DermPath Lab Pathologist: Stacey Gomes MD Specimen: Skin, left hand 3:04 PM CDT DERMATOPATHOLOGY LABORATORY Final Diagnosis Specimen A. SKIN, left hand: SQUAMOUS CELL CARCINOMA, WELL DIFFERENTIATED (C44.629) NOT PRESENT AT MARGIN DERMAL SCAR (L90.5) 3:04 PM CDT DERMATOPATHOLOGY LABORATORY at 1504 CDT Clinical History Bx Proven SCC Check margins/prior biopsy 3:04 PM CDT DERMATOPATHOLOGY LABORATORY Gross Description Specimen A: Received is one formalin filled container labeled with the patient's name and designated left hand. The specimen consists of a non-oriented ellipse of skin measuring 80o65n1 mm. The epidermal surface is unremarkable. The margin is inked green. The 12 o'clock and 6 o'clock tips are submitted in cassette 1. The remainder of the ellipse is serially sectioned and submitted in cassette 2-3. Jar 0. 3:04 PM CDT DERMATOPATHOLOGY LABORATORY Microscopic Description Specimen A. SKIN, left hand: Arising in the epidermis and extending into the dermis there are irregularly shaped aggregates of keratinocytes showing evidence of premature cornification. This lesion is not present at the margin of the specimen. There are fibroblasts and collagen bundles oriented parallel to the skin surface with elongated blood vessels, some of which are oriented perpendicular to the skin surface. 3:04 PM CDT DERMATOPATHOLOGY LABORATORY Disclaimer An external and internal positive and negative controls are appropriate for the histochemical, immunohistochemical and immunofluorescence stain(s) in this case (if any), except where stated explicitly. The performance characteristics of the stain(s) cited in this report were developed and its performance characteristic determined by the Dermatopathology Laboratory at [facility], directed by Dr. Aisha Can. These tests need not be, and therefore are not, approved by the [place] Food and Drug Administration. The tests are used for clinical purposes. Billing Codes Specimen Charges Stain Charges 48124 1 3:04 PM CDT DERMATOPATHOLOGY LABORATORY Embedded Images 3:04 PM CDT DERMATOPATHOLOGY LABORATORY Pathology/Cytolo gy TISSUE SPECIMEN FROM SKIN / Unknown 04/07/2025 2:37 PM CDT 04/09/2025 7:31 AM CDT Tosin Singh MD LAB - PATHOLOGY/CYTOLOGY OR DERABLES Final Result DERMATOPATHOLOGY LABORATORY [facility] - Department of Dermatology [facility] Specialized Medicine [address] [place] [address], [address] [phone] documented in this encounter Visit Diagnoses Not on filedocumented in this encounter Care Teams Supervisor Offset Plate Preparation Relationship Specialty Start Date End Date Kassidy Martinez MD [address] [place] [phone] PCP - General 07/13/08 documented as of this encounter
--- OUTSIDE RECORDS SUMMARY | 2025-08-01 09:46 | XMS_ITS | Encounter Summary ---
Author Organization [facility] Address [address] [place] [address] Care Team Providers Care Fuse Cutter Name Role Phone Kassidy Martinez MD Primary Care Provider [phone] Encounter Details Date Type Department Care Team (Late st Contact Info) Description 10/07/2023 Lab Requisition [facility] - DermPath Lab [address] [place] [phone] Alex Mckeon MD [address] [place] [address] Social History Tobacco Use Types Packs/Day Years Used Date Smoking Tobacco: Former Cigarettes 0 Q uit: 09/09/1971 Alcohol Use Standard Drinks/Week Comments Yes 0 (1 standard drink = 0.6 oz pur e alcohol) Comments Unknown Sex and Gender Information Value Date Recorded Sex Assigned at Not on file Legal Sex Female 6:57 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 Gender Identity Not on file Sexual Orientation Not on file documented as of this encounter Plan of Treatment Not on file documented as of this encounter Procedures Procedure Name Priority Date/Time Associated Diagnosis Comments DERMATOPATHOLOGY Routine 10/02/2023 3:33 AM GLASS BEAD MAKER documented in this encounter Results * DERMATOPATHOLOGY (10/02/2023 3:33 AM GLASS BEAD MAKER) Case Report Dermatopathology Report Case: [id number] Authorizing Provider: Alex Mckeon MD Collected: 10/02/2023 03:33 AM Ordering Location: [facility] DermPath Lab Received: 10/07/2023 07:45 AM Pathologist: Kassidy Mark MD Specimens: A) - Skin, right lateral base of neck B) - Skin, right mid extensor forearm C) - Skin, right mid cheek 2:[address] [facility] DERMATOPATHOLOGY LABORATORY Final Diagnosis Specimen A. 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 SKIN, right mid cheek: ACTINIC KERATOSIS (L57.0) (see microscopic description) 2:[address] [facility] DERMATOPATHOLOGY LABORATORY at [address] GLASS BEAD MAKER Clinical History A: R/O BCC vs SCC B: R/O BCC vs SCC C: R/O ISK vs AK 2:[address] [facility] DERMATOPATHOLOGY LABORATORY Gross Description Specimen A: [...] measuring 5x5x1 mm. Jar 0. 2:[address] [facility] DERMATOPATHOLOGY LABORATORY Microscopic Description Specimen A. [...] Adnexal extension of the lesion is seen. 4 2:[address] [facility] DERMATOPATHOLOGY LABORATORY Disclaimer An external and internal positive and negative controls are appropriate for the histochemical, immunohistochemical and immunofluorescence stain(s) in this case (if any), except where stated explicitly. The performance characteristics of the stain(s) cited in this report were developed and its performance characteristic determined by the Dermatopathology Laboratory at [facility], directed by Dr. Aisha Can. These tests need not be, and therefore are not, approved by the [place] Food and Drug Administration. The tests are used for clinical purposes. Billing Codes Specimen Charges Stain Charges 94865 01373 51494 1 1 1 4 2:10 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 DERMATOPATHOLOGY LABORATORY Embedded Images 4 2:10 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 DERMATOPATHOLOGY LABORATORY Pathology/Cytology TISSUE SPECIMEN FROM SKIN / Unknown 10/02/2023 3:33 AM GLASS BEAD MAKER 10/07/2023 7:45 AM GLASS BEAD MAKER Miscellaneous samples (specimen) TISSUE SPECIMEN FROM SKIN / Unknown 10/02/2023 3:33 AM GLASS BEAD MAKER 10/07/2023 7:45 AM GLASS BEAD MAKER Miscellaneous samples (specimen) TISSUE SPECIMEN FROM SKIN / Unknown 10/02/2023 3:33 AM GLASS BEAD MAKER 10/07/2023 7:45 AM GLASS BEAD MAKER Alex Mckeon MD LAB - PATHOLOGY/CYTOLOGY ORD ERABLES Final Result DERMATOPATHOLOGY LABORATORY [facility] Department of Dermatology [facility] Medicine [address] [place] [address], [address] [phone] documented in this encounter Visit Diagnoses Not on filedocumented in this encounter Care Teams Fuse Cutter Relationship Specialty Start Date End Date Kassidy Martinez MD [address] [place] [phone] PCP - General 07/13/08 documented as of this encounter
--- OUTSIDE RECORDS SUMMARY | 2025-08-01 09:46 | XMS_ITS | Encounter Summary ---
Author Organization [facility] Address [address] [place] [address] Care Team Providers Care Technical Assistant Name Role Phone Kassidy Martinez MD Primary Care Provider [phone]- [phone] Encounter Details Date Type Department Care Team (Late st Contact Info) Description 02/10/2025 Lab Requisition [facility] - DermPath Lab [address] [facility], [place] [address] Tosin Singh MD [address] [facility] 3 [place] [address] Social History Tobacco Use Types Packs/Day Years Used Date Smoking Tobacco: Former Cigarettes 0 Q uit: 09/09/1971 Alcohol Use Standard Drinks/Week Comments Yes 0 (1 standard drink = 0.6 oz pur e alcohol) Comments Unknown Sex and Gender Information Value Date Recorded Sex Assigned at Not on file 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 Gender Identity Not on file Sexual Orientation Not on file documented as of this encounter Plan of Treatment Not on file documented as of this encounter Procedures Procedure Name Priority Date/Time Associated Diagnosis Comments DERMATOPATHOLOGY Routine 02/10/2025 1:05 PM CDT documented in this encounter Results * DERMATOPATHOLOGY (02/10/2025 1:05 PM CDT) Case Report Dermatopathology Report Case: [id number] Authorizing Provider: Tsoin Singh MD Collected: 02/10/2025 01:05 PM Ordering Location: [facility] - Received: 02/11/2025 07:41 AM [...] CELL CARCINOMA, WELL DIFFERENTIATED (C44.629) 2:59 PM T DERMATOPATHOLOGY LABORATORY at 1459 CDT Clinical History [...] determined by the Dermatopathology Laboratory at [facility], directed by Dr. Aisha Can. These tests need not be, and therefore are not, approved by the [place] Food and Drug Administration. The tests are used for clinical purposes. Billing Codes Specimen Charges Stain Charges 31399 97516 71195 1 1 1 5 2:59 PM CDT [...] PATHOLOGY/CYTOLOGY OR DERABLES Final Result DERMATOPATHOLOGY LABORATORY [facility] Department of Dermatology [facility] [address] [place] [address], [address] [phone] documented in this encounter Visit Diagnoses Not on filedocumented in this encounter Care Teams Technical Assistant Relationship Specialty Start Date End Date Kassidy Martinez MD [address] [place] [address] PCP - General 07/13/08 documented as of this encounter
--- OUTSIDE RECORDS SUMMARY | 2025-08-01 09:46 | XMS_ITS | Continuity of Care Document ---
Author Organization [place] [facility] [place] Address [address] [place] [address] Care Team Providers Care Director Of Plant Operations Name Role Phone P [facility] OTHER TIARRA MENSAH Primary Care Provider Assessment Encounter Date Assessment Date Assessment LastModified by Organization Details LastModified Time 05/03/2025 05/03/2025 Pt will d/c home today with [facility]. Not available 05/03/2025 15:19:53 Plan of Treatment Reminders Order Date Submit Date Provider Last Modified By Organization Details Last Modified Time Details Appointments None recorded. Lab None recorded. Referral None recorded. Procedures None recorded. Surgeries None recorded. Imaging None recorded. Medication Orders Trelegy Ellipta 200 mcg-62.5 mcg-25 mcg powder for inhalation 2024 025 [facility] #[id number], [address], [place], [place], [id number], 15:20:20 Eliquis 2.5 mg tablet 2024 025 [facility] #[id number], [address], [place], [place], [id number], 5 16:18:09 oxybutynin chloride 5 mg tablet 2024 025 [facility] #[id number], [address], [place], [place], [id number], 5 15:20:08 trazodone 100 mg tablet 2024 025 [facility] #[id number], [address], [place], [place], [id number], 15:20:09 ramelteon 8 mg tablet 2024 025 [facility] #[id number], [address], [place], [place], [id number], 15:20:20 Patient TargetsNo targets recorded. Patient Instructions Encounter Date Encounter Id Patient Instructions Last Modified By Organization Details Last Modified Time 05/03/2025 [id number] I spent 37 minutes providing care to [...] [place] [id number] [address], [place], [address], [facility] 04/20/2025 14:56:54 014 placement of stent in coronary artery completed GOLDY Longoria, [place], [address], [facility] 04/20/2025 14:54:46 012 bursectomy completed GOLDY Longoria, [place], [address], [facility] 04/20/2025 14:57:44 952 tonsillectomy and adenoidectomy completed GOLDY Longoria, [place], [address], [facility] 04/20/2025 14:57:09 extraction of cataract completed Myriam Messer, GOLDY [address]Racheal Davis [facility], [place], [address], [facility] 04/20/2025 14:54:24 repair with closure of non-surgical wound completed Myriam Messer, GOLDY [address]Racheal Davis [facility], [place], [address], [facility] 04/20/2025 14:55:39 ligation of bilateral fallopian tubes completed Myriam Messer, GOLDY [address]Racheal Davis [facility], [place], [address], [facility] 04/20/2025 14:57:56 Imaging Results None recorded. [...] azelastine 137 mcg (0.1 %) nasal spray [place] 2 sprays twice a day by intranasa [...] propionate 50 mcg/actuati on nasal spray,suspe nsion [place] 2 sprays every day by intranasa l route. 04/20 completed Not Available Not Available Not Available ipratropium bromide 21 mcg (0.03 %) nasal spray [place] 2 sprays 3 times a day by [...] Last Updated DateTime 157.48 cm 63 /min 97.3 [degF] 18 /min 95 % 24.5 kg/m2 65977.1 g 149/66 mm[Hg] Myriam Messer, GOLDY [address] [place], [address] [place] [facility] 09:34:20 Social History Question Answer Notes LastModified by Organizat ion Details LastModified Time Tobacco Smoking Status Former Smoker Katechayito Elderdden [facility], [place] - [facility] 04/20/2025 09:48:27 What Is Your Code Status? DNR Information not available 04/20/2025 When Did You Quit Smoking? 18+yearssin celastcimason ette Quit In 1971 Information not available 04/20/2025 [...] available 2024 09:55:29 Medical History Condition Response Osteoporosis / Osteopenia Y Osteoarthritis / DJD Y Spinal Stenosis Y Coronary Artery Disease (CAD) Y Allergic Rhinitis Y Dysphagia Y Insomnia Y Transient ischemic attack (TIA) Y Asthma Y Cancer -- Skin Y Vitamin D Deficiency Y GERD / Reflux Y Pulmonary Embolism Y Arrhythmia Y Gynecological HistoryNo gynecological history recorded. Obstetrics History GPAL:G 0 P 0 0 0 0 Past Encounters Encounter ID Performer Location Encounter Start Date Encounter Closed Date Diagnosis/Indication Diagnosis SNOMED-CT Code Diagnosis ICD10 Code Diagnosis IMO Codes Diagnosis Note [id number] Shilpa Florian DO [address] [address] 04/20/2025 09:51:25 04/25/2025 02:32:16 Esophageal dysphagia 30982024 R13.19 8211 Per PCP, chronic for years, [...] further f/u once discharged from this facility.C pawan Garlandgailchrissy richardson. Squamous c ell carcinoma of skin 811131634 C44.92 422049 Multiple recent resections of SCC, right forearm [...] F/U with Dr. Tosin Singh (derm) at [facility] as directed. Need to clarify use of FU cream. Chronic is chemic heart disease 644311844 I25.9 952291 s/p stent in 2014.Follo wed for a time by Dr. Suarez, most recently seen by GOLDY Corea on 03/05/25.Co ntinue Metoprolol & PRN NTG.Holdin g Atorvastat in & ASA as above. Tachyarrhythmia 5982040 R00.0 591520 No recent concerns. Continue Metoprolol .Pt reports possible orthostasi s. Check orthostati c vitals x 5 days.F/U with GOLDY Corea (cards) as directed. Last seen on 03/05/25. Severe per sistent asthma 251010781 J45.50 [id number] SEE ABOVE... Candidiasi s of esophagus 70337945 B37.81 708729 SEE ABOVE... History of cerebrovascular disease 953999458 Z86.73 4152476 Details unclear. ASA and Atorvastat in on hold as above.Cont inue good BP control. Gastro-eso phageal reflux disease with esophagitis 152682882 K21.00 0448513269 Vague mention of possible history of peptic ulcer?SEE ABOVE... Hyponatremia 41629267 E8 7.1 00730 Cause unclear. Improved while inpatient, worse once again here.Consi anibal fluid restrictio n.No obvious medicinal offenders. Continue to trend and can consider NaCl supplement ation if appropriat e. Spinal stenosis 60389919 M48.00 38169862 Stable. Continue routine APAP and PRN Oxycodone & Tizanidine . Generalize d osteoarthritis 015419607 M15.9 1453 Stable. Continue routine APAP and PRN Oxycodone & Tizanidine . Osteoporotic fracture 44 8025809 M80.00XD 50576230 Stopping Vit D as last level was 147 in December 2024.Hao nue supportive measures.H as DEXA scan and appt with [facility] Dr. Winsome Ruiz on 04/29. This will need to be reschedule d. Allergic rhinitis 226631 04 J30.9 3808444 SEE ABOVE...Co ntinue Azelastine spray, Atrovent spray, and PRN Cetirizine . Chronic insomnia 2904566 04 F51.04 645979 Stable. Continue newly-adde d PRN Ramelteon & Trazodone. Overactive urinary bladder 217583872 N32.81 0666860 Myrbetriq is reportedly ineffectiv e. Would consider discontinu ation if pt is amenable. Per PCP note, Oxybutynin was more helpful in the past, unclear why it was stopped.Do es not appear that a UA was done while inpatient. Not for resuscitation 30 0047963 Z66 958808 Pt is a DNR with selective measures, confirmed today. Physical deconditioning 0398630116 9102 R53.81 410391 Related to age, recent inpatient stay, and multiple comorbidit ies. Continue PT/OT and monitor progress. Goal is for pt to return home with . Accidental fall 61027109 2 W19.XXXD 6474753 SEE ABOVE... Closed fra cture of pubic ramus 6586897215 S32.591D 12193649 Evaluated by orthopedic s, treating supportive ly.WBAT. [...] Liver func tion test above reference range 660619057 R79.89 368531 Present on ER arrival, not improved since.Hold high-dose Atorvastat in for now.Contin ue routine APAP for pain -- may need to reduce/sto p.Repeat CMP on . Interstiti al lung disease 665923553 J84.9 24371 Followed by pulmonolog y Dr. 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 No recent concerns per pt. Respirator y status is stable on RA.F/U with Dr. Hidalgo as directed. History of pulmonary embolus 060774227 Z86.134 4614625 Per pulmonolog y's note, provoked in Sep 2016. Takes daily baby ASA as OP. Chronic constipation 236 474313 K59.09 282715 Stable. Continue Miralax & Senna Plus routinely. Additional cathartics available per standing orders. [id number] Shilpa Florian, DO [address] [address] 04/22/2025 09:59:18 04/28/2025 08:30:38 Closed fracture of pubic ramus 1923746323 S32.591D 00948749 Evaluated by orthopedic s, treating supportive ly.WBAT. [...] Roe Hung on 05/25. Osteoporotic fracture 44 1960939 M80.00XD 47360506 Stopping Vit D as last level was 147 in December 2024.Hao nue supportive measures.H as DEXA scan and appt with [facility] Dr. Winsome Ruiz on 04/29. This will need to be reschedule d. Accidental fall 24095871 2 W19.XXXD 6004235 SEE ABOVE... Hyponatremia 20263928 E8 7.1 46294 Cause unclear. Improved while inpatient, worse once again here.Hao nue 1.5 L fluid restrictio n.No obvious medicinal offenders. Continue to trend and can consider NaCl supplement ation if appropriat e. Liver func tion test above reference range 510092135 R79.89 328396 Present on ER arrival, not improved since.Hold ing high-dose Atorvastat in for now.Contin ue routine APAP for pain -- may need to reduce/sto p.Repeat CMP was ordered for this AM but lab unable to obtain, so will be drawn 04/23. Tachyarrhythmia 1453059 R00.0 972761 No recent concerns. Continue Metoprolol .Pt reports possible orthostasi s. Checking orthostati c vitals x 5 days.F/U with GOLDY Corea (cards) as directed. Last seen on 03/05/25. Chronic is chemic heart disease 701211739 I25.9 194663 s/p stent in 2014.Follo wed for a time by Dr. Suarez, most recently seen by GOLDY Corea on 03/05/25.Co ntinue Metoprolol & PRN NTG.Holdin g Atorvastat in & ASA as above. Interstiti al lung disease 898358046 J84.9 46846 Followed by pulmonolog y Dr. 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 No recent concerns per pt. Respirator y status is stable on RA.F/U with Dr. Hidalgo as directed. Severe per sistent asthma 189152662 J45.50 6495132705 SEE ABOVE... Esophageal dysphagia 408 57488 R13.19 8211 Per PCP, chronic for years, [...] ontinue Esomeprazo le. Candidiasi s of esophagus 93604233 B37.81 449740 SEE ABOVE... Gastro-eso phageal reflux disease with esophagitis 333173940 K21.00 4963244813 Vague mention of possible history of peptic ulcer?SEE ABOVE... Spinal stenosis 22199935 M48.00 89658394 Stable. Continue routine APAP and PRN Oxycodone & Tizanidine . Generalize d osteoarthritis 752932095 M15.9 1453 Stable. Continue routine APAP and PRN Oxycodone & Tizanidine . History of cerebrovascular disease 614563698 Z86.73 9060790 Details unclear. ASA and Atorvastat in on hold as above.Cont inue good BP control. Squamous c ell carcinoma of skin 843250079 C44.92 559056 Multiple recent resections of SCC, right forearm [...] clarify use of FU cream. Chronic insomnia 5787387 04 F51.04 256947 Stable. Continue newly-adde d PRN Ramelteon & Trazodone. Overactive urinary bladder 929208346 N32.81 2123626 Myrbetriq is reportedly ineffectiv e. Would consider discontinu ation if pt is amenable. Per PCP note, Oxybutynin was more helpful in the past, unclear why it was stopped.Do es not appear that a UA was done while inpatient. Allergic rhinitis 995308 04 J30.9 2658713 SEE ABOVE...Co ntinue Azelastine spray, Atrovent spray, and PRN Cetirizine . Chronic constipation 236 519440 K59.09 533176 Stable. Continue Miralax & Senna Plus routinely. Additional cathartics available per standing orders. History of pulmonary embolus 764089042 Z86.429 6109441 Per pulmonolog y's note, provoked in Sep 2016. Takes daily baby ASA as OP. Not for resuscitation 30 3027743 Z66 259754 Pt is a DNR with selective measures, confirmed today. Physical deconditioning 8117082714 9102 R53.81 522219 Related to age, recent inpatient stay, and multiple comorbidit ies. Continue PT/OT and monitor progress. Goal is for pt to return home with . Candidiasis of vagina 72 215642 B37.31 143664 Nystatin cream TID. Monitor for improvemen t. If none, may require oral Diflucan. [id number] Shilpa Florian, DO [address] [address] 04/25/2025 09:39:30 04/28/2025 08:32:04 Closed fracture of pubic ramus 5617267887 S32.591D 18162940 Evaluated by orthopedic s, treating supportive ly.WBAT. [...] Roe Hung on 05/25. Osteoporotic fracture 44 1639051 M80.00XD 36747240 Stopped Vit D as last level was 147 in December 2024.Hao nue supportive measures.H as DEXA scan and appt with [facility] Dr. Winsome Ruiz on 04/29. This will need to be reschedule d. Accidental fall 15380590 2 W19.XXXD 2149281 SEE ABOVE... Candidiasis of vagina 72 091695 B37.31 459228 Nystatin cream TID. Monitor for improvemen t. If none, may require oral Diflucan. Hyponatremia 65257563 E8 7.1 44069 Cause unclear. Improved with Na noted to be 138 per labs 04/23Contin ue 1.5 L fluid restrictio n.No obvious medicinal offenders. Continue to trend and can consider NaCl supplement ation if needed Liver func tion test above reference range 154818637 R79.89 227231 Present on ER arrival, now downtrendi ngHolding high-dose Atorvastat in for now.Contin ue routine APAP for pain -- may need to reduce/sto p.f/u labs 04/26 Tachyarrhythmia 5476823 R00.0 986631 No recent concerns. Continue Metoprolol .Pt reports possible orthostasi s - these have been negative hereF/U with [facility] Bridget Corea (cards) as directed. Last seen on 03/05/25. Chronic is chemic heart disease 981990145 I25.9 889865 s/p stent in 2015.Follo wed for a time by Dr. Suarez, most recently seen by [facility] Bridget Corea on 03/05/25.Co ntinue Metoprolol & PRN NTG.Holdin g Atorvastat in & ASA as above. Interstiti al lung disease 407829205 J84.9 51747 Followed by pulmonolog y Dr. 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 No recent concerns per pt. Respirator y status is stable on RA.F/U with Dr. Hidalgo as directed. Severe per sistent asthma 898899743 J45.50 3087076392 SEE ABOVE... Esophageal dysphagia 408 14900 R13.19 8211 Per PCP, chronic for years, [...] ontinue Esomeprazo le. Candidiasi s of esophagus 52098227 B37.81 471195 SEE ABOVE... Gastro-eso phageal reflux disease with esophagitis 763374518 K21.00 9727116187 Vague mention of possible history of peptic ulcer?SEE ABOVE... Spinal stenosis 98079695 M48.00 66615457 Stable. Continue routine APAP and PRN Oxycodone & Tizanidine . Generalize d osteoarthritis 909247244 M15.9 1453 Stable. Continue routine APAP and PRN Oxycodone & Tizanidine . History of cerebrovascular disease 638276582 Z86.73 9928439 Details unclear. ASA and Atorvastat in on hold as above.Cont inue good BP control. Squamous c ell carcinoma of skin 991035756 C44.92 852093 Multiple recent resections of SCC, right forearm [...] clarify use of FU cream. Chronic insomnia 6796964 04 F51.04 504668 Stable. Continue newly-adde d PRN Ramelteon & Trazodone. Overactive urinary bladder 638625745 N32.81 1354357 Myrbetriq is reportedly ineffectiv e although patient does not want to d/c - d/w her that this is currently at maximum recommende d dose as she is requesting it be increased. Will check UA due to increased frequency / dysuria. Continue discussion s about transition back to oxybutynin or d/c of these meds altogether if she has a UTI Allergic rhinitis 645612 04 J30.9 5914841 SEE ABOVE...Co ntinue Azelastine spray, Atrovent spray, and PRN Cetirizine . Chronic constipation 236 971408 K59.09 772047 Stable. Continue Miralax & Senna Plus routinely. Additional cathartics available per standing orders. History of pulmonary embolus 909354666 Z86.170 6285796 Per pulmonolog y's note, provoked in Sep 2016. Takes daily baby ASA as OP. Physical deconditioning 2053348744 9102 R53.81 150189 Related to age, recent inpatient stay, and multiple comorbidit ies. Continue PT/OT and monitor progress. Goal is for pt to return home with . [id number] Shilpa Florian, DO [address] [address] 04/27/2025 09:20:44 04/28/2025 08:31:28 Closed fracture of pubic ramus 2811303351 S32.591D 94166664 Evaluated by orthopedic s, treating supportive ly.WBAT. [...] Roe Hung on 05/25. Osteoporotic fracture 44 4937980 M80.00XD 77502856 Stopped Vit D as last level was 147 in December 2024.Hao nue supportive measures.H as DEXA scan and appt with [facility] Dr. Winsome Ruiz on 04/29. This will need to be reschedule d. Accidental fall 21113869 2 W19.XXXD 3535383 SEE ABOVE... Candidiasis of vagina 72 784245 B37.31 113269 Continue Nystatin cream TID.Treat with 1 dose of Diflucan. Will not repeat dose a 2nd time given concern for LFTs.Monit or for improvemen t. Hyponatremia 89523145 E8 7.1 33985 Cause unclear. Improved with Na noted to be 138 per labs on 04/23. Continue 1.5 L fluid restrictio n.No obvious medicinal offenders. Continue to trend and can consider NaCl supplement ation if needed Liver func tion test above reference range 714592060 R79.89 329207 Present on ER arrival, now downtrendi ng.Holding high-dose Atorvastat in for now.Contin ue routine APAP for pain -- may need to reduce/sto p.Continue to trend levels closely. Tachyarrhythmia 1292215 R00.0 705517 No recent concerns. Continue Metoprolol .Pt reports possible orthostasi s - orthostati cs have been negative here.F/U with [facility] [employer] Bridget Corea (cards) as directed. Last seen on 03/05/25. Chronic is chemic heart disease 918860240 I25.9 801506 s/p stent in 2014.Follo wed for a time by Dr. Suarez, most recently seen by [facility] Bridget Corea on 03/05/25.Co ntinue Metoprolol & PRN NTG.Holdin g Atorvastat in & ASA as above. Interstiti al lung disease 959547234 J84.9 03504 Followed by pulmonolog y Dr. 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 No recent concerns per pt. Respirator y status is stable on RA.F/U with Dr. Hidalgo as directed. Severe per sistent asthma 376079201 J45.50 3696439134 SEE ABOVE... Esophageal dysphagia 408 23482 R13.19 8211 Per PCP, chronic for years, [...] for pain relief. Candidiasi s of esophagus 29436974 B37.81 223464 SEE ABOVE... Gastro-eso phageal reflux disease with esophagitis 372638993 K21.00 2062420481 Vague mention of possible history of peptic ulcer?SEE ABOVE... Spinal stenosis 55367272 M48.00 00536068 Stable. Continue routine APAP and PRN Oxycodone & Tizanidine . Generalize d osteoarthritis 585601772 M15.9 1453 Stable. Continue routine APAP and PRN Oxycodone & Tizanidine . History of cerebrovascular disease 960614505 Z86.73 6857770 Details unclear. ASA and Atorvastat in on hold as above.Cont inue good BP control. Squamous c ell carcinoma of skin 018126022 C44.92 510038 Multiple recent resections of SCC, right forearm [...] clarify use of FU cream. Chronic insomnia 4398785 04 F51.04 325351 Stable. Continue newly-adde d PRN Ramelteon & Trazodone. Overactive urinary bladder 418325196 N32.81 0125232 Myrbetriq has been ineffectiv e.UA is negative.R estart Oxybutynin IR 5 mg PO qhs as she found this was helpful in the past. Of note, she was on 5 mg XL prior to d/c a few months back. She reports it was stopped due to concern was causing fatigue. PCP documents it was stopped as she was complainin g of bloating. Allergic rhinitis 772605 04 J30.9 6444815 SEE ABOVE...Co ntinue Azelastine spray, Atrovent spray, and PRN Cetirizine . Chronic constipation 236 130214 K59.09 145498 Stable. Continue Miralax & Senna Plus routinely. Additional cathartics available per standing orders. History of pulmonary embolus 431291155 Z86.603 5589806 Per pulmonolog y's note, provoked in Sep 2016. Takes daily baby ASA as OP. Physical deconditioning 8277397683 9102 R53.81 322296 Related to age, recent inpatient stay, and multiple comorbidit ies. Continue PT/OT and monitor progress. Goal is for pt to return home with . [id number] Shilpa Florian, DO [address] [place] [address] 04/29/2025 09:37:23 05/10/2025 08:45:27 Closed fracture of pubic ramus 3525961006 S32.591D 69888800 Evaluated by orthopedic s, treating supportive ly.WBAT. [...] Roe Hung on 05/25. Osteoporotic fracture 44 0266316 M80.00XD 74181354 Stopped Vit D as last level was 147 in December 2024.Hao nue supportive measures.H as DEXA scan and appt with [facility] Dr. Winsome Ruiz on 04/29. This will need to be reschedule d. Accidental fall 35730791 2 W19.XXXD 6637068 SEE ABOVE... Candidiasis of vagina 72 354190 B37.31 529199 Continue Nystatin cream TID.Treati ng with 1 dose of Diflucan. Will not repeat dose a 2nd time given concern for LFTs.Monit or for improvemen t. Hyponatremia 79166998 E8 7.1 01239 Cause unclear. Improved with Na noted to be 138 per labs on 04/23. Continue 1.5 L fluid restrictio n.No obvious medicinal offenders. Continue to trend and can consider NaCl supplement ation if needed Liver func tion test above reference range 497027691 R79.89 292832 Present on ER arrival, now downtrendi ng.Holding high-dose Atorvastat in for now.Contin ue routine APAP for pain -- may need to reduce/sto p.Continue to trend levels closely. Tachyarrhythmia 5857592 R00.0 361432 No recent concerns. Continue Metoprolol .Pt reports possible orthostasi s - orthostati cs have been negative here.F/U with [facility] Bridget Corea (cards) as directed. Last seen on 03/05/25. Chronic is chemic heart disease 227069230 I25.9 631900 s/p stent in 2014.Follo wed for a time by Dr. Suarez, most recently seen by [employer]IST[facility] Bridget Corea on 03/05/25.Co ntinue Metoprolol & PRN NTG.Holdin g Atorvastat in & ASA as above. Interstiti al lung disease 252325868 J84.9 19614 Followed by pulmonolog y Dr. 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 No recent concerns per pt. Respirator y status is stable on RA.F/U with Dr. Hidalgo as directed. Severe per sistent asthma 576001105 J45.50 9161737472 SEE ABOVE... Esophageal dysphagia 408 82293 R13.19 8211 Per PCP, chronic for years, [...] for pain relief. Candidiasi s of esophagus 07770654 B37.81 490391 SEE ABOVE... Gastro-eso phageal reflux disease with esophagitis 218305400 K21.00 2839026626 Vague mention of possible history of peptic ulcer?SEE ABOVE... Spinal stenosis 73364269 M48.00 36458577 Stable. Continue routine APAP and PRN Oxycodone & Tizanidine . Generalize d osteoarthritis 357419825 M15.9 1453 Stable. Continue routine APAP and PRN Oxycodone & Tizanidine . History of cerebrovascular disease 828223495 Z86.73 8189450 Details unclear. ASA and Atorvastat in on hold as above.Cont inue good BP control. Squamous c ell carcinoma of skin 947359243 C44.92 642764 Multiple recent resections of SCC, right forearm [...] F/U with Dr. Tosin Singh (derm) at [facility] as directed. Need to clarify use of FU cream. Chronic insomnia 4925689 04 F51.04 574554 Stable. Continue newly-adde d PRN Ramelteon & Trazodone. Overactive urinary bladder [id number] N32.81 0157693 Myrbetriq has been ineffectiv e.UA is negative.R estart Oxybutynin IR 5 mg PO qhs as she found this was helpful in the past. Of note, she was on 5 mg XL prior to d/c a few months back. She reports it was stopped due to concern was causing fatigue. PCP documents it was stopped as she was complainin g of bloating. Allergic rhinitis 432163 04 J30.9 3379724 SEE ABOVE...Co ntinue Azelastine spray, Atrovent spray, and PRN Cetirizine . Chronic constipation 236 295854 K59.09 286964 Stable. Continue Miralax & Senna Plus routinely. Additional cathartics available per standing orders. History of pulmonary embolus 663394650 Z86.825 7367514 Per pulmonolog y's note, provoked in Sep 2016. Takes daily baby ASA as OP. Physical deconditioning [id number] 9102 R53.81 203648 Related to age, recent inpatient stay, and multiple comorbidit ies. Continue PT/OT and monitor progress. Goal is for pt to return home with . [id number] Shilpa Florian, DO [place] [address] [place] [address] 05/03/2025 09:15:44 05/10/2025 08:45:55 Closed fracture of pubic ramus [id number] S32.591D 20230313 Evaluated by orthopedic s, treating supportive ly.WBAT. [...] Roe Hung on 05/25. Osteoporotic fracture 44 0004394 M80.00XD 34153248 Stopped Vit D as last level was 147 in December 2024.Hao nue supportive measures.H as DEXA scan and appt with [facility] Dr. Winsome Ruiz on 04/29. This will need to be reschedule d. Accidental fall 04891900 2 W19.XXXD 8625935 SEE ABOVE... Candidiasis of vagina 72 544581 B37.31 422188 Continue Nystatin cream TID.Treati ng with 1 dose of Diflucan. Will not repeat dose a 2nd time given concern for LFTs.Monit or for improvemen t. Hyponatremia 78980734 E8 7.1 11673 Cause unclear. Improved with Na noted to be 138 per labs on 04/23. Continue 1.5 L fluid restrictio n.No obvious medicinal offenders. Continue to trend and can consider NaCl supplement ation if needed. Liver func tion test above reference range 620301721 R79.89 723788 Present on ER arrival, now downtrendi ng.Holding high-dose Atorvastat in for now.Contin ue routine APAP for pain -- may need to reduce/sto p.Continue to trend levels closely. Tachyarrhythmia 9840023 R00.0 787920 No recent concerns. Continue Metoprolol .Pt reports possible orthostasi s - orthostati cs have been negative here.F/U with [facility] Bridget Corea (cards) as directed. Last seen on 03/05/25. Chronic is chemic heart disease 620696171 I25.9 021928 s/p stent in 2014.Follo wed for a time by Dr. Suarez, most recently seen by [facility] Bridget Corea on 03/05/25.Co ntinue Metoprolol & PRN NTG.Holdin g Atorvastat in & ASA as above. Interstiti al lung disease 892210094 J84.9 92230 Followed by pulmonolog y Dr. 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 No recent concerns per pt. Respirator y status is stable on RA.F/U with Dr. Hidalgo as directed. Severe per sistent asthma 942350648 J45.50 [id number] SEE ABOVE... Esophageal dysphagia 408 86463 R13.19 8211 Per PCP, chronic for years, [...] for pain relief. Candidiasi s of esophagus 92061207 B37.81 005807 SEE ABOVE... Gastro-eso phageal reflux disease with esophagitis 574189764 K21.00 [id number] Vague mention of possible history of peptic ulcer?SEE ABOVE... Spinal stenosis 16139892 M48.00 19868070 Stable. Continue routine APAP and PRN Oxycodone & Tizanidine . Generalize d osteoarthritis 256326121 M15.9 1453 Stable. Continue routine APAP and PRN Oxycodone & Tizanidine . History of cerebrovascular disease 032098680 Z86.73 9289400 Details unclear. ASA and Atorvastat in on hold as above.Cont inue good BP control. Squamous c ell carcinoma of skin 781936040 C44.92 612282 Multiple recent resections of SCC, right forearm [...] F/U with Dr. Tosin Singh (derm) at [facility] as directed. Need to clarify use of FU cream. Chronic insomnia 7701356 04 F51.04 244881 Stable. Continue newly-adde d PRN Ramelteon & Trazodone. Overactive urinary bladder 862527661 N32.81 7477446 Myrbetriq has been ineffectiv e.UA is negative.R estart Oxybutynin IR 5 mg PO qhs as she found this was helpful in the past. Of note, she was on 5 mg XL prior to d/c a few months back. She reports it was stopped due to concern was causing fatigue. PCP documents it was stopped as she was complainin g of bloating. Allergic rhinitis 708789 04 J30.9 5961750 SEE ABOVE...Co ntinue Azelastine spray, Atrovent spray, and PRN Cetirizine . Chronic constipation 236 340007 K59.09 333796 Stable. Continue Miralax & Senna Plus routinely. Additional cathartics available per standing orders. History of pulmonary embolus 589747916 Z86.599 5113845 Per pulmonolog y's note, provoked in Sep 2016. Takes daily baby ASA as OP. Health Concerns Section Related Observation LastModified by Organization Detai ls LastModified Time None Recorded Concern Status LastModified by Organization Details LastModified Time None Recorded Payers Encounter Date Sequence Insurance Name Policy Number Policy Montano Covered Member ID Montano Member ID Guarantor Name 05/03/2025 1 [employer] (MEDICARE REPLACEMENT/ ADVANTAGE - PPO) [id number] Ariana Day [id number] Ariana Day Notes Date Note Type Note Provider Name and Address Organization Details Recorded Time text/html ROS as noted in the HPI 84-year-old female with PMH of Ischemic heart disease sec to CAD s/p stent, Tachyarrhythmia, Asthma with Bronchiectasis, Interstitial Lung Disease, Hx of PE, Hx of TIA, Oropharyngeal Dysphagia, GERD with Hx of Peggy Esophagitis, Hyponatremia, Spinal Stenosis, OA, Osteoporosis, Allergic Rhinitis, Skin Cancer (SCC), Insomnia, Vit D Deficiency, and OAB presenting for rehabilitation following hospitalization at [facility] from 04/10 to 04/19/25 for fall with pelvic fracture, scalp contusion, hyponatremia, elevated LFTs, and chronic medical conditions. Per hospital discharge summary:Hospital Course:Closed, comminuted fracture of pubic rami, right, initial encounter([facility])#Right sided comminuted pubic rami fracture- Orthopedic consult- [...] approved IPR. Pending SNF.- 04/17: accepted to [facility], pending insurance auth- 04/18: check in with the case manage regarding insurance authorization, (No updates on authorization)- 04/19 Auth obtained, discharged to SNF New meds: Routine APAP. Eliquis. Vit D. Routine Methocarbamol. PRN Oxycodone. Miralax. PRN Ramelteon. Senna Plus.Adjusted meds: NoneStopped meds: None PCP Dr. Tiarra Barker Selective.Chasity is Melvin Day.---04/20/25Garena is resting in her recliner in her [...] history, is followed OP most recently by [facility] Bridget Corea. She has seen Dr. Suarez in [...] rest break. sit/stand SBA Myriam Messer, G[place] [address] [facility], [place], [address], [place] - [facility] 05/03/2025 15:20:55 OBGyn Episode No OBEpisode recorded.
--- OUTSIDE RECORDS SUMMARY | 2025-08-01 09:47 | XMS_ITS | Encounter Summary ---
Author Organization [facility] Address [address] [place] [address] Care Team Providers Care Professor Of Poultry Science Name Role Phone Tiarra Martinez MD Primary Care Provider Encounter Details Date Type Department Care Team (Latest Contact Info) Description 07/04/2007 Outpatient Historical [facility] Endy Temple MD [address] [facility] [address] [place] [address] Unspecified Sinusitis (Chronic) (Primary Dx) Social History Tobacco Use Types Packs/Day Years Used Date Smoking Tobacco: Never Assessed Comments Unknown Sex and Gender Information Value Date Recorded Sex Assigned at Not on file Legal Sex Female 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 Gender Identity Not on file Sexual Orientation [...] MD HEMATOLOGY ORDERABLES Edited Performing Organization Address City/[facility] de Phone Number INTERFACE SYSTEM Refer to [...] MD HEMATOLOGY ORDERABLES Edited Performing Organization Address [facility] de Phone Number INTERFACE SYSTEM Refer to [...] and non- Americans is available on the [facility] at: [email or web address] Select: Lab Policies and Procedures Select: Reference Ranges - GFR 07/04/2007 10:0 2 AM CDT Endy Brothers MD CHEMISTRY ORDERABLES Edited Performing Organization Address City/[facility] Co de Phone Number INTERFACE SYSTEM Refer to clinic/hospital department documented in this encounter Visit Diagnoses Diagnosis Unspecified sinusitis (chronic)- Primary documented in this encounter Care Teams Professor Of Poultry Science Relationship Specialty Start Date End Date Tiarra Martinez MD [address] [place] [address] PCP - General 06/11/07 documented as of this encounter
--- OUTSIDE RECORDS SUMMARY | 2025-08-01 09:47 | XMS_ITS | Clinical Summary ---
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 history exists DTaP/Tdap/Td Vaccine (4 - Td or Tdap) 03/21/2033 03/21/2023, 08/05/2013, 12/31/2006 Pneumococcal vaccine 65+ Completed 015, 08/26/2014, 07/03/2006 Zoster Vaccine Completed 02/24/2019, 11/26/2018 Medical Devices Implanted Type Area Treatment Plant Mechanic Device Identifier Shelf Expiration Date Model / Serial / Lot Heart Stent N/A: Heart Screws N/A: Spine Cervical [employer] Angio-Seal Vip 6fr Closere Device [id number] - [id number] Implanted:Qty: 1 on 01/17/2023 by Morteza Suarez MD at [facility] [employer] 08/08/2023 [id number] / / [id number] Procedures Procedure Name Priority Date/Time Associated Diagnosis Comments BOUGIE DILATION 06/16/2025 11:38 AM CDT Other dysphagia ESOPHAGOGASTRODUODENOSCOPY BIOPSY 06/16/2025 11:38 AM CDT Other dysphagia SURGICAL PATHOLOGY STAT 06/16/2025 9:25 AM CDT Other dysphagia EGD 06/16/2025 9:[address] CERVICAL SPINE WO CONTRAST Schedule Routine, Read Routine (OP Routine) 06/15/2025 9:46 AM CDT Spondylosis Spondylolisthesi s of cervical region XR PELVIS 3 OR MORE VIEWS Schedule Routine, Read Routine (OP Routine) 05/25/2025 12:24 PM CDT Closed fracture of multiple pubic rami, right, sequela FL ESOPHAGRAM, DOUBLE CONTRAST Schedule Routine, Read Routine (OP Routine) 05/20/2025 8:44 AM CDT Oropharyngeal dysphagia FL MODIFIED BARIUM SWALLOW W VIDEO Schedule Routine, Read Routine (OP Routine) 05/17/2025 10:41 AM CDT Oropharyngeal dysphagia DEXA TBS AXIAL SKELETON BONE DENSITY 1 OR MORE SITES Schedule Routine, Read Routine (OP Routine) 03/19/2024 8:37 AM CDT Other osteoporosis without current pathological fracture from Last 3 Months or Most Recently Relevant to Health Maintenance Results * Surgical pathology (06/16/2025 9:25 AM CDT) Tissue (Gastric/Stomach biopsy) 06/16/2025 12:02 PM CDT Tissue specimen (specimen) (Esophageal biopsy) 06/16/2025 12:02 PM CDT Narrative PATHOLOGY [facility] - 06/21/2025 4:54 PM CDT EPIC results best viewed via link to PDF [facility] Department of Pathology [address] [place] [address] Note to Patients: This report may contain a detailed description of human tissue sent by a health care provider to the laboratory for pathologic evaluation. The content of this report is essential for diagnosis and may provide important critical findings. This information may be unfamiliar to patients to review without a medical professional present. It is advised that the patient review this report in the presence of a health care provider who can answer questions and explain the details. Final Report Patient Name: RADHA DAY Address: [address] [place] [address] Gender: F : 1940 (Age: 85) Service: Gastro Location: [facility] #: [id number] Patient Type: [facility] Taken: 06/16/2025 Received: 06/17/2025 Accessioned: 06/17/2025 Reported: 06/21/2025 Physician(s):Dr. Jose Antonio Sandhu M.D. Diagnosis: A. Gastric, biopsy: - Gastric tissue with mild chronic inactive inflammation, erosion, and regenerative changes. - No evidence of intestinal metaplasia, dysplasia, or malignancy. - Negative Helicobacter immunostain. B. Esophagus, biopsy: - Squamous mucosa with no significant histopathologic abnormalities. - No evidence of dysplasia or malignancy. Trevor Espinoza MD Report Electronically Reviewed and Signed Out By Trevor Espinoza MD 06/21/2025 16:54:19 Specimen(s) Received: A: Gastric biopsies B: Esophagus Biopsies Microscopic Description: A. Microscopic examination shows gastric tissue with mild chronic inactive inflammation, erosion, and regenerative changes. There is no evidence of intestinal metaplasia, dysplasia, or malignancy. No definitive Helicobacter organisms are identified on routine H&E staining. A Helicobacter immunostain is performed with appropriately reactive controls on block A1 and is negative. B. Microscopic examination shows squamous mucosa with no significant histopathologic abnormalities. There is no significant inflammation. There is no evidence of dysplasia or malignancy. Clinical History: Dysphagia. EGD. Gross Description: The specimen is submitted in two formalin containers labeled RADHA DAY. A. The first container is labeled gastric biopsies. It is 4 pulido tissue fragments between <1 and 1 mm. All in A. B. The second container is labeled esophagus. It is 3 pulido tissue fragments, each measuring 1 mm. All in B. T.A. Smith Berg., P.A./Mustapha Dykes M.D. REPORT IMAGES AND SCANNED DOCUMENTS, IF INCLUDED, ONLY VIEWABLE IN PDF VERSION OF REPORT The performance characteristics of some immunohistochemical stains, fluorescence in-situ hybridization tests and immunophenotyping by flow cytometry cited in this report (if any) were determined by the Surgical Pathology Department at [facility] as part of an ongoing software quality assurance engineer program and in compliance with federally mandated regulations drawn from the Clinical Laboratory Improvement Act of 1988 (CLIA '88). Some of these tests rely on the use of analyte specific reagents and are subject to specific labeling requirements by the US Food and Drug Administration. Such diagnostic tests may only be performed in a facility that is certified by the Department of Health and Human Services as a high complexity laboratory under CLIA '88. The FDA has determined that such clearance or approval is not necessary. This test is used for clinical purposes. It should not be regarded as investigational or for research. Nevertheless, federal rules concerning the medical use of analyte specific reagents require that the following disclaimer be attached to the report: This test was developed and [facility] performance characteristics [facility]. It has not been cleared or approved by the U. S. Food and Drug Administration. Note for decalcified specimens: This assay has not been validated on decalcified tissues. Results should be interpreted with caution given the possibility of false negativity on decalcified specimens Jose Antonio Sandhu MD LAB PATHOLOGY ORDERABLES F inal Result PATHOLOGY [facility] [address] [place], [place] [id number] * EGD (06/16/2025 9:06 AM CDT) Anatomical Region Laterality Modality Other Narrative Procedure Note Jose Antonio Sandhu MD - 06/16/2025 9:06 AM CDT [facility] Patient Name: Radha Day Procedure Date: 06/16/2025 9:06 AM Date of : 1940 Admit Type: Outpatient Age: 85 Gender: Female Attending MD: Jose Antonio Sandhu M.D., Room: [facility] ENDOSCOPY ROOM 1 Note Status: Finalized Patient Profile: This is an 85 year old female. Patient complainedof pain in the lower part of the throat upper part ofthe chest with no specific relationship to meals. No difficulty swallowing. She had esophagogram which showed esophageal dysmotility. She was seen and evaluated by ENT. She is on Nexium 40 mg daily and Pepcid at night and that seems to help with the symptoms Procedure: Upper GI endoscopy Indications: Suspected esophageal reflux, Unexplained chestpain Referring MD: Tiarra Mensah M.D. Providers: Jose Antonio Sandhu M.D. Impression: - Non-bleeding benign gastric ulcer with nostigmata of bleeding. Biopsied. - Normal esophagus with the esophageal dysmotility. Biopsied. Dilated. Recommendation: - Continue present medications. Medicines: Monitored Anesthesia Care Complications: No immediate complications. Estimated Blood Loss: Estimated blood loss: none. Procedure: Pre-Anesthesia Assessment: - Prior to the procedure, a History and Physicalwas performed, and patient medications and allergieswere reviewed. The patient's tolerance of previous anesthesia was also reviewed. The risks andbenefits of the procedure and the sedation options and risks were discussed with the patient. All questions were answered, and informed consent was obtained. Prior Anticoagulants: The patient has taken noanticoagulant or antiplatelet agents. ASA Grade Assessment: Per anesthesia note and evaluation. After reviewing the risks and benefits, the patient was deemed in satisfactory condition to undergo the procedure. The benefits, risks, and alternatives to theprocedure and sedation were discussed and informed consentwas obtained. The scope was passed under direct vision. The Endoscope GIF-H190 [id number] was introduced through the mouth, and advanced to the second partof duodenum. The upper GI endoscopy was accomplished without difficulty. The patient tolerated the procedure well. Findings: The examined duodenum was normal. There was a diverticulum in the 2nd part of the duodenum. Mucosa appeared normal One non-bleeding linear gastric ulcer with no stigmata of bleedingwas found in the prepyloric region of the stomach. The lesion was 6 mm in largest dimension. Biopsies were taken with a cold forceps for histology. The gastric body in the gastric fundus appeared normal. Retroflexion stomach in the gastric cardia was normal The gastroesophageal junction was normal at 40 cm from the mouthopening. The examined esophagus body was normal. Some esophageal contractions noted suggestive of esophageal dysmotility. Biopsies were taken witha cold forceps for histology. The scope was withdrawn. Dilation was performed with a Huntley dilator with no resistance at 50 Fr. Electronically signed by Jose Antonio Sandhu M.D. Jose Antonio Sandhu M.D. 06/16/2025 12:14:32 PM Number of Addenda: 0 Note Initiated On: 06/16/2025 9:06 AM Procedure Code(s): --- Professional --- 42266, Esophagogastroduodenoscopy, flexible, transoral; with biopsy, single or multiple 74405, Dilation of esophagus, by unguided sound or bougie, single or multiple passes --- Technical --- 63566, Esophagogastroduodenoscopy, flexible, transoral; with biopsy, single or multiple 25604, Dilation of esophagus, by unguided sound or bougie, single or multiple passes Diagnosis Code(s): --- Professional --- K25.9, Gastric ulcer, unspecified as acute or chronic, without hemorrhage or perforation R07.9, Chest pain, unspecified --- Technical --- K25.9, Gastric ulcer, unspecified as acute or chronic, without hemorrhage or perforation R07.9, Chest pain, unspecified CPT copyright 2022 [employer]. All rights reserved. The codes documented in this report are preliminary and upon e learning manager reviewmay be revised to meet current compliance requirements. Recognized by the [employer] for promoting quality in endoscopy us Jose Antonio Sandhu MD ENDOSCOPY PROCEDURES Final Result * CT Cervical Spine WO Contrast (06/15/2025 9:46 AM CDT) Anatomical Region Laterality Modality Spine N/A Computed Tomogra phy 06/15/2025 12:1 4 PM CDT Impressions 06/15/2025 12:14 PM CDT 1. Degenerative changes in the cervical spine, most pronounced at C5-C6. 2. Severe bilateral neural foraminal stenosis at C5-C6. 3. No evidence of spinal canal stenosis. Electronically signed by: Ashely Fuchs DO Narrative 06/15/2025 12:14 PM CDT EXAM: CT CERVICAL SPINE WO CONTRAST HISTORY: Cervical spondylosis TECHNIQUE: CT of the cervical spine was performed according to standard protocol without intravenous contrast. COMPARISON: CT cervical spine dated 09/24/2023 FINDINGS: Trace anterolisthesis of C3 on C4 and trace retrolisthesis of C5 on C6. There is no acute fracture. Vertebral bodies are normal in height. Other than degenerative changes and unchanged calcification along the tectorial membrane with slight thickening, the craniocervical junction is normal. Multilevel degenerative disc disease, most pronounced at C5-C6. Atherosclerotic calcifications of the carotid bifurcations. C2-C3: Partial calcification of the disc at C2-C3 without significant disc bulge. There is no facet arthropathy. There is no significant uncovertebral joint disease. There is no neuroforaminal stenosis. There is no spinal canal stenosis. C3-C4: Small partially calcified disc bulge. There is mild right facet arthropathy. There is mild bilateral uncovertebral joint disease. There is no neuroforaminal stenosis. There is no spinal canal stenosis. C4-C5: Small partially calcified disc bulge. There is mild bilateral facet arthropathy. There is mild bilateral uncovertebral joint disease. There is no neuroforaminal stenosis. There is no spinal canal stenosis. C5-C6: Posterior disc osteophyte complex. There is mild to moderate bilateral facet arthropathy. There is severe bilateral uncovertebral joint disease. There is severe bilateral neuroforaminal stenosis. There is no spinal canal stenosis. C6-C7: Partially calcified disc bulge and a small left paracentral disc protrusion. There is mild bilateral facet arthropathy. There is mild bilateral uncovertebral joint disease. There is no significant neuroforaminal stenosis. There is no spinal canal stenosis. C7-T1: No disc bulge is seen. There is mild bilateral facet arthropathy. There is no uncovertebral joint disease. There is no neuroforaminal stenosis. There is no spinal canal stenosis. Procedure Note Ashely Sinclair, - 06/15/2025 EXAM: CT CERVICAL SPINE WO CONTRAST HISTORY: Cervical spondylosis TECHNIQUE: CT of the cervical spine was performed according to standard protocol without intravenous contrast. COMPARISON: CT cervical spine dated 09/24/2023 FINDINGS: Trace anterolisthesis of C3 on C4 and trace retrolisthesis of C5 on C6. There is no acute fracture. Vertebral bodies are normal in height. Other than degenerative changes and unchanged calcification along the tectorial membrane with slight thickening, the craniocervical junction is normal. Multilevel degenerative disc disease, most pronounced at C5-C6. Atherosclerotic calcifications of the carotid bifurcations. C2-C3: Partial calcification of the disc at C2-C3 without significant disc bulge. There is no facet arthropathy. There is no significant uncovertebral joint disease. There is no neuroforaminal stenosis. There is no spinal canal stenosis. C3-C4: Small partially calcified disc bulge. There is mild right facet arthropathy. There is mild bilateral uncovertebral joint disease. There is no neuroforaminal stenosis. There is no spinal canal stenosis. C4-C5: Small partially calcified disc bulge. There is mild bilateral facet arthropathy. There is mild bilateral uncovertebral joint disease. There is no neuroforaminal stenosis. There is no spinal canal stenosis. C5-C6: Posterior disc osteophyte complex. There is mild to moderate bilateral facet arthropathy. There is severe bilateral uncovertebral joint disease. There is severe bilateral neuroforaminal stenosis. There is no spinal canal stenosis. C6-C7: Partially calcified disc bulge and a small left paracentral disc protrusion. There is mild bilateral facet arthropathy. There is mild bilateral uncovertebral joint disease. There is no significant neuroforaminal stenosis. There is no spinal canal stenosis. C7-T1: No disc bulge is seen. There is mild bilateral facet arthropathy. There is no uncovertebral joint disease. There is no neuroforaminal stenosis. There is no spinal canal stenosis. IMPRESSION: 1. Degenerative changes in the cervical spine, most pronounced at C5-C6. 2. Severe bilateral neural foraminal stenosis at C5-C6. 3. No evidence of spinal canal stenosis. Electronically signed by: Ashely Fuchs DO us Tiarra Mensah MD IMG CT PROCEDURES Final Re sult * XR Pelvis 3 or More Views (05/25/2025 12:24 PM CDT) Anatomical Region Laterality Modality Pelvis, Body N/A Computed Radiogr aphy 05/25/2025 1:13 PM CDT Impressions 05/25/2025 1:13 PM CDT Healing fractures of the right pubic rami and right pubic body. Electronically signed by: Jaiden Adame M.D. Narrative 05/25/2025 1:13 PM CDT EXAMINATION: XR PELVIS 3 OR MORE VIEWS HISTORY: Fracture follow-up FINDINGS: 3 views of the pelvis were performed with comparison made to 04/11/2025. There are healing nondisplaced fractures of the right superior and inferior pubic rami and pubic body. There is mild bilateral hip osteoarthritis. Colonic contrast material and atherosclerosis are noted. Procedure Note Jaiden Adame MD PhD - 05/25/2025 EXAMINATION: XR PELVIS 3 OR MORE VIEWS HISTORY: Fracture follow-up FINDINGS: 3 views of the pelvis were performed with comparison made to 04/11/2025. There are healing nondisplaced fractures of the right superior and inferior pubic rami and pubic body. There is mild bilateral hip osteoarthritis. Colonic contrast material and atherosclerosis are noted. IMPRESSION: Healing fractures of the right pubic rami and right pubic body. Electronically signed by: Jaiden Adame M.D. us Roe Hung MD IMG XR PROCEDURES Final R esult * FL Esophagram, Double Contrast (05/20/2025 8:44 AM CDT) Anatomical Region Laterality Modality Body N/A Computed Radiogr aphy 05/20/2025 9:40 AM CDT Impressions 05/20/2025 9:40 AM CDT 1. No suspicious esophageal mass, stricture, diverticulum, or other abnormality to explain reported throat pain. 2. Minimal esophageal dysmotility in the standing position, which worsens in the right anterior oblique prone position. Electronically signed by: Jared Cavanaugh M.D. Narrative 05/20/2025 9:40 AM CDT EXAMINATION: DOUBLE CONTRAST BARIUM ESOPHAGRAM HISTORY: 85-year-old female with oropharyngeal dysphagia. TECHNIQUE: The patient was given barium and effervescent crystals to drink, and multiple fluoroscopic and conventional overhead radiographs were obtained. FINDINGS: The patient's swallowing function is normal. The esophageal mucosa is normal without fold abnormalities or masses. The esophageal motility is grossly normal in the standing position with rare tertiary waves breaking up the primary and secondary peristaltic waves causing mild retrograde flow of contrast within the esophagus. The tertiary waves become increased in number in the right anterior oblique prone position. There is passage of contrast through a normal gastroesophageal junction. There is no hiatal hernia. The visualized portions of the stomach are normal. No reflux was elicited with provocative maneuvers. Partially imaged stimulator leads project over the upper abdomen. Calcified atherosclerosis of the thoracic aorta. Procedure Note Jared Cavanaugh MD - 05/20/2025 EXAMINATION: DOUBLE CONTRAST BARIUM ESOPHAGRAM HISTORY: 85-year-old female with oropharyngeal dysphagia. TECHNIQUE: The patient was given barium and effervescent crystals to drink, and multiple fluoroscopic and conventional overhead radiographs were obtained. FINDINGS: The patient's swallowing function is normal. The esophageal mucosa is normal without fold abnormalities or masses. The esophageal motility is grossly normal in the standing position with rare tertiary waves breaking up the primary and secondary peristaltic waves causing mild retrograde flow of contrast within the esophagus. The tertiary waves become increased in number in the right anterior oblique prone position. There is passage of contrast through a normal gastroesophageal junction. There is no hiatal hernia. The visualized portions of the stomach are normal. No reflux was elicited with provocative maneuvers. Partially imaged stimulator leads project over the upper abdomen. Calcified atherosclerosis of the thoracic aorta. IMPRESSION: 1. No suspicious esophageal mass, stricture, diverticulum, or other abnormality to explain reported throat pain. 2. Minimal esophageal dysmotility in the standing position, which worsens in the right anterior oblique prone position. Electronically signed by: Jared Cavanaugh M.D. Johana Loza DO IMG FLUOROSCOPY PROCEDURES F inal Result * Modified Barium Swallow W Video (05/17/2025 10:41 AM CDT) Anatomical Region Laterality Modality Head and Neck N/A Radio Fluoroscop y 05/17/2025 1:36 PM CDT Narrative 05/17/2025 1:36 PM CDT EXAM DESCRIPTION: FL MODIFIED BARIUM SWALLOW EVALUATION WITH SPEECH THERAPIST REASON FOR STUDY: DYSPHAGIA, OROPHARYNGEAL, HAS ATTRIBUTABLE CAUSE Sore throat x 2-3 months. Hx of acid reflux, controlled with medication. No prior injuries/surgery to esophagus. Fluoro time: 1.0 min. mGy: 3.8. RADIATION DOSE: Dose: 110.92 uGym2 Dose Area Product (DAP) TECHNIQUE: Fluoroscopic assistance provided to Speech Pathology Department who performed the exam. The patient was brought into the fluoro room and placed upright on a modified barium swallow chair. The patient was then given multiple consistencies mixed with barium to swallow under live fluoroscopic video guidance. COMPARISON: None. FINDINGS: There is no definite evidence of angus aspiration or penetration. IMPRESSION: 1. No definite evidence of angus aspiration or penetration. Please correlate with Speech Pathology report. THIS IS AN ELECTRONICALLY VERIFIED FINAL REPORT 05/17/2025 1:36 PM - Electronically signed by Loki Reynaga D.O. PS: PS Report ID: [id number] Reading Location: [id number] Procedure Note Loki Reynaga, DO - 05/17/2025 EXAM DESCRIPTION: FL MODIFIED BARIUM SWALLOW EVALUATION WITH SPEECH THERAPIST REASON FOR STUDY: DYSPHAGIA, OROPHARYNGEAL, HAS ATTRIBUTABLE CAUSE Sore throat x 2-3 months. Hx of acid reflux, controlled with medication. No prior injuries/surgery to esophagus. Fluoro time: 1.0 min. mGy: 3.8. RADIATION DOSE: Dose: 110.92 uGym2 Dose Area Product (DAP) TECHNIQUE: Fluoroscopic assistance provided to Speech Pathology Departmentwho performed the exam. The patient was brought into the fluoro room and placed upright on amodified barium swallow chair. The patient was then given multiple consistenciesmixed with barium to swallow under live fluoroscopic video guidance. COMPARISON: None. FINDINGS: There is no definite evidence of angus aspiration or penetration. IMPRESSION: 1. No definite evidence of angus aspiration or penetration. Please correlate with Speech Pathology report. THIS IS AN ELECTRONICALLY VERIFIED FINAL REPORT 05/17/2025 1:36 PM - Electronically signed by Loki Reynaga D.O. PS: PS Report ID: [id number] Reading Location: [place] [address] Johana Loza DO IMG FLUOROSCOPY PROCEDURES F inal Result * Dexa TBS Axial Skeleton Bone Density 1 or more sites (03/19/2024 8:37 AM CDT) Anatomical Region Laterality Modality Wrist, Body N/A Radiographic Chrissie ging Narrative 03/19/2024 3:49 PM CDT Patient Name: Radha Day Date of : 1940 Date of scan: 03/19/2024 Bone mineral density was performed on a [employer] Discovery Densitometer. Based on machine cross-calibration and [...] by the International Society of Clinical Densitometry. [id number] Winsome Ruiz MD IMG DXA PROCEDURES Final Re sult from Last 3 Months or Most Recently Relevant to Health Maintenance Insurance [facility] MEDICARE ADVANTAGE [facility] Address: 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 Use antibiotics, IV Fluids, and medical treatment unless specifically selected below: No intubation * Full Code Date Activated Date Inactivated Comments 04/11/2025 3:32 PM 04/14/2025 2:59 PM * Full Code Date Activated Date Inactivated Comments 08/27/2024 12:12 AM 08/28/2024 2:21 PM Care Teams Fisher Line Relationship Specialty Start Date End Date Tiarra Mensah MD PCP - General 12/07/16 [place] [address] [facility] [address] [place] [address] Pulmonary Disease 02/24/17 Winsome Ruiz MD [address] [facility] [address] [place] [address] Internal Medicine 03/15/17 Kristofer Carmona OD [address] [place] [address] Optometry 08/16/17 Morteza Suarez MD [address] [place] [address] Consulting Physician Cardiology 12/12/22 Tosin Singh MD [address] [place] [address] Referring Physician Dermatology 03/17/24 Johana Loza DO [address] [place] [address] [address] [place] [address] [address] Consulting Physician Otolaryngology 04/01/25 Roe Hung MD [address] [facility] [phone] [place] [address] Consulting Physician Orthopedic Surgery 05/25/25
--- OUTSIDE RECORDS SUMMARY | 2025-08-01 09:47 | XMS_ITS | Encounter Summary ---
Author Organization [facility] Address [address] [place] [address] Care Team Providers Care Splitting Machine Operator Name Role Phone Tiarra Martinez MD Primary Care Provider [phone] Encounter Details Date Type Department Care Team (Latest Contact Info) Description 11/05/2007 Outpatient Historical HIS [facility] Endy Temple MD [address] [facility] [address] [place] [address] Unspecified Sinusitis (Chronic) Social History Tobacco Use Types Packs/Day Years Used Date Smoking Tobacco: Never Assessed Comments Unknown Sex and Gender Information Value Date Recorded Sex Assigned at Not on file Legal Sex Female 4:11 AM FACILITIES OPERATOR Gender Identity Not on file Sexual Orientation Not on file documented as of this encounter Plan of Treatment Not on file documented as of this encounter Procedures Procedure Name Priority Date/Time Associated Diagnosis Comments CBC WITH DIFFERENTIAL Routine 11/05/2007 10:05 AM FACILITIES OPERATOR C-REACTIVE PROTEIN Routine 11/05/2007 10 :05 AM FACILITIES OPERATOR COMPREHENSIVE METABOLIC PANEL Routine 11/05/2007 10:05 AM FACILITIES OPERATOR documented in this encounter Results * COMPREHENSIVE METABOLIC PANEL (11/05/2007 10:05 AM FACILITIES OPERATOR) CO2 26 22 - 30 mmol/L [facility] TOTAL PROTEIN 7.0 6.3 - 8.6 g/dL [facility] POTASSIUM 3.7 3.5 - 4.9 mmol/L [facility] GLUCOSE 88 65 - 99 mg/dL [facility] AST 21 12 - 32 U/L [facility] BUN 9 6 - 20 mg/dL [facility] CALCIUM 8.9 8.4 - 10.2 mg/dL [facility] CHLORIDE 101 96 - 108 mmol/L [facility] ALBUMIN 4.4 3.4 - 4.8 g/dL [facility] CREATININE 0.65 0.51 - 0.95 mg/dL [facility] SODIUM 139 135 - 145 mmol/L [facility] ALT 14 0 - 31 U/L [facility] ALKALINE PHOSPHATASE 38 35 - 104 U/L [facility] BILIRUBIN TOTAL 0.4 0.2 - 1.0 mg/dL [facility] GFR, >60 >=60 mL/min/1.7 sq meter [facility] GFR >60 >=60 mL/min/1.7 sq meter [facility] Comment: Estimated GFR rate interpretative information for both Americans and non- Americans is available on the [facility] Intranet at: [email or web address] Select: Lab Policies and Procedures Select: Reference Ranges - GFR Blood specimen (specimen) 11/05/2007 10:05 AM FACILITIES OPERATOR 11/05/2007 10:19 AM FACILITIES OPERATOR us Endy Brothers MD CHEMISTRY ORDERABLES Edited [facility] [address] [facility] [address] [place] [address] * C-REACTIVE PROTEIN (11/05/2007 10:05 AM FACILITIES OPERATOR) CRP 0.3 0.0 - 0.8 mg/dL [facility] Blood specimen (specimen) 11/05/2007 10:05 AM FACILITIES OPERATOR 11/05/2007 10:19 AM FACILITIES OPERATOR Endy Brothers MD CHEMISTRY ORDERABLES Final Resul t [facility] [address] [place] [address] * (ABNORMAL) CBC WITH DIFFERENTIAL (11/05/2007 10:05 AM FACILITIES OPERATOR) MPV 10.9 9.3 - 12.4 fL [facility] MCV 96.9 82.0 - 99.0 fL [facility] PLATELETS 261 140 - 350 K/uL [facility] HEMOGLOBIN 13.5 11.8 - 14.8 g/dL [facility] RDW 13.2 11.5 - 14.5 % [facility] WBC 10.8(H) 4.0 - 9.8 K/uL [facility] MCH 31.7 27.2 - 32.6 pg [facility] HEMATOCRIT 41.3 35.5 - 44.0 % [facility] RDW-STDEV 46.6 37.1 - 48.7 fL [facility] RBC 4.26 3.90 - 4.90 M/uL [facility] MCHC 32.7 31.5 - 35.5 % [facility] BASOPHILS 0 0 - 2 % [facility] BASOPHILS ABSOLUTE 0.02 0.00 - 0.20 K/uL [facility] MONOCYTES 7 3 - 13 % [facility] MONOCYTE ABSOLUTE 0.78 0.10 - 1.30 K/uL [facility] NEUTROPHILS 83(H) 45 - 70 % [facility] NEUTROPHIL ABSOLUTE 8.92(H) 1.90 - 7.00 K/uL [facility] EOSINOPHILS 1 0 - 7 % [facility] EOSINOPHIL ABSOLUTE 0.07 0.00 - 0.70 K/uL [facility] LYMPHOCYTES 9(L) 16 - 45 % [facility] LYMPHOCYTE ABSOLUTE 1.02 0.70 - 4.50 K/uL [facility] Blood specimen (specimen) 11/05/2007 10:05 AM FACILITIES OPERATOR 11/05/2007 10:23 AM FACILITIES OPERATOR Endy Brothers MD HEMATOLOGY ORDERABLES Edited INTERFACE SYSTEM Refer to clinic/hospital department [facility] [address] [facility] [place] [address] documented in this encounter Visit Diagnoses Diagnosis Unspecified sinusitis (chronic) documented in this encounter Care Teams Splitting Machine Operator Relationship Specialty Start Date End Date Tiarra Martinez MD [address] [place] [phone] PCP - General 06/11/07 documented as of this encounter
--- OUTSIDE RECORDS SUMMARY | 2025-08-01 09:47 | XMS_ITS | Clinical Summary ---
Author Organization [facility] Address [address] [place] [address] Phone Care Team Providers Care Drycleaner Name Role Phone Tiarra Martinez MD Primary Care Provider [phone] Allergies No known active allergies Medications predniSONE (DELTASONE) 10 mg Oral tablet Take 11 mg by mouth daily with breakfast. Active fluticasone-sonia meterol (ADVAIR DISKUS) 500-50 mcg/dose Inhalation DsDv Take 1 Puff by inhalation 2 times daily. Active mometasone (NASONEX) 50 mcg/actuation Both Nostril Elrama Administer 2 Sprays in each nostril daily. [...] on file Legal Sex Female 4:11 AM SCRAPER TENDER Gender Identity Not on file Sexual [...] 07/03/2006 Insurance MEDICARE PART A AND B [facility] Address: [facility] [address] [place] [address] Advance Directives For more information, please contact: [phone] * Full Code (Latest Code Status on File) Date Activated Date Inactivated Comments 05/16/2012 7:59 AM 05/16/2012 11:36 AM * Full Code Date Activated Date Inactivated Comments 03/04/2012 10:02 AM 03/04/2012 1:30 PM Care Teams Drycleaner Relationship Specialty Start Date End Date Tiarra Martinez MD [address] [address] PCP - General 06/11/07
--- OUTSIDE RECORDS SUMMARY | 2025-08-01 09:47 | XMS_ITS | Encounter Summary ---
Author Organization [facility] Address [address] [place] [address] Care Team Providers Care Coding Assistant Name Role Phone Tiarra Martinez MD Primary Care Provider [phone] Encounter Details Date Type Department Care Team (Late st Contact Info) Description 10/14/2007 Outpatient Historical [facility] Mike Crabtere MD [address] [facility] [address] [place] [phone] Dysphagia, Unspecified Social History Tobacco Use Types Packs/Day Years Used Date Smoking Tobacco: Never Assessed Comments Unknown Sex and Gender Information Value Date Recorded Sex Assigned at Not on file Legal Sex Female 4:11 AM STRIKER OFF Gender Identity Not on file Sexual Orientation Not on file documented as of this encounter Plan of Treatment Not on file documented as of this encounter Visit Diagnoses Diagnosis Dysphagia, unspecified(787.20) Dysphagia, unspecified documented in this encounter Care Teams Coding Assistant Relationship Specialty Start Date End Date Tiarra Martinez MD [address] [place] [phone] PCP - General 06/11/07 documented as of this encounter
--- OUTSIDE RECORDS SUMMARY | 2025-08-01 09:47 | XMS_ITS | Encounter Summary ---
Author Organization [facility] Address [address] [place] [address] Care Team Providers Care Lapidary Apprentice Name Role Phone Tiarra Martinez MD Primary Care Provider Encounter Details Date Type Department Care Team (Latest Contact Info) Description 04/08/2008 Outpatient Historical [facility] Quinton Barrera MD [address] [facility] [address] [place] [address] Shortness of Breath Social History Tobacco Use Types Packs/Day Years Used Date Smoking Tobacco: Never Assessed Comments Unknown Sex and Gender Information Value Date Recorded Sex Assigned at Not on file Legal Sex Female 4:11 AM CHIMNEY SWEEPER Gender Identity Not on file Sexual Orientation [...] PATHOLOGY (04/09/2008 1:49 PM CDT) FINAL REPORT [address] [address] Patient: RADHA DAY : 1940 Procedure Date: 04/09/2008 Accession Date: 04/09/2008 Case No: [id number] Ordering Dr: QUINTON BARRERA Case types AW, BW, FW, NW and SH are performed by [facility] [place], [place], [place] SURGICAL PATHOLOGY & NON-GYNECOLOGIC CYTOPATHOLOGY REPORT [...] developed and its performance characteristic determined by [facility] [place]. It has not been cleared or approved by the U.S. Food and Drug Administration. The FDA has determined that such clearance or approval is not necessary. The test is used for clinical purpose. It should not be regarded as investigational or for research. This laboratory is certified to perform high complexity clinical testing. [facility] 04.12.2008 11:10 am Staging Form: No. ELECTRONIC SIGNATURE FOR ALIS CLAYTON M.D.- 04/13/08 12:27 pm INTERFACE SYSTEM 04/09/2008 1:49 PM CDT Quinton Barrera MD PATHOLOGY/CYTOLOGY ORD ERABLES Final Result INTERFACE SYSTEM Refer to clinic/hospital department * PATHOLOGY (04/09/2008 1:43 PM CDT) FINAL REPORT [address] [address] Patient: RADHA DAY : 1940 Procedure Date: 04/09/2008 Accession Date: 04/09/2008 Case No: [id number] Ordering Dr: QUINTON BARRERA Case types AW, BW, FW, NW and SH are performed by [facility] [place], [place], [place] SURGICAL PATHOLOGY & NON-GYNECOLOGIC CYTOPATHOLOGY REPORT DIAGNOSIS LUNG, BRONCHIAL BRUSHING, THINPREP CYTOLOGY EXAMINATION: - REACTIVE CHANGES. Specimen Description: Bronchial brushing, right middle lobe. Operative Procedure: Bronchial brushing, no endobronchial lesion seen. Patient Information/Histor y/Diagnosis: Rule out malignancy. Chest CT shows bronchiectasis and small lung nodules, rule out MANGO, rule out fungus. Gross: Received is a brush in 30 cc of CytoLyt. [facility] 04.12.2008 11:12 am Microscopic: The ThinPrep cytology [...] ORD ERABLES Final Result Performing Organization Address City/[facility] de Phone Number INTERFACE SYSTEM Refer to clinic/hospital department * VIRUS CULTURE (04/09/2008 10:00 AM CDT) Pathologist [facility] PRELIMINARY REPORT No CMV detected on shell vial immunofluorescent assay. No virus detected in 48 hours [facility] FINAL REPORT No CMV detected on shell vial immunofluorescent assay. No virus isolated. [facility] Bronchoalveolar lavage fluid specimen (specimen) 04/09/2008 10:00 AM CDT 04/09/2008 10:14 AM CDT Quinton Barrera MD MICRO - GEN ORDERABLES COM Final Result Performing Organization Address [facility] Phone Number INTERFACE SYSTEM Refer to clinic/hospital department [facility] CLIA# [id number] [address] [place] [address] * SOURCE, FLUID (04/09/2008 9:45 AM CDT) SOURCE FLUID Bronch Lavage fluid [facility] Bronchoalveolar lavage fluid specimen (specimen) 04/09/2008 9:45 AM CDT 04/09/2008 10:13 AM CDT Quinton Barrera MD HEMATOLOGY ORDERABLES Final Result Performing Organization Address [facility] de Phone Number [facility] CLIA# [id number] [address] [place] [address] * CELL COUNT WITH DIFFERENTIAL, BODY FLUID (04/09/2008 9:45 AM CDT) COMMENT, FLD Ciliated epi's noted [facility] WBC, FLD 255 /uL [facility] RBC, FLD 995 /uL [facility] MACROPHAGE, FLD 60 % [facility] Comment: Hemosiderin macrophagys present. NEUTROPHILS, FLD 18 % [facility] EOSINOPHIL, FLD 18 % [facility] LYMPHOCYTE, FLD 4 % [facility] CELLS COUNTED, FLD 100 WBC Counted [facility] Bronchoalveolar lavage fluid specimen (specimen) 04/09/2008 9:45 AM CDT 04/09/2008 10:13 AM CDT Quinton Barrera MD BODY FLUIDS AND STOOLS Edited Performing Organization Address City/[facility]/ZIP Co de Phone Number [facility] CLIA# [id number] [address] [place] [address] * BRONCHIAL BRUSH CULTURE (04/09/2008 9:45 AM CDT) PRELIMINARY REPORT No growth 48 hours [facility] FINAL REPORT No growth 5 days [facility] Bronchial brushings specimen (specimen) 04/09/2008 9:45 AM CDT 04/09/2008 10:11 AM CDT Quinton Barrera MD MICROBIOLOGY - GENERAL ORDERABLES Final Result Performing Organization Address City/[facility]/ZIP Co de Phone Number [facility] CLIA# [id number] [address] [place] [address] * FUNGUS CULTURE, OTHER (04/09/2008 9:40 AM CDT) PRELIMINARY REPORT No fungus isolated after 3 days. Culture will be held for 4 weeks. [facility] FINAL REPORT No fungus isolated after 4 weeks. [facility] Bronchoalveolar lavage fluid specimen (specimen) 04/09/2008 9:40 AM CDT 04/09/2008 10:13 AM CDT Quinton Barrera MD MICROBIOLOGY - GENERAL ORDERABLES Final Result Performing Organization Address [facility] de Phone Number INTERFACE SYSTEM Refer to clinic/hospital department [facility] CLIA# [id number] [address] [place] [address] * AFB CULTURE WITH STAIN (04/09/2008 9:40 AM CDT) AFB STAIN No acid fast bacilli seen [facility] FINAL REPORT No acid fast bacilli isolated after 6 weeks. [facility] Bronchoalveolar lavage fluid specimen (specimen) 04/09/2008 9:40 AM CDT 04/09/2008 10:13 AM CDT Narrative INTERFACE SYSTEM - 05/24/2008 7:15 AM CDT none none Quinton Barrera MD MICROBIOLOGY - GENERAL ORDERABLES Final Result Performing Organization Address [facility] de Phone Number INTERFACE SYSTEM Refer to clinic/hospital department [facility] CLIA# [id number] [address] [place] [address] * RESPIRATORY CULTURE WITH GRAM STAIN (04/09/2008 9:40 AM CDT) GRAM STAIN No organisms seen Many WBC's seen Intracellular organisms absent (< 2%) [facility] FINAL REPORT No growth 48 hours [facility] Bronchoalveolar lavage fluid specimen (specimen) 04/09/2008 9:40 AM CDT 04/09/2008 10:13 AM CDT Quinton Barrera MD MICROBIOLOGY - GENERAL ORDERABLES Final Result Performing Organization Address [facility] Co de Phone Number [facility] CLIA# [id number] [address] [place] [address] * RESPIRATORY CULTURE WITH GRAM STAIN (04/09/2008 9:37 AM CDT) GRAM STAIN Non diagnostic pattern Few WBC's seen [facility] PRELIMINARY REPORT Light growth Gram Negative Rods [facility] SUSCEPTIBILITY PERFORMED ON ESCHERICHIA COLI [facility] FINAL REPORT Light growth Escherichia coli Light growth normal upper respiratory benny [facility] SPECIMEN FROM LUNG / Unknown 04/09/2008 [...] GENERAL ORDERABLES Final Result Performing Organization Address [facility]/ZIP Co de Phone Number [facility] CLIA# [id number] [address] [place] [address] * VIRUS CULTURE (04/09/2008 9:35 AM CDT) PRELIMINARY REPORT No CMV detected on shell vial immunofluorescent assay. No virus detected in 48 hours [facility] FINAL REPORT No CMV detected on shell vial immunofluorescent assay. No virus isolated. [facility] SPECIMEN FROM LUNG / Unknown 04/09/2008 9:35 AM CDT 04/09/2008 9:59 AM CDT Quinton Barrera MD MICRO - GEN ORDERABLES COM Final Result Performing Organization Address City/[facility]/ZIP Co de Phone Number INTERFACE SYSTEM Refer to clinic/hospital department [facility] CLIA# [id number] [address] [place] [address] * FUNGUS CULTURE, OTHER (04/09/2008 9:35 AM CDT) PRELIMINARY REPORT Peggy albicans isolated [facility] FINAL REPORT Peggy albicans isolated [facility] SPECIMEN FROM LUNG / Unknown 04/09/2008 9:35 AM CDT 04/09/2008 9:58 AM CDT us Quinton Barrera MD MICROBIOLOGY - GENERAL ORDERABLES Final Result Performing Organization Address [facility] de Phone Number INTERFACE SYSTEM Refer to clinic/hospital department [facility] CLIA# [id number] [address] [place] [address] * AFB CULTURE WITH STAIN (04/09/2008 9:35 AM CDT) AFB STAIN No acid fast bacilli seen [facility] FINAL REPORT No acid fast bacilli isolated after 6 weeks. [facility] SPECIMEN FROM LUNG / Unknown 04/09/2008 9:35 AM CDT 04/09/2008 9:58 AM CDT Narrative INTERFACE SYSTEM - 05/24/2008 7:15 AM CDT none none us Quinton Barrera MD MICROBIOLOGY - GENERAL ORDERABLES Final Result Performing Organization Address City/[facility] Co de Phone Number INTERFACE SYSTEM Refer to clinic/hospital department [facility] CLIA# [id number] [address] [place] [address] documented in this encounter Visit Diagnoses Diagnosis Shortness of breath documented in this encounter Care Teams Lapidary Apprentice Relationship Specialty Start Date End Date Tiarra Martinez MD [address] [place] [phone] PCP - General 06/11/07 documented as of this encounter
--- OUTSIDE RECORDS SUMMARY | 2025-08-01 09:47 | XMS_ITS | Clinical Summary ---
Author Organization [facility] Address [address], [facility] [address] [place] [address] Phone Care Team Providers Care Refrigerator Mover Name Role Phone Tiarra Martinez MD Primary Care Provider [phone] Allergies Active Allergy Reactions Criticality Noted Date [...] Comments Blood Pressure 124/70 08/29/2017 1:21 PM VESSEL SLAGMAN Pulse 66 08/29/2017 1:21 PM VESSEL SLAGMAN Temperature - - Respiratory Rate - - Oxygen Saturation 97% 08/29/2017 1:21 PM VESSEL SLAGMAN Inhaled Oxygen Concentration - - Weight 62.1 kg (137 lb) 08/29/2017 1:21 PM VESSEL SLAGMAN Height 160 cm (5' 3) 08/29/2017 1:21 PM VESSEL SLAGMAN Body Mass Index 24.27 08/29/2017 1:21 PM VESSEL SLAGMAN Plan of Treatment Health Maintenance Due Date Last Done Comments Hepatitis C Virus (HCV) Screening 1940 TdaP Immunization 1940 Varicella Immunization (1 of 2 - 13+ 2-dose series) 1955 Pneumococcal Immunization (5 0+ years) (1 of 2 - PCV) 1961 Zoster Immunization (1 of 2) 1992 Respiratory Syncytial Virus (RSV) Immunization (Adult) (1 - 1-dose 75+ series) 2017 Influenza Immunization (#1) 2025 SARS-COV-2 Immunization ( season) 2025 Hepatitis B Immunization Aged Out No [...] age to complete this topic Care Teams Refrigerator Mover Relationship Specialty Start Date End Date Tiarra Martinez MD [address] [facility] [place] [address] PCP - General Internal Medicine 08/29/17
--- OUTSIDE RECORDS SUMMARY | 2025-08-01 09:47 | XMS_ITS | Encounter Summary ---
Author Organization [facility] Address [address] [place] [address] Care Team Providers Care Exercise Specialist Name Role Phone Tiarra Martinez MD Primary Care Provider [phone] Encounter Details Date Type Department Care Team (Latest Contact Info) Description 05/10/2006 Inpatient Historical HIS PATIENT IN A BED Patricia Perrin Bronchiectasis with Acute Exacerbation ([facility]) (Primary Dx) Social History Tobacco Use Types Packs/Day Years Used Date Smoking Tobacco: Never Assessed Comments Unknown Sex and Gender Information Value Date Recorded Sex Assigned at Not on file Legal Sex Female 4:11 AM PROPOSAL MANAGER Gender Identity Not on file Sexual [...] fluid INTERFACE SYSTEM 05/14/2006 9:55 AM CDT Patricia Perrin HEMATOLOGY ORDERABLES Final R esult Performing Organization Address [facility] Phone Number INTERFACE SYSTEM Refer to clinic/hospital [...] noted INTERFACE SYSTEM 05/14/2006 9:55 AM CDT Patricia Perrin BODY FLUIDS AND STOOLS Final Result Performing Organization Address [facility] de Phone Number INTERFACE SYSTEM Refer to clinic/hospital department * IMMUNOGLOBULINS IGG IGA IGM (05/11/2006 6:30 AM CDT) IGA 124.2 86.0 - 517.0 mg/dL INTERFACE SYSTEM IGG 969 621 - 1631 mg/dL INTERFACE SYSTEM IGM 91.0 37.0 - 286.0 mg/dL INTERFACE SYSTEM 05/11/2006 6:30 AM CDT Vidaniel Perrin CHEMISTRY ORDERABLES Final Re sult Performing Organization Address [facility] de Phone Number INTERFACE SYSTEM Refer to clinic/hospital department * (ABNORMAL) IGE (05/11/2006 6:30 AM CDT) IGE 130(H) <FN=868 kU/L INTERFACE SYSTEM Comment: Lab test performed by: [facility] [address] [place] [address] JOSE R DAVIDSON MD 05/11/2006 6:30 AM CDT ScriptPaddaniel Perrin CHEMISTRY ORDERABLES Final Re sult Performing Organization Address [facility] Phone Number INTERFACE SYSTEM Refer to clinic/hospital [...] patients with mechanical heart valves or post RI. Pediatric (12 years and under): 1.5 - [...] for unfractionated heparin 05/11/2006 6:00 AM CDT Patricia Perrin HEMATOLOGY ORDERABLES Final R esult Performing Organization Address [facility] de Phone Number INTERFACE SYSTEM Refer to clinic/hospital department * TROPONIN (W/REFLEX CKMB/CK) (05/10/2006 10:40 AM CDT) TROPONIN T <0.01 <=0.03 ng/mL INTERFACE SYSTEM TROPONIN T INTERP Negative INTERFACE SYSTEM 05/10/2006 10:4 0 AM CDT Kristofer Johnson MD CHEMISTRY ORDERABLES Final Res ult Performing Organization Address [facility] de [...] ORDERABLES Final Re sult Performing Organization Address [facility] de [...] ORDERABLES Final Re sult Performing Organization Address City/[facility] Co de Phone Number INTERFACE SYSTEM Refer to clinic/hospital department * C-REACTIVE PROTEIN (05/10/2006 10:40 AM CDT) CRP 0.3 0.0 - 0.8 mg/dL INTERFACE SYSTEM 05/10/2006 10:4 0 AM CDT us Kristofer Johnson MD CHEMISTRY ORDERABLES Final Res ult Performing Organization Address [facility] de Phone Number INTERFACE SYSTEM Refer to clinic/hospital department documented in this encounter Visit Diagnoses Diagnosis Bronchiectasis with acute exacerbation (CMS/HCC)- Primary Bronchiectasis with acute exacerbation documented in this encounter Care Teams Exercise Specialist Relationship Specialty Start Date End Date Tiarra Martinez MD [address] [address] PCP - General 06/11/07 documented as of this encounter
--- OUTSIDE RECORDS SUMMARY | 2025-08-01 09:47 | XMS_ITS | Encounter Summary ---
Author Organization [facility] Address [address] [place] [address] Care Team Providers Care Machine Spring Former Name Role Phone Tiarra Martinez MD Primary Care Provider Encounter Details Date Type Department Care Team (Latest Contact Info) Description 08/29/2007 Outpatient Historical [facility] Endy Temple MD [address] [facility] [address] [place] [address] Unspecified Sinusitis (Chronic) Social History Tobacco Use Types Packs/Day Years Used Date Smoking Tobacco: Never Assessed Comments Unknown Sex and Gender Information Value Date Recorded Sex Assigned at Not on file Legal Sex Female 4:11 AM HORTICULTURAL MANAGER Gender Identity Not on file Sexual Orientation Not on file documented as of this encounter Plan of Treatment Not on file documented as of this encounter Procedures Procedure Name Priority Date/Time Associated Diagnosis Comments CBC WITH DIFFERENTIAL Routine 08/29/2007 10:30 AM HORTICULTURAL MANAGER CBC WITH DIFFERENTIAL Routine 08/29/2007 10:30 AM HORTICULTURAL MANAGER C-REACTIVE PROTEIN Routine 08/29/2007 10 :30 AM HORTICULTURAL MANAGER COMPREHENSIVE METABOLIC PANEL Routine 08/29/2007 10:30 AM HORTICULTURAL MANAGER documented in this encounter Results * (ABNORMAL) CBC WITH DIFFERENTIAL (08/29/2007 10:30 AM HORTICULTURAL MANAGER) NEUTROPHILS 87(H) 45 - 70 % INTERFAC [...] K/uL INTERFACE SYSTEM 08/29/2007 10:3 0 AM HORTICULTURAL MANAGER Endy Brothers MD HEMATOLOGY ORDERABLES Edited Performing Organization Address City/State/[facility] [[email or web address]] Co de Phone Number INTERFACE SYSTEM Refer to clinic/hospital department * CBC WITH DIFFERENTIAL (08/29/2007 10:30 AM HORTICULTURAL MANAGER) WBC 9.4 4.0 - 9.8 K/uL INTERFACE [...] fL INTERFACE SYSTEM 08/29/2007 10:3 0 AM HORTICULTURAL MANAGER Endy Brothers MD HEMATOLOGY ORDERABLES Edited Performing Organization Address City/State/[facility] [[email or web address]] Co de Phone Number INTERFACE SYSTEM Refer to clinic/hospital department * C-REACTIVE PROTEIN (08/29/2007 10:30 AM HORTICULTURAL MANAGER) CRP 0.6 0.0 - 0.8 mg/dL INTERFACE SYSTEM 08/29/2007 10:3 0 AM HORTICULTURAL MANAGER Endy Brothers MD CHEMISTRY ORDERABLES Edited INTERFACE SYSTEM Refer to clinic/hospital department * COMPREHENSIVE METABOLIC PANEL (08/29/2007 10:30 AM HORTICULTURAL MANAGER) GLUCOSE 99 65 - 99 mg/dL INTERFACE [...] [facility] Intranet at: [email or web address] Select: Lab Policies and Procedures Select: Reference Ranges - GFR 08/29/2007 10:3 0 AM HORTICULTURAL MANAGER Endy Brothers MD CHEMISTRY ORDERABLES Edited INTERFACE SYSTEM Refer to clinic/hospital department documented in this encounter Visit Diagnoses Diagnosis Unspecified sinusitis (chronic) documented in this encounter Care Teams Machine Spring Former Relationship Specialty Start Date End Date Tiarra Martinez MD [address] [place] [address] [place] [address] PCP - General 06/11/07 documented as of this encounter
--- OUTSIDE RECORDS SUMMARY | 2025-08-01 09:47 | XMS_ITS | Encounter Summary ---
Author Organization [facility] Address [address] [place] [address] Care Team Providers Care Board Design Engineer Name Role Phone Tiarra Martinez MD Primary Care Provider [phone] Encounter Details Date Type Department Care Team (Latest Contact Info) Description 04/17/2006 Outpatient Historical [facility] Ba Nolan MD NO ADDRESS ON FILE Chronic Maxillary Sinusitis (Primary Dx) Social History Tobacco Use Types Packs/Day Years Used Date Smoking Tobacco: Never Assessed Comments Unknown Sex and Gender Information Value Date Recorded Sex Assigned at Not on file Legal Sex Female 4:11 AM BUSINESS ANALYST Gender Identity Not on file Sexual Orientation Not on file documented as of this encounter Plan of Treatment Not on file documented as of this encounter Visit Diagnoses Diagnosis Chronic maxillary sinusitis- Primary documented in this encounter Care Teams Board Design Engineer Relationship Specialty Start Date End Date Tiarra Martinez MD [address] [place] [address] PCP - General 06/11/07 documented as of this encounter
--- OUTSIDE RECORDS SUMMARY | 2025-08-01 09:47 | XMS_ITS | Encounter Summary ---
Author Organization [facility] Address [address] [place] [address] Care Team Providers Care Leaf Stripper Name Role Phone Tiarra Martinez MD Primary Care Provider [phone] Encounter Details Date Type Department Care Team (Latest Contact Info) Description 06/04/2006 Outpatient Historical [facility], [facility] Ba Nolan MD NO ADDRESS ON FILE Unspecified Sinusitis (Chronic) (Primary Dx) Social History Tobacco Use Types Packs/Day Years Used Date Smoking Tobacco: Never Assessed Comments Unknown Sex and Gender Information Value Date Recorded Sex Assigned at Not on file Legal Sex Female 4:11 AM PHOTOGRAPHY INSTRUCTOR Gender Identity Not on file Sexual Orientation Not on file documented as of this encounter Plan of Treatment Not on file documented as of this encounter Visit Diagnoses Diagnosis Unspecified sinusitis (chronic)- Primary documented in this encounter Care Teams Leaf Stripper Relationship Specialty Start Date End Date Tiarra Martinez MD [address] [place] [address] PCP - General 06/11/07 documented as of this encounter
--- OUTSIDE RECORDS SUMMARY | 2025-08-01 09:47 | XMS_ITS | Encounter Summary ---
Author Organization [facility] Address [address] [place] [address] Care Team Providers Care Carburizing Furnace Operator Name Role Phone Tiarra Martinez MD Primary Care Provider [phone] Encounter Details Date Type Department Care Team (Late st Contact Info) Description 02/24/2008 Outpatient Historical [facility] LAB, [address] Ba Nolan MD NO ADDRESS ON FILE Social History Tobacco Use Types Packs/Day Years Used Date Smoking Tobacco: Never Assessed Comments Unknown Sex and Gender Information Value Date Recorded Sex Assigned at Not on file Legal Sex Female 4:11 AM KEY CARRIER Gender Identity Not on file Sexual Orientation Not on file documented as of this encounter Plan of Treatment Not on file documented as of this encounter Visit Diagnoses Not on filedocumented in this encounter Care Teams Carburizing Furnace Operator Relationship Specialty Start Date End Date Tiarra Martinez MD [address] [place] [address] PCP - General 06/11/07 documented as of this encounter
--- OUTSIDE RECORDS SUMMARY | 2025-08-01 09:47 | XMS_ITS | Patient Health Record ---
Author Organization [facility] ([address]) Address [address] [place] [address] Care Team Providers Care Oil Pumper Name Role Phone Marco Martinez Primary Care Provider Arabella Sandoval Unavailable [phone] Reason For Referral No Information Medications Medication [...] W/U Status Risk Notes Problem Chronic rhinitis (22074204) Chronic rhinitis (J31.0) Active confirmed Problem Chronic sinusitis (80254824) Chronic sinusitis, unspecified (J32.9) Active confirmed Problem Uncomplicated severe persistent asthma (848960509) Severe persistent asthma, uncomplicated (J45.50) Active confirmed Problem Cough (77152510) Cough (R05) Active confirmed Problem Gastro-esophageal reflux disease without esophagitis (403293271) Gastro-esophageal reflux disease without esophagitis (K21.9) Active confirmed Problem Long-term current use of systemic steroid (146302047096564) long term care administrator (current) use of systemic steroids (Z79.52) Active confirmed Problem History of pneumonia (181537961) Personal history of pneumonia (recurrent) (Z87.01) Active confirmed Plan Of Treatment No Information Insurance Providers Payer Name Payer Address Payer Phone Subscriber Number Group Number Insured Name Patient Relationship to Insured Coverage Start Date Coverage End Date [employer] Medicare [address] [address] [place] [address] [id number] Ariana Day Self - patient is the insured Medical (General) History Medical History History ICD Code Acid Reflux Hyperlipidemia, unspecified E78.5
--- OUTSIDE RECORDS SUMMARY | 2025-08-01 09:47 | XMS_ITS | Encounter Summary ---
Author Organization [facility] Address [address] [place] [address] Care Team Providers Care Air Route Controller Name Role Phone Tiarra Martinez MD Primary Care Provider [phone] Encounter Details Date Type Department Care Team (Latest Contact Info) Description 04/15/2008 Outpatient Historical [facility] Dflt Department Elia Barrera MD [address] 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
--- OUTSIDE RECORDS SUMMARY | 2025-08-01 09:47 | XMS_ITS | Encounter Summary ---
Author Organization [facility] Address [address] [place] [address] Care Team Providers Care Technical Training Coordinator Name Role Phone Tiarra Martinez MD Primary Care Provider [phone] Encounter Details Date Type Department Care Team (Late st Contact Info) Description 06/11/2007 Outpatient Historical [facility] Other Specified Disorder of the Esophagus (Primary Dx) Social History Tobacco Use Types Packs/Day Years Used Date Smoking Tobacco: Never Assessed Comments Unknown Sex and Gender Information Value Date Recorded Sex Assigned at Not on file Legal Sex Female 4:11 AM FACILITY PRACTICE SPECIALIST Gender Identity Not on file Sexual Orientation Not on file documented as of this encounter Plan of Treatment Not on file documented as of this encounter Visit Diagnoses Diagnosis Other specified disorder of the esophagus- Primary documented in this encounter Care Teams Technical Training Coordinator Relationship Specialty Start Date End Date Tiarra Martinez MD [address] [place] [address] PCP - General 06/11/07 documented as of this encounter
--- OUTSIDE RECORDS SUMMARY | 2025-08-01 09:47 | XMS_ITS | Encounter Summary ---
Author Organization [facility] Address [address] [place] [address] Care Team Providers Care Product Safety Specialist Name Role Phone Tiarra Martinez MD Primary Care Provider [phone] Encounter Details Date Type Department Care Team (Latest Contact Info) Description 04/19/2006 Outpatient Historical [facility] Ba Nolan MD NO ADDRESS ON FILE Cough (Primary Dx) Social History Tobacco Use Types Packs/Day Years Used Date Smoking Tobacco: Never Assessed Comments Unknown Sex and Gender Information Value Date Recorded Sex Assigned at Not on file Legal Sex Female 4:11 AM LEATHER SKINNER Gender Identity Not on file Sexual Orientation Not on file documented as of this encounter Plan of Treatment Not on file documented as of this encounter Visit Diagnoses Diagnosis Cough- Primary documented in this encounter Care Teams Product Safety Specialist Relationship Specialty Start Date End Date Tiarra Martinez MD [address] [place] [address] PCP - General 06/11/07 documented as of this encounter
--- OUTSIDE RECORDS SUMMARY | 2025-08-01 09:47 | XMS_ITS | Encounter Summary ---
Author Organization [facility] Address [address] [place] [address] Care Team Providers Care Ladle Puller Name Role Phone Tiarra Martinez MD Primary Care Provider [phone] Encounter Details Date Type Department Care Team (Late st Contact Info) Description 02/24/2008 Outpatient Historical [facility] LAB, [address] Ba Nolan MD NO ADDRESS ON FILE Social History Tobacco Use Types Packs/Day Years Used Date Smoking Tobacco: Never Assessed Comments Unknown Sex and Gender Information Value Date Recorded Sex Assigned at Not on file Legal Sex Female 4:11 AM SECURITY AGENT Gender Identity Not on file Sexual Orientation [...] STAIN No organisms seen Rare WBC's seen [facility] PRELIMINARY REPORT Heavy growth Staphylococcus aureus Moderate growth oxidase positive Gram negative rods [facility] FINAL REPORT Heavy growth Staphylococcus aureus Susceptibility on previous culture. Moderate growth Pseudomonas aeruginosa Susceptibility on previous culture. Heavy growth Diphtheroids [facility] Specimen from nasal sinus (specimen) (Maxillary) 02/24/2008 10:10 AM CDT 02/25/2008 10:50 AM CDT us Ba Nolan MD MICROBIOLOGY - GENERAL ORDERAB LES Final Result Performing Organization Address [facility] Co de Phone Number [facility] CLIA# [id number] [address] [place] [address] * WOUND CULTURE WITH GRAM STAIN (02/24/2008 10:05 AM CDT) GRAM STAIN No organisms seen Rare WBC's seen [facility] PRELIMINARY REPORT Heavy growth Staphylococcus aureus Moderate growth oxidase positive Gram negative rods [facility] FINAL REPORT Heavy growth Staphylococcus aureus Susceptibility on previous culture. Moderate growth Pseudomonas aeruginosa Susceptibility on previous culture. Heavy growth Diphtheroids [facility] Specimen from nasal sinus (specimen) (Maxillary) 02/24/2008 10:05 AM CDT 02/25/2008 10:45 AM CDT us Ba Nolan MD MICROBIOLOGY - GENERAL ORDERAB LES Final Result Performing Organization Address City/[facility]/ZIP Co de Phone Number [facility] CLIA# [id number] [address] [place] [address] * WOUND CULTURE WITH GRAM STAIN (02/24/2008 10:00 AM CDT) GRAM STAIN No organisms seen No WBC's seen. [facility] PRELIMINARY REPORT Heavy growth Staphylococcus aureus Moderate growth oxidase positive Gram negative rods [facility] SUSCEPTIBILITY PERFORMED ON STAPHYLOCOCCUS AUREUS [facility] SUSCEPTIBILITY PERFORMED ON PSEUDOMONAS AERUGINOSA [facility] FINAL REPORT Heavy growth Staphylococcus aureus Moderate growth Pseudomonas aeruginosa Heavy growth Diphtheroids [facility] Specimen from nasal sinus (specimen) (Maxillary) [...] ORDERAB LES Final Result Performing Organization Address City/State/[facility] Co de Phone Number [facility] CLIA# [id number] [address] [facility] [place] [address] documented in this encounter Visit Diagnoses Not on filedocumented in this encounter Care Teams Ladle Puller Relationship Specialty Start Date End Date Tiarra Martinez MD [address] [place] [address] PCP - General 06/11/07 documented as of this encounter
--- OUTSIDE RECORDS SUMMARY | 2025-08-01 09:47 | XMS_ITS | Encounter Summary ---
Author Organization [facility] Address [address] [place] [address] Care Team Providers Care Door To Door Salesman Name Role Phone Charlee Martinez MD Primary Care Provider [phone] Encounter Details Date Type Department Care Team (Late st Contact Info) Description 01/16/2008 Outpatient Historical [facility] DEPT Joann Brothers MD [address] [facility] [address] [place] [address] Unspecified Sinusitis (Chronic) Social History Tobacco Use Types Packs/Day Years Used Date Smoking Tobacco: Never Assessed Comments Unknown Sex and Gender Information Value Date Recorded Sex Assigned at Not on file Legal Sex Female 4:11 AM FIGURE CLERK Gender Identity Not on file Sexual Orientation [...] AM CDT Narrative 01/16/2008 10:14 AM CDT [facility] [address] [place], [place] [address] Admit Date: 01/16/2008 RADHA DAY Sex: F Admit Prov: JOANN BROTHERS Date: 1940 Primary Care Prov: CHARLEE MARTINEZ CMRN: [id number] [id number] [facility] Ordering Prov: N/A Accession Number: [id number] Interpretation Examination: CT of the paranasal sinuses. [...] AMK Procedure Note Provider, Historical - 01/16/2008 [facility] [address] [place], [place] [address] Admit Date: 01/16/2008 KEMAR ROMINAJorgito Connolly Sex: F Admit Prov: JOANN BROTHERS Date: 1940 Primary Care Prov: CHARLEE MARTINEZ CMRN: [id number] [id number] IM[facility]ING SERVICES Ordering Prov: N/A Interpretation Examination: CT of the paranasal sinuses. 01/16/2008 Clinical History: Possible inflammation. Procedure: Coronal 2.5 mm images of the paranasal sinuses wereobtained without IV contrast. Findings: Previous medial antrectomies have been performed, withabsence of the medial madden of the maxillary sinuses. There is [id number]% opacification of the remaining right maxillary sinus. [...] (chronic) documented in this encounter Care Teams Door To Door Salesman Relationship Specialty Start Date End Date Charlee Martinez MD [address] [place] [address] PCP - General 06/11/07 documented as of this encounter
--- OUTSIDE RECORDS SUMMARY | 2025-08-01 09:47 | XMS_ITS | Patient Health Record ---
Author Organization [facility] Billing Info Address [address] [place] [id number] Care Team Providers Care Sheet Rock Taper Name Role Phone RYANNE EMORY Primary Care Provider THOM Silverman Unavailable [phone] Reason For Referral No Information Medications Medication [...] MG 1 tablet Orally daily Active Ipratropium Armstrong 0.03 % 2 sprays in e ach [...] Risk Notes Problem Contusion of lower leg (13037862) Contusion of lower leg (924.10) Active confirmed left hip hematoma, s/p evacuation. wound healing well. some irregularities of the contour. Follow up as needed. Problem [id number] Hematoma of left thigh, subsequent encounter (S70.12XD) Active confirmed left hip hematoma, s/p evacuation. wound healing well. some irregularities of the contour. Follow up as needed. Plan Of Treatment No Information Insurance Providers Payer Name Payer Address Payer Phone Subscriber Number Group Number Insured Name Patient Relationship to Insured Coverage Start Date Coverage End Date [facility] MEDIC[facility] PPO/[id number] [address] [address] [place], [place] [id number] rAiana Day Self - patient is the insured 5 6 Medical (General) History Medical History History ICD Code Esophageal reflux COPD [place] SOB Skin cancers Measles Mumps Surgical History Surgery Date(Month/Year) BILATERAL shoulder surgery 1989, 1994 sinus surgery 2005 skin cancer excision 2010 colonoscopy 2013 cardiac stent 2013 Evacuation of left hip hematoma 10/09/19 20 Hospitalization History Reason Date(Month/Year) See Surgical Hx
--- OUTSIDE RECORDS SUMMARY | 2025-08-01 09:47 | XMS_ITS | Encounter Summary ---
Author Organization [facility] Address [address] [place] [address] Care Team Providers Care Dry Wall Installations Mechanic Name Role Phone Tiarra Martinez MD Primary Care Provider [phone] Encounter Details Date Type Department Care Team (Late st Contact Info) Description 05/10/2006 Outpatient Historical [facility] ([facility]) [address] 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
--- NOTE | 2025-08-01 09:50 | ED.LOWEXIN ---
HPI - Extremity Injury (Lower) General Chief Complaint: Extremity Injury, Lower Stated Complaint: Right Foot Injury Time Seen by Provider: 08/01/25 10:00 Source: patient, RN notes reviewed and old records reviewed Mode of arrival: ambulatory Limitations: no limitations History of Present Illness HPI Narrative: 85 year old female who present to express care with complaints of pain and bruising to the top of her distal right foot and to proximal aspect of 1st through 4th toe after a full bottle of shampoo fell onto her foot while she was in the shower on Saturday, Patient reports that she has applied ice and taken Tylenol for her discomfort.Patient reports that most discomfort is at the distal aspect of her right foot and at the base of her 2nd and 3rd toes. Patient is on daily Prednisone 5mg daily for her breathing states tends to bruise easily. MD complaint: foot injury (right top of foot) Onset (ago): day(s) (5-6 days) Injury: Right: foot (distal top of foot and toes) Type of Injury: blunt Severity: mild Treatments prior to arrival: cold therapy and other (Tylenol) Related Data Home Medications ?Medication ?Instructions ?Recorded ?Confirmed ?Last Taken ?Type atorvastatin 80 mg tablet 80 mg PO DAILY 09/06/23 06/22/24 Unknown History esomeprazole magnesium 40 mg 40 mg PO BIDWM 09/06/23 06/22/24 Unknown History capsule,delayed release fluticasone fur. 200 mcg-umeclid 1 inh inhalation DAILY 09/06/23 06/22/24 Unknown History 62.5 mcg-vilant 25 mcg inhalat.powder (Trelegy Ellipta) nitroglycerin 0.4 mg sublingual 0.4 mg sublingual Q5M PRN Chest 09/06/23 06/22/24 Unknown History tablet Pain benralizumab 30 mg/mL subcutaneous 30 mg subcut [id number] 12/27/23 06/22/24 Unknown History auto-injector (Fasenra Pen) prednisone 1 mg tablet 2 mg PO DAILY 12/27/23 06/22/24 Unknown History metoprolol succinate 50 mg mg PO 03/25/25 Unknown History tablet,extended release 24 hr famotidine 40 mg tablet mg 08/01/25 Unknown History mirabegron 50 mg tablet,extended mg PO 08/01/25 Unknown History release 24 hr Allergies Allergy/AdvReac Type Severity Reaction Status Date / Time No Known Allergies Allergy Verified 06/22/24 09:34 Review of Systems Review of Systems: CONSTITUTIONAL: Denies fever, chills, or sweats. EYES: Denies visual changes, redness, or discharge. ENT: Denies rhinorrhea, congestion, sore throat, or otalgia. CARDIOVASCULAR: Denies chest pain, palpitations, or edema. RESPIRATORY: Denies acute cough or dyspnea. GASTROINTESTINAL: Denies abdominal pain, nausea, vomiting, or diarrhea. GENITOURINARY: Denies dysuria or hematuria. SKIN: Denies rash or itching. MUSCULOSKELETAL: Denies back pain,positive for right foot pain to distal aspect of foot with some mild swelling and ecchymosis and to 1st thru 4th toes right foot., or myalgia. NEUROLOGIC: Denies headache, numbness, or weakness. PSYCHIATRIC: Denies anxiety or depression. All systems reviewed & are unremarkable except as noted in HPI and below PMFSH Past Medical History Medical History Strain of left hip Squamous cell carcinoma of left upper extremity Asthma Heart attack COPD (chronic obstructive pulmonary disease) High cholesterol Acid reflux Surgical History Surgical History H/O heart artery stent x1 History of left hip replacement H/O shoulder surgery H/O cardiac catheterization History of tonsillectomy Family History Family History Father Cerebrovascular accident Other Heart disease Hypertension Pancreatic cancer Social History Social History Smoking status: Never smoker Alcohol intake: current Alcohol use details: 3 drinks per week Substance use: never Substance use type: does not use Living arrangements: with family Gender identity (if verbalized by the patient): Female Sexual Orientation (if Verbalized by the Patient): Straight or Heterosexual Spiritual care concerns: No Comments At time of signature, agree with nursing past medical, surgical, social and family history. There is no relevant family history pertinent to the presenting complaint Exam Narrative: GENERAL: Well-appearing, well-nourished, and in no acute distress. HEAD: Normocephalic, atraumatic. EYES: PERRLA and EOMI. ENT: Nares clear, no rhinorrhea or epistaxis. Mucous membranes moist.TM's normal with good light reflex throat pink without swelling. NECK: Supple.no lymphadenopathy CHEST: Clear to auscultation. No respiratory distress.no acute cough or congestion noted SAO2 100% on room air HEART: Regular rate and rhythm. No murmur heard. Normal peripheral pulses. ABDOMEN: Soft, nontender, nondistended, normal active bowel sounds. EXTREMITIES: Normal range of motion. No edema.Exception noted to right foot with some swelling noted to top of right foot and toes, with ecchymosis and pain especially to 1st-4th toes with greatest discomfort top of distal foot and base of 2md and 3rd toes,Pedal pulse palpable of adequate quality, patient is able to flex and extend right foot but with increased pain,reports no tingling or numbness to right foot or toes. SKIN: Warm, dry, no rash. NEURO: No focal deficits. Alert and oriented x3. Course Course Emergency Course: Patient is aware of diagnosis, understands and agrees to treatment plan.? Anticipatory guidance given.? Patient agrees to follow-up as directed and is aware of reasons to seek care at the emergency department. Portions of this record may have been created with voice recognition software Level of Care: Express Care Visit Vital Signs Vital signs: Vital Signs Temperature 36.1 C L 08/01/25 09:43 Pulse Rate 66 08/01/25 09:43 Respiratory Rate 16 08/01/25 09:43 Blood Pressure 135/59 L 08/01/25 09:43 Pulse Oximetry 100 08/01/25 09:43 Oxygen Delivery Room Air 08/01/25 09:43 Temperature 36.1 C L 08/01/25 09:43 Pulse Rate 66 08/01/25 09:43 Respiratory Rate 16 08/01/25 09:43 Blood Pressure 135/59 L 08/01/25 09:43 Pulse Oximetry 100 08/01/25 09:43 Oxygen Delivery Room Air 08/01/25 09:43 Reviewed MDM - Extremity Injury (Lower) Differential Diagnosis Differential diagnosis: Likely fracture of toe and other ( foot fracture, contusion to foot and toes, pain to right foot and toes with bruising) Medical Records Attestation: I reviewed the patient's medical records. Imaging Data Attestation: I personally reviewed and interpreted this imaging study as follows: My impression: no fracture or dislocation of right foot Radiologist's impression: [facility] [address] [place] [address] XRay Report Signed Patient: Ariana Day : 1940 MR#: [id number] Age: 85 Acct:[id number] Loc: [facility] ADM Date: 08/01/[address]: Ordering Physician: Olivia Salazar APRN Date of Service: 08/01/25 Procedure(s): XR foot RT min 3V Accession Number(s): [id number] cc: Olivia Salazar APRN; Juan, Tiarra VAZQUEZ~ Examination: XR foot RT min 3V Clinical History: dropped shampoo bottle on foot, METATARSAL PAIN Comparison: None Technique: 4 views right foot Findings/impression: 1. No fracture or dislocation right foot. 2. Diabetic arteriopathy. Reviewed, dictated and finalized at location . ETTER OPERATOR Please be advised this is a medical document. It is intended for [id number] communication. It is written in medical language and may contain unfamiliar abbreviations or verbiage. Medical documents are intended to carry relevant information, facts as evident, and the clinical opinion of the practitioner at the time of the encounter. This report may have been done utilizing a voice recognition system. Attempts have been made to correct errors. However, there may be uncorrected grammatical, spelling, and recognition errors present. The file time of this note does not necessarily represent the time of service. Dictated By: Srinath Patel MD 08/01/25 1052 Signed By: <Electronically signed by Srinath Patel MD in > Critical Care Time Critical Care Time Critical Care Time: No Discharge Plan Discharge Clinical Impression: Contusion of foot, right Qualifiers: Encounter type: initial encounter Qualified Code(s): S90.31XA - Contusion of right foot, initial encounter Patient Disposition: Home Condition: Stable Instructions: Antibiotic Form, Foot Contusion (ED) Additional Instructions: Elastic wrap or orthopedic splint as directed for comfort for the next 5-7 days Tylenol for lesser pain Follow-up with orthopedic surgeon or radar scientist if any further complaints Follow-up with PCP if further problems or concerns Ice to the area 20-30 minutes 4-6 times a day Elevate above heart If your symptoms persist, change or worsen significantly before you can contact your personal physician then please, without delay, go to the emergency department for further evaluation. Follow-up with PCP in 7-10 days or sooner if needed Follow up with PCP soon in regards to your blood pressure which is elevated above threshold for referral. Blood pressure above 120/80 may indicate pre-hypertension. 135/59 Patient Language: Finnish Prescriptions: No Action prednisone 1 mg tablet 2 mg PO DAILY Fasenra Pen 30 mg/mL auto-injector 30 mg SUBCUT [id number] metoprolol succinate 50 mg tablet extended release 24 hr PO famotidine 40 mg tablet mirabegron 50 mg tablet extended release 24 hr PO atorvastatin 80 mg Tablet 80 mg PO DAILY esomeprazole magnesium 40 mg Capsule,Delayed Release(Dr/Ec) 40 mg PO BIDWM nitroglycerin 0.4 mg Tablet, Sublingual 0.4 mg SUBLINGUAL Q5M PRN (Reason: Chest Pain) Rx Instructions: do not exceed 3 doses per episode Trelegy Ellipta 200-62.5-25 mcg Blister With Device 1 inh INHALATION DAILY trazodone 50 mg Tablet 50 mg PO HS Qty: 30 0RF aspirin [Aspirin Childrens] 81 mg Tablet,Chewable 81 mg PO DAILY Qty: 30 0RF oxycodone 5 mg Tablet 5 mg PO Q4-5H PRN (Reason: Pain rated 6 or greater) Qty: 12 0RF Follow-up/Referrals: Juan,MD Tiarra [Primary Care Provider] Time of Disposition: 11:23 Quality [place] Coma Scale Eyes: Open Verbal: Oriented and Alert Motor: Follows Commands [place] Coma Total Score: 15
== END 2025-08-01 11:25 | disposition home or self-care (01) ==
PROVIDERS: Emergency Provider Registered Nurse; PCP Internal Medicine Geriatric Medicine
DX: S90.31XA Contusion of right foot, initial encounter (principal); W20.8XXA Other cause of strike by thrown, projected or falling object, initial encounter; J44.9 Chronic obstructive pulmonary disease, unspecified; E78.00 Pure hypercholesterolemia, unspecified; K21.9 Gastro-esophageal reflux disease without esophagitis; I25.2 Old myocardial infarction; Z85.828 Personal history of other malignant neoplasm of skin; Z95.5 Presence of coronary angioplasty implant and graft; Z96.642 Presence of left artificial hip joint
CPT/HCPCS: 73630; 99213; G0463